=== PATIENT | female | born 1940 | race Caucasian/White ===

== ENCOUNTER 2019-11-19 14:20 | Outpatient (REF) | payer MEDICARE, SELFPAY | END 2019-11-19 14:21 | disposition home or self-care (01) | LOC: HO.HMGCLDS 14:20 | PROVIDERS: PCP Internal Medicine; Visit Provider Internal Medicine | DX: Z13.89 Encounter for screening for other disorder (principal) ==

== ENCOUNTER 2020-09-26 13:07 | Outpatient (REF) | payer MEDICARE, SELFPAY ==
--- NOTE | ~2020-09-26 | XR_ITS ---
EXAMINATION: XR CHEST CLINICAL INFORMATION: Cough COMPARISON: None TECHNIQUE: 2 views of the chest were obtained. FINDINGS: There is some atelectasis or scarring seen within the lingula. No definite confluent airspace disease is appreciated. Apical pleural thickening seen bilaterally. 8mm left apical density present which may represent calcified granuloma. Heart normal size. No evidence of pulmonary edema. No pneumothorax or significant pleural effusion. XR/XR chest 2V IMPRESSION: No significant acute parenchymal disease.
== END 2020-09-26 13:08 | disposition home or self-care (01) ==
LOC: HO.HMGCX 13:07
PROVIDERS: PCP Internal Medicine; Visit Provider Internal Medicine
DX: R05 Cough (principal)
CPT/HCPCS: 71046

== ENCOUNTER 2021-01-02 14:51 | Outpatient (REF) | payer MEDICARE, SELFPAY ==
[2021-01-02 16:45] LABS: Estimated Average Glucose 237 mg/dL; Hemoglobin A1c % 9.9 %
[2021-01-02 16:49] LABS: Alanine Aminotransferase 45 U/L (0-31); Albumin Level 4.2 g/dL (3.5-5.0); Alkaline Phosphatase 74 U/L (39-117); Anion Gap 12 (12-20); Aspartate Amino Transferase 22 U/L (5-31); Bilirubin Total 0.4 mg/dL (0.0-1.0); Blood Urea Nitrogen 24 mg/dL (9-16); Calcium 9.2 mg/dL (8.4-10.2); Carbon Dioxide 30 mmol/L (22-29); Chloride 102 mmol/L (96-108); Estimated Glomerular Filt Rate 34; Glucose Fasting 211 mg/dL (60-99); Potassium 4.4 mmol/L (3.3-5.1); Sodium 140 mmol/L (135-145); Total Protein 6.8 g/dL (6.5-8.0)
[2021-01-02 17:09] LABS: Vitamin D 25-OH Total 25.5 ng/mL (>30)
[2021-01-02 17:20] LABS: Folate > 20.0 ng/mL (> or = 4.0); Vitamin B12 1137 pg/mL (200-900)
== END 2021-01-02 14:52 | disposition home or self-care (01) ==
LOC: HO.HMGCLDS 14:51
PROVIDERS: PCP Internal Medicine; Visit Provider Internal Medicine
DX: E78.5 Hyperlipidemia, unspecified (principal); N18.9 Chronic kidney disease, unspecified; D75.89 Other specified diseases of blood and blood-forming organs; E55.9 Vitamin D deficiency, unspecified; E11.9 Type 2 diabetes mellitus without complications
CPT/HCPCS: 36415; 80053; 82043; 82306; 82607; 82746; 83036

== ENCOUNTER 2021-02-22 10:42 | Outpatient (REF) | payer MEDICARE, SELFPAY ==
[2021-02-22 14:14] LABS: Alanine Aminotransferase 62 U/L (0-31); Albumin Level 4.1 g/dL (3.5-5.0); Alkaline Phosphatase 115 U/L (39-117); Anion Gap 11 (12-20); Aspartate Amino Transferase 54 U/L (5-31); Bilirubin Total 0.3 mg/dL (0.0-1.0); Blood Urea Nitrogen 22 mg/dL (9-16); Calcium 9.7 mg/dL (8.4-10.2); Carbon Dioxide 30 mmol/L (22-29); Chloride 101 mmol/L (96-108); Estimated Glomerular Filt Rate 37; Glucose Random 207 mg/dL (60-115); Potassium 4.3 mmol/L (3.3-5.1); Sodium 138 mmol/L (135-145)
[2021-02-22 14:36] LABS: TSH reflex Free T4 1.93 uIU/mL (0.32-4.0)
== END 2021-02-22 10:43 | disposition home or self-care (01) ==
LOC: HO.HMGCLDS 10:42
PROVIDERS: PCP Internal Medicine; Visit Provider Internal Medicine
DX: E11.9 Type 2 diabetes mellitus without complications (principal); N18.9 Chronic kidney disease, unspecified
CPT/HCPCS: 36415; 80053; 84443

== ENCOUNTER 2021-10-16 14:04 | Outpatient (REF) | payer MEDICARE, SELFPAY ==
[2021-10-16 16:56] LABS: Estimated Average Glucose 206 mg/dL; Hemoglobin A1c % 8.8 %
[2021-10-16 16:57] LABS: Alanine Aminotransferase 23 U/L (0-31); Albumin Level 4.1 g/dL (3.5-5.0); Alkaline Phosphatase 75 U/L (39-117); Anion Gap 16 (12-20); Aspartate Amino Transferase 21 U/L (5-31); Bilirubin Total 0.4 mg/dL (0.0-1.0); Blood Urea Nitrogen 25 mg/dL (9-16); Calcium 9.1 mg/dL (8.4-10.2); Carbon Dioxide 25 mmol/L (22-29); Chloride 101 mmol/L (96-108); Cholesterol 184 mg/dL; Estimated Glomerular Filt Rate 38; Glucose Fasting 342 mg/dL (60-99); HDL Cholesterol 47 mg/dL; Potassium 4.6 mmol/L (3.3-5.1); Sodium 137 mmol/L (135-145); Total Protein 6.9 g/dL (6.5-8.0); Triglycerides 405 mg/dL
[2021-10-16 17:18] LABS: TSH reflex Free T4 1.51 uIU/mL (0.32-4.0)
== END 2021-10-16 14:05 | disposition home or self-care (01) ==
LOC: HO.HMGCLDS 14:04
PROVIDERS: PCP Internal Medicine; Visit Provider Internal Medicine
DX: I11.9 Hypertensive heart disease without heart failure (principal); E11.22 Type 2 diabetes mellitus with diabetic chronic kidney disease; N18.9 Chronic kidney disease, unspecified; E78.5 Hyperlipidemia, unspecified
CPT/HCPCS: 36415; 80053; 80061; 83036; 84443

== ENCOUNTER 2021-12-18 14:43 | Outpatient (REF) | payer MEDICARE, SELFPAY ==
[2021-12-18 16:27] LABS: MANUAL DIFF FLAG NO
[2021-12-18 16:33] LABS: Basophils Absolute Auto 0.1 X10*3/uL (0.0-0.2); Basophils Percent Auto 0.7 % (0-2); Eosinophils Absolute Auto 0.3 X10*3/uL (0.0-0.4); Eosinophils Percent Auto 3.4 % (0-4); Hematocrit 40.9 % (37.0-47.0); Hemoglobin 13.4 g/dl (12.0-16.0); Imm Gran Abs Auto 0.05 X10*3/uL (0.00-0.03); Imm Gran Pct Auto 0.5 % (0.0-0.4); Lymphocytes Absolute Auto 3.3 X10*3/uL (1.2-4.9); Lymphocytes Percent Auto 32.1 % (20-40); Mean Corpuscular HGB Conc 32.8 g/dl (31.0-35.0); Mean Corpuscular Hemoglobin 32.6 pg (27.0-33.0); Mean Corpuscular Volume 99.5 fL (80.0-98.0); Mean Platelet Volume 10.4 fL (9.4-12.3); Monocytes Absolute Auto 0.9 X10*3/uL (0.1-1.2); Monocytes Percent Auto 9.3 % (2-11); Neutrophils Absolute Auto 5.5 x10*3/uL (2.0-8.3); Platelet Count 347 X10*3/uL (160-400); Red Blood Count 4.11 X10*6/uL (4.20-5.50); Red Cell Distribution Width 13.2 % (11.0-16.0); White Blood Count 10.1 X10*3/uL (4.8-10.8)
[2021-12-18 16:41] LABS: Estimated Average Glucose 206 mg/dL; Hemoglobin A1c % 8.8 %
[2021-12-18 16:42] LABS: Alanine Aminotransferase 72 U/L (0-31); Albumin Level 4.4 g/dL (3.5-5.0); Alkaline Phosphatase 95 U/L (39-117); Anion Gap 12 (12-20); Aspartate Amino Transferase 46 U/L (5-31); Bilirubin Total 0.3 mg/dL (0.0-1.0); Blood Urea Nitrogen 26 mg/dL (9-16); Calcium 9.8 mg/dL (8.4-10.2); Carbon Dioxide 31 mmol/L (22-29); Chloride 101 mmol/L (96-108); Estimated Glomerular Filt Rate 39; Glucose Random 73 mg/dL (60-115); Potassium 4.1 mmol/L (3.3-5.1); Sodium 140 mmol/L (135-145); Total Protein 7.2 g/dL (6.5-8.0)
[2021-12-18 17:14] LABS: B Type Natriuretic Peptide 122 pg/mL (<100)
== END 2021-12-18 14:44 | disposition home or self-care (01) ==
LOC: HO.HMGCLDS 14:43
PROVIDERS: PCP Internal Medicine; Visit Provider Internal Medicine
DX: E11.22 Type 2 diabetes mellitus with diabetic chronic kidney disease (principal); N18.9 Chronic kidney disease, unspecified
CPT/HCPCS: 36415; 80053; 83036; 83880; 85025

== ENCOUNTER 2022-02-14 14:58 | Outpatient (REF) | payer MEDICARE, SELFPAY ==
[2022-02-14 17:17] LABS: Alanine Aminotransferase 49 U/L (0-31); Albumin Level 4.2 g/dL (3.5-5.0); Alkaline Phosphatase 92 U/L (39-117); Anion Gap 12 (12-20); Aspartate Amino Transferase 28 U/L (5-31); Bilirubin Total 0.4 mg/dL (0.0-1.0); Blood Urea Nitrogen 26 mg/dL (9-16); Calcium 10.5 mg/dL (8.4-10.2); Carbon Dioxide 33 mmol/L (22-29); Chloride 99 mmol/L (96-108); Estimated Glomerular Filt Rate 41; Glucose Random 172 mg/dL (60-115); Potassium 3.7 mmol/L (3.3-5.1); Sodium 140 mmol/L (135-145); Total Protein 6.8 g/dL (6.5-8.0)
[2022-02-16 07:42] LABS: HBS Num1 0.47 mIU/mL (0-7.99); HBc Num1 0.17 S/CO (0.00-0.79); HBsAGNum1 0.33 S/CO (0.00-0.99); Hepatitis B Core Antibody Nonreactive (Nonreactive); Hepatitis B Surface Antigen Negative (Negative); ~HepC Num1 0.11 S/CO (0.00-0.79); ~Hepatitis A Antibody IgM Nonreactive (Nonreactive); ~Hepatitis B Surface Antibody NONREACTIVE (Nonreactive); ~Hepatitis C Antibody Nonreactive (Nonreactive)
== END 2022-02-14 14:59 | disposition home or self-care (01) ==
LOC: HO.HMGCLDS 14:58
PROVIDERS: PCP Internal Medicine; Visit Provider Internal Medicine
DX: I12.9 Hypertensive chronic kidney disease with stage 1 through stage 4 chronic kidney disease, or unspecified chronic kidney disease (principal); N18.9 Chronic kidney disease, unspecified
CPT/HCPCS: 36415; 80053; 86704; 86706; 86709; 86803; 87340

== ENCOUNTER 2022-06-12 12:57 | Outpatient (REF) | payer MEDICARE, SELFPAY ==
[2022-06-12 14:28] LABS: Alanine Aminotransferase 94 U/L (0-31); Albumin Level 4.1 g/dL (3.5-5.0); Alkaline Phosphatase 91 U/L (39-117); Anion Gap 13 (12-20); Aspartate Amino Transferase 62 U/L (5-31); Bilirubin Total 0.5 mg/dL (0.0-1.0); Blood Urea Nitrogen 23 mg/dL (9-16); Calcium 9.4 mg/dL (8.4-10.2); Carbon Dioxide 34 mmol/L (22-29); Chloride 100 mmol/L (96-108); Estimated Glomerular Filt Rate 42; Glucose Random 158 mg/dL (60-115); Potassium 3.8 mmol/L (3.3-5.1); Sodium 143 mmol/L (135-145); Total Protein 6.7 g/dL (6.5-8.0)
[2022-06-12 14:57] LABS: Estimated Average Glucose 232 mg/dL; Hemoglobin A1c % 9.7 %; Total Hemoglobin (HGBA1C) 3916.5416 umol/L
== END 2022-06-12 12:58 | disposition home or self-care (01) ==
LOC: HO.HMGCLDS 12:57
PROVIDERS: PCP Internal Medicine; Visit Provider Internal Medicine
DX: E03.9 Hypothyroidism, unspecified (principal); E11.9 Type 2 diabetes mellitus without complications; N18.9 Chronic kidney disease, unspecified
CPT/HCPCS: 36415; 80053; 83036

== ENCOUNTER 2022-11-01 12:31 | Outpatient (AMB) | payer MEDICARE, SELFPAY ==
--- NOTE | 2022-11-01 12:38 | A.OFFPC_ITS ---
Vital Signs 11/01/22 12:40 Height 5 ft 7 in Weight 161 lb BMI 25.2 BP 130/58 L Blood Pressure Location Lt brachial Position Sitting Pulse 63 Pulse Source Pulse Oximeter Pulse Oximetry (%) 96 Oxygen Delivery Method Room Air Intake Visit Reasons: 4 Month follow up DM Intake Note: Patient is here for follow up on her diabetes. Allergies dulaglutide [Trulicity] Allergy (Unknown, Verified 11/01/22 12:41) GERD losartan Allergy (Unknown, Verified 11/01/22 12:41) Hyperkalemia Sulfa (Sulfonamide Antibiotics) Allergy (Unknown, Verified 11/01/22 12:41) Rash Medication List - Last Reconciled 11/01/22 by Orquidea Keller MD allopurinol 100 mg PO DAILY amlodipine 2.5 mg PO DAILY benzonatate 100 mg PO BID PRN blood sugar diagnostic (FreeStyle Lite Strips) Use to test blood sugar three times daily buspirone 40 mg (4 x 10 mg) PO BEDTIME codeine-guaifenesin 10-100 mg/5 mL 5 mL PO Q4-6H PRN cyclobenzaprine 5 mg PO TID PRN furosemide 20 mg PO BID insulin aspart U-100 (Novolog FlexPen U-100 Insulin aspart) 14 units (0.14 mL) subcut TID insulin degludec 50 units (0.25 mL) subcut DAILY lactic acid-urea 1 appl topical DAILY PRN lancets (FreeStyle Lancets) use to test blood sugars three times per day latanoprost 0.005% 1 drp ophthalmic (eye) DAILY levothyroxine 75 mcg PO DAILY metoprolol succinate ER 25 mg PO BID miscellaneous medical supply 1 ea miscellaneous .QD omeprazole 20 mg PO DAILY pen needle, diabetic QID scopolamine base 1 patch transdermal Q3D PRN simvastatin 40 mg (2 x 20 mg) PO DAILY tramadol 50 mg PO TID PRN valacyclovir (Valtrex) 1,000 mg PO TID Tobacco use date assessed: 11/01/22 Fall risk assessment: No Falls in past year Last assessed Fall Risk: 11/01/22 Dental Screening Dental Screen Date: 11/01/22 Did you have a dental visit in the last 12 months?: Yes Did you have a dental problem in the last 6 months where you did not have access to dental care?: No Was dental information given to patient?: Patient has dentist HPI 4 Month follow up DM HPI Details Pt presents for DM 2, HTN, hypothyroid, hyperlipid, stable on meds. Patient has been on cruise to [place] in September. She has been working out with personal care worker twice a week and her balance improved significantly. PENDING SALE TO [facility] Medical History Vitamin D deficiency Macrocytosis Cough Sciatica Hypothyroidism HTN (hypertension) DM type 2 (diabetes mellitus, type 2) Lower extremity edema Irritable bowel syndrome (IBS) Chronic GERD Anxiety Chronic kidney disease (CKD) Hyperlipidemia Hypertension associated with diabetes Surgical History No pertinent past surgical history Family History Mother Ovarian cancer Father Pancreatic cancer Thyroid disease Social History Household Members Other:: Housing: House Alcohol intake: never Patient Tobacco Use Status: Never used Tobacco e-Cigarette/Vaping Use: Never Used Second Hand Smoke Exposure: No Current occupational status: retired Cognitive needs: No Hearing needs: No Vision needs: Yes Questionnaire Thrive Questionnaire Date Thrive assessed: 08/29/20 JAMES-7 AMB Questionnaire JAMES-7 Date JAMES - 7 assessed: 02/22/21 Source: Developed by Drs. Bryce Garcia, Sophie Baldwin, Rock Coyle and colleagues, with an educational pranay from [employer]. Review of Systems Const All systems reviewed & are unremarkable except as noted in HPI and below Reports no additional complaints Eyes Reports no additional complaints ENT Reports no additional complaints Card Reports no additional complaints Resp Reports no additional complaints GI Reports no additional complaints Reports no additional complaints Physical exam (Primary Care) Vital Signs: Last Vital Signs Pulse 63 11/01/22 12:40 BP 130/58 L 11/01/22 12:40 Pulse Ox 96 11/01/22 12:40 Oxygen Delivery Method Room Air 11/01/22 12:40 BMI result Body Mass Index 25.2 Tobacco/Smoking Status: Tobacco use Status Tobacco use date assessed 11/01/22 11/01/22 12:48 Patient Tobacco Use Status Never used Tobacco 11/01/22 12:48 e-Cigarette/Vaping Use Never Used 11/01/22 12:48 Thrive Assessment: Date of Thrive Assessment Date Thrive assessed 08/29/20 11/01/22 12:48 Const General: no acute distress HENMT Head: Yes normal to inspection Ears: hearing grossly normal bilaterally Neck Neck: Yes supple Resp Effort & Inspection: normal respiratory effort Auscultation: clear to auscultation bilaterally Cardio Rhythm: regular rhythm Heart sounds: S1 normal heart sound present and S2 normal heart sound present GI Inspection: Yes normal to inspection Palpation (GI): Soft to palpation Percussion: Yes normal to percussion Auscultation: normal bowel sounds Results AMB Hemoglobin A1c AMB Hemoglobin A1c 9.1 % Last Edit by Aline Stewart CMA on 11/01/22 13:08 Results Reviewed Results Reviewed: Laboratory Last Values Hgb A1c (Clinic) 9.1 % (4.0-6.0) H 11/01/22 13:07 Assessment and Plan Assessment & Plan (1) Elevated LFTs: Code(s): R79.89 - Other specified abnormal findings of blood chemistry Plan: Check comprehensive panel today (2) HTN (hypertension): Code(s): I10 - Essential (primary) hypertension Plan: Continue current medications (3) Hypothyroidism: Code(s): E03.9 - Hypothyroidism, unspecified Plan: Continue levothyroxine (4) DM type 2 (diabetes mellitus, type 2): Code(s): E11.9 - Type 2 diabetes mellitus without complications Plan: A1c is down to 9.1, ADA diet increase physical activity discussed with the patient. Follow-up in 4 months with a fasting labs before (5) Chronic kidney disease (CKD): Comment: avoid NSAIDs Code(s): N18.9 - Chronic kidney disease, unspecified Plan: Monitor renal function and avoid NSAID Orders: Orders Comprehensive Met. Panel Today E03.9 - Hypothyroidism, unspecified, I10 - Essential (primary) hypertension, R79.89 - Other specified abnormal findings of blood chemistry AMB Hemoglobin A1c Today Z13.9 - Encounter for screening, unspecified TSH reflex Free T4 Today E03.9 - Hypothyroidism, unspecified Medications: Refilled omeprazole 20 mg PO DAILY 90 caps 3RF Coding Level of Care Code Est Pt Level 4 (33501) Diagnoses Elevated LFTs R79.89 HTN (hypertension) I10 Hypothyroidism E03.9 DM type 2 (diabetes mellitus, type 2) E11.9 Chronic kidney disease (CKD) N18.9
[2022-11-01 12:40] VITALS: BP 130/58; PULSE 63; O2SAT 96; BMI 25.2
== END 2022-11-01 15:51 | disposition home or self-care (01) ==
PROVIDERS: PCP Internal Medicine; Visit Provider Internal Medicine
DX: E03.9 Hypothyroidism, unspecified (principal); I12.9 Hypertensive chronic kidney disease with stage 1 through stage 4 chronic kidney disease, or unspecified chronic kidney disease; E11.22 Type 2 diabetes mellitus with diabetic chronic kidney disease; N18.9 Chronic kidney disease, unspecified; R79.89 Other specified abnormal findings of blood chemistry
CPT/HCPCS: 83036; 99214

== ENCOUNTER 2022-11-01 13:33 | Outpatient (REF) | payer MEDICARE, SELFPAY ==
[2022-11-01 16:39] LABS: Alanine Aminotransferase 31 U/L (0-31); Alkaline Phosphatase 80 U/L (39-117); Anion Gap 12 (12-20); Aspartate Amino Transferase 30 U/L (5-31); Bilirubin Total 0.5 mg/dL (0.0-1.0); Blood Urea Nitrogen 20 mg/dL (9-16); Calcium 9.4 mg/dL (8.4-10.2); Carbon Dioxide 28 mmol/L (22-29); Chloride 102 mmol/L (96-108); Estimated Glomerular Filt Rate 39; Glucose Random 323 mg/dL (60-115); Potassium 3.9 mmol/L (3.3-5.1); Sodium 138 mmol/L (135-145); Total Protein 6.8 g/dL (6.5-8.0)
[2022-11-01 16:48] LABS: TSH reflex Free T4 1.56 uIU/mL (0.32-4.0)
== END 2022-11-01 13:34 | disposition home or self-care (01) ==
LOC: HO.HMGCLDS 13:33
PROVIDERS: PCP Internal Medicine; Visit Provider Internal Medicine
DX: R79.89 Other specified abnormal findings of blood chemistry (principal); I10 Essential (primary) hypertension; E03.9 Hypothyroidism, unspecified
CPT/HCPCS: 36415; 80053; 84443

== ENCOUNTER 2023-03-04 13:13 | Outpatient (AMB) | payer MEDICARE, SELFPAY ==
--- NOTE | 2023-03-04 14:04 | A.OFFPC_ITS ---
Vital Signs 03/04/23 14:05 Height 5 ft 7 in Weight 153 lb BMI 24.0 BP 118/64 Blood Pressure Location Rt brachial Position Sitting Pulse 71 Pulse Source Pulse Oximeter Pulse Oximetry (%) 99 Oxygen Delivery Method Room Air Intake Visit Reasons: TREVON [id number] Allergies dulaglutide [Trulicity] Allergy (Unknown, Verified 03/04/23 14:09) GERD losartan Allergy (Unknown, Verified 03/04/23 14:09) Hyperkalemia Sulfa (Sulfonamide Antibiotics) Allergy (Unknown, Verified 03/04/23 14:09) Rash Tobacco use date assessed: 03/04/23 Fall risk assessment: No Falls in past year Last assessed Fall Risk: 03/04/23 Dental Screening Dental Screen Date: 03/04/23 Did you have a dental visit in the last 12 months?: Yes Did you have a dental problem in the last 6 months where you did not have access to dental care?: No Was dental information given to patient?: Patient has dentist [facility] Medical History Vitamin D deficiency Macrocytosis Cough Sciatica Hypothyroidism HTN (hypertension) DM type 2 (diabetes mellitus, type 2) Lower extremity edema Irritable bowel syndrome (IBS) Chronic GERD Anxiety Chronic kidney disease (CKD) Hyperlipidemia Hypertension associated with diabetes Surgical History No pertinent past surgical history Family History Mother Ovarian cancer Father Pancreatic cancer Thyroid disease Social History Household Members Other:: Housing: House Alcohol intake: never Patient Tobacco Use Status: Never used Tobacco e-Cigarette/Vaping Use: Never Used Second Hand Smoke Exposure: No Current occupational status: retired Cognitive needs: No Hearing needs: No Vision needs: Yes Questionnaire Thrive Questionnaire Date Thrive assessed: 08/29/20 AUDIT C Alcohol Use Questionnaire (AUDIT-C) 1. How often do you have a drink containing alcohol?: Never 3. How often do you have six or more drinks on one occasion?: Never Total Score: 0 JAMES-7 AMB Questionnaire JAMES-7 Date JAMES - 7 assessed: 02/22/21 Source: Developed by Drs. Bryce Garcia, Sophie Baldwin, Rock Coyle and colleagues, with an educational pranay from [employer]. Physical exam (Primary Care) Tobacco/Smoking Status: Tobacco use Status Tobacco use date assessed 11/01/22 11/01/22 12:48 Patient Tobacco Use Status Never used Tobacco 11/01/22 12:48 e-Cigarette/Vaping Use Never Used 11/01/22 12:48 Thrive Assessment: Date of Thrive Assessment Date Thrive assessed 08/29/20 11/01/22 12:48 Coding
[2023-03-04 14:05] VITALS: BP 140/85; PULSE 71; O2SAT 99; BMI 24.0
--- NOTE | 2023-03-04 14:21 | AM.OFFVISMDC ---
Intake Vital Signs 03/04/23 14:05 Height 5 ft 7 in Weight 153 lb BMI 24.0 BP 140/85 H Blood Pressure Location Rt brachial Position Sitting Pulse 71 Pulse Source Pulse Oximeter Pulse Oximetry (%) 99 Oxygen Delivery Method Room Air Intake Visit Reasons: [facility] G0439 Allergies dulaglutide [Trulicity] Allergy (Unknown, Verified 03/04/23 14:09) GERD losartan Allergy (Unknown, Verified 03/04/23 14:09) Hyperkalemia Sulfa (Sulfonamide Antibiotics) Allergy (Unknown, Verified 03/04/23 14:09) Rash Medication List - Last Reconciled 03/04/23 by Orquidea Keller MD acetaminophen (Tylenol Extra Strength) 500 mg PO Q6H PRN allopurinol 100 mg PO DAILY amiodarone 100 mg PO DAILY amlodipine 2.5 mg PO DAILY apixaban (Eliquis) 2.5 mg PO BID atorvastatin 80 mg PO BEDTIME blood sugar diagnostic (FreeStyle Lite Strips) Use to test blood sugar three times daily buspirone 40 mg (4 x 10 mg) PO BEDTIME codeine-guaifenesin 10-100 mg/5 mL 5 mL PO Q4-6H PRN furosemide 40 mg PO BID insulin aspart (niacinamide) 100 unit/mL (3 mL) (Fiasp FlexTouch U-100 Insulin) 10 units subcut TID insulin degludec 26 units subcut DAILY lactic acid-urea 1 appl topical DAILY PRN lancets (FreeStyle Lancets) use to test blood sugars three times per day latanoprost 0.005% 1 drp ophthalmic (eye) DAILY levothyroxine 75 mcg PO DAILY metoprolol succinate ER 25 mg PO DAILY miscellaneous medical supply 1 ea miscellaneous .QD omeprazole 20 mg PO DAILY pen needle, diabetic QID sacubitril-valsartan 24-26 mg (Entresto) 1 tab PO BID scopolamine base 1 patch transdermal Q3D PRN tramadol 50 mg PO TID PRN valacyclovir (Valtrex) 1,000 mg PO TID HPI [facility] G0439 HPI Details Patient presents for annual visit. She was admitted to [facility] in January and underwent AMOR placement to LAD for 92% stenosis. Patient was started on Entresto last month because decreased ejection fraction to 45 % on echocardiogram during the admission. Patient also developed episode of AFib while in the hospital and was started on Eliquis and amiodarone. Initiated the conversation about Advanced Directives. Advanced Directives help? patients prepare for current and future decisions about their medical treatment? and place of care. Discussed with patient that it is a process where a patients? current condition and prognosis are reviewed, their wishes for information? regarding their illness are elicited, and likely medical dilemmas are presented? and options discussed. The form can be amended as needed, reviewed yearly and? make changes as needed IPPE/AWV ? year old presents? for her ? Annual? Wellness Visit, initial visit.? Medical / Social History Reviewed? Past Medical History ?Yes? . ? [place]? of Care / Care Team list updated ?Yes . ? Surgical/Hospitalization? History ?Yes . ? Current Medications? (including OTC and supplements) ?Yes . ? Family History ?Yes? . ? Tobacco? Control form ?Yes . ? AUDIT-C (Alcohol use) form? ?Yes . ? Illicit drug use in Social? History ?Yes . ? Current diagnosis of? depression? ?No ? Appropriate PHQ2/PHQ9? completed ?Yes . ? Data entered by ?Medical? [employer] and reviewed by provider ? Fall Risk ? Fall? History? Have you had any falls with? injury in the past year? ?No . ? Have you had two or more? falls in the past year? ?No . ? Fall Risk Assessment: ?No? falls in the past year . ? HRA filled out by? the patient, reviewed by Provider and scanned. ? IPPE/AWV ? Balance? [place]? ?Yes . ? Tandem? walk ?Yes . ? Walk and? Turn ?Yes . ? Rise from? sit to stand ?Yes . ?Vision? Corrective? lens ?Yes ? Vision? screen ? Up-to-date, has an appointment [] for vision? screening and glaucoma screening ?Hearing? Whisper? test ?pass .? Initiated the conversation about Advanced Directives. Advanced Directives help? patients prepare for current and future decisions about their medical treatment? and place of care. Discussed with patient that it is a process where a patients? current condition and prognosis are reviewed, their wishes for information? regarding their illness are elicited, and likely medical dilemmas are presented? and options discussed. The form can be amended as needed, reviewed yearly and? make changes as needed Written? Plan?Completed. See Patient? Documents. [facility] Medical History (Updated 03/04/23 @ 16:44 by Orquidea Keller MD) Vitamin D deficiency Macrocytosis Cough Sciatica Hypothyroidism HTN (hypertension) DM type 2 (diabetes mellitus, type 2) Lower extremity edema Irritable bowel syndrome (IBS) Chronic GERD Anxiety Chronic kidney disease (CKD) Hyperlipidemia Hypertension associated with diabetes Surgical History No pertinent past surgical history Family History Mother Ovarian cancer Father Pancreatic cancer Thyroid disease Social History Household Members Other:: Housing: House Alcohol intake: never Patient Tobacco Use Status: Never used Tobacco e-Cigarette/Vaping Use: Never Used Second Hand Smoke Exposure: No Current occupational status: retired Cognitive needs: No Hearing needs: No Vision needs: Yes Questionnaire Medicare Wellness Checkup What is your age?: 78 or older What gender do you identify with?: female During the past 4 weeks, how much have you been bothered by emotional problems such as feeling anxious, depressed, irritable, sad or downhearted, and blue?: not at all During the past 4 weeks, has your physical & emotional health limited your social activities with family, friends, neighbors, or groups?: not at all During the past 4 weeks, how much bodily pain have you generally had?: very mild pain During the past 4 weeks, was someone available to help you if you needed & wanted help?: no, not at all During the past 4 weeks, what was the hardest physical activity you could do for at least 2 minutes?: moderate Can you go shopping for groceries or clothes without someone's help?: Yes Can you prepare your own meals?: Yes Can you do your housework without help?: Yes Because of any health problems, do you need the help of another person with your personal care needs such as eating, bathing, dressing or getting around the house?: No Can you handle your own money without help?: Yes During the past 4 weeks, how would you rate your health in general?: good During the past 4 weeks how have things been going for you?: very well; could hardly better Are you having difficulties driving your car?: no Do you always fasten your seat belt when you are in a car?: yes, usually During past 4 weeks, have you been bothered by the following: never: Falling or dizzy when standing up, Sexual problems?, Trouble eating well?, Teeth or denture problems? and Problems using the telephone? and sometimes: Tiredness or fatigue? Have you fallen 2 or more times in the past year?: No Are you afraid of falling?: No Are you a smoker?: no During the past 4 weeks, how many drinks of wine, beer, or other alcoholic beverages did you have?: no alcohol at all Do you exercise for about 20 minutes 3 or more times a week?: yes, most of the time Have you been given information to help with the following?: yes: Hazards in your house that might hurt you? and yes: Keeping track of your medications? How often do you have trouble taking medicines the way you have been told to take them?: I always take medicine as prescribed How confident are you that you can control & manage most of your health problems?: very confident What is your race?: White Mini Mental State Exam (MMSE) Orientation What is the (year) (season) (date) (day) (month)?: year, season, date, day and month Where are we (state) (county) (town or city) (hospital) (floor)?: state, county, town or city, hospital/clinic and floor Registration Name of 3 unrelated objects clearly and slowly, then ask patient to repeat all 3 of them. (1st repeat determines score. Make sure they can repeat all three): object 1, object 2 and object 3 Attention & Calculation (CHOOSE ONE) Spell WORLD backwards (DLROW): 5 letters Recall Ask patient to repeat the 3 items from question #3.: object 1, object 2 and object 3 Language Show patient a wristwatch & ask what it is. Repeat for pencil.: watch and pencil Ask the patient to repeat the phrase 'No ifs, ands, or buts' after you.: correct Ask the patient to 'take a piece of paper with their right hand' 'fold paper in half' 'place paper on floor': take paper in right hand and fold paper in half Print the sentence 'CLOSE YOUR EYES' on a piece. If patient actually closes eyes then score.: followed written direction Give patient a blank piece of paper & ask to write a sentence. Score if it contains a noun & verb.: sentence contains subject and verb Score Score: 28 Activity of Daily Living Bathing - sponge bath, tub bath or shower: receives no assistance (gets in/out by self, if usual bathing means Dressing - getting clothes from closets & drawers, including inner/outer garments & fasteners.: gets clothes & gets completely dressed without help Toileting - going to the 'toilet room' for urine/bowel elimination & cleaning self/arranging clothes: goes to toilet room, cleans self, arranges clothes without help Transfer: moves in & out of bed and chair without help (may use support object) Continence: controls urination/bowel movements completely by self Feeding: feeds self without help Total Score: 0 Information obtained from: patient Using telephone: independent Traveling: independent Shopping: independent Preparing meals: independent Housework: independent Taking medicine: independent Managing money: independent PHQ-9 Over the last 2 weeks, how often have you been bothered by any of the following problems? 1. Little interest or pleasure in doing things: not at all 2. Feeling down, depressed, or hopeless: not at all 3. Trouble falling or staying asleep, or sleeping too much: not at all 4. Feeling tired or having little energy: not at all 5. Poor appetite or overeating: not at all 6. Feeling bad about yourself - or that you are a failure or have let yourself or your family down: not at all 7. Trouble concentrating on things, such as reading the newspaper or watching television: not at all 8. Moving or speaking so slowly that other people could have noticed. Or the opposite - being so fidgety or restless that you have been moving around a lot more than usual: not at all 9. Thoughts that you would be better off or of hurting yourself in some way: not at all Total score: 0 Depression Screening Interpretation: Negative Depression Screening Done: Yes Source: Developed by Drs. Bryce Garcia, Sophie Baldwin, Rock Coyle and colleagues, with an educational praany from [employer]. Review of Systems Const All systems reviewed & are unremarkable except as noted in HPI and below Reports no additional complaints Eyes Reports no additional complaints ENT Reports no additional complaints Card Reports no additional complaints Resp Reports no additional complaints GI Reports no additional complaints Reports no additional complaints Physical Exam Vital Signs: Last Vital Signs Pulse 71 03/04/23 14:05 BP 118/64 03/04/23 14:05 Pulse Ox 99 03/04/23 14:05 Oxygen Delivery Method Room Air 03/04/23 14:05 BMI result Body Mass Index 24.0 Const General: no acute distress HEENT Head: Yes normal to inspection Eyes General: appearance normal, both eyes and all related structures Neck Neck: Yes supple Resp Effort & Inspection: normal respiratory effort Auscultation: clear to auscultation bilaterally Cardio Rhythm: regular rhythm Heart sounds: S1 normal heart sound present and S2 normal heart sound present GI Inspection: Yes normal to inspection Palpation (GI): Soft to palpation Percussion: Yes normal to percussion Auscultation: normal bowel sounds Extrem Other: 1 +pitting edema Assessment & Plan Assessment & Plan (1) CHF (congestive heart failure): Comment: Echo LVEF 40-45%, mid to distal anterior, apical, mid-distal septal/anteroseptal and apical inf wall akinesis 01/10 [facility] Code(s): I50.9 - Heart failure, unspecified Plan: Blood pressure is elevated today patient will increase Entresto to 49/51 mg twice a day and check basic metabolic panel in 1 week at [facility]. She will follow-up with Cardiology in 3-4 weeks. (2) Hypothyroidism: Code(s): E03.9 - Hypothyroidism, unspecified Plan: Continue levothyroxine check TSH level while on amiodarone (3) HTN (hypertension): Code(s): I10 - Essential (primary) hypertension Plan: See above (4) DM type 2 (diabetes mellitus, type 2): Code(s): E11.9 - Type 2 diabetes mellitus without complications Plan: Check A1c today, patient was advised to start monitoring her blood glucose with continuous monitor Marsha or DEXcom (5) Cough: Code(s): R05 - Cough Plan: For persistent cough obtain chest XR, (6) CAD (coronary artery disease): Comment: NSTEMI, S/P AMOR to mid LAD (90% stenosis) 01/10 Code(s): I25.10 - Atherosclerotic heart disease of [place] coronary artery without angina pectoris Plan: CONTINUE CURRENT TREATMENT (7) Paroxysmal A-fib: Comment: 01/10 during hospitalization for NSTEMI 01/10, on Amiodarone and Eliquis Code(s): I48.0 - Paroxysmal atrial fibrillation Plan: Continue Elliquis and beta-darrion, (8) Hyperlipidemia: Comment: cont statin Code(s): E78.5 - Hyperlipidemia, unspecified Plan: Continue statin (9) Chronic kidney disease (CKD): Comment: avoid NSAIDs Code(s): N18.9 - Chronic kidney disease, unspecified Plan: Monitor renal function, she may be a candidate for SGLT 2 inhibitor, follow-up in 6 weeks Orders: Orders TSH reflex Free T4 Today E03.9 - Hypothyroidism, unspecified, E11.9 - Type 2 diabetes mellitus without complications, I10 - Essential (primary) hypertension, I50.9 - Heart failure, unspecified B Type Natriuretic Peptide Today E03.9 - Hypothyroidism, unspecified, E11.9 - Type 2 diabetes mellitus without complications, I10 - Essential (primary) hypertension, I50.9 - Heart failure, unspecified Basic Metabolic Panel 1 Week I50.9 - Heart failure, unspecified Comprehensive Met. Panel Today E03.9 - Hypothyroidism, unspecified, E11.9 - Type 2 diabetes mellitus without complications, I10 - Essential (primary) hypertension, I50.9 - Heart failure, unspecified Complete Blood Count Auto Diff Today E03.9 - Hypothyroidism, unspecified, E11.9 - Type 2 diabetes mellitus without complications, I10 - Essential (primary) hypertension, I50.9 - Heart failure, unspecified Hemoglobin A1c Today E11.9 - Type 2 diabetes mellitus without complications Medications: Changed From furosemide 20 mg PO BID 90 tabs 3RF To furosemide 40 mg PO BID From insulin degludec 60 units (0.3 mL) subcut DAILY 30 days 9 mL 5RF E11.9 - Type 2 diabetes mellitus without complications To insulin degludec 26 units subcut DAILY E11.9 - Type 2 diabetes mellitus without complications From metoprolol succinate ER 25 mg PO BID 180 tabs 3RF To metoprolol succinate ER 25 mg PO DAILY Refilled codeine-guaifenesin 10-100 mg/5 mL 5 mL PO Q4-6H PRN 118 mL 0RF cough Quality Reporting (2019) Depression/Bipolar (159/160/161/177) PHQ-9: Total score: 0 Coding Level of Care Code Medicare Subsequent (G0439) Diagnoses CHF (congestive heart failure) I50.9 Hypothyroidism E03.9 HTN (hypertension) I10 DM type 2 (diabetes mellitus, type 2) E11.9 Cough R05 CAD (coronary artery disease) I25.10 Paroxysmal A-fib I48.0 Hyperlipidemia E78.5 Chronic kidney disease (CKD) N18.9 CPT Codes Advance Care Planning - Time spent: 1-15 minutes, not on file ([id number]) Advance Care Planning Advance Care Planning discussion: Exists, not on file Forms completed: Health Care Proxy Time spent: 1-15 minutes, not on file
== END 2023-03-04 15:07 | disposition home or self-care (01) ==
PROVIDERS: PCP Internal Medicine; Visit Provider Internal Medicine
DX: Z00.00 Encounter for general adult medical examination without abnormal findings (principal); I13.0 Hypertensive heart and chronic kidney disease with heart failure and stage 1 through stage 4 chronic kidney disease, or unspecified chronic kidney disease; I50.9 Heart failure, unspecified; N18.9 Chronic kidney disease, unspecified; E11.22 Type 2 diabetes mellitus with diabetic chronic kidney disease; I48.0 Paroxysmal atrial fibrillation; E03.9 Hypothyroidism, unspecified; R05.9 Cough, unspecified; I25.10 Atherosclerotic heart disease of native coronary artery without angina pectoris; E78.5 Hyperlipidemia, unspecified
CPT/HCPCS: 1124F; G0439

== ENCOUNTER 2023-03-04 15:13 | Outpatient (REF) | payer MEDICARE, SELFPAY ==
--- NOTE | ~2023-03-04 | XR_ITS ---
EXAMINATION: XR CHEST CLINICAL INFORMATION: Heart failure. COMPARISON: Chest 09/26/2020. TECHNIQUE: 2 views of the chest were obtained. FINDINGS: The lungs are well-expanded and clear of acute pneumonic process. There is ill-defined opacity right upper lobe suspicious for a nodule measuring 1.1 cm borderline. Question overlapping ribs with soft tissue artifact. Mild atelectatic changes right middle lobe. There is bilateral apical pleural thickening. Heart size and pulmonary vascularity is normal. No gross bony abnormality seen. XR/XR chest 2V IMPRESSION: 1. No acute pneumonic process. 2. Question right upper lobe nodule. Recommend outpatient CT chest. 3. Mild atelectatic changes right middle lobe. 4. No gross bony abnormality seen.
[2023-03-04 15:46] LABS: MANUAL DIFF FLAG NO
[2023-03-04 15:48] LABS: Basophils Absolute Auto 0.1 X10*3/uL (0.0-0.2); Basophils Percent Auto 0.8 % (0-2); Eosinophils Absolute Auto 0.4 X10*3/uL (0.0-0.4); Eosinophils Percent Auto 4.4 % (0-4); Hematocrit 39.1 % (37.0-47.0); Hemoglobin 12.9 g/dl (12.0-16.0); Imm Gran Abs Auto 0.04 X10*3/uL (0.00-0.03); Imm Gran Pct Auto 0.5 % (0.0-0.4); Lymphocytes Absolute Auto 2.6 X10*3/uL (1.2-4.9); Lymphocytes Percent Auto 29.8 % (20-40); Mean Corpuscular Hemoglobin 32.6 pg (27.0-33.0); Mean Corpuscular Volume 98.7 fL (80.0-98.0); Mean Platelet Volume 10.6 fL (9.4-12.3); Monocytes Absolute Auto 0.8 X10*3/uL (0.1-1.2); Monocytes Percent Auto 8.5 % (2-11); Platelet Count 269 X10*3/uL (160-400); Red Blood Count 3.96 X10*6/uL (4.20-5.50); Red Cell Distribution Width 14.1 % (11.0-16.0); White Blood Count 8.9 X10*3/uL (4.8-10.8)
[2023-03-04 16:10] LABS: B Type Natriuretic Peptide 82 pg/mL (<100)
[2023-03-04 16:50] LABS: Alanine Aminotransferase 27 U/L (0-31); Alkaline Phosphatase 105 U/L (39-117); Anion Gap 15 (12-20); Aspartate Amino Transferase 26 U/L (5-31); Bilirubin Total 0.5 mg/dL (0.0-1.0); Blood Urea Nitrogen 22 mg/dL (9-16); Calcium 9.7 mg/dL (8.4-10.2); Carbon Dioxide 28 mmol/L (22-29); Chloride 99 mmol/L (96-108); Estimated Glomerular Filt Rate 32; Glucose Random 312 mg/dL (60-115); Potassium 3.7 mmol/L (3.3-5.1); Sodium 138 mmol/L (135-145); Total Protein 7.1 g/dL (6.5-8.0)
[2023-03-04 17:04] LABS: TSH reflex Free T4 1.37 uIU/mL (0.32-4.0)
== END 2023-03-04 15:14 | disposition home or self-care (01) ==
LOC: HO.HMGCX 15:13
PROVIDERS: PCP Internal Medicine; Visit Provider Internal Medicine
DX: I11.0 Hypertensive heart disease with heart failure (principal); I50.9 Heart failure, unspecified; E03.9 Hypothyroidism, unspecified; E11.9 Type 2 diabetes mellitus without complications; R05.9 Cough, unspecified
CPT/HCPCS: 36415; 71046; 80053; 83880; 84443; 85025

== ENCOUNTER 2023-04-18 12:22 | Outpatient (AMB) | payer MEDICARE, SELFPAY ==
[2023-04-18 12:40] VITALS: BP 126/62; PULSE 57; O2SAT 100; BMI 23.8
--- NOTE | 2023-04-18 12:40 | A.OFFPC_ITS ---
Vital Signs 04/18/23 12:40 Height 5 ft 7 in Weight 152 lb BMI 23.8 BP 126/62 Blood Pressure Location Lt brachial Position Sitting Pulse 57 Pulse Source Pulse Oximeter Pulse Oximetry (%) 100 Oxygen Delivery Method Room Air Intake Visit Reasons: 6 week Follow up Intake Note: Pt is here today for 6 weeks follow up visit. Allergies dulaglutide [Trulicity] Allergy (Unknown, Verified 04/18/23 12:49) GERD losartan Allergy (Unknown, Verified 04/18/23 12:49) Hyperkalemia Sulfa (Sulfonamide Antibiotics) Allergy (Unknown, Verified 04/18/23 12:49) Rash Medication List - Last Reconciled 04/18/23 by Orquidea Keller MD acetaminophen (Tylenol Extra Strength) 500 mg PO Q6H PRN allopurinol 100 mg PO DAILY amiodarone 100 mg PO DAILY amlodipine 2.5 mg PO DAILY apixaban (Eliquis) 2.5 mg PO BID atorvastatin 80 mg PO BEDTIME blood sugar diagnostic (FreeStyle Lite Strips) Use to test blood sugar three times daily buspirone 40 mg (4 x 10 mg) PO BEDTIME codeine-guaifenesin 10-100 mg/5 mL 5 mL PO Q4-6H PRN furosemide 40 mg PO BID insulin aspart (niacinamide) 100 unit/mL (3 mL) (Fiasp FlexTouch U-100 Insulin) 10 units subcut TID insulin degludec 36 units (0.18 mL) subcut DAILY lactic acid-urea 1 appl topical DAILY PRN lancets (FreeStyle Lancets) use to test blood sugars three times per day latanoprost 0.005% 1 drp ophthalmic (eye) DAILY levothyroxine 75 mcg PO DAILY metoprolol succinate ER 25 mg PO DAILY miscellaneous medical supply 1 ea miscellaneous .QD omeprazole 20 mg PO DAILY pen needle, diabetic QID sacubitril-valsartan 24-26 mg (Entresto) 1 tab PO BID scopolamine base 1 patch transdermal Q3D PRN tramadol 50 mg PO TID PRN valacyclovir (Valtrex) 1,000 mg PO TID Tobacco use date assessed: 04/18/23 Fall risk assessment: No Falls in past year Last assessed Fall Risk: 04/18/23 Dental Screening Dental Screen Date: 04/18/23 Did you have a dental visit in the last 12 months?: Yes Did you have a dental problem in the last 6 months where you did not have access to dental care?: No Was dental information given to patient?: Patient has dentist HPI 6 week Follow up HPI Details Pt presents for f/u IDDM, ischemic cardiomyopathy, hypertension, history of AFib after [place], CHRONIC KIDNEY DISEASE STAGE 3. Patient has been more physically active had an episode of left anterior upper chest discomfort this morning which resolved after Tylenol ,she denies exercise induced chest pain, palpitations shortness for breath PND orthopnea. [facility] Medical History Vitamin D deficiency Macrocytosis Cough Sciatica Hypothyroidism HTN (hypertension) DM type 2 (diabetes mellitus, type 2) Lower extremity edema Irritable bowel syndrome (IBS) Chronic GERD Anxiety Chronic kidney disease (CKD) Hyperlipidemia Hypertension associated with diabetes Surgical History No pertinent past surgical history Family History Mother Ovarian cancer Father Pancreatic cancer Thyroid disease Social History Household Members Other:: Housing: House Alcohol intake: never Patient Tobacco Use Status: Never used Tobacco e-Cigarette/Vaping Use: Never Used Second Hand Smoke Exposure: No Current occupational status: retired Cognitive needs: No Hearing needs: No Vision needs: Yes Questionnaire Thrive Questionnaire Date Thrive assessed: 08/29/20 AUDIT C Alcohol Use Questionnaire (AUDIT-C) 1. How often do you have a drink containing alcohol?: Never 3. How often do you have six or more drinks on one occasion?: Never Total Score: 0 JAMES-7 AMB Questionnaire JAMES-7 Date JAMES - 7 assessed: 02/22/21 Source: Developed by Drs. Bryce Garcia, Sophie Baldwin, Rock Coyle and colleagues, with an educational pranay from [employer]. Review of Systems Const All systems reviewed & are unremarkable except as noted in HPI and below Reports no additional complaints Eyes Reports no additional complaints ENT Reports no additional complaints Card Reports no additional complaints Resp Reports no additional complaints GI Reports no additional complaints Reports no additional complaints Physical exam (Primary Care) Vital Signs: Last Vital Signs Pulse 57 04/18/23 12:40 BP 126/62 04/18/23 12:40 Pulse Ox 100 04/18/23 12:40 Oxygen Delivery Method Room Air 04/18/23 12:40 BMI result Body Mass Index 23.8 Tobacco/Smoking Status: Tobacco use Status Tobacco use date assessed 04/18/23 04/18/23 12:52 Patient Tobacco Use Status Never used Tobacco 04/18/23 12:52 e-Cigarette/Vaping Use Never Used 04/18/23 12:40 Thrive Assessment: Date of Thrive Assessment Date Thrive assessed 08/29/20 04/18/23 12:40 Const General: no acute distress HENMT Head: Yes normal to inspection Ears: hearing grossly normal bilaterally Face and sinus: Yes normal facial exam Eyes General: appearance normal, both eyes and all related structures Neck Neck: Yes no lymphadenopathy and Yes supple Resp Effort & Inspection: normal respiratory effort Auscultation: clear to auscultation bilaterally Cardio Rhythm: regular rhythm Heart sounds: S1 normal heart sound present and S2 normal heart sound present GI Inspection: Yes normal to inspection Palpation (GI): Soft to palpation Percussion: Yes normal to percussion Auscultation: normal bowel sounds Assessment and Plan Assessment & Plan (1) CHF (congestive heart failure): Comment: Echo LVEF 40-45%, mid to distal anterior, apical, mid-distal septal/anteroseptal and apical inf wall akinesis 01/10 [facility] Code(s): I50.9 - Heart failure, unspecified Plan: Blood pressure is elevated and Entresto will be increased to 1 and half tablet twice a day. Basic metabolic panel will be checked in 2 weeks (2) Paroxysmal A-fib: Comment: 01/10 during hospitalization for NSTEMI 01/10, on Amiodarone and Eliquis Code(s): I48.0 - Paroxysmal atrial fibrillation Plan: Continue amiodarone and Eliquis (3) DM type 2 (diabetes mellitus, type 2): Code(s): E11.9 - Type 2 diabetes mellitus without complications Plan: A1c was 9.1, ADA diet increase physical activity discussed with the patient she will continue insulin Orders: Orders Comprehensive Met. Panel 2 Weeks E11.9 - Type 2 diabetes mellitus without complications, I48.0 - Paroxysmal atrial fibrillation, I50.9 - Heart failure, unspecified Complete Blood Count Auto Diff 2 Weeks E11.9 - Type 2 diabetes mellitus without complications, I48.0 - Paroxysmal atrial fibrillation, I50.9 - Heart failure, unspecified Medications: Changed From sacubitril-valsartan 24-26 mg (Entresto) 1 tab PO BID To sacubitril-valsartan 24-26 mg (Entresto) 1 1/2 orally 2 times a day; Coding Level of Care Code Est Pt Level 4 (71188) Diagnoses CHF (congestive heart failure) I50.9 Paroxysmal A-fib I48.0 DM type 2 (diabetes mellitus, type 2) E11.9
== END 2023-04-18 15:03 | disposition home or self-care (01) ==
PROVIDERS: PCP Internal Medicine; Visit Provider Internal Medicine
DX: I50.9 Heart failure, unspecified (principal); I48.0 Paroxysmal atrial fibrillation; E11.9 Type 2 diabetes mellitus without complications
CPT/HCPCS: 99214

== ENCOUNTER 2023-05-15 14:10 | Outpatient (AMB) | payer MEDICARE, SELFPAY ==
[2023-05-15 14:12] VITALS: BP 126/80; PULSE 61; O2SAT 98; BMI 24.3
--- NOTE | 2023-05-15 14:12 | MHC.PC.OV ---
Vital Signs 05/15/23 14:12 Height 5 ft 7 in Weight 155 lb BMI 24.3 BP 126/80 Blood Pressure Location Rt brachial Position Sitting Pulse 61 Pulse Source Pulse Oximeter Pulse Oximetry (%) 98 Oxygen Delivery Method Room Air Intake Visit Reasons: 1 month follow up Intake Note: Pt is here today for 1 month follow up visit. Pt states that since last she has not been feeling food her BP has been running high. Allergies dulaglutide [Trulicity] Allergy (Unknown, Verified 05/15/23 14:26) GERD losartan Allergy (Unknown, Verified 05/15/23 14:26) Hyperkalemia Sulfa (Sulfonamide Antibiotics) Allergy (Unknown, Verified 05/15/23 14:26) Rash dapagliflozin [From [facility]] Adverse Reaction (Intermediate, Verified 05/15/23 15:32) candidasis Medication List - Last Reconciled 05/15/23 by Orquidea Keller MD acetaminophen (Tylenol Extra Strength) 500 mg PO Q6H PRN allopurinol 100 mg PO DAILY amiodarone 100 mg PO DAILY amlodipine 2.5 mg PO DAILY apixaban (Eliquis) 2.5 mg PO BID atorvastatin 80 mg PO BEDTIME blood sugar diagnostic (FreeStyle Lite Strips) Use to test blood sugar three times daily blood-glucose meter,continuous (Dexcom G7 Business Analyst) As directed blood-glucose sensor (Dex[employer] G7 Sensor device) As directed buspirone 40 mg (4 x 10 mg) PO BEDTIME codeine-guaifenesin 10-100 mg/5 mL 5 mL PO Q4-6H PRN furosemide 40 mg PO BID insulin aspart (niacinamide) 100 unit/mL (3 mL) (Fiasp FlexTouch U-100 Insulin) 10 units subcut TID lactic acid-urea 1 appl topical DAILY PRN lancets (FreeStyle Lancets) use to test blood sugars three times per day latanoprost 0.005% 1 drp ophthalmic (eye) DAILY levothyroxine 75 mcg PO DAILY metoprolol succinate ER 25 mg PO DAILY miscellaneous medical supply 1 ea miscellaneous .QD omeprazole 20 mg PO DAILY pen needle, diabetic QID sacubitril-valsartan 24-26 mg (Entresto) 1 1/2 tabs orally 2 times a day; scopolamine base 1 patch transdermal Q3D PRN tramadol 50 mg PO TID PRN Tresiba FlexTouch U-200 (insulin degludec) 36 units (0.18 mL) subcut DAILY NS valacyclovir (Valtrex) 1,000 mg PO TID Tobacco use date assessed: 05/15/23 HPI 1 month follow up HPI Details Patient presents for the follow-up of insulin-dependent diabetes chronic kidney disease stage 3 congestive heart failure with reduced ejection fraction hypertension. Patient reports more frequent hypoglycemic episodes in the middle of the night for the last few weeks. She has been drinking orange juice or eating fruit. Patient denies PND orthopnea chest pain or palpitations. [facility] Medical History (Updated 05/15/23 @ 15:39 by Orquidea Keller MD) Vitamin D deficiency Macrocytosis Cough Sciatica Hypothyroidism HTN (hypertension) DM type 2 (diabetes mellitus, type 2) Lower extremity edema Irritable bowel syndrome (IBS) Chronic GERD Anxiety Chronic kidney disease (CKD) Hyperlipidemia Hypertension associated with diabetes Surgical History No pertinent past surgical history Family History Mother Ovarian cancer Father Pancreatic cancer Thyroid disease Social History Household Members Other:: Housing: House Alcohol intake: never Patient Tobacco Use Status: Never used Tobacco e-Cigarette/Vaping Use: Never Used Second Hand Smoke Exposure: No Current occupational status: retired Cognitive needs: No Hearing needs: No Vision needs: Yes Questionnaire Thrive Questionnaire Date Thrive assessed: 08/29/20 JAMES-7 AMB Questionnaire JAMES-7 Date JAMES - 7 assessed: 02/22/21 Source: Developed by Drs. Bryce aGrcia, Sophie Baldwin, Rock Coyle and colleagues, with an educational pranay from [employer]. Review of Systems Const All systems reviewed & are unremarkable except as noted in HPI and below Reports no additional complaints Eyes Reports no additional complaints ENT Reports no additional complaints Card Reports no additional complaints Resp Reports no additional complaints GI Reports no additional complaints Reports no additional complaints Physical exam (Primary Care) Vital Signs: Last Vital Signs Pulse 61 05/15/23 14:12 BP 126/80 05/15/23 14:12 Pulse Ox 98 05/15/23 14:12 Oxygen Delivery Method Room Air 05/15/23 14:12 BMI result Body Mass Index 24.3 Tobacco/Smoking Status: Tobacco use Status Tobacco use date assessed 05/15/23 05/15/23 14:30 Patient Tobacco Use Status Never used Tobacco 05/15/23 14:13 e-Cigarette/Vaping Use Never Used 05/15/23 14:13 Thrive Assessment: Date of Thrive Assessment Date Thrive assessed 08/29/20 05/15/23 14:13 Const General: no acute distress HENMT Head: Yes normal to inspection Neck Neck: Yes no lymphadenopathy and Yes supple Resp Effort & Inspection: normal respiratory effort Auscultation: clear to auscultation bilaterally Cardio Rhythm: regular rhythm Heart sounds: S1 normal heart sound present and S2 normal heart sound present Extrem Other: 1+ pitting edema bilaterally Assessment and Plan Assessment & Plan (1) Insulin dependent type 2 diabetes mellitus: Code(s): E11.9 - Type 2 diabetes mellitus without complications; Z79.4 - residential (current) use of insulin Plan: ADA diet discussed with the patient. Decrease Tresiba to 30 units and continue short-acting insulin before large meal only. Patient will be monitoring her blood glucose before each meal and 2 hours after also bedtime using Dexcom. She will follow-up in 1 (2) Paroxysmal A-fib: Comment: 01/10 during hospitalization for NSTEMI 01/10, on Amiodarone and Eliquis Code(s): I48.0 - Paroxysmal atrial fibrillation Plan: Continue amiodarone Eliquis (3) CHF (congestive heart failure): Comment: Echo LVEF 40-45%, mid to distal anterior, apical, mid-distal septal/anteroseptal and apical inf wall akinesis 01/10 [facility] Code(s): I50.9 - Heart failure, unspecified Plan: Blood pressure is elevated Entresto will be increased to 49/51 twice a day and amlodipine will be discontinued because of lower extremity swelling. She will continue furosemide and metoprolol. Patient follows up with the Cardiology (4) HTN (hypertension): Code(s): I10 - Essential (primary) hypertension Plan: INCREASE ENTRESTO AND DISCONTINUE AMLODIPINE (5) Hyperlipidemia: Comment: cont statin Code(s): E78.5 - Hyperlipidemia, unspecified (6) Chronic kidney disease (CKD): Comment: avoid NSAIDs Code(s): N18.9 - Chronic kidney disease, unspecified Plan: Monitor renal function and avoid nephrotoxins check comprehensive panel in 1 month (7) Diabetic retinopathy: Comment: LEGALLY BLIND Code(s): E11.319 - Type 2 diabetes mellitus with unspecified diabetic retinopathy without macular edema Plan: Follow-up with ophthalmology Orders: Orders Complete Blood Count Auto Diff 1 Month E11.9 - Type 2 diabetes mellitus without complications, E78.5 - Hyperlipidemia, unspecified, I10 - Essential (primary) hypertension, I48.0 - Paroxysmal atrial fibrillation, I50.9 - Heart failure, unspecified, M54.30 - Sciatica, unspecified side, N18.9 - Chronic kidney disease, unspecified, Z79.4 - 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 control service 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 (current) use of insulin B Type Natriuretic Peptide 1 Month E11.9 - Type 2 diabetes mellitus without complications, E78.5 - Hyperlipidemia, unspecified, I10 - Essential (primary) hypertension, I48.0 - Paroxysmal atrial fibrillation, I50.9 - Heart failure, unspecified, M54.30 - Sciatica, unspecified side, N18.9 - Chronic kidney disease, unspecified, Z79.4 - residential (current) use of insulin Hemoglobin A1c 1 Month E11.9 - Type 2 diabetes mellitus without complications, E78.5 - Hyperlipidemia, unspecified, I10 - Essential (primary) hypertension, I48.0 - Paroxysmal atrial fibrillation, I50.9 - Heart failure, unspecified, M54.30 - Sciatica, unspecified side, N18.9 - Chronic kidney disease, unspecified, Z79.4 - residential (current) use of insulin TSH reflex Free T4 1 Month E11.9 - Type 2 diabetes mellitus without complications, E78.5 - Hyperlipidemia, unspecified, I10 - Essential (primary) hypertension, I48.0 - Paroxysmal atrial fibrillation, I50.9 - Heart failure, unspecified, M54.30 - Sciatica, unspecified side, N18.9 - Chronic kidney disease, unspecified, Z79.4 - termite control service 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 (current) use of insulin Comprehensive Met. Panel 1 Month E11.9 - Type 2 diabetes mellitus without complications, I48.0 - Paroxysmal atrial fibrillation, I50.9 - Heart failure, unspecified, Z79.4 - termite control service 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 (current) use of insulin Medications: New sacubitril-valsartan 49-51 mg (Entresto) 1 tab PO BID 180 tabs 1RF clopidogrel 75 mg PO DAILY 90 tabs 0RF Changed From Tresiba FlexTouch U-200 (insulin degludec) 36 units (0.18 mL) subcut DAILY 27 mL 1RF NS E11.9 - Type 2 diabetes mellitus without complications To Tresiba FlexTouch U-200 (insulin degludec) 30 units (0.15 mL) subcut DAILY 27 mL 1RF NS E11.9 - Type 2 diabetes mellitus without complications From furosemide 40 mg PO BID To furosemide 40 mg PO DAILY From insulin degludec 36 units (0.18 mL) subcut DAILY 27 mL 1RF E11.9 - Type 2 diabetes mellitus without complications To Tresiba FlexTouch U-200 (insulin degludec) 36 units (0.18 mL) subcut DAILY 27 mL 1RF NS E11.9 - Type 2 diabetes mellitus without complications Refilled Tresiba FlexTouch U-200 (insulin degludec) 36 units (0.18 mL) subcut DAILY 27 mL 1RF NS E11.9 - Type 2 diabetes mellitus without complications Discontinued valacyclovir (Valtrex) Discontinued Reason: Doctor's Order 1,000 mg PO TID 21 tabs 0RF amlodipine Discontinued Reason: Doctor's Order 2.5 mg PO DAILY 90 tabs 3RF sacubitril-valsartan 24-26 mg (Entresto) Discontinued Reason: Doctor's Order 1 1/2 tabs orally 2 times a day; 270 tabs 0RF scopolamine base Discontinued Reason: Doctor's Order 1 patch transdermal Q3D PRN 4 ea 0RF nausea and vomiting Coding Level of Care Code Est Pt Level 4 (05806) Diagnoses Insulin dependent type 2 diabetes mellitus E11.9; Z79.4 Paroxysmal A-fib I48.0 CHF (congestive heart failure) I50.9 HTN (hypertension) I10 Hyperlipidemia E78.5 Chronic kidney disease (CKD) N18.9 Diabetic retinopathy E11.319
== END 2023-05-15 15:38 | disposition home or self-care (01) ==
PROVIDERS: PCP Internal Medicine; Visit Provider Internal Medicine
DX: E11.69 Type 2 diabetes mellitus with other specified complication (principal); Z79.4 Long term (current) use of insulin; I48.0 Paroxysmal atrial fibrillation; I50.9 Heart failure, unspecified; E11.319 Type 2 diabetes mellitus with unspecified diabetic retinopathy without macular edema; I12.9 Hypertensive chronic kidney disease with stage 1 through stage 4 chronic kidney disease, or unspecified chronic kidney disease; E78.5 Hyperlipidemia, unspecified; N18.9 Chronic kidney disease, unspecified
CPT/HCPCS: 99214

== ENCOUNTER 2023-06-03 14:36 | Outpatient (AMB) | payer MEDICARE, SELFPAY ==
[2023-06-03 14:37] VITALS: BP 130/74; PULSE 77; O2SAT 96; BMI 23.3
--- NOTE | 2023-06-03 14:37 | MHC.PC.OV ---
Vital Signs 06/03/23 14:37 Height 5 ft 7 in Weight 149 lb BMI 23.3 BP 130/74 Blood Pressure Location Lt brachial Position Sitting Pulse 77 Pulse Source Pulse Oximeter Pulse Oximetry (%) 96 Oxygen Delivery Method Room Air Intake Visit Reasons: Still sick Intake Note: Pt is here today for a sick visit. Pt c/o cough congestion for almost 2 weeks now. Allergies dulaglutide [Trulicity] Allergy (Unknown, Verified 06/03/23 14:40) GERD losartan Allergy (Unknown, Verified 06/03/23 14:40) Hyperkalemia Sulfa (Sulfonamide Antibiotics) Allergy (Unknown, Verified 06/03/23 14:40) Rash dapagliflozin [From [facility]] Adverse Reaction (Intermediate, Verified 06/03/23 14:40) candidasis Medication List - Last Reconciled 06/03/23 by Orquidea Keller MD acetaminophen (Tylenol Extra Strength) 500 mg PO Q6H PRN allopurinol 100 mg PO DAILY amiodarone 100 mg PO DAILY apixaban (Eliquis) 2.5 mg PO BID atorvastatin 80 mg PO BEDTIME benzonatate 100 mg PO TID blood sugar diagnostic (FreeStyle Lite Strips) Use to test blood sugar three times daily blood-glucose meter,continuous (Dexcom G7 Reconciliation Manager) As directed blood-glucose sensor (Dexcom G7 Sensor device) As directed buspirone 40 mg (4 x 10 mg) PO BEDTIME clopidogrel 75 mg PO DAILY codeine-guaifenesin 10-100 mg/5 mL 5 mL PO Q4-6H PRN doxycycline hyclate 100 mg PO BID furosemide 40 mg PO DAILY insulin aspart (niacinamide) 100 unit/mL (3 mL) (Fiasp FlexTouch U-100 Insulin) 10 units subcut TID lactic acid-urea 1 appl topical DAILY PRN lancets (FreeStyle Lancets) use to test blood sugars three times per day latanoprost 0.005% 1 drp ophthalmic (eye) DAILY levothyroxine 75 mcg PO DAILY metoprolol succinate ER 25 mg PO DAILY omeprazole 20 mg PO DAILY pen needle, diabetic QID prednisone 20 mg PO DAILY sacubitril-valsartan 49-51 mg (Entresto) 1 tab PO BID Tresiba FlexTouch U-200 (insulin degludec) 30 units (0.15 mL) subcut DAILY NS Tobacco use date assessed: 05/15/23 Dental Screening Dental Screen Date: 04/18/23 HPI Still sick HPI Details Pt c/o 2 weeks of productive cough, nasal congestion, poor appetite, wheezing on and off. Patient was prescribed albuterol inhaler last week but complains of increased heart rate. Patient reports blood glucose fluctuating between 50 to over 200. PFSH Medical History Vitamin D deficiency Macrocytosis Cough Sciatica Hypothyroidism HTN (hypertension) DM type 2 (diabetes mellitus, type 2) Lower extremity edema Irritable bowel syndrome (IBS) Chronic GERD Anxiety Chronic kidney disease (CKD) Hyperlipidemia Hypertension associated with diabetes Surgical History No pertinent past surgical history Family History Mother Ovarian cancer Father Pancreatic cancer Thyroid disease Social History Household Members Other:: Housing: House Alcohol intake: never Patient Tobacco Use Status: Never used Tobacco e-Cigarette/Vaping Use: Never Used Second Hand Smoke Exposure: No Current occupational status: retired Cognitive needs: No Hearing needs: No Vision needs: Yes Questionnaire Thrive Questionnaire Date Thrive assessed: 08/29/20 JAMES-7 AMB Questionnaire JAMES-7 Date JAMES - 7 assessed: 02/22/21 Source: Developed by Drs. Bryce Garcia, Sophie Baldwin, Rock Coyle and colleagues, with an educational pranay from [employer]. Review of Systems Const All systems reviewed & are unremarkable except as noted in HPI and below Reports no additional complaints Eyes Reports no additional complaints ENT Reports no additional complaints Card Reports no additional complaints Resp Reports no additional complaints GI Reports no additional complaints Reports no additional complaints Physical exam (Primary Care) Vital Signs: Last Vital Signs Pulse 77 06/03/23 14:37 BP 130/74 06/03/23 14:37 Pulse Ox 96 06/03/23 14:37 Oxygen Delivery Method Room Air 06/03/23 14:37 BMI result Body Mass Index 23.3 Tobacco/Smoking Status: Tobacco use Status Tobacco use date assessed 05/15/23 06/03/23 14:42 Patient Tobacco Use Status Never used Tobacco 06/03/23 14:42 e-Cigarette/Vaping Use Never Used 06/03/23 14:42 Thrive Assessment: Date of Thrive Assessment Date Thrive assessed 08/29/20 06/03/23 14:42 Const General: no acute distress HENMT Head: Yes normal to inspection Throat: Yes posterior oropharynx normal Neck Neck: Yes supple Resp Effort & Inspection: normal respiratory effort Auscultation: rhonchi, wheezes and diminished lung sounds Cardio Rhythm: regular rhythm Heart sounds: S1 normal heart sound present and S2 normal heart sound present GI Inspection: Yes normal to inspection Palpation (GI): Soft to palpation Assessment and Plan Assessment & Plan (1) URI (upper respiratory infection): Code(s): J06.9 - Acute upper respiratory infection, unspecified Plan: DOXYCYCLINE 100 MG TWICE A DAY FOR 7 DAYS AND PREDNISONE 20 MG DAILY FOR 5 DAYS PRESCRIBED. PATIENT WILL CONTINUE TESSALON PERLES AND SUPPORTIVE CARE DISCUSSED WITH THE PATIENT (2) CHF (congestive heart failure): Comment: Echo LVEF 40-45%, mid to distal anterior, apical, mid-distal septal/anteroseptal and apical inf wall akinesis 01/10 [facility] Code(s): I50.9 - Heart failure, unspecified Plan: Continue current medications (3) Paroxysmal A-fib: Comment: 01/10 during hospitalization for NSTEMI 01/10, on Amiodarone and Eliquis Code(s): I48.0 - Paroxysmal atrial fibrillation Plan: Continue amiodarone and Eliquis (4) DM type 2 (diabetes mellitus, type 2): Code(s): E11.9 - Type 2 diabetes mellitus without complications Plan: Patient will be starting monitoring her blood glucose with Dexcom G7 and was advised to monitor glucose level before and 2 hours after meal before breakfast and bedtime. She will continue 20 units of Tresiba and 10 units before each meal Orders: Orders CT chest wo IV con 2 Months R91.8 - Other nonspecific abnormal finding of lung field Medications: New doxycycline hyclate 100 mg PO BID 14 tabs 0RF prednisone 20 mg PO DAILY 5 tabs 0RF Refilled codeine-guaifenesin 10-100 mg/5 mL 5 mL PO Q4-6H PRN 118 mL 0RF cough benzonatate 100 mg PO TID 30 caps 0RF Coding Level of Care Code Est Pt Level 4 (84760) Diagnoses URI (upper respiratory infection) J06.9 CHF (congestive heart failure) I50.9 Paroxysmal A-fib I48.0 DM type 2 (diabetes mellitus, type 2) E11.9
== END 2023-06-03 15:41 | disposition home or self-care (01) ==
PROVIDERS: PCP Internal Medicine; Visit Provider Internal Medicine
DX: J06.9 Acute upper respiratory infection, unspecified (principal); I50.9 Heart failure, unspecified; I48.0 Paroxysmal atrial fibrillation; E11.9 Type 2 diabetes mellitus without complications
CPT/HCPCS: 99214

== ENCOUNTER 2023-06-19 14:14 | Outpatient (AMB) | payer MEDICARE, SELFPAY ==
[2023-06-19 14:24] VITALS: BP 118/62; PULSE 74; O2SAT 96; BMI 22.7
--- NOTE | 2023-06-19 14:24 | MHC.PC.OV ---
Vital Signs 06/19/23 14:24 Height 5 ft 7 in Weight 145 lb BMI 22.7 BP 118/62 Blood Pressure Location Rt brachial Position Sitting Pulse 74 Pulse Source Pulse Oximeter Pulse Oximetry (%) 96 Oxygen Delivery Method Room Air Intake Visit Reasons: 1 month follow Allergies dulaglutide [Trulicity] Allergy (Unknown, Verified 06/19/23 14:27) GERD losartan Allergy (Unknown, Verified 06/19/23 14:27) Hyperkalemia Sulfa (Sulfonamide Antibiotics) Allergy (Unknown, Verified 06/19/23 14:27) Rash dapagliflozin [From [facility]] Adverse Reaction (Intermediate, Verified 06/19/23 14:27) candidasis Medication List - Last Reconciled 06/19/23 by Orquidea Keller MD acetaminophen (Tylenol Extra Strength) 500 mg PO Q6H PRN allopurinol 100 mg PO DAILY amiodarone 100 mg PO DAILY apixaban (Eliquis) 2.5 mg PO BID atorvastatin 80 mg PO BEDTIME benzonatate 100 mg PO TID blood sugar diagnostic (FreeStyle Lite Strips) Use to test blood sugar three times daily blood-glucose meter,continuous ([employer] G7 Certified Cytotechnologist) As directed blood-glucose sensor (Dexcom G7 Sensor device) As directed buspirone 40 mg (4 x 10 mg) PO BEDTIME clopidogrel 75 mg PO DAILY codeine-guaifenesin 10-100 mg/5 mL 5 mL PO Q4-6H PRN furosemide 20 mg PO Q OTHER DAY insulin aspart (niacinamide) 100 unit/mL (3 mL) (Fiasp FlexTouch U-100 Insulin) 10 units subcut TID lactic acid-urea 1 appl topical DAILY PRN lancets (FreeStyle Lancets) use to test blood sugars three times per day latanoprost 0.005% 1 drp ophthalmic (eye) DAILY levothyroxine 75 mcg PO DAILY metoprolol succinate ER 25 mg PO DAILY omeprazole 20 mg PO DAILY pen needle, diabetic QID sacubitril-valsartan 49-51 mg (Entresto) 1 tab PO BID Tresiba FlexTouch U-200 (insulin degludec) 30 units (0.15 mL) subcut DAILY NS Tobacco use date assessed: 05/15/23 Dental Screening Dental Screen Date: 04/18/23 HPI 1 month follow HPI Details Patient presents for the follow-up of hypertension type 2 diabetes chronic kidney disease stage 3 heart failure with preserved ejection fraction. Patient reports improved blood glucose readings around 100s in the morning occasionally over 200 after dinner. She reports feeling tired. upper respiratory infection resolved. Patient has been trying to adjust to being legally blind and not being able to drive. She denies depression and anxiety has been controlled on buspirone. [facility] Medical History (Updated 06/19/23 @ 15:24 by Orquidea Keller MD) Vitamin D deficiency Macrocytosis Cough Sciatica Hypothyroidism HTN (hypertension) DM type 2 (diabetes mellitus, type 2) Lower extremity edema Irritable bowel syndrome (IBS) Chronic GERD Anxiety Chronic kidney disease (CKD) Hyperlipidemia Hypertension associated with diabetes Surgical History No pertinent past surgical history Family History Mother Ovarian cancer Father Pancreatic cancer Thyroid disease Social History Household Members Other:: Housing: House Alcohol intake: never Patient Tobacco Use Status: Never used Tobacco e-Cigarette/Vaping Use: Never Used Second Hand Smoke Exposure: No Current occupational status: retired Cognitive needs: No Hearing needs: No Vision needs: Yes Questionnaire Thrive Questionnaire Date Thrive assessed: 08/29/20 JAMES-7 AMB Questionnaire JAMES-7 Date JAMES - 7 assessed: 02/22/21 Source: Developed by Drs. Bryce Garcia, Sophie Baldwin, Rock Coyle and colleagues, with an educational pranay from [employer] Review of Systems Const All systems reviewed & are unremarkable except as noted in HPI and below Eyes Reports no additional complaints ENT Reports no additional complaints Card Reports no additional complaints Resp Reports no additional complaints GI Reports no additional complaints Reports no additional complaints Physical exam (Primary Care) Vital Signs: Last Vital Signs Pulse 74 06/19/23 14:24 BP 118/62 06/19/23 14:24 Pulse Ox 96 06/19/23 14:24 Oxygen Delivery Method Room Air 06/19/23 14:24 BMI result Body Mass Index 22.7 Tobacco/Smoking Status: Tobacco use Status Tobacco use date assessed 05/15/23 06/19/23 14:26 Patient Tobacco Use Status Never used Tobacco 06/19/23 14:26 e-Cigarette/Vaping Use Never Used 06/19/23 14:26 Thrive Assessment: Date of Thrive Assessment Date Thrive assessed 08/29/20 06/19/23 14:26 Const General: no acute distress HENMT Face and sinus: Yes normal facial exam Resp Effort & Inspection: normal respiratory effort Auscultation: clear to auscultation bilaterally Cardio Rhythm: regular rhythm Heart sounds: S1 normal heart sound present and S2 normal heart sound present GI Inspection: Yes normal to inspection Palpation (GI): Soft to palpation Extrem Other: 1+ pitting edema bilaterally Assessment and Plan Assessment & Plan (1) CHF (congestive heart failure): Comment: Echo LVEF 40-45%, mid to distal anterior, apical, mid-distal septal/anteroseptal and apical inf wall akinesis 01/10 [facility] Code(s): I50.9 - Heart failure, unspecified Plan: Continue Entresto and metoprolol decrease furosemide to 20 mg every other day and patient was advised to monitor her weight daily. If the weight increases by 2 lb patient was advised to take furosemide daily, follow-up with cardiology (2) Insulin dependent type 2 diabetes mellitus: Code(s): E11.9 - Type 2 diabetes mellitus without complications; Z79.4 - terminal gauger (current) use of insulin Plan: A1c is down to 8.6. Continue insulin Tresiba and short acting before meals and monitoring the blood glucose before after meals (3) Paroxysmal A-fib: Comment: 01/10 during hospitalization for NSTEMI 01/10, on Amiodarone and Eliquis Code(s): I48.0 - Paroxysmal atrial fibrillation Plan: Patient is maintaining normal sinus rhythm on amiodarone beta-darrion and is anticoagulated with Eliquis (4) CAD (coronary artery disease): Comment: NSTEMI, S/P AMOR to mid LAD (90% stenosis) 01/10 Code(s): I25.10 - Atherosclerotic heart disease of [place] coronary artery without angina pectoris Plan: For up with the Cardiology continue Brilinta and aspirin (5) Chronic kidney disease (CKD): Code(s): E11.9 - Type 2 diabetes mellitus without complications Plan: Avoid nephrotoxin decrease furosemide to 20 mg every other day due to prerenal. Recheck BMP in 1 week (6) Anxiety: Code(s): F41.9 - Anxiety disorder, unspecified Orders: Orders Basic Metabolic Panel 1 Week I50.9 - Heart failure, unspecified Medications: New furosemide 20 mg PO Q OTHER DAY 60 tabs 2RF Patient Instructions: Continue buspirone and refer for counseling follow-up in 1 month Coding Level of Care Code Est Pt Level 4 (65693) Diagnoses CHF (congestive heart failure) I50.9 Insulin dependent type 2 diabetes mellitus E11.9; Z79.4 Paroxysmal A-fib I48.0 CAD (coronary artery disease) I25.10 DM type 2 (diabetes mellitus, type 2) E11.9 Anxiety F41.9
== END 2023-06-19 15:26 | disposition home or self-care (01) ==
PROVIDERS: PCP Internal Medicine; Visit Provider Internal Medicine
DX: I50.9 Heart failure, unspecified (principal); E11.9 Type 2 diabetes mellitus without complications; Z79.4 Long term (current) use of insulin; I48.0 Paroxysmal atrial fibrillation; I25.10 Atherosclerotic heart disease of native coronary artery without angina pectoris; F41.9 Anxiety disorder, unspecified
CPT/HCPCS: 99214

== ENCOUNTER 2023-08-14 11:45 | Outpatient (AMB) | payer MEDICARE, SELFPAY ==
[2023-08-14 11:47] VITALS: BP 132/62; PULSE 67; O2SAT 96; BMI 24.3
--- NOTE | 2023-08-14 11:47 | A.OFFPC_ITS ---
Vital Signs 08/14/23 11:47 Height 5 ft 7 in Weight 155 lb BMI 24.3 BP 132/62 Blood Pressure Location Rt brachial Position Sitting Pulse 67 Pulse Source Pulse Oximeter Pulse Oximetry (%) 96 Oxygen Delivery Method Room Air Intake Visit Reasons: Follow up Intake Note: Pt is here today for a follow up visit on DM. Allergies dulaglutide [Trulicity] Allergy (Unknown, Verified 08/14/23 11:52) GERD losartan Allergy (Unknown, Verified 08/14/23 11:52) Hyperkalemia Sulfa (Sulfonamide Antibiotics) Allergy (Unknown, Verified 08/14/23 11:52) Rash dapagliflozin [From [facility]] Adverse Reaction (Intermediate, Verified 08/14/23 11:52) candidasis Medication List - Last Reconciled 08/14/23 by Orquidea Keller MD acetaminophen (Tylenol Extra Strength) 500 mg PO Q6H PRN allopurinol 100 mg PO DAILY amiodarone 100 mg PO DAILY amlodipine 2.5 mg PO DAILY apixaban (Eliquis) 2.5 mg PO BID atorvastatin 80 mg PO BEDTIME benzonatate 100 mg PO TID blood sugar diagnostic (FreeStyle Lite Strips) Use to test blood sugar three times daily blood-glucose meter,continuous (Dexcom G7 Finger Lift Operator) As directed blood-glucose sensor (Dexcom G7 Sensor device) As directed buspirone 40 mg (4 x 10 mg) PO BEDTIME clopidogrel 75 mg PO DAILY codeine-guaifenesin 10-100 mg/5 mL 5 mL PO Q4-6H PRN doxycycline hyclate 100 mg PO BID furosemide 20 mg PO Q OTHER DAY Humalog KwikPen Insulin (insulin lispro) 10 units (0.1 mL) subcut TID NS insulin aspart (niacinamide) 100 unit/mL (3 mL) (Fiasp FlexTouch U-100 Insulin) 10 units subcut TID lactic acid-urea 1 appl topical DAILY PRN lancets (FreeStyle Lancets) use to test blood sugars three times per day latanoprost 0.005% 1 drp ophthalmic (eye) DAILY levothyroxine 75 mcg PO DAILY metoprolol succinate ER 25 mg PO DAILY omeprazole 20 mg PO DAILY pen needle, diabetic QID sacubitril-valsartan 49-51 mg (Entresto) 1 tab PO BID Tresiba FlexTouch U-200 (insulin degludec) 30 units (0.15 mL) subcut DAILY NS Tobacco use date assessed: 05/15/23 Dental Screening Dental Screen Date: 04/18/23 HPI Follow up HPI Details Patient presents for the follow-up of type 2 diabetes hypertension paroxysmal AFib chronic kidney disease stage 3. She reports fluctuating blood glucose occasionally low in the middle overnight and mornings down to 80s. Patient reports fluctuating blood pressure readings and noticed increased swelling of the lower extremities since starting amlodipine. She has been checking blood pressure at home with the readings between 140-180 but denies chest pain shortness of breath palpitations PND or orthopnea. For chronic cough patient took doxycycline with some relief. She reports chronic postnasal drip and GERD symptoms worse at night. [facility] Medical History Vitamin D deficiency Macrocytosis Cough Sciatica Hypothyroidism HTN (hypertension) DM type 2 (diabetes mellitus, type 2) Lower extremity edema Irritable bowel syndrome (IBS) Chronic GERD Anxiety Chronic kidney disease (CKD) Hyperlipidemia Hypertension associated with diabetes Surgical History No pertinent past surgical history Family History Mother Ovarian cancer Father Pancreatic cancer Thyroid disease Social History Household Members Other:: Housing: House Alcohol intake: never Patient Tobacco Use Status: Never used Tobacco e-Cigarette/Vaping Use: Never Used Second Hand Smoke Exposure: No service: No Current occupational status: retired Cognitive needs: No Hearing needs: No Vision needs: Yes Questionnaire Thrive Questionnaire Date Thrive assessed: 08/29/20 JAMES-7 AMB Questionnaire JAMES-7 Date JAMES - 7 assessed: 02/22/21 Source: Developed by Drs. Bryce Garcia, Sophie Baldwin, Rock Coyle and colleagues, with an educational pranay from [employer]. Review of Systems Const All systems reviewed & are unremarkable except as noted in HPI and below Eyes Reports no additional complaints ENT Reports no additional complaints Card Reports no additional complaints Resp Reports no additional complaints GI Reports no additional complaints Reports no additional complaints Physical exam (Primary Care) Vital Signs: Last Vital Signs Pulse 67 08/14/23 11:47 BP 132/62 08/14/23 11:47 Pulse Ox 96 08/14/23 11:47 Oxygen Delivery Method Room Air 08/14/23 11:47 BMI result Body Mass Index 24.3 Tobacco/Smoking Status: Tobacco use Status Tobacco use date assessed 05/15/23 08/14/23 11:47 Patient Tobacco Use Status Never used Tobacco 08/14/23 11:47 e-Cigarette/Vaping Use Never Used 08/14/23 11:47 Thrive Assessment: Date of Thrive Assessment Date Thrive assessed 08/29/20 08/14/23 11:47 Const General: no acute distress HENMT Head: Yes normal to inspection General nose exam: Normal external nose present Mouth: Normal oral and palatal mucosa present Eyes General: appearance normal, both eyes and all related structures Neck Neck: Yes supple Resp Effort & Inspection: normal respiratory effort Auscultation: clear to auscultation bilaterally Cardio Rhythm: regular rhythm Heart sounds: S1 normal heart sound present and S2 normal heart sound present GI Inspection: Yes normal to inspection Palpation (GI): Soft to palpation Percussion: Yes normal to percussion Auscultation: normal bowel sounds Extrem Other: 2+ pitting edema bilaterally Assessment and Plan Assessment & Plan (1) DM type 2 (diabetes mellitus, type 2): Code(s): E11.9 - Type 2 diabetes mellitus without complications Plan: Patient will decrease Trelegy to 15 units and Humalog to 6 units before dinner only to avoid hypoglycemia and will continue to monitor her blood glucose with Dexcom 7. ADA diet regular physical activity discussed with the patient. (2) HTN (hypertension): Code(s): I10 - Essential (primary) hypertension Plan: Blood pressure is low in the office today. She has been getting high readings at home possibly due to inaccurate blood pressure monitor. Patient will stop amlodipine and her blood pressure check a nurse visit in 1 week. She was advised to bring her blood pressure cuff to the appointment to compared to readings (3) Hypothyroidism: Code(s): E03.9 - Hypothyroidism, unspecified Plan: Continue levothyroxine (4) Paroxysmal A-fib: Comment: 01/10 during hospitalization for NSTEMI 01/10, on Amiodarone and Eliquis Code(s): I48.0 - Paroxysmal atrial fibrillation Plan: Continue Eliquis amiodarone and metoprolol (5) CHF (congestive heart failure): Comment: Echo LVEF 40-45%, mid to distal anterior, apical, mid-distal septal/anteroseptal and apical inf wall akinesis 01/10 [facility] Code(s): I50.9 - Heart failure, unspecified Plan: Continue Entresto and 20 mg of furosemide, patient will have a repeat echocardiogram at [facility]. Patient has been on the waiting list for the follow-up appointment with a system support technician in September Orders: Orders Complete Blood Count Auto Diff 1 Month E03.9 - Hypothyroidism, unspecified, E11.9 - Type 2 diabetes mellitus without complications, I10 - Essential (primary) hypertension, I48.0 - Paroxysmal atrial fibrillation, Z79.4 - terminal system operator (current) use of insulin Lipid Panel 1 Month E03.9 - Hypothyroidism, unspecified, E11.9 - Type 2 diabetes mellitus without complications, I10 - Essential (primary) hypertension, I48.0 - Paroxysmal atrial fibrillation, Z79.4 - custodial (current) use of insulin CA echo transthorac w con Today I25.10 - Atherosclerotic heart disease of [place] coronary artery without angina pectoris, I50.9 - Heart failure, unspecified Comprehensive [place]. Panel Fast 1 Month E03.9 - Hypothyroidism, unspecified, E11.9 - Type 2 diabetes mellitus without complications, I10 - Essential (primary) hypertension, I48.0 - Paroxysmal atrial fibrillation, Z79.4 - custodial (current) use of insulin Hemoglobin A1c 1 Month E03.9 - Hypothyroidism, unspecified, E11.9 - Type 2 diabetes mellitus without complications, I10 - Essential (primary) hypertension, I48.0 - Paroxysmal atrial fibrillation, Z79.4 - custodial (current) use of insulin B Type Natriuretic Peptide 1 Month E03.9 - Hypothyroidism, unspecified, E11.9 - Type 2 diabetes mellitus without complications, I10 - Essential (primary) hypertension, I48.0 - Paroxysmal atrial fibrillation, Z79.4 - terminal system operator (current) use of insulin Microalbumin, Random (w Creat) 1 Month E03.9 - Hypothyroidism, unspecified, E11.9 - Type 2 diabetes mellitus without complications, I10 - Essential (primary) hypertension, I48.0 - Paroxysmal atrial fibrillation, Z79.4 - terminal system operator (current) use of insulin Medications: New Breo Ellipta 100-25 mcg/dose (fluticasone furoate-vilanterol) 1 inh inhalation DAILY 60 ea 1RF NS Changed From Tresiba FlexTouch U-200 (insulin degludec) 30 units (0.15 mL) subcut DAILY 27 mL 1RF NS E11.9 - Type 2 diabetes mellitus without complications To Tresiba FlexTouch U-200 (insulin degludec) 15 units (0.075 mL) subcut DAILY 27 mL 1RF NS E11.9 - Type 2 diabetes mellitus without complications Discontinued amlodipine Discontinued Reason: Doctor's Order 2.5 mg PO DAILY 30 tabs 1RF Coding Level of Care Code Est Pt Level 4 (90660) Diagnoses DM type 2 (diabetes mellitus, type 2) E11.9 HTN (hypertension) I10 Hypothyroidism E03.9 Paroxysmal A-fib I48.0 CHF (congestive heart failure) I50.9
== END 2023-08-14 12:44 | disposition home or self-care (01) ==
PROVIDERS: PCP Internal Medicine; Visit Provider Internal Medicine
DX: I11.0 Hypertensive heart disease with heart failure (principal); E11.9 Type 2 diabetes mellitus without complications; I48.0 Paroxysmal atrial fibrillation; I50.9 Heart failure, unspecified; E03.9 Hypothyroidism, unspecified
CPT/HCPCS: 99214

== ENCOUNTER 2023-09-23 10:48 | Outpatient (AMB) | payer MEDICARE, SELFPAY ==
[2023-09-23 10:49] VITALS: BP 139/82; PULSE 67; O2SAT 96; BMI 23.7
--- NOTE | 2023-09-23 10:49 | MHC.PC.OV ---
Vital Signs 09/23/23 10:49 Height 5 ft 7 in Weight 151 lb 2 oz BMI 23.7 BP 139/82 Blood Pressure Location Rt brachial Position Sitting Pulse 67 Pulse Source Pulse Oximeter Pulse Oximetry (%) 96 Oxygen Delivery Method Room Air Comment Provoider will enter bp Intake Visit Reasons: Cough-ongoing Intake Note: Patient is here today for ongoing cough for a week now. Allergies dulaglutide [Trulicity] Allergy (Unknown, Verified 09/23/23 10:49) GERD losartan Allergy (Unknown, Verified 09/23/23 10:49) Hyperkalemia Sulfa (Sulfonamide Antibiotics) Allergy (Unknown, Verified 09/23/23 10:49) Rash dapagliflozin [From [facility]] Adverse Reaction (Intermediate, Verified 09/23/23 10:49) candidasis Medication List - Last Reconciled 09/23/23 by Orquidea Keller MD acetaminophen (Tylenol Extra Strength) 500 mg PO Q6H PRN allopurinol 100 mg PO DAILY amiodarone 100 mg PO DAILY apixaban (Eliquis) 2.5 mg PO BID atorvastatin 80 mg PO BEDTIME benzonatate 100 mg PO TID blood sugar diagnostic (FreeStyle Lite Strips) Use to test blood sugar three times daily blood-glucose meter,continuous (Dexcom G7 Streetcar Conductor) As directed blood-glucose sensor (Dexcom G7 Sensor device) As directed Breo Ellipta 100-25 mcg/dose (fluticasone furoate-vilanterol) 1 inh inhalation DAILY NS buspirone 40 mg (4 x 10 mg) PO BEDTIME clopidogrel 75 mg PO DAILY codeine-guaifenesin 10-100 mg/5 mL 5 mL PO Q4-6H PRN doxycycline hyclate 100 mg PO BID furosemide 20 mg PO Q OTHER DAY Humalog KwikPen Insulin (insulin lispro) 10 units (0.1 mL) subcut TID NS insulin aspart (niacinamide) 100 unit/mL (3 mL) (Fiasp FlexTouch U-100 Insulin) 10 units subcut TID lactic acid-urea 1 appl topical DAILY PRN lancets (FreeStyle Lancets) use to test blood sugars three times per day latanoprost 0.005% 1 drp ophthalmic (eye) DAILY levothyroxine 75 mcg PO DAILY metoprolol succinate ER 25 mg PO DAILY omeprazole 20 mg PO DAILY pen needle, diabetic QID sacubitril-valsartan 49-51 mg (Entresto) 1 tab PO BID Tresiba FlexTouch U-200 (insulin degludec) 15 units (0.075 mL) subcut DAILY NS Tobacco use date assessed: 09/23/23 Fall risk assessment: No Falls in past year Last assessed Fall Risk: 09/23/23 Dental Screening Dental Screen Date: 09/23/23 Did you have a dental visit in the last 12 months?: Yes Did you have a dental problem in the last 6 months where you did not have access to dental care?: No Was dental information given to patient?: Patient has dentist HPI Cough-ongoing HPI Details Pt c/o chronic persistent dry cough, wheezing, worse after laying down, with intermittent PND for at least 3 months. Patient was treated with multiple antibiotics in urgent care with only temporary relief. She denies no fever no chills, pleurisy chest pain palpitations nausea vomiting GI complaints. Patient reports diabetes better controlled with readings between 150-200 before meals and using Humalog before meals according to sliding scale and taking Tresiba 15 units regularly. [facility] Medical History (Updated 09/23/23 @ 15:36 by Orquidea Keller MD) Vitamin D deficiency Macrocytosis Cough Sciatica Hypothyroidism HTN (hypertension) DM type 2 (diabetes mellitus, type 2) Lower extremity edema Irritable bowel syndrome (IBS) Chronic GERD Anxiety Chronic kidney disease (CKD) Hyperlipidemia Hypertension associated with diabetes Surgical History No pertinent past surgical history Family History Mother Ovarian cancer Father Pancreatic cancer Thyroid disease Social History Household Members Other:: Housing: House Alcohol intake: never Patient Tobacco Use Status: Never used Tobacco e-Cigarette/Vaping Use: Never Used Second Hand Smoke Exposure: No service: No Current occupational status: retired Cognitive needs: No Hearing needs: No Vision needs: Yes Questionnaire PHQ-9 Over the last 2 weeks, how often have you been bothered by any of the following problems? 1. Little interest or pleasure in doing things: not at all 2. Feeling down, depressed, or hopeless: not at all 3. Trouble falling or staying asleep, or sleeping too much: not at all 4. Feeling tired or having little energy: not at all 5. Poor appetite or overeating: not at all 6. Feeling bad about yourself - or that you are a failure or have let yourself or your family down: not at all 7. Trouble concentrating on things, such as reading the newspaper or watching television: not at all 8. Moving or speaking so slowly that other people could have noticed. Or the opposite - being so fidgety or restless that you have been moving around a lot more than usual: not at all 9. Thoughts that you would be better off or of hurting yourself in some way: not at all Total score: 0 Depression Screening Interpretation: Negative Depression Screening Done: Yes 97673 - PHQ-9 Billing: Yes Source: Developed by Drs. Bryce Garcia, Sophie Baldwin, Rock Coyle and colleagues, with an educational pranay from [employer]. Thrive Questionnaire Date Thrive assessed: 09/23/23 I am a: Patient What is your living situation today?: I have a steady place to live Within the past 12 months, did the food you bought not last and you didn't have the money to get more?: I choose not to answer this question Within the past 12 months, did you worry whether your food would run out before you got money to buy more?: I choose not to answer this question Do you have trouble paying for medicines?: I choose not to answer this question Do you have trouble getting transportation to medical appointments?: I choose not to answer this question Do you have trouble paying your heating and electricity bill?: I choose not to answer this question Do you have trouble taking care of your child, family member or friend?: I choose not to answer this question Do you have trouble with day-to-day activities such as bathing, preparing meals, shopping, managing finances, etc.?: I choose not to answer this question Are you currently unemployed and looking for a job?: I choose not to answer this question Are you interested in more education?: I choose not to answer this question Please select the resources that you would like help with: Housing/[facility] Currently or been in a relationship where the following occur: I choose not to answer THRIVE Score: 0 AUDIT C Alcohol Use Questionnaire (AUDIT-C) 1. How often do you have a drink containing alcohol?: Never 3. How often do you have six or more drinks on one occasion?: Never Total Score: 0 Score Reviewed/Action Taken: Yes JAMES-7 AMB Questionnaire JAMES-7 Date JAMES - 7 assessed: 09/23/23 Feeling nervous, anxious, or on edge: 0 = Not at all Not being able to stop or control worryin = Not at all Worrying too much about different things: 0 = Not at all Trouble relaxin = Not at all Being so restless that it is hard to sit still: 0 = Not at all Becoming easily annoyed or irritable: 0 = Not at all Feeling afraid as if something awful might happen: 0 = Not at all Total JAMES-7 score (0-4 normal; 5-9 mild; 10-14 moderate; 15-21 severe): 0 Source: Developed by Drs. Bryce Garcia, Sophie Baldwin, Rock Coyle and colleagues, with an educational pranay from [employer]. JAMES-7 Assessment Billing JAMES-7 Assessment Tool: JAMES-7 Assessment 53097 Review of Systems Const All systems reviewed & are unremarkable except as noted in HPI and below Eyes Reports no additional complaints ENT Reports no additional complaints Card Reports no additional complaints Resp Reports no additional complaints GI Reports no additional complaints Reports no additional complaints Physical exam (Primary Care) Vital Signs: Last Vital Signs Pulse 67 09/23/23 10:49 Pulse Ox 96 09/23/23 10:49 Oxygen Delivery Method Room Air 09/23/23 10:49 BMI result Body Mass Index 23.7 Tobacco/Smoking Status: Tobacco use Status Tobacco use date assessed 09/23/23 09/23/23 10:51 Patient Tobacco Use Status Never used Tobacco 09/23/23 10:51 e-Cigarette/Vaping Use Never Used 09/23/23 10:51 PHQ-9: PHQ-9 Score PHQ-9: Total score 0 09/23/23 12:42 Depression Screening Interpretation: Negative Thrive Assessment: Date of Thrive Assessment Date Thrive assessed 09/23/23 09/23/23 11:11 Currently or been in a relationship where the following occur: I choose not to answer Const General: no acute distress HENMT Head: Yes normal to inspection Mouth: Normal oral and palatal mucosa present Throat: Yes posterior oropharynx normal Neck Neck: Yes no lymphadenopathy and Yes supple Resp Effort & Inspection: able to speak in complete sentences Auscultation: crackles and wheezes Cardio Rhythm: regular rhythm Heart sounds: S1 normal heart sound present and S2 normal heart sound present GI Inspection: Yes normal to inspection Palpation (GI): Soft to palpation Percussion: Yes normal to percussion Auscultation: normal bowel sounds Extrem Other: 1+ pitting edema bilaterally Office Procedures Nebulizer Treatment Nebulizer Treatment [id number] RX initial, or Nebulizer Subsequent Treatment Office Meds albuterol sulfate 2.5 mg/3 mL (0.083 %) solution for nebulization Performing Provider: Orquidea Keller MD Performing Location: [facility] Administered by: Preeti Roca RN on 09/23/23 11:46 Dose Route Admin Location Dispensed Lot Number Expiration Date NDC Plant And Maintenance Technician 2.5 mg inhalation 3 mL [id number] 03/21/24 89827-820-98 [employer] Assessment and Plan Assessment & Plan (1) CHF (congestive heart failure): Comment: Echo LVEF 40-45%, mid to distal anterior, apical, mid-distal septal/anteroseptal and apical inf wall akinesis 01/10 [facility] Code(s): I50.9 - Heart failure, unspecified Plan: Obtain a repeat echocardiogram continue Entresto (2) Paroxysmal A-fib: Comment: 01/10 during hospitalization for NSTEMI 01/10, on Amiodarone and Eliquis Code(s): I48.0 - Paroxysmal atrial fibrillation Plan: Continue Eliquis and metoprolol. Discontinue amiodarone because of persistent cough since patient started taking it (3) Cough: Comment: CT chest 07/2023 stable scattered bilateral parenchymal and subpleural lung nodules unchanged from 03/09/2023 Code(s): R05 - Cough Plan: Albuterol nebulized treatments significantly improved wheezing. Amiodarone will be discontinued prednisone 40 mg for 10 days is prescribed. patient was advised to use albuterol but she declined. Follow-up in 1 week (4) Chronic kidney disease (CKD): Comment: stage 3/4 Code(s): N18.9 - Chronic kidney disease, unspecified Plan: Monitor renal function avoid nephrotoxins (5) DM type 2 (diabetes mellitus, type 2): Code(s): E11.9 - Type 2 diabetes mellitus without complications Plan: Continue ADA diet and current insulin regimen (6) HTN (hypertension): Code(s): I10 - Essential (primary) hypertension Plan: Add 25 mg twice a day of hydralazine, follow-up in 1 week Orders: Orders CA echo transthoracic complete Today I50.9 - Heart failure, unspecified AMB Nebulizer Treatment Today R05 - Cough Medications: New prednisone 20 mg PO BID 20 tabs 0RF hydralazine 25 mg PO BID 60 tabs 0RF prednisone 20 mg PO BID 20 tabs 0RF Changed From furosemide 20 mg PO Q OTHER DAY 60 tabs 2RF To furosemide 20 mg PO QAM 30 tabs 2RF Coding Level of Care Code Est Pt Level 4 (67268) Complex EM visit Add On G2211 Diagnoses CHF (congestive heart failure) I50.9 Paroxysmal A-fib I48.0 Cough R05 Chronic kidney disease (CKD) N18.9 DM type 2 (diabetes mellitus, type 2) E11.9 HTN (hypertension) I10 CPT Codes Nebulizer Treatment - Nebulizer Treatment, initial or subsequent: [id number]/[id number] RX initial, or Nebulizer Subsequent Treatment ([id number]) Additional Codes JAMES-7 Assessment Billing - JAMES-7 Assessment Tool: JAMES-7 Assessment 02358 ([id number])
== END 2023-09-23 12:32 | disposition home or self-care (01) ==
PROVIDERS: PCP Internal Medicine; Visit Provider Internal Medicine
DX: I50.9 Heart failure, unspecified (principal); I48.0 Paroxysmal atrial fibrillation; E11.22 Type 2 diabetes mellitus with diabetic chronic kidney disease; R05.9 Cough, unspecified; N18.9 Chronic kidney disease, unspecified; I12.9 Hypertensive chronic kidney disease with stage 1 through stage 4 chronic kidney disease, or unspecified chronic kidney disease
CPT/HCPCS: 94640; 99214; G2211; J7613

== ENCOUNTER 2023-10-09 12:36 | Outpatient (AMB) | payer MEDICARE, SELFPAY ==
[2023-10-09 12:44] VITALS: BP 138/65; PULSE 79; O2SAT 97; BMI 23.3
--- NOTE | 2023-10-09 12:44 | A.OFFPC_ITS ---
Vital Signs 10/09/23 12:44 Height 5 ft 7 in Weight 149 lb BMI 23.3 BP 138/65 Blood Pressure Location Rt brachial Position Sitting Pulse 79 Pulse Source Pulse Oximeter Pulse Oximetry (%) 97 Oxygen Delivery Method Room Air Intake Visit Reasons: Rescheduled from 09/15 Intake Note: Pt is here today for a follow up visit on DM. Allergies dulaglutide [Trulicity] Allergy (Unknown, Verified 09/23/23 10:49) GERD losartan Allergy (Unknown, Verified 09/23/23 10:49) Hyperkalemia Sulfa (Sulfonamide Antibiotics) Allergy (Unknown, Verified 09/23/23 10:49) Rash dapagliflozin [From [facility]] Adverse Reaction (Intermediate, Verified 09/23/23 10:49) candidasis Tobacco use date assessed: 09/23/23 Dental Screening Dental Screen Date: 09/23/23 HPI Rescheduled from 09/15 HPI Details Patient presents for the follow-up. She reports cough and wheezing improved while on prednisone. The dry cough slightly worsened after finishing prednisone. She reports fluctuating blood pressure and increased hydralazine to 50 mg 3 times a day 3 days ago with slowly improving blood pressure readings. Patient reports high glucose readings up to 300 while on prednisone improving since patient discontinued prednisone. Patient reports cough worse at night and needs to use 2 pillows for sleep. She also noticed increasing lower extremity swelli ng for the last 2 days. Patient denies chest pains or palpitations. [facility] Medical History Vitamin D deficiency Macrocytosis Cough Sciatica Hypothyroidism HTN (hypertension) DM type 2 (diabetes mellitus, type 2) Lower extremity edema Irritable bowel syndrome (IBS) Chronic GERD Anxiety Chronic kidney disease (CKD) Hyperlipidemia Hypertension associated with diabetes Surgical History No pertinent past surgical history Family History Mother Ovarian cancer Father Pancreatic cancer Thyroid disease Social History Household Members Other:: Housing: House Alcohol intake: never Patient Tobacco Use Status: Never used Tobacco e-Cigarette/Vaping Use: Never Used Second Hand Smoke Exposure: No service: No Current occupational status: retired Cognitive needs: No Hearing needs: No Vision needs: Yes Questionnaire PHQ-9 Over the last 2 weeks, how often have you been bothered by any of the following problems? 1. Little interest or pleasure in doing things: not at all 2. Feeling down, depressed, or hopeless: not at all Source: Developed by Drs. Bryce Garcia, Sophie Baldwin, Rock Coyle and colleagues, with an educational pranay from [employer]. Thrive Questionnaire Date Thrive assessed: 09/23/23 I am a: Patient What is your living situation today?: I have a steady place to live Within the past 12 months, did the food you bought not last and you didn't have the money to get more?: I choose not to answer this question Within the past 12 months, did you worry whether your food would run out before you got money to buy more?: I choose not to answer this question Do you have trouble paying for medicines?: I choose not to answer this question Do you have trouble getting transportation to medical appointments?: I choose not to answer this question Do you have trouble paying your heating and electricity bill?: I choose not to answer this question Do you have trouble taking care of your child, family member or friend?: I choose not to answer this question Do you have trouble with day-to-day activities such as bathing, preparing meals, shopping, managing finances, etc.?: I choose not to answer this question Are you currently unemployed and looking for a job?: I choose not to answer this question Are you interested in more education?: I choose not to answer this question Please select the resources that you would like help with: None Currently or been in a relationship where the following occur: I choose not to answer THRIVE Score: 0 AUDIT C Alcohol Use Questionnaire (AUDIT-C) 1. How often do you have a drink containing alcohol?: Never Total Score: 0 JAMES-7 AMB Questionnaire JAMES-7 Date JAMES - 7 assessed: 09/23/23 Feeling nervous, anxious, or on edge: 0 = Not at all Not being able to stop or control worryin = Not at all Worrying too much about different things: 0 = Not at all Trouble relaxin = Not at all Being so restless that it is hard to sit still: 0 = Not at all Becoming easily annoyed or irritable: 0 = Not at all Feeling afraid as if something awful might happen: 0 = Not at all Total JAMES-7 score (0-4 normal; 5-9 mild; 10-14 moderate; 15-21 severe): 0 Source: Developed by Drs. Bryce Garcia, Sophie Baldwin, Rock Coyle and colleagues, with an educational pranay from [employer]. Review of Systems Const All systems reviewed & are unremarkable except as noted in HPI and below Eyes Reports no additional complaints ENT Reports no additional complaints Card Reports no additional complaints Resp Reports no additional complaints Physical exam (Primary Care) Vital Signs: Last Vital Signs Pulse 79 10/09/23 12:44 Pulse Ox 97 10/09/23 12:44 Oxygen Delivery Method Room Air 10/09/23 12:44 BMI result Body Mass Index 23.3 Tobacco/Smoking Status: Tobacco use Status Tobacco use date assessed 09/23/23 10/09/23 12:44 Patient Tobacco Use Status Never used Tobacco 10/09/23 12:44 e-Cigarette/Vaping Use Never Used 10/09/23 12:44 Thrive Assessment: Date of Thrive Assessment Date Thrive assessed 09/23/23 10/09/23 12:44 Currently or been in a relationship where the following occur: I choose not to answer Const General: no acute distress HENMT Head: Yes normal to inspection Resp Effort & Inspection: normal respiratory effort Auscultation: rales (1/3 up) bilateral and wheezes Cardio Rhythm: regular rhythm Heart sounds: S1 normal heart sound present and S2 normal heart sound present GI Inspection: Yes normal to inspection Palpation (GI): Soft to palpation Extrem Other: 2+ pitting edema bilaterally Assessment and Plan Assessment & Plan (1) CHF (congestive heart failure): Comment: Echo LVEF 40-45%, mid to distal anterior, apical, mid-distal septal/anteroseptal and apical inf wall akinesis 01/10 [facility] Code(s): I50.9 - Heart failure, unspecified Plan: Increase Entresto to 97/103 twice a day increase furosemide to 40 mg a day, check BNP in 1 week, patient has echocardiogram scheduled in 2 weeks (2) CAD (coronary artery disease): Comment: NSTEMI, S/P AMOR to mid LAD (90% stenosis) 01/10 Code(s): I25.10 - Atherosclerotic heart disease of [place] coronary artery without angina pectoris Plan: Continue clopidogrel and Eliquis (3) Insulin dependent type 2 diabetes mellitus: Code(s): E11.9 - Type 2 diabetes mellitus without complications; Z79.4 - terminal computer operator (current) use of insulin Plan: Continue current treatment with Tresiba and Humalog according to sliding scale (4) HTN (hypertension): Code(s): I10 - Essential (primary) hypertension Plan: Increase Entresto and decrease hydralazine to 50 mg twice a day patient will monitor blood pressure at home (5) 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 If patient can not tolerate Breo she will take budesonide via nebulizer twice a day. Follow-up in 1 month Orders: Orders Basic Metabolic Panel 1 Week I50.9 - Heart failure, unspecified Medications: New sacubitril-valsartan 97-103 mg (Entresto) 1 tab PO BID 180 tabs 0RF Changed From furosemide 20 mg PO QAM 30 tabs 2RF To furosemide 40 mg (2 x 20 mg) PO QAM 180 tabs 2RF Refilled codeine-guaifenesin 10-100 mg/5 mL 5 mL PO Q4-6H PRN 118 mL 0RF cough Discontinued sacubitril-valsartan 49-51 mg (Entresto) Discontinued Reason: Doctor's Order 1 tab PO BID 180 tabs 1RF Coding Level of Care Code Est Pt Level 4 (50119) Complex EM visit Add On G2211 Diagnoses CHF (congestive heart failure) I50.9 CAD (coronary artery disease) I25.10 Insulin dependent type 2 diabetes mellitus E11.9; Z79.4 HTN (hypertension) I10 Chronic kidney disease (CKD) N18.9 Cough R05
== END 2023-10-09 13:55 | disposition home or self-care (01) ==
PROVIDERS: PCP Internal Medicine; Visit Provider Internal Medicine
DX: I13.0 Hypertensive heart and chronic kidney disease with heart failure and stage 1 through stage 4 chronic kidney disease, or unspecified chronic kidney disease (principal); E11.22 Type 2 diabetes mellitus with diabetic chronic kidney disease; N18.9 Chronic kidney disease, unspecified; I50.9 Heart failure, unspecified; Z79.4 Long term (current) use of insulin; I25.10 Atherosclerotic heart disease of native coronary artery without angina pectoris; R05.9 Cough, unspecified
CPT/HCPCS: 99214; G2211

== ENCOUNTER → 2023-10-30 12:54 | Outpatient (REF) | payer MEDICARE, SELFPAY ==
--- NOTE | 2023-10-30 12:59 | CA_ITS ---
Transthoracic Echocardiogram Patient (Last, First, Middle): Beverly Marie, Gender: Female Date of : 1940 Age: 83 Procedure Date: 10/30/2023 Procedure Type: Transthoracic Echocardiogram Location: OP Height: 160.02 cm Weight: 66.68 kg BSA: 1.70 m2 Heart Rate: bpm BP: 122 / 60 mmHg Spar Machine Operator: Referring MD: Orquidea Keller MD Automotive Power Electronics Engineer: Spenser Horne MD Symptoms: I50.9 - Heart failure, unspecified Study Quality: Adequate ECG Rhythm: Sinus Conclusions: - 1. Normal LV ejection fraction of 55-60% with grade 2 diastolic dysfunction 2. Mildly dilated left atrium 3. Normal cardiac valvular Doppler 4. Normal RV systolic pressure 5. No gross pericardial effusion Findings Left Ventricle Normal left ventricular size, thickness, and systolic function. The visually estimated ejection fraction is between 55-60%. Spectral Doppler is indicative of a pseudonormal filling pattern. Elevated left atrial and left ventricular end-diastolic pressures. E/E prime ratio is >15, consistent with elevated filling pressures. Evidence suggests grade II (moderate) diastolic dysfunction. Right Ventricle Normal right ventricular cavity size and systolic function. Atria The left atrium is mildly dilated. There is no evidence of interatrial shunt. The right atrium is normal in size. Aortic Valve There is mild calcification of the aortic valve. There is no aortic valve stenosis. There is no aortic valve regurgitation. Mitral Valve There is mild anterior and moderate posterior mitral leaflet thickening. There is mild mitral annular calcification. There is trace mitral valve regurgitation. There is no mitral valve stenosis. Tricuspid Valve Likely normal tricuspid valve structure and function. There is trace tricuspid valve regurgitation. The right ventricular systolic pressure is normal. The right ventricular systolic pressure is 25 mmHg. Normal right atrial pressure. There is no evidence of pulmonary hypertension. Great Vessels All visible segments of the aorta are normal in size. The pulmonary artery was not well visualized. Venous The inferior vena cava is normal in size and collapses greater than 50% with inspiration. Pericardium/Pleural There is no evidence of pericardial effusion. Prior Study Comparison No prior study available for comparison. Measurements 2D Linear Measurements IVSd: 1.10 0.6-0.9/0.6-1.0 cm LVIDd: 3.68 3.9-5.3/4.2-5.9 cm LVIDd Index: 2.16 2.4-3.2/2.2-3.1 cm/m2 LVIDs: 2.39 2.0-3.6 cm LVPWd: 1.11 0.7-1.1 cm Ao Root: 2.60 2.1-3.5 cm LA Diam: 3.30 2.7-3.8/3.0-4.0 cm LAIDs Index: 1.94 1.5-2.3 cm/m2 LV Mass: 160.68 67-162/88-224 g LV Mass Index: 94.52 43-95/49-115 g/m2 LVOT Diam: 2.00 3.0+(-)1.3 cm Mitral Valve MV VTI: 0.44 MV Pk Aaron: 1.25 MV Mn Aaron: 0.76 MV Pk Grad: 6.00 MV Mn Grad: 3.00 MV Pk E: 1.22 MV PK A: 1.09 MV Decel Time: 223.00 E/A: 1.10 E'Lateral: 6.85 E'Medial: 5.00 E/E' Med: 24.40 E/E' Lat: 17.80 PHT: 65.00 MVA PHT: 3.38 MVA Continuity: 1.77 Decel [place]: 5.47 Aortic Valve AoV Pk Aaron: 1.47 AoV Mn Aaron: 0.89 AoV VTI: 0.36 AoV Pk Grad: 9.00 Aov Mn Grad: 4.00 RICHARD Cont.VTI: 2.16 LVOT LVOT Pk Aaron: 0.94 LVOT Mn Aaron: 0.62 LVOT VTI: 0.25 LVOT Pk Grad: 4.00 LVOT Mn Grad: 2.00 LVOT Diam: 2.00 LVOT Area: 3.14 Diastolic Function MV Pk E: 1.22 MV Pk A: 1.09 E/A: 1.10 E'Medial: 5.00 E/E' Med: 24.40 E' Laterial: 6.85 E/E' Lat: 17.80 Right Ventricle TAPSE (mm): 26.00 TVS' Aaron: 12.00 Tricuspid Valve TR Pk Aaron: 2.34 TR Pk Grad: 22.00 RA Press: 3.00 RVSP: 25.00 Great Vessels Aorta Ao Root-2D: 2.60 2.0-3.7 cm Ao Asc: 3.30 2.1-3.4 cm Pulmonary Valve PV Pk Aaron: 1.07 Peak PV Grad: 5.00 Updated in Other Vendor System with Status of Final Spenser Horne MD electronically signed on 10/30/2023 1:59:12 PM with status of Final
== END ==
LOC: HO.CARD 12:54
PROVIDERS: PCP Internal Medicine; Visit Provider Internal Medicine
DX: I50.9 Heart failure, unspecified (principal)
CPT/HCPCS: 93306

== ENCOUNTER → 2023-10-30 12:59 | Outpatient (BNV) | payer MEDICARE, SELFPAY | PROVIDERS: PCP Internal Medicine; Visit Provider Internal Medicine Cardiovascular Disease | DX: I35.8 Other nonrheumatic aortic valve disorders (principal); I34.81 Nonrheumatic mitral (valve) annulus calcification | CPT/HCPCS: 93306 ==

== ENCOUNTER 2023-11-06 14:19 | Outpatient (AMB) | payer MEDICARE, SELFPAY ==
--- NOTE | 2023-11-06 14:21 | A.OFFPC_ITS ---
Vital Signs 11/06/23 14:22 Height 5 ft 7 in Weight 148 lb BMI 23.2 BP 126/60 Blood Pressure Location Rt brachial Position Sitting Pulse 79 Pulse Source Pulse Oximeter Pulse Oximetry (%) 99 Oxygen Delivery Method Room Air Intake Visit Reasons: 1 month f/u - see comments Allergies dulaglutide [Trulicity] Allergy (Unknown, Verified 11/06/23 14:43) GERD losartan Allergy (Unknown, Verified 11/06/23 14:43) Hyperkalemia Sulfa (Sulfonamide Antibiotics) Allergy (Unknown, Verified 11/06/23 14:43) Rash dapagliflozin [From [facility]] Adverse Reaction (Intermediate, Verified 11/06/23 14:43) candidasis Medication List - Last Reconciled 11/06/23 by Orquidea Keller MD acetaminophen (Tylenol Extra Strength) 500 mg PO Q6H PRN albuterol sulfate 0.63 mg (3 mL) inhalation QID PRN allopurinol 100 mg PO DAILY apixaban (Eliquis) 2.5 mg PO BID atorvastatin 80 mg PO BEDTIME benzonatate 100 mg PO TID blood sugar diagnostic (FreeStyle Lite Strips) Use to test blood sugar three times daily blood-glucose meter,continuous (Dexcom G7 Blood Bank Laboratory Technologist) As directed blood-glucose sensor (Dexcom G7 Sensor device) As directed Breo Ellipta 100-25 mcg/dose (fluticasone furoate-vilanterol) 1 inh inhalation DAILY NS budesonide 0.5 mg (2 mL) inhalation BID buspirone 40 mg (4 x 10 mg) PO BEDTIME clopidogrel 75 mg PO DAILY codeine-guaifenesin 10-100 mg/5 mL 5 mL PO Q4-6H PRN furosemide 40 mg (2 x 20 mg) PO QAM Humalog KwikPen Insulin (insulin lispro) 10 units (0.1 mL) subcut TID NS hydralazine 50 mg PO BID insulin aspart (niacinamide) 100 unit/mL (3 mL) (Fiasp FlexTouch U-100 Insulin) 10 units subcut TID lactic acid-urea 1 appl topical DAILY PRN lancets (FreeStyle Lancets) use to test blood sugars three times per day latanoprost 0.005% 1 drp ophthalmic (eye) DAILY levothyroxine 75 mcg PO DAILY metoprolol succinate ER 25 mg PO DAILY nebulizers As directed for updraft treatments-with all needed supplies omeprazole 20 mg PO DAILY pen needle, diabetic QID sacubitril-valsartan 97-103 mg (Entresto) 1 tab PO BID Tresiba FlexTouch U-200 (insulin degludec) 15 units (0.075 mL) subcut DAILY NS Tobacco use date assessed: 09/23/23 Dental Screening Dental Screen Date: 09/23/23 HPI 1 month f/u - see comments HPI Details Patient presents for the follow-up of heart failure with reduced ejection fraction, hypertension, chronic kidney disease stage 3/4, an episode of AFib after NSTEMI, insulin-dependent diabetes. Patient reports chronic cough significantly improved she has been using Breo up to twice a week and denies wheezing, PND on orthopnea. She has been taking furosemide 20 mg most of the days occasionally increasing to 40 mg follow extremity swelling.. She reports fluctuating blood glucose between 80 and over 200s but has not been compliant with ADA diet. [facility] Medical History (Updated 11/06/23 @ 15:39 by Orquidea Keller MD) Vitamin D deficiency Macrocytosis Cough Sciatica Hypothyroidism HTN (hypertension) DM type 2 (diabetes mellitus, type 2) Lower extremity edema Irritable bowel syndrome (IBS) Chronic GERD Anxiety Chronic kidney disease (CKD) Hyperlipidemia Hypertension associated with diabetes Surgical History No pertinent past surgical history Family History Mother Ovarian cancer Father Pancreatic cancer Thyroid disease Social History Household Members Other:: Housing: House Alcohol intake: never Patient Tobacco Use Status: Never used Tobacco e-Cigarette/Vaping Use: Never Used Second Hand Smoke Exposure: No service: No Current occupational status: retired Cognitive needs: No Hearing needs: No Vision needs: Yes Questionnaire Thrive Questionnaire Date Thrive assessed: 09/23/23 I am a: Patient What is your living situation today?: I have a steady place to live Within the past 12 months, did the food you bought not last and you didn't have the money to get more?: I choose not to answer this question Within the past 12 months, did you worry whether your food would run out before you got money to buy more?: I choose not to answer this question Do you have trouble paying for medicines?: I choose not to answer this question Do you have trouble getting transportation to medical appointments?: I choose not to answer this question Do you have trouble paying your heating and electricity bill?: I choose not to answer this question Do you have trouble taking care of your child, family member or friend?: I choose not to answer this question Do you have trouble with day-to-day activities such as bathing, preparing meals, shopping, managing finances, etc.?: I choose not to answer this question Are you currently unemployed and looking for a job?: I choose not to answer this question Are you interested in more education?: I choose not to answer this question Please select the resources that you would like help with: None Currently or been in a relationship where the following occur: I choose not to answer THRIVE Score: 0 AUDIT C Alcohol Use Questionnaire (AUDIT-C) 1. How often do you have a drink containing alcohol?: Never Total Score: 0 JAMES-7 AMB Questionnaire JAMES-7 Date JAMES - 7 assessed: 09/23/23 Feeling nervous, anxious, or on edge: 0 = Not at all Not being able to stop or control worryin = Not at all Worrying too much about different things: 0 = Not at all Trouble relaxin = Not at all Being so restless that it is hard to sit still: 0 = Not at all Becoming easily annoyed or irritable: 0 = Not at all Feeling afraid as if something awful might happen: 0 = Not at all Total JAMES-7 score (0-4 normal; 5-9 mild; 10-14 moderate; 15-21 severe): 0 Source: Developed by Drs. Bryce Garcia, Sophie Baldwin, Rock Coyle and colleagues, with an educational pranay from [employer]. Review of Systems Const All systems reviewed & are unremarkable except as noted in HPI and below Eyes Reports no additional complaints ENT Reports no additional complaints Card Reports no additional complaints Resp Reports no additional complaints GI Reports no additional complaints Reports no additional complaints Physical exam (Primary Care) Vital Signs: Last Vital Signs Pulse 79 11/06/23 14:22 BP 126/60 11/06/23 14:22 Pulse Ox 99 11/06/23 14:22 Oxygen Delivery Method Room Air 11/06/23 14:22 BMI result Body Mass Index 23.2 Tobacco/Smoking Status: Tobacco use Status Tobacco use date assessed 09/23/23 11/06/23 14:22 Patient Tobacco Use Status Never used Tobacco 11/06/23 14:22 e-Cigarette/Vaping Use Never Used 11/06/23 14:22 Thrive Assessment: Date of Thrive Assessment Date Thrive assessed 09/23/23 11/06/23 14:22 Currently or been in a relationship where the following occur: I choose not to answer Const General: no acute distress HENMT Head: Yes normal to inspection Face and sinus: Yes normal facial exam Neck Neck: Yes supple Resp Effort & Inspection: normal respiratory effort Auscultation: diminished lung sounds Cardio Rhythm: regular rhythm Heart sounds: S1 normal heart sound present and S2 normal heart sound present GI Inspection: Yes normal to inspection Palpation (GI): Soft to palpation Extrem Other: 1TO 2+ PITTING EDEMA BILATERALLY Assessment and Plan Assessment & Plan (1) CHF (congestive heart failure): Comment: Echo LVEF 40-45%, mid to distal anterior, apical, mid-distal septal/anteroseptal and apical inf wall akinesis 01/10 [facility], Echo 10/2023 [facility], EF 55- 60 %, calcification of aortic and mitral valve, no pulmonary hypertension Code(s): I50.9 - Heart failure, unspecified Plan: ECHOCARDIOGRAM SHOWED IMPROVED EJECTION FRACTION 55-60%, no regional wall motion abnormalities. Patient will continue Entresto and hydralazine. She has difficulty get an appointment with [facility] for follow-up and will be referred to [facility] (2) Insulin dependent type 2 diabetes mellitus: Code(s): E11.9 - Type 2 diabetes mellitus without complications; Z79.4 - correction (current) use of insulin Plan: Poorly controlled due to dietary noncompliance, increase Tresiba to 15 units and continue Humalog 10 units before breakfast and and lunch and increase to 15 units before dinner.. 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 Orders: Orders ECG 3 day holter monitor Today E11.9 - Type 2 diabetes mellitus without complications, I50.9 - Heart failure, unspecified, Z79.4 - ocean transportation intermediary (current) use of insulin Complete Blood Count Auto Diff 6 Weeks E11.9 - Type 2 diabetes mellitus without complications, I25.10 - Atherosclerotic heart disease of [place] coronary artery without angina pectoris, I50.9 - Heart failure, unspecified, N18.9 - Chronic kidney disease, unspecified, Z79.4 - ocean transportation intermediary (current) use of insulin TSH reflex Free T4 6 Weeks E11.9 - Type 2 diabetes mellitus without complications, I25.10 - Atherosclerotic heart disease of [place] coronary artery without angina pectoris, I50.9 - Heart failure, unspecified, N18.9 - Chronic kidney disease, unspecified, Z79.4 - correction (current) use of insulin Hemoglobin A1c 6 Weeks E11.9 - Type 2 diabetes mellitus without complications, I25.10 - Atherosclerotic heart disease of [place] coronary artery without angina pectoris, I50.9 - Heart failure, unspecified, N18.9 - Chronic kidney disease, unspecified, Z79.4 - correction (current) use of insulin B Type Natriuretic Peptide 6 Weeks E11.9 - Type 2 diabetes mellitus without complications, I25.10 - Atherosclerotic heart disease of [place] coronary artery without angina pectoris, I50.9 - Heart failure, unspecified, N18.9 - Chronic kidney disease, unspecified, Z79.4 - correction (current) use of insulin Comprehensive [place]. Panel Fast 6 Weeks E11.9 - Type 2 diabetes mellitus without complications, I25.10 - Atherosclerotic heart disease of [place] coronary artery without angina pectoris, I50.9 - Heart failure, unspecified, N18.9 - Chronic kidney disease, unspecified, Z79.4 - ocean transportation intermediary (current) use of insulin Referrals Cardiology Referral I25.10 - Atherosclerotic heart disease of [place] coronary artery without angina pectoris, I48.0 - Paroxysmal atrial fibrillation Medications: New apixaban (Eliquis) 2.5 mg PO BID 180 tabs 3RF Coding Level of Care Code Est Pt Level 4 (31276) Diagnoses CHF (congestive heart failure) I50.9 Insulin dependent type 2 diabetes mellitus E11.9; Z79.4 Chronic kidney disease (CKD) N18.9 CAD (coronary artery disease) I25.10 Paroxysmal A-fib I48.0
[2023-11-06 14:22] VITALS: BP 126/60; PULSE 79; O2SAT 99; BMI 23.2
== END 2023-11-06 15:36 | disposition home or self-care (01) ==
PROVIDERS: PCP Internal Medicine; Visit Provider Internal Medicine
DX: I50.9 Heart failure, unspecified (principal); E11.9 Type 2 diabetes mellitus without complications; Z79.4 Long term (current) use of insulin; I48.0 Paroxysmal atrial fibrillation; N18.9 Chronic kidney disease, unspecified; I25.10 Atherosclerotic heart disease of native coronary artery without angina pectoris

== ENCOUNTER → 2023-11-06 14:19 | Outpatient (BNVA) | payer MEDICARE, SELFPAY | PROVIDERS: PCP Internal Medicine; Visit Provider Internal Medicine | DX: I48.0 Paroxysmal atrial fibrillation (principal); I25.10 Atherosclerotic heart disease of native coronary artery without angina pectoris; I50.9 Heart failure, unspecified; N18.9 Chronic kidney disease, unspecified; E11.9 Type 2 diabetes mellitus without complications; Z79.4 Long term (current) use of insulin | CPT/HCPCS: 99212 ==

== ENCOUNTER → 2023-11-13 13:06 | Outpatient (REF) | payer MEDICARE, SELFPAY ==
--- NOTE | 2023-11-13 13:09 | HM_ITS ---
Conclusion: 1. Patient was monitored for total period of 3 days 2. Baseline was normal sinus rhythm with average heart of 68 beats per minute 3. No significant pauses noted 4. Occasional PACs noted 5. Patient marked the counter 3 times with symptoms of dizziness correlating with sinus rhythm MTDD
== END ==
LOC: HO.CARD 13:06
PROVIDERS: PCP Internal Medicine; Visit Provider Internal Medicine
DX: I50.9 Heart failure, unspecified (principal); I49.1 Atrial premature depolarization; E11.9 Type 2 diabetes mellitus without complications; Z79.4 Long term (current) use of insulin
CPT/HCPCS: 93242

== ENCOUNTER → 2023-11-13 13:09 | Outpatient (BNV) | payer MEDICARE, SELFPAY | PROVIDERS: PCP Internal Medicine; Visit Provider Internal Medicine Cardiovascular Disease | DX: I49.1 Atrial premature depolarization (principal) | CPT/HCPCS: 93244 ==

== ENCOUNTER 2023-12-18 13:38 | Outpatient (REF) | payer MEDICARE, SELFPAY ==
[2023-12-18 16:33] LABS: B Type Natriuretic Peptide 253 pg/mL (<100)
[2023-12-18 16:49] LABS: Anion Gap 14 (12-20); Blood Urea Nitrogen 48 mg/dL (9-16); Carbon Dioxide 25 mmol/L (22-29); Chloride 105 mmol/L (96-108); Estimated Glomerular Filt Rate 25; Glucose Random 137 mg/dL (60-115); Potassium 4.1 mmol/L (3.3-5.1); Sodium 140 mmol/L (135-145)
[2023-12-18 17:48] LABS: Estimated Average Glucose 154 mg/dL; Hemoglobin A1C 142.6547 umol/L; Total Hemoglobin (HGBA1C) 2698.7154 umol/L
== END 2023-12-18 13:39 | disposition home or self-care (01) ==
LOC: HO.HMGCLDS 13:38
PROVIDERS: PCP Internal Medicine; Visit Provider Internal Medicine
DX: E11.22 Type 2 diabetes mellitus with diabetic chronic kidney disease (principal); I13.0 Hypertensive heart and chronic kidney disease with heart failure and stage 1 through stage 4 chronic kidney disease, or unspecified chronic kidney disease; I50.9 Heart failure, unspecified; N18.9 Chronic kidney disease, unspecified; I25.10 Atherosclerotic heart disease of native coronary artery without angina pectoris; Z79.4 Long term (current) use of insulin
CPT/HCPCS: 36415; 80048; 83036; 83880; 99212

== ENCOUNTER 2023-12-18 13:38 | Outpatient (AMB) | payer MEDICARE, SELFPAY ==
[2023-12-18 13:40] VITALS: BP 118/60; PULSE 65; O2SAT 98; BMI 24.0
--- NOTE | 2023-12-18 13:40 | MHC.PC.OV ---
Vital Signs 12/18/23 13:40 Height 5 ft 7 in Weight 153 lb BMI 24.0 BP 118/60 Blood Pressure Location Rt brachial Position Sitting Pulse 65 Pulse Source Pulse Oximeter Pulse Oximetry (%) 98 Oxygen Delivery Method Room Air Intake Visit Reasons: 6 week follow up Intake Note: Pt is here today for 6 weeks follow up visit. Allergies dulaglutide [Trulicity] Allergy (Unknown, Verified 12/18/23 13:43) GERD losartan Allergy (Unknown, Verified 12/18/23 13:43) Hyperkalemia Sulfa (Sulfonamide Antibiotics) Allergy (Unknown, Verified 12/18/23 13:43) Rash dapagliflozin [From [facility]] Adverse Reaction (Intermediate, Verified 12/18/23 13:43) candidasis amiodarone Adverse Reaction (Verified 12/18/23 15:14) Cough spironolactone Adverse Reaction (Verified 12/18/23 15:13) Hyperkalemia Medication List - Last Reconciled 12/18/23 by Orquidea Keller MD acetaminophen (Tylenol Extra Strength) 500 mg PO Q6H PRN albuterol sulfate 0.63 mg (3 mL) inhalation QID PRN allopurinol 100 mg PO DAILY apixaban (Eliquis) 2.5 mg PO BID atorvastatin 80 mg PO BEDTIME benzonatate 100 mg PO TID blood sugar diagnostic (FreeStyle Lite Strips) Use to test blood sugar three times daily blood-glucose meter,continuous (Dexcom G7 Tie Loader) As directed blood-glucose sensor (Dexcom G7 Sensor device) As directed Breo Ellipta 100-25 mcg/dose (fluticasone furoate-vilanterol) 1 inh inhalation DAILY NS budesonide 0.5 mg (2 mL) inhalation BID buspirone 40 mg (4 x 10 mg) PO BEDTIME clopidogrel 75 mg PO DAILY codeine-guaifenesin 10-100 mg/5 mL 5 mL PO Q4-6H PRN furosemide 40 mg (2 x 20 mg) PO QAM Humalog KwikPen Insulin (insulin lispro) 10 units (0.1 mL) subcut TID NS hydralazine 50 mg PO BID insulin aspart U-100 (Novolog FlexPen U-100 Insulin aspart) 20 units (0.2 mL) subcut BID lactic acid-urea 1 appl topical DAILY PRN lancets (FreeStyle Lancets) use to test blood sugars three times per day latanoprost 0.005% 1 drp ophthalmic (eye) DAILY levothyroxine 75 mcg PO DAILY metoprolol succinate ER 25 mg PO DAILY nebulizers As directed for updraft treatments-with all needed supplies omeprazole 20 mg PO DAILY pen needle, diabetic QID sacubitril-valsartan 97-103 mg (Entresto) 1 tab PO BID Tresiba FlexTouch U-200 (insulin degludec) 15 units (0.075 mL) subcut DAILY NS Tobacco use date assessed: 12/18/23 Dental Screening Dental Screen Date: 09/23/23 HPI 6 week follow up HPI Details Pt presents for IDDM, HFrEF, HTN. Patient complains of increased lower extremity swelling since increasing dose of hydralazine. Dyspnea on exertion and PND improved patient denies palpitations or chest pain. She reports fluctuating blood glucose with the lower readings in the mornings between 100-130 and higher after dinner up to over 200s. She has been 50% in range by Dexcom7 but 25% high. FOR[facility]LY [facility], [facility] Medical History Vitamin D deficiency Macrocytosis Cough Sciatica Hypothyroidism HTN (hypertension) DM type 2 (diabetes mellitus, type 2) Lower extremity edema Irritable bowel syndrome (IBS) Chronic GERD Anxiety Chronic kidney disease (CKD) Hyperlipidemia Hypertension associated with diabetes Surgical History No pertinent past surgical history Family History Mother Ovarian cancer Father Pancreatic cancer Thyroid disease Social History Household Members Other:: Housing: House Alcohol intake: never Patient Tobacco Use Status: Never used Tobacco e-Cigarette/Vaping Use: Never Used Second Hand Smoke Exposure: No service: No Current occupational status: retired Cognitive needs: No Hearing needs: No Vision needs: Yes Questionnaire Thrive Questionnaire Date Thrive assessed: 09/23/23 I am a: Patient What is your living situation today?: I have a steady place to live Within the past 12 months, did the food you bought not last and you didn't have the money to get more?: I choose not to answer this question Within the past 12 months, did you worry whether your food would run out before you got money to buy more?: I choose not to answer this question Do you have trouble paying for medicines?: I choose not to answer this question Do you have trouble getting transportation to medical appointments?: I choose not to answer this question Do you have trouble paying your heating and electricity bill?: I choose not to answer this question Do you have trouble taking care of your child, family member or friend?: I choose not to answer this question Do you have trouble with day-to-day activities such as bathing, preparing meals, shopping, managing finances, etc.?: I choose not to answer this question Are you currently unemployed and looking for a job?: I choose not to answer this question Are you interested in more education?: I choose not to answer this question Please select the resources that you would like help with: None Currently or been in a relationship where the following occur: I choose not to answer THRIVE Score: 0 JAMES-7 AMB Questionnaire JAMES-7 Date JAMES - 7 assessed: 09/23/23 Source: Developed by Drs. Bryce Garcia, Sophie Baldwin, Rock Coyle and colleagues, with an educational pranay from [employer]. Review of Systems Const All systems reviewed & are unremarkable except as noted in HPI and below ENT Reports no additional complaints GI Reports no additional complaints Reports no additional complaints Musc Reports no additional complaints Neuro Reports no additional complaints Physical exam (Primary Care) Vital Signs: Last Vital Signs Pulse 65 12/18/23 13:40 BP 118/60 12/18/23 13:40 Pulse Ox 98 12/18/23 13:40 Oxygen Delivery Method Room Air 12/18/23 13:40 BMI result Body Mass Index 24.0 Tobacco/Smoking Status: Tobacco use Status Tobacco use date assessed 12/18/23 12/18/23 13:46 Patient Tobacco Use Status Never used Tobacco 12/18/23 13:46 e-Cigarette/Vaping Use Never Used 12/18/23 13:46 Thrive Assessment: Date of Thrive Assessment Date Thrive assessed 09/23/23 12/18/23 13:46 Currently or been in a relationship where the following occur: I choose not to answer Const General: no acute distress HENMT Head: Yes normal to inspection Eyes General: appearance normal, both eyes and all related structures Resp Effort & Inspection: normal respiratory effort Auscultation: clear to auscultation bilaterally Cardio Rhythm: regular rhythm Heart sounds: S1 normal heart sound present and S2 normal heart sound present GI Inspection: Yes normal to inspection Extrem Other: 2+ pitting edema bilaterally Coding Level of Care Code Est Pt Level 4 (44174) Diagnoses CHF (congestive heart failure) I50.9 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, Echo 10/2023 [facility], EF 55- 60 %, calcification of aortic and mitral valve, no pulmonary hypertension Code(s): I50.9 - Heart failure, unspecified Category: Medical Plan: Continue current medications patient was advised to increase furosemide to 40 mg a day (2) Insulin dependent type 2 diabetes mellitus: Code(s): E11.9 - Type 2 diabetes mellitus without complications; Z79.4 - batch freezer (current) use of insulin Category: Medical Plan: ADA diet increase physical activity discussed with the patient. She was advised to increase Humalog coverage before dinner from 16 units to 20 and continue monitor glucose regularly. Patient will continue the same dose of Tresiba (3) Paroxysmal A-fib: Comment: 01/10 during hospitalization for NSTEMI 01/10, on metoprolol and Eliquis Code(s): I48.0 - Paroxysmal atrial fibrillation Category: Medical Plan: Continue Eliquis and low-dose of metoprolol (4) HTN (hypertension): Code(s): I10 - Essential (primary) hypertension Category: Medical Plan: Blood pressure is low and hydralazine will be decreased to 25 mg twice a day. (5) Chronic kidney disease (CKD): Comment: stage 3/4 Code(s): N18.9 - Chronic kidney disease, unspecified Category: Medical Plan: Avoid nephrotoxins monitor renal function Orders: Orders Basic Metabolic Panel Today I50.9 - Heart failure, unspecified B Type Natriuretic Peptide Today I50.9 - Heart failure, unspecified Hemoglobin A1c Today I50.9 - Heart failure, unspecified Medications: New insulin aspart U-100 (Novolog FlexPen U-100 Insulin aspart) 20 units (0.2 mL) subcut BID 30 mL 3RF Changed From hydralazine 50 mg PO BID 180 tabs 0RF To hydralazine 25 mg (1/2 x 50 mg) PO BID 180 tabs 0RF Discontinued insulin aspart (niacinamide) 100 unit/mL (3 mL) (Fiasp FlexTouch U-100 Insulin) Discontinued Reason: Doctor's Order 10 units subcut TID 15 mL 4RF
== END 2023-12-18 15:24 | disposition home or self-care (01) ==
LOC: HO.HMCC 13:39
PROVIDERS: PCP Internal Medicine; Visit Provider Internal Medicine
DX: I50.9 Heart failure, unspecified (principal); E11.9 Type 2 diabetes mellitus without complications; Z79.4 Long term (current) use of insulin; I48.0 Paroxysmal atrial fibrillation; I12.9 Hypertensive chronic kidney disease with stage 1 through stage 4 chronic kidney disease, or unspecified chronic kidney disease; N18.9 Chronic kidney disease, unspecified

== ENCOUNTER 2024-02-17 14:10 | Outpatient (AMB) | payer MEDICARE, SELFPAY ==
--- OUTSIDE RECORDS SUMMARY | 2024-02-17 14:13 | XMS_ITS | Data Portability ---
Author Organization [place] - [facility], Allergy Address [address] [place] [address] Care Team Providers Care Department Chairperson Name Role Phone BE SAHNI Primary Care Provider [phone] Assessment Encounter Date Assessment Date Assessment LastModified by Organization Details LastModified Time 12/16/2023 12/16/2023 Reviewed pathophysiology of Eustachian tube dysfunction and patient understands. Reviewed rationale for use of intranasal steroid spray; however, this does cause dizziness and I agree with her decision to discontinue as we do not want to increase her risk for falls or injury. Patient may continue to utilize auto insufflation as needed. Recommend she return for next available visit with a physician for consideration of placing a ventilation tube in the right tympanic membrane. She would like this to be performed by Dr. Jordan, and it has been arranged. She may consider use of an antihistamine in the meantime. I discussed the risks, benefits and alternatives to tympanostomy and tubes, as well as the procedure itself, in detail. The patient was informed that: 1. Ear tubes are an effective surgical method to drain fluid from the middle ear, restore hearing loss caused by fluid in the middle ear and may prevent progressive ear drum damage caused by decreased air pressure in the middle ear. Some patients require more than one tube. 2. Post- op pain is minimal and usually easily controlled with acetaminophen or ibuprofen. 3. Hearing loss will usually improve within a day, often immediately. Failure to improve may indicate a second problem in the ear. 4. Rarely the opening in the ear drum may not close after the tube extrudes and surgical repair is necessary. Surgery is not always successful and sometimes there is a persistent or permanent perforation. 5. Problems with the anesthetic are possible but extremely uncommon with this surgery. 6. There are other unexpected events that can occur with the surgery, but all are very rare. 7. Will need to maintain water precautions following this procedure for 2 weeks, then water precautions typically lifted. 8. Tube usually stays in position 6 - 18 months, depending on several factors including the type of tube and condition of the patient's ear drum. They may need to be removed surgically if they do not spontaneously extrude in 3 years. Early extrusion is possible and may or may not result in need to replace the extruded tube. Patient consented to surgery and myringotomy and placement of ventilation tube will be scheduled at a mutually convenient time in the near future. [email or web address] Not available 12/16/2023 13:59:06 Plan of Treatment Reminders Order Date Submit Date Provider Last Modified By Organization Details Last Modified Time Details Appointments None record ed. Lab None record ed. Referral None record ed. Procedures None record ed. Surgeries None record ed. Imaging None record ed. Medication Orders None record ed. Patient TargetsNo targets recorded. Patient InstructionsNo instructions recorded. Reason for Referral None Reported. Results Created Date Observation Date Name Description Value Unit Range Abnormal Flag Note LastModifiedBy Organization Detail LastModifiedTime 10/09/19 24 07/04/2022 imagi ng/di agnos tic resul t No observ ation record ed. [email or web address] Not Available 01:22:51 10/09/19 24 08/10/2020 imagi ng/di agnos tic resul t No observ ation record ed. [email or web address] Not Available 01:22:58 10/09/19 24 08/12/2018 audio gram No observ ation record ed. [email or web address] Not Available 01:23:04 10/09/19 24 07/04/2022 audio gram No observ ation record ed. [email or web address] Not Available 01:23:21 10/09/19 24 08/10/2020 audio gram No observ ation record ed. [email or web address] Not Available 01:23:32 10/09/19 24 08/12/2018 audio gram No observ ation record ed. [email or web address] Not Available 01:23:51 10/16/19 audio gram No observ ation record ed. [email or web address] Not Available 09/19 15:12:40 12/16/19 audio gram No observ ation record ed. Not Available 11/19 15:12:52 Result Notes None recorded. Problems Name Problem SNOMED Code Status Onset Date Resolution Date Notes Provider Name and Address Organization Details Recorded Time Sensorine ural hearing loss of bilateral ears 565757062 Active 2018 Sensorine ural hearing loss, bilateral ; Note: Date Diagnosed : 08/12/2018 1:56 PM (H90.3) Not Available [facility] 4 03:11:58 Bilateral tinnitus 85952586054 02 Active 2018 Tinnitus, bilateral ; Note: Date Diagnosed : 08/12/2018 1:56 PM (H93.13) Not Available [facility] 4 03:11:57 Otalgia of right ear 2788372252 Active 2018 Otalgia, right ear; Note: Date Diagnosed : 03/12/2018 2:36 PM (H92.01) Not Available [facility] 4 03:11:57 Impacted cerumen in right ear 20033172557 77977 Active 2022 Impacted cerumen, right ear; Note: Date Diagnosed : 07/04/2022 1:17 PM (H61.21) Not Available [facility] 4 03:11:57 Bilateral disorder of Eustachia n tubes 61687291699 68131 Active 2023 DUKE NAVARRETE [address] [place] [address], [place], [phone] , [facility] - [facility] [place] 4 13:39:50 Acute serous otitis media of right ear 83568900495 72337 Active 2023 YADIRA JORDAN MD [address] [place] [address], [place], [address] , [facility] - [facility] 4 13:59:45 Problem Notes None recorded. Procedures Surgical History Date Name Laterality Status Provider Name and Address Organization Details Recorded Time 10/28/20 24 Tympanometry (20223) completed MARTIN ARNETT, AUD [address] [facility], [place], [address], [facility] 12/16/2023 13:08:04 10/16/19 24 Air & Speech Audio with Tymps (37824, 02273 & 48712) completed ROBIN RODRIGUEZ, AUD [address] [facility], [place], [address], [facility] 10/16/2023 13:43:04 Imaging Results Imaging Date Name Status LastModified by [employer] [facility] Details LastModified Time 07/04/2022 imaging/diagno stic result completed Information not available 10/09/2023 01:22:51 08/10/2020 imaging/diagno stic result completed Information not available 10/09/2023 01:22:58 08/12/2018 audiogram completed Information not available 10/09/2023 01:23:04 07/04/2022 audiogram completed Information not available 10/09/2023 01:23:21 08/10/2020 audiogram completed Information not available 10/09/2023 01:23:32 08/12/2018 audiogram completed Information not available 10/09/2023 01:23:51 10/16/2023 audiogram completed Information n ot available 10/16/2023 15:12:40 12/16/2023 audiogram completed [email or web address] Information n ot available 12/16/2023 15:12:52 Procedure Notes None recorded. Medical Equipment None Reported. Allergies Allergen ID Allergen Name Allergen Category Reaction Reaction Severity Criticality Documentation Date Start Date Code Code System Note Provider Name and Address Organization Details Recorded Time 28717 Substance with sulfonami de structure and antibacte rial mechanism of action (substanc e) medicatio n other Not available Not available 07/02/2023 [id number] 1742 SNOMED React ion: unkno wn, unspe cifie d;; Not Available [facility] 00:49:45 Medications Name Sig Start Date Stop Date Status Note LastModified by Organization Details LastModified Time amoxicillin 500 mg capsule TAKE 1 CAPSULE BY MOUTH 3 TIMES A DAY UNTIL FINISHED active Not Available Not Available No t Available furosemide 40 mg tablet TAKE 1 TABLET BY MOUTH EVERY DAY active Not Available Not Available No t Available latanoprost 0.005 % eye drops LOCATION: BOTH EYES. PLACE ONE DROP INTO EACH EYE AT BEDTIME, 90 DAY SUPPLY active Not Available Not Available N ot Available albuterol sulfate 0.63 mg/3 mL solution for nebulization USE 0.63 MG (3 ML) INHALED 4 TIMES A DAY NEEDED FOR SHORTNESS OF BREATH OR WHEEZING active Not Available Not Available Not Available atorvastatin 80 mg tablet TAKE 1 TABLET BY MOUTH EVERY DAY active Not Available Not Available No t Available amiodarone 200 mg tablet PLEASE SEE ATTACHED FOR DETAILED DIRECTIONS active Not Available Not Available N ot Available FreeStyle Lancets 28 gauge USE TO TEST BLOOD SUGARS THREE TIMES PER DAY active Not Available Not Available No t Available prednisone 20 mg tablet TAKE 1 TABLET BY MOUTH TWICE A DAY active Not Available Not Available No t Available hydralazine 25 mg tablet TAKE 1 TABLET BY MOUTH TWICE A DAY active Not Available Not Available No t Available amlodipine 2.5 mg tablet TAKE 1 TABLET BY MOUTH EVERY DAY active Not Available Not Available No t Available clopidogrel 75 mg tablet TAKE 1 TABLET BY MOUTH EVERY DAY active Not Available Not Available No t Available allopurinol 100 mg tablet TAKE 1 TABLET BY MOUTH DAILY. active Not Available Not Available No t Available acetaminophe n 500 mg tablet TAKE 1 TABLET EVERY 6 HOURS NEEDED FOR PAIN active Not Available Not Available No t Available simvastatin 40 mg tablet TAKE 1 TABLET BY MOUTH AT BEDTIME active Not Available Not Available No t Available levothyroxin e 75 mcg tablet TAKE 1 TABLET BY MOUTH EVERY DAY active Not Available Not Available No t Available benzonatate 100 mg capsule TAKE 1 CAPSULE BY MOUTH 3 TIMES A DAY active Not Available Not Available Not Available buspirone 10 mg tablet TAKE 4 TABLETS BY MOUTH EVERY DAY AT BEDTIME active Not Available Not Available No t Available clotrimazole -betamethaso ne 1 %-0.05 % topical cream APPLY TO AFFECTED AREA TWICE A DAY active Not Available Not Available No t Available halobetasol propionate 0.05 % topical ointment APPLY IN A PEA SIZED AMOUNT TO AFFECTED AREA 3 NIGHTS WEEKLY. active Not Available Not Available No t Available oxycodone 5 mg capsule TAKE ONE TAB EVERY 8 HOURS NEEDED FOR SEVERE PAIN. active Not Available Not Available No t Available omeprazole 20 mg capsule,av yed release TAKE 1 CAPSULE BY MOUTH EVERY DAY active Not Available Not Available No t Available codeine 10 mg-guaifenes in 100 mg/5 mL oral liquid TAKE 5 ML ORALLY EVERY 4 TO 6 HOURS NEEDED FOR COUGH *NOT COVERED* active Not Available Not Available No t Available hydralazine 50 mg tablet TAKE 1 TABLET BY MOUTH TWICE A DAY active Not Available Not Available No t Available mupirocin 2 % topical ointment APPLY TOPICALLY DAILY MINOR SKIN INFECTION DUE TO BACTERIA active Not Available Not Available No t Available furosemide 20 mg tablet TAKE 2 TABLETS BY MOUTH EVERY MORNING active Not Available Not Available No t Available metoprolol succinate ER 25 mg tablet,exten ded release 24 hr TAKE 1 TABLET BY MOUTH EVERY DAY active Not Available Not Available No t Available albuterol sulfate HFA 90 mcg/actuatio n aerosol inhaler INHALE 2 PUFFS BY MOUTH EVERY 4 HOURS NEEDED FOR WHEEZING/SH ORTNESS OF BREATH. USE WITH SPACER active Not Available Not Available Not Available doxycycline hyclate 100 mg tablet TAKE 1 TABLET BY MOUTH TWICE A DAY FOR 10 DAYS active Not Available Not Available No t Available valsartan 40 mg tablet TAKE 1 TABLET BY MOUTH EVERY DAY [id number] active Not Available Not Available Not Available Novolog FlexPen U-100 Insulin aspart 100 unit/mL (3 mL) subcutaneous INJECT 14 UNITS INTO THE SKIN 3 TIMES A DAY active Not Available Not Available Not Available amiodarone 100 mg tablet TAKE 1 TABLET BY MOUTH EVERY DAY active Not Available Not Available No t Available BD Ultra-Fine Mini Pen Needle 31 gauge x 3/16 USE 4 TIMES A DAY active Not Available Not Available No t Available chlorhexidin e gluconate 0.12 % mouthwash SWISH AND SPIT 15 CC TWICE DAILY FOR 14 DAYS STARTING THE DAY AFTER PROCEDURE. active Not Available Not Available N ot Available BD Ultra-Fine Short Pen Needle 31 gauge x 5/16 USE 4 TIMES A DAY active Not Available Not Available No t Available FreeStyle Lite Strips USE TO TEST BLOOD SUGAR THREE TIMES DAILY active Not Available Not Available No t Available Humalog KwikPen (U-100) Insulin 100 unit/mL subcutaneous TAKE 10 UNITS (0.1 ML) SUBCUTANEOU SLY 3 TIMES A DAY active Not Available Not Available No t Available [facility] spacer USE WITH INHALER active Not Available Not Available No t Available lidocaine 5 % topical ointment APPLY PEA SIZED AMOUNT TO AFFECTED AREA UP TO 5 TIMES DAILY NEEDED-PEPP ERMINT OIL FREE active Not Available Not Available No t Available Eliquis 2.5 mg tablet TAKE 1 TABLET BY MOUTH TWICE A DAY active Not Available Not Available No t Available Breo Ellipta 100 mcg-25 mcg/dose powder for inhalation INHALE 1 PUFF DAILY active Not Available Not Available N ot Available Entresto 97 mg-103 mg tablet TAKE 1 TABLET BY MOUTH TWICE A DAY active Not Available Not Available No t Available Entresto 49 mg-51 mg tablet TAKE 1 TABLET BY MOUTH TWICE A DAY active Not Available Not Available No t Available Entresto 24 mg-26 mg tablet TAKE 1&1/2 TABLETS BY MOUTH 2 TIMES A DAY active Not Available Not Available Not Available Tresiba FlexTouch U-200 insulin 200 unit/mL (3 mL) subcutaneous pen 60 UNIT (0.3 ML) SUBCUTANEOU SLY DAILY FOR 30 DAYS active Not Available Not Available Not Available Fiasp FlexTouch U-100 Insulin 100 unit/mL (3 mL) subcutaneous pen 10 UNIT SUBCUTANEOU SLY 3 TIMES A DAY active Not Available Not Available No t Available Vitals Date Recorded Body height Body mass index (BMI) Body weight Provider Name and Address Organization Details Last Updated DateTime 10/16/2023 160.02 cm 26 kg/m2 88919.08 g Ghada Peters [facility] 10/16/2023 13:54:00 Date Recorded Body height Body mass index (BMI) Body weight Provider Name and Address Organization Details Last Updated DateTime 12/16/2023 160.02 cm 26 kg/m2 25715.08 g Raina Gallego [facility] 12/16/2023 12:58:48 Social History None recorded. Functional Status None recorded. Mental Status None recorded. Family History Nothing Reported. Medical History No medical history recorded. Gynecological HistoryNo gynecological history recorded. Obstetrics History GPAL:G 0 P 0 0 0 0 Past Encounters Encounter ID Performer Location Encounter Start Date Encounter Closed Date Diagnosis/Indication Diagnosis SNOMED-CT Code Diagnosis ICD10 Code [id number] YADIRA JORDAN MD [facility] [address] [address] 10/16/2023 13:00:57 10/16/2023 14:01:35 Acute serous otitis media of right ear 0598117790 003829 H65.01 [id number] DUKE NAVARRETE [facility] [address] [place] [address] 10/16/2023 13:39:08 10/16/2023 16:44:20 Sensorineural hearing loss of bilateral ears 103430330 H90.3 Bilateral disorder of Eustachian tubes 4182053272 052278 H69.93 [id number] SILVIO SILVERIO MD [facility] [address] [address] 12/16/2023 12:50:25 12/16/2023 13:30:32 Bilateral disorder of Eustachian tubes 7514461609 563391 H69.93 Acute sero us otitis media of right ear 1424098561 671992 H65.01 [id number] DUKE LOVE [facility] of [address] [address] 12/16/2023 13:07:22 12/16/2023 14:57:24 Sensorineural hearing loss of bilateral ears 751398404 H90.3 Health Concerns Section Related Observation LastModified by Organization Detai ls LastModified Time None Recorded Concern Status LastModified by Organization Details LastModified Time None Recorded Advance Directives Directive None Recorded Payers Encounter Date Sequence Insurance Name Policy Number Policy Vilchis Covered Member ID Vilchis Member ID Guarantor Name 10/16/2023 1 MEDICARE [place]: [employer] Beverly Marie [id number] 2 Beverly Marie 10/16/2023 2 [place] [id number] Beverly Marie [id number] 21 Beverly Marie 10/16/2023 1 MEDICARE [place]: [employer] Beverly Marie [id number] Beverly Marie 10/16/2023 2 [place] [id number] Beverly Marie [id number] 21 Beverly Marie 12/16/2023 1 MEDICARE B-[place]: [employer] Beverly Marie [id number] Beverly Marie 12/16/2023 2 [place] [id number] Beverly Marie [id number] 21 Beverly Marie 12/16/2023 1 MEDICARE [place]: [employer] Beverly Marie [id number] 2 Beverly Marie 12/16/2023 2 [place] [id number] Beverly Marie [id number] 21 Beverly Marie Notes Date Note Type Note Provider Name and Address Organization Details Recorded Time 10/16/2023 text/html He of slightly asymmetric HL. Right ear has felt blocked for two days. She also has a cough. Hx of [place] and afib since last visit. YADIRA JORDAN MD [address] [place] [address], [phone], [facility] - [facility] 10/16/2023 14:00:41 12/16/2023 text/html 83-year-old femdebra haile presents for re-evaluation. Previously examined by Dr. Jordan 2 months ago and found to have serous effusion. Patient reports the ear still feels blocked. Sometimes briefly improves with Valsalva but then goes back to blockage. Affecting her ability to talk on the phone. She denies otorrhea but reports intermittent mild otalgia. There is no vertigo. She was using flonase sometimes but it causes some dizziness so she discontinued. No dizziness since then. She has some seasonal allergies. SILVIO RODRIGUEZ MD [address] [place] [address], [phone], [facility] - [facility] 12/16/2023 16:30:44 12/16/2023 text/html ELEAZAR Bishop, requested tympanometry. DUKE LOVE [address] [place] [address],[address], [address], [facility] 12/16/2023 13:09:48 OBGyn Episode No OBEpisode recorded.
--- OUTSIDE RECORDS SUMMARY | 2024-02-17 14:14 | XMS_ITS | Continuity of Care Document ---
Author Organization [place] - [facility], [facility] Address [address] [place] [address] Care Team Providers Care Forester [employer] Name Role Phone BE SAHNI Primary Care Provider Assessment Encounter Date Assessment Date Assessment LastModified [...] Abnormal Flag Note LastModifiedBy Organization Detail LastModifiedTime 12/16/19 24 audio gram No observ ation record ed. [email or web address] Not Available 11/19 15:12:52 Result Notes None recorded. Problems Name Problem SNOMED Code Status Onset Date Resolution Date Notes Provider Name and Address Organization Details Recorded Time Sensorine ural hearing loss of bilateral ears 746394157 Active 2018 Sensorine ural hearing loss, bilateral ; Note: Date Diagnosed : 08/12/2018 1:56 PM (H90.3) Not Available [facility] 4 03:11:58 Bilateral tinnitus 92587898057 02 Active 2018 Tinnitus, bilateral ; Note: Date Diagnosed : 08/12/2018 1:56 PM (H93.13) Not Available [facility] 4 03:11:57 Otalgia of right ear 2514961460 Active 2018 Otalgia, right ear; Note: Date Diagnosed : 03/12/2018 2:36 PM (H92.01) Not Available [facility] 4 03:11:57 Impacted cerumen in right ear 77091437608 64788 Active 2022 Impacted cerumen, right ear; Note: Date Diagnosed : 07/04/2022 1:17 PM (H61.21) Not Available [facility] 03:11:57 Bilateral disorder of Eustachia n tubes 61086167761 50616 Active 2023 ROBIN RODRIGUEZ, [facility] [address] [facility],[place] [address], [place], [address] , [facility] 13:39:50 Acute serous otitis media of right ear 49737721088 Active 2023 YADIRA JORDAN MD [address] [facility],[place] [address], [facility] [place], [address] , [facility] 13:59:45 Problem Notes None recorded. Procedures Surgical History Date Name Laterality Status Provider Name and Address Organization Details Recorded Time 12/16/19 24 Tympanometry (73319) completed MARTIN ARNETT, [address],[place] [address], [place], [address], [facility] 12/16/2023 13:08:04 10/16/19 24 Air & Speech Audio with Tymps (20456, 93609 & 36274) completed ROBIN RODRIGUEZ, [address],[place] [address], [place], [address], [facility] 10/16/2023 13:43:04 Imaging Results None recorded. Procedure Notes None recorded. Medical Equipment None Reported. Allergies Allergen ID Allergen Name Allergen Category Reaction Reaction Severity Criticality Documentation Date Start Date Code Code System Note Provider Name and Address Organization Details Recorded Time 57238 Substance with sulfonami de structure and antibacte rial mechanism of action (substanc e) medicatio n other Not available Not available 07/02/2023 42748 8003 SNOMED React ion: unkno wn, unspe cifie d;; Not Available [facility] 4 00:49:45 Medications Name Sig Start Date Stop [...] TAKE 1 TABLET BY MOUTH EVERY DAY [id number] active Not Available Not Available Not Available [...] Not Available Not Available No t Available Leanne Hutchinson [facility] spacer USE WITH INHALER active Not Available [...] Updated DateTime 12/16/2023 160.02 cm 26 kg/m2 21529.08 g Raina Gallego [place] - [facility] 12/16/2023 12:58:48 Social History None recorded. Functional Status None recorded. Mental Status None recorded. Family History Nothing Reported. Medical History No medical history recorded. Gynecological HistoryNo gynecological history recorded. Obstetrics History GPAL:G 0 P 0 0 0 0 Past Encounters Encounter ID Performer Location Encounter Start Date Encounter Closed Date Diagnosis/Indication Diagnosis SNOMED-CT Code Diagnosis ICD10 Code [id number] SILVIO SILVERIO MD [facility] of [address] [address] 12/16/2023 12:50:25 12/16/2023 13:30:32 Bilateral disorder of Eustachian tubes 6292161129 366799 H69.93 Acute sero us otitis media of right ear 5208334953 281989 H65.01 [id number] DUKE LOVE [facility] of [address] [address] 12/16/2023 13:07:22 12/16/2023 14:57:24 Sensorineural hearing loss of bilateral ears 098740811 H90.3 Health Concerns Section Related Observation LastModified by Organization Detai ls LastModified Time None Recorded Concern Status LastModified by Organization Details LastModified Time None Recorded Payers Encounter Date Sequence Insurance Name Policy Number Policy Vilchis Covered Member ID Vilchis Member ID Guarantor Name 12/16/2023 1 MEDICARE B-[place]: [employer] Beverly Marie [id number] 2 Beverly Marie 12/16/2023 2 [place] [id number] Beverly Marie [id number] Beverly Frank Notes Date Note Type Note Provider Name and Address Organization Details Recorded Time 12/16/2023 text/html 83-year-old fidencio haile presents for re-evaluation. Previously examined by [...] has some seasonal allergies. SILVIO RODRIGUEZ MD [address] [place] [address], [phone], [facility] 12/16/2023 16:30:44 12/16/2023 text/html ELEAZAR Bishop, requested tympanometry. DUKE LOVE [address] [place] [address], [phone], [facility] 12/16/2023 13:09:48 OBGyn Episode No OBEpisode recorded.
--- OUTSIDE RECORDS SUMMARY | 2024-02-17 14:14 | XMS_ITS | Continuity of Care Document ---
Author Organization [place] - [facility], [facility] Address [address] [place] [address] Care Team Providers Care Hospitality Coordinator Name Role Phone JUSTA SAHNIANNA Primary Care Provider Assessment No assessment recorded. Plan of Treatment Reminders Order Date Submit [...] Sensorine ural hearing loss of bilateral ears 070989167 Active 2018 Sensorine ural hearing loss, bilateral ; Note: Date Diagnosed : 08/12/2018 1:56 PM (H90.3) Not Available [facility] 4 03:11:58 Bilateral tinnitus 69566948609 02 Active 2018 Tinnitus, bilateral ; Note: Date Diagnosed : 08/12/2018 1:56 PM (H93.13) Not Available [facility] 4 03:11:57 Otalgia of right ear 6539588929 Active 2018 Otalgia, right ear; Note: Date Diagnosed : 03/12/2018 2:36 PM (H92.01) Not Available [facility] 4 03:11:57 Impacted cerumen in right ear 54452131812 58630 Active 2022 Impacted cerumen, right ear; Note: Date Diagnosed : 07/04/2022 1:17 PM (H61.21) Not Available [facility] 4 03:11:57 Bilateral disorder of Eustachia n tubes 51497852093 Active 2023 ROBIN RODRIGUEZ, [address],[place] [address], [place], [address] , [facility] 4 13:39:50 Acute serous otitis media of right ear 09658529867 Active 2023 YADIRA JORDAN MD [address] [place] [address],[place] [address], [place], [address] , [facility] 4 13:59:45 Problem Notes None recorded. Procedures Surgical History Date Name Laterality Status Provider Name and Address Organization Details Recorded Time 12/16/19 24 Tympanometry (50536) completed MARTIN ARNETT, [address],[place] [address], [place], [address], [facility] 12/16/2023 13:08:04 10/16/19 24 Air & Speech Audio with Tymps (37409, 74989 & 64470) completed ROBIN RODRIGUEZ, [address], [address], [facility] 10/16/2023 13:43:04 Imaging Results None recorded. Procedure Notes None recorded. Medical Equipment None Reported. Allergies Allergen ID Allergen Name Allergen Category Reaction Reaction Severity Criticality Documentation Date Start Date Code Code System Note Provider Name and Address Organization Details Recorded Time 83975 Substance with sulfonami de structure and antibacte rial mechanism of action (substanc e) medicatio n other Not available Not available 07/02/2023 18432 6999 SNOMED React ion: unkno wn, unspe cifie d;; Not Available [facility] 4 00:49:45 Medications Name Sig Start Date [...] TAKE 1 TABLET BY MOUTH EVERY DAY [id number] active Not Available Not Available Not Available [...] Not Available Not Available No t Available [facility] spacer USE WITH INHALER active Not Available [...] Updated DateTime 12/16/2023 160.02 cm 26 kg/m2 28668.08 g Raina Gallego [place] - [facility] 12/16/2023 12:58:48 Social History None recorded. Functional Status None recorded. Mental Status None recorded. Family History Nothing Reported. Medical History No medical history recorded. Gynecological HistoryNo gynecological history recorded. Obstetrics History GPAL:G 0 P 0 0 0 0 Past Encounters Encounter ID Performer Location Encounter Start Date Encounter Closed Date Diagnosis/Indication Diagnosis SNOMED-CT Code Diagnosis ICD10 Code [id number] SILVIO SILVERIO MD [facility] [address] [facility] JOSIAH ARANDA [address] 12/16/2023 12:50:25 12/16/2023 13:30:32 Bilateral disorder of Eustachian tubes 1478605125 297218 H69.93 Acute sero us otitis media of right ear 8668715232 721289 H65.01 [id number] DUKE LOVE [facility] [address] [place] [address] 12/16/2023 13:07:22 12/16/2023 14:57:24 Sensorineural hearing loss of bilateral ears 593479098 H90.3 Health Concerns Section Related Observation LastModified by Organization Detai ls LastModified Time None Recorded Concern Status LastModified by Organization Details LastModified Time None Recorded Payers Encounter Date Sequence Insurance Name Policy Number Policy Vilchis Covered Member ID Vilchis Member ID Guarantor Name 12/16/2023 1 MEDICARE B-[place]: [employer] Beverly Frank [id number] Beverly Frank 12/16/2023 2 [place] [id number] Beverly Marie [id number] Beverly Marie Notes Date Note Type Note Provider Name and Address Organization Details Recorded Time 12/16/2023 text/html 83-year-old femdebra haile presents for [...] has some seasonal allergies. SILVIO RODRIGUEZ MD [address], [address], [facility] - [facility] 12/16/2023 16:30:44 12/16/2023 text/html ELEAZAR Bishop, requested tympanometry. DUKE LOVE [address] [facility],[address], [address], [facility] - [facility] 12/16/2023 13:09:48 OBGyn Episode No OBEpisode recorded.
--- OUTSIDE RECORDS SUMMARY | 2024-02-17 14:14 | XMS_ITS | Clinical Summary ---
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 Name Role Phone KAITLYN RAJAN, BE Unavailable Unavailable ADALGISA RN, DANIEL Unavailable Unavailable SUSY PT, LEV Unavailable Unavailable Payers Payer Name Policy Type Policy Number Effective Date Expira tion Date MEDICARE - [place] - PDGM [id number] Problems Condition Name Condition Details Condition Category Status Onset Date Resolution Date Last Treatment Date Treating Clinician Comments AGE-REL OSTEOPOR W CRNT PATH FX, L FEMR, 7THD Active 02-18 00:00: 00 TYPE 2 DIABETES MELLITUS WITH DIABETIC NEUROPATHY, UNSP Active 02-18 00:00: 00 HYP HRT AND CHR KDNY DIS W HRT FAIL AND STG 1-4/UNSP CHR KDNY Active 02-18 00:00: 00 TYPE 2 DIABETES MELLITUS W DIABETIC CHRONIC KIDNEY DISEASE Active 02-18 00:00: 00 UNSPECIFIED SYSTOLIC (CONGESTIVE) HEART FAILURE Active 02-18 00:00: 00 CHRONIC KIDNEY DISEASE, STAGE 3B Active 02-18 00:00: 00 ANEMIA IN CHRONIC KIDNEY DISEASE Active 02-18 00:00: 00 FCI (CURRENT) USE OF INSULIN Active 02-18 00:00: 00 PAROXYSMAL ATRIAL FIBRILLATION Active 02-18 00:00: 00 HYPOTHYROIDI SM, UNSPECIFIED Active 02-18 00:00: 00 ISCHEMIC CARDIOMYOPAT HY Active 02-18 00:00: 00 ATHSCL HEART DISEASE OF [place] CORONARY ARTERY W/O ANG PCTRS Active 02-18 00:00: 00 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 02-18 00:00: 00 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 Ordering Clinician Indication Dosage Frequency Signature (SIG) Comments Components allopurinol 100 mg tablet 09-06 00:00: 00 03-13 23:59 :00 No [id number] 1 tablet BEDTIME 1 tablet BEDTIME (route: oral) Med Classific ation: Gout and Hyperuric emia Therapy Aspirin Low Dose 81 mg tablet,av yed release 09-06 00:00: 00 03-13 23:59 :00 No [id number] 1 tablet DAILY 1 tablet DAILY (route: oral) Med Classific ation: Hematolog ical Agents benzonatate 100 mg capsule 09-06 00:00: 00 03-13 23:59 :00 No [id number] 100 mg NEEDED 100 mg NEEDED (route: oral) Med Classific ation: Respirato ry Therapy Agents buspirone 10 mg tablet 09-06 00:00: 00 03-13 23:59 :00 No [id number] 1 tablet BEDTIME 1 tablet BEDTIME (route: oral) Med Classific ation: Central Nervous System Agents furosemide 20 mg tablet 09-06 00:00: 00 03-13 23:59 :00 No [id number] 1 tablet DIRECTED 1 tablet DIRECTED (route: oral) Med Classific ation: Cardiovas cular Therapy Agents levothyroxi ne 50 mcg capsule 09-06 00:00: 00 03-13 23:59 :00 No [id number] 1 capsule DAILY 1 capsule DAILY (route: oral) Med Classific ation: Endocrine metoprolol tartrate 25 mg tablet 09-06 00:00: 00 03-13 23:59 :00 No [id number] 1 tablet DAILY 1 tablet DAILY (route: oral) Med Classific ation: Cardiovas cular Therapy Agents omeprazole 20 mg tablet,av yed release 09-06 00:00: 00 03-13 23:59 :00 No [id number] 1 tablet DAILY 1 tablet DAILY (route: oral) Med Classific ation: Gastroint estinal Therapy Agents One-A-Day Essential tablet 09-06 00:00: 00 03-13 23:59 :00 No [id number] 1 tablet DAILY 1 tablet DAILY (route: oral) Med Classific ation: Electroly te Balance-N utritiona l Products oxycodone 5 mg tablet 09-06 00:00: 00 03-13 23:59 :00 No [id number] 1 tablet NEEDED 1 tablet NEEDED (route: oral) Med Classific ation: Analgesic , Anti-infl ammatory or Antipyret ic prednisone 10 mg tablet 08-29 00:00: 00 03-13 23:59 :00 No [id number] 10 mg DIRECTED 10 mg DIRECTED (route: oral) Med Classific ation: Endocrine simvastatin 20 mg tablet 09-06 00:00: 00 03-13 23:59 :00 No [id number] 1 tablet DAILY 1 tablet DAILY (route: oral) Med Classific ation: Cardiovas cular Therapy Agents tramadol 50 mg tablet 09-06 00:00: 00 03-13 23:59 :00 No [id number] 1 tablet NEEDED 1 tablet NEEDED (route: oral) Med Classific ation: Analgesic , Anti-infl ammatory or Antipyret ic triamterene 37.5 mg-hydrochl orothiazide 25 mg tablet 09-06 00:00: 00 03-13 23:59 :00 No [id number] .5 tablet DAILY .5 tablet DAILY (route: oral) Med Classific ation: Cardiovas cular Therapy Agents Tylenol PM Extra Strength 25 mg-500 mg tablet 09-06 00:00: 00 03-13 23:59 :00 No [id number] 1 tablet BEDTIME 1 tablet BEDTIME (route: oral) Med Classific ation: Analgesic , Anti-infl ammatory or Antipyret ic Novolin R Flexpen 100 unit/mL (3 mL) subcutaneou s insulin pen 09-06 00:00: 00 03-13 23:59 :00 No [id number] 1 In unit DIRECTED 1 In unit DIRECTED (route: subcutaneo us) Med Classific ation: Endocrine Tresiba FlexTouch U-200 insulin 200 unit/mL (3 mL) subcutaneou s pen 09-06 00:00: 00 03-13 23:59 :00 No [id number] 50 unit DAILY 50 unit DAILY (route: subcutaneo us) Med Classific ation: Endocrine lidocaine 5 % topical ointment 2020-02 00:00: 00 01-22 23:59 :00 No [id number] Per instruc tions NEEDED Per instructio ns NEEDED (route: topical) Med Classific ation: Dermatolo gical latanoprost 0.005 % eye drops 2020-02 00:00: 00 01-22 23:59 :00 No [id number] 1 drops BEDTIME 1 drops BEDTIME (route: ophthalmic (eye)) Med Classific ation: Ophthalmi c Agents furosemide 20 mg tablet 03-13 00:00: 00 01-22 23:59 :00 No [id number] 1 tablet 3 TIMES A WEEK 1 tablet 3 TIMES A WEEK (route: oral) Med Classific ation: Cardiovas cular Therapy Agents tramadol 50 mg tablet 2020-02 00:00: 00 01-22 23:59 :00 No [id number] 1 tablet NEEDED 1 tablet NEEDED (route: oral) Med Classific ation: Analgesic , Anti-infl ammatory or Antipyret ic simvastatin 40 mg tablet 2020-02 00:00: 00 01-22 23:59 :00 No [id number] 1 tablet DAILY 1 tablet DAILY (route: oral) Med Classific ation: Cardiovas cular Therapy Agents allopurinol 100 mg tablet 03-13 00:00: 00 01-22 23:59 :00 No [id number] 1 tablet DAILY 1 tablet DAILY (route: oral) Med Classific ation: Gout and Hyperuric emia Therapy triamterene 37.5 mg-hydrochl orothiazide 25 mg tablet 2020-02 2-14 00:00: 00 01-22 23:59 :00 No [id number] .5 tablet DAILY .5 tablet DAILY (route: oral) Med Classific ation: Cardiovas cular Therapy Agents metoprolol succinate ER 25 mg tablet,exte nded release 24 hr 2020-02-15 00:00: 00 01-22 23:59 :00 No [id number] 2 tablet DAILY 2 tablet DAILY (route: oral) Med Classific ation: Cardiovas cular Therapy Agents buspirone 10 mg tablet 2020-02 00:00: 00 01-22 23:59 :00 No [id number] 1 tablet BEDTIME 1 tablet BEDTIME (route: oral) Med Classific ation: Central Nervous System Agents levothyroxi ne 75 mcg tablet 2020-02 00:00: 00 01-22 23:59 :00 No [id number] 1 tablet DAILY 1 tablet DAILY (route: oral) Med Classific ation: Endocrine Tresiba FlexTouch U-200 insulin 200 unit/mL (3 mL) [facility] 2020-02 00:00: 00 01-22 23:59 :00 No [id number] 50 unit DAILY 50 [facility]ILY [facility] Med Classific ation: Endocrine Aspirin Low Dose 81 mg tablet,av yed release 02-18 00:00: 00 01-22 23:59 :00 No [id number] 1 tablet 3 TIMES A WEEK 1 tablet 3 TIMES A WEEK (route: oral) Med Classific ation: Hematolog ical Agents Novolog Flexpen U-100 Insulin aspart 100 unit/mL (3 mL) subcutane s 02-18 00:00: 00 01-22 23:59 :00 No [id number] Per instruc tions DIRECTED Per instructio ns DIRECTED ([facility] Med Classific ation: Endocrine omeprazole 20 mg tablet,av yed release 02-18 00:00: 00 01-22 23:59 :00 No [id number] 1 tablet DAILY 1 tablet DAILY (route: oral) Med Classific ation: Gastroint estinal Therapy Agents One-A-Day Essential tablet 02-18 00:00: 00 01-22 23:59 :00 No [id number] 1 tablet 3 TIMES A WEEK 1 tablet 3 TIMES A WEEK (route: oral) Med Classific ation: Electroly te Balance-N utritiona l Products Tylenol PM Extra Strength 25 mg-500 mg tablet 02-18 00:00: 00 01-22 23:59 :00 No [id number] 1 tablet BEDTIME 1 tablet BEDTIME (route: oral) Med Classific ation: Analgesic , Anti-infl ammatory or Antipyret ic allopurinol 100 mg tablet 2023-02 00:00: 00 Yes [id number] 1 tablet DAILY 1 tablet DAILY (route: oral) Med Classific ation: Gout and Hyperuric emia Therapy amiodarone 100 mg tablet 2023-02 00:00: 00 Yes [id number] 1 tablet DAILY 1 tablet DAILY (route: oral) Med Classific ation: Cardiovas cular Therapy Agents amlodipine 2.5 mg tablet 2023-02 00:00: 00 Yes [id number] 1 tablet DAILY 1 tablet DAILY (route: oral) Med Classific ation: Cardiovas cular Therapy Agents atorvastati n 80 mg tablet 2023-02 00:00: 00 Yes [id number] 1 tablet BEDTIME 1 tablet BEDTIME (route: oral) Med Classific ation: Cardiovas cular Therapy Agents buspirone 10 mg tablet 2023-02 00:00: 00 Yes [id number] 4 tablet DAILY 4 tablet DAILY (route: oral) Med Classific ation: Central Nervous System Agents Eliquis 2.5 mg tablet 2023-02 00:00: 00 Yes [id number] 1 tablet 2 TIMES DAILY 1 tablet 2 TIMES DAILY (route: oral) Med Classific ation: Hematolog ical Agents Entresto 24 mg-26 mg tablet 2023-02 00:00: 00 Yes [id number] 1 tablet DAILY 1 tablet DAILY (route: oral) Med Classific ation: Cardiovas cular Therapy Agents famotidine 20 mg tablet 2023-02 00:00: 00 Yes [id number] 1 tablet DAILY 1 tablet DAILY (route: oral) Med Classific ation: Gastroint estinal Therapy Agents insulin lispro (U-100) 100 unit/mL subcutaneou s half-unit pen 2023-02 00:00: 00 Yes [id number] Per instruc tions 3 TIMES DAILY Per instructio ns 3 TIMES DAILY (route: subcutaneo us) Med Classific ation: Endocrine Iron (ferrous sulfate) 325 mg (65 mg iron) tablet 2023-02 00:00: 00 Yes [id number] 1 tablet DAILY 1 tablet DAILY (route: oral) Med Classific ation: Electroly te Balance-N utritiona l Products Lasix 40 mg tablet 2023-02 00:00: 00 Yes [id number] 1 tablet DAILY 1 tablet DAILY (route: oral) Med Classific ation: Cardiovas cular Therapy Agents latanoprost 0.005 % eye drops 2023-02 00:00: 00 Yes [id number] 1 drops DAILY 1 drops DAILY (route: ophthalmic (eye)) Med Classific ation: Ophthalmi c Agents levothyroxi ne 75 mcg capsule 2023-02 00:00: 00 Yes [id number] 1 capsule DAILY 1 capsule DAILY (route: oral) Med Classific ation: Endocrine metoprolol succinate ER 25 mg tablet,exte nded release 24 hr 2023-02 00:00: 00 Yes [id number] 1 tablet DAILY 1 tablet DAILY (route: oral) Med Classific ation: Cardiovas cular Therapy Agents Plavix 75 mg tablet 2023-02 00:00: 00 Yes [id number] 1 tablet DAILY 1 tablet DAILY (route: oral) Med Classific ation: Hematolog ical Agents Tresiba FlexTouch U-100 insulin 100 unit/mL (3 mL) subcutaneou s pen 2023-02 00:00: 00 Yes [id number] 20 unit DAILY 20 unit DAILY (route: subcutaneo us) Med Classific ation: Endocrine Vitamin C 500 mg chewable tablet 2023-02 00:00: 00 Yes [id number] 1 tablet DAILY 1 tablet DAILY (route: oral) Med Classific ation: Electroly te Balance-N utritiona l Products Vitamin D3 50 mcg (2,000 unit) capsule 2023-02 00:00: 00 Yes [id number] 1 capsule DAILY 1 capsule DAILY (route: oral) Med Classific ation: Electroly te Balance-N utritiona l Products Immunizations Ordered Immunization Name Filled Immunization Name Date Status Comments Refusal Reason COVID-19, COVID-19 2024-02-06 00:00:00 Vital Signs Vital Name Observation Time Observation Value Commen ts Temperature 2024-02-14 10:16:00.000 97.4 [degF] Temperature 2024-02-11 10:19:00.000 97.6 [degF] Temperature 2024-02-06 12:59:00.000 97.9 [degF] Temperature 2024-02-06 11:20:00.000 97.8 [degF] BMI (%) 2024-02-06 11:20:00.000 25 kg/m2 Height 2024-02-06 11:20:00.000 63 [in_us] Pulse 2024-02-14 10:16:00.000 68 /min Pulse 2024-02-11 10:19:00.000 64 /min Pulse 2024-02-06 12:59:00.000 68 /min Pulse 2024-02-06 11:20:00.000 66 /min O2 Saturation (%) 2024-02-14 10:17:00.000 96 % O2 Saturation (%) 2024-02-11 10:19:00.000 98 % O2 Saturation (%) 2024-02-06 12:59:00.000 98 % Respirations 2024-02-14 10:16:00.000 18 /min Respirations 2024-02-11 10:19:00.000 17 /min Respirations 2024-02-06 12:59:00.000 17 /min Respirations 2024-02-06 11:20:00.000 18 /min Weight (lbs) 2024-02-14 10:17:00.000 143 [lb_av] Weight (lbs) 2024-02-11 10:40:00.000 146.2 [lb_av] Weight (lbs) 2024-02-06 11:20:00.000 144 [lb_av] Systolic Blood Pressure 2024-02-14 10:16:00.000 134 mm [Hg] Systolic Blood Pressure 2024-02-11 10:19:00.000 136 mm [Hg] Systolic Blood Pressure 2024-02-06 12:59:00.000 126 mm [Hg] Systolic Blood Pressure 2024-02-06 11:20:00.000 138 mm [Hg] Diastolic Blood Pressure 2024-02-14 10:16:00.000 72 mm [Hg] Diastolic Blood Pressure 2024-02-11 10:19:00.000 58 mm [Hg] Diastolic Blood Pressure 2024-02-06 12:59:00.000 62 mm [Hg] Diastolic Blood Pressure 2024-02-06 11:20:00.000 60 mm [Hg] Plan of Treatment Planned Activity Planned Date Details Comments Future Scheduled Test SKILLED NU RSE TO EVALUATE PATIENT, IDENTIFY PRIMARY AND CO-MORBID CONDITIONS CODED PER CODING GUIDELINES, AND DEVELOP PATIENT SPECIFIC PLAN OF CARE THAT INCLUDES PATIENT GOAL FOR HOME HEALTH. [code = SKILLED NURSE TO EVALUATE PATIENT, IDENTIFY PRIMARY AND CO-MORBID CONDITIONS CODED PER CODING GUIDELINES, AND DEVELOP PATIENT SPECIFIC PLAN OF CARE THAT INCLUDES PATIENT GOAL FOR HOME HEALTH.] Future Scheduled Test SKILLED NU RSE TO REVIEW PATIENT MEDICATIONS. INSTRUCT PATIENT/CAREGIVER ON MONITORING OF EFFECTIVENESS, ADVERSE DRUG REACTIONS, SIDE EFFECTS OF ALL MEDICATIONS (PRESCRIPTION/-OTC), AND HOW AND WHEN TO REPORT PROBLEMS. [code = SKILLED NURSE TO REVIEW PATIENT MEDICATIONS. INSTRUCT PATIENT/CAREGIVER ON MONITORING OF EFFECTIVENESS, ADVERSE DRUG REACTIONS, SIDE EFFECTS OF ALL MEDICATIONS (PRESCRIPTION/-OTC), AND HOW AND WHEN TO REPORT PROBLEMS.] Future Scheduled Test SKILLED NU RSE TO ASSESS ANXIETY AND PROVIDE ASSISTANCE TO PATIENT FOR UNDERSTANDING AND MANAGEMENT OF FEELINGS. [code = SKILLED NURSE TO ASSESS ANXIETY AND PROVIDE ASSISTANCE TO PATIENT FOR UNDERSTANDING AND MANAGEMENT OF FEELINGS.] Future Scheduled Test SKILLED NU RSE FOR O/A, TEACHING, AND MANAGEMENT OF HLD, CAD, CARDIOMYOPATHY. [code = SKILLED NURSE FOR O/A, TEACHING, AND MANAGEMENT OF HLD, CAD, CARDIOMYOPATHY.] Future Scheduled Test SKILLED NU RSE FOR O/A, TEACHING RELATED TO GERD FOR EARLY IDENTIFICATION OF EXACERBATION OF DISEASE PROCESS. [code = SKILLED NURSE FOR O/A, TEACHING RELATED TO GERD FOR EARLY IDENTIFICATION OF EXACERBATION OF DISEASE PROCESS.] Future Scheduled Test SKILLED NU RSE FOR O/A, TEACHING AND MANAGEMENT OF CKD, URINE RETENTION FOR EARLY IDENTIFICATION OF EXACERBATION OF DISEASE PROCESS [code = SKILLED NURSE FOR O/A, TEACHING AND MANAGEMENT OF CKD, URINE RETENTION FOR EARLY IDENTIFICATION OF EXACERBATION OF DISEASE PROCESS] Future Scheduled Test NEED FOR S KILLED TEACHING AND INTERVENTION RELATED TO MONITOR LEFT HIP CLOSED SURGICAL INCISION WOUND CARE WILL BE PERFORMED BY TRAINED CAREGIVER ON DAYS WHEN SKILLED NURSE IS NOT SCHEDULED FOR A VISIT. DISCONTINUE WOUND CARE/SUPPLIES ONCE WOUND IS HEALED. [code = NEED FOR SKILLED TEACHING AND INTERVENTION RELATED TO MONITOR LEFT HIP CLOSED SURGICAL INCISION WOUND CARE WILL BE PERFORMED BY TRAINED CAREGIVER ON DAYS WHEN SKILLED NURSE IS NOT SCHEDULED FOR A VISIT. DISCONTINUE WOUND CARE/SUPPLIES ONCE WOUND IS HEALED.] Future Scheduled Test SKILLED NU RSE TO PERFORM AND RECORD BLOOD SUGAR READING Q VISIT, AND PRN FOR SIGNS AND SYMPTOMS OF HYPO/HYPERGLYCEMIA. [code = SKILLED NURSE TO PERFORM AND RECORD BLOOD SUGAR READING Q VISIT, AND PRN FOR SIGNS AND SYMPTOMS OF HYPO/HYPERGLYCEMIA.] Future Scheduled Test SKILLED NU RSE FOR O/A AND TEACHING OF ENDOCRINE SYSTEM TO IDENTIFY CHANGES ASSOCIATED WITH EXACERBATION OF HYPOTHYROIDISM FOR EARLY INTERVENTION OF COMPLICATIONS. [code = SKILLED NURSE FOR O/A AND TEACHING OF ENDOCRINE SYSTEM TO IDENTIFY CHANGES ASSOCIATED WITH EXACERBATION OF HYPOTHYROIDISM FOR EARLY INTERVENTION OF COMPLICATIONS.] Future Scheduled Test PHYSICAL T HERAPIST TO EVALUATE PATIENT FOR EXERCISE [code = PHYSICAL THERAPIST TO EVALUATE PATIENT FOR EXERCISE] Future Scheduled Test SKILLED NU RSE TO INSTRUCT PATIENT/CAREGIVER ON SIGNS AND SYMPTOMS, RISK FACTORS, COMPLICATIONS, AND MANAGEMENT OF ATRIAL FIBRILLATION. [code = SKILLED NURSE TO INSTRUCT PATIENT/CAREGIVER ON SIGNS AND SYMPTOMS, RISK FACTORS, COMPLICATIONS, AND MANAGEMENT OF ATRIAL FIBRILLATION.] Future Scheduled Test SKILLED NU RSE TO PROVIDE TEACHING ON SIGNS AND SYMPTOMS AND MANAGEMENT OF HYPERTENSION. [code = SKILLED NURSE TO PROVIDE TEACHING ON SIGNS AND SYMPTOMS AND MANAGEMENT OF HYPERTENSION.] Future Scheduled Test SKILLED NU RSE FOR O/A AND SKILLED TEACHING RELATED TO ALTERED SKIN INTEGRITY [code = SKILLED NURSE FOR O/A AND SKILLED TEACHING RELATED TO ALTERED SKIN INTEGRITY ] Future Scheduled Test SKILLED NU RSE FOR O/A, TEACHING AND SELF-MANAGEMENT RELATED TO HEART FAILURE. INSTRUCT PATIENT/CAREGIVER ON SIGNS AND SYMPTOMS OF EXACERBATION TO REPORT AND IMPORTANCE OF OBTAINING AND RECORDING DAILY WEIGHT AND/OR MEASUREMENTS. SN OR TRAINED PATIENT/CAREGIVER TO OBTAIN WEIGHT DAILY AND WEIGHT GAIN OF 2 LBS OVERNIGHT OR 5 LBS IN 1 WEEK TO BE REPORTED TO PHYSICIAN/PROVIDER. IF UNABLE TO WEIGH PATIENT, SN OR TRAINED PATIENT/CAREGIVER TO OBTAIN MEASUREMENT OF LE IN CM DAILY AND REPORT AN INCREASE OF 1 CM TO PHYSICIAN/PROVIDER. [code = SKILLED NURSE FOR O/A, TEACHING AND SELF-MANAGEMENT RELATED TO HEART FAILURE. INSTRUCT PATIENT/CAREGIVER ON SIGNS AND SYMPTOMS OF EXACERBATION TO REPORT AND IMPORTANCE OF OBTAINING AND RECORDING DAILY WEIGHT AND/OR MEASUREMENTS. SN OR TRAINED PATIENT/CAREGIVER TO OBTAIN WEIGHT DAILY AND WEIGHT GAIN OF 2 LBS OVERNIGHT OR 5 LBS IN 1 WEEK TO BE REPORTED TO PHYSICIAN/PROVIDER. IF UNABLE TO WEIGH PATIENT, SN OR TRAINED PATIENT/CAREGIVER TO OBTAIN MEASUREMENT OF LE IN CM DAILY AND REPORT AN INCREASE OF 1 CM TO PHYSICIAN/PROVIDER.] Future Scheduled Test SKILLED NU RSE FOR O/A AND SKILLED TEACHING RELATED TO SIGNS AND SYMPTOMS AND MANAGEMENT OF ANEMIA. [code = SKILLED NURSE FOR O/A AND SKILLED TEACHING RELATED TO SIGNS AND SYMPTOMS AND MANAGEMENT OF ANEMIA.] Future Scheduled Test SKILLED NU RSE FOR O/A AND TEACHING OF DIABETIC MANAGEMENT INCLUDING BLOOD SUGAR MONITORING/USE OF GLUCOMETER, DIABETIC DIET, LOWER EXTREMITY SKIN INSPECTION, PROPER SKIN/FOOT CARE, AND SIGNS AND SYMPTOMS HYPO/HYPERGLYCEMIA TO REPORT. [code = SKILLED NURSE FOR O/A AND TEACHING OF DIABETIC MANAGEMENT INCLUDING BLOOD SUGAR MONITORING/USE OF GLUCOMETER, DIABETIC DIET, LOWER EXTREMITY SKIN INSPECTION, PROPER SKIN/FOOT CARE, AND SIGNS AND SYMPTOMS HYPO/HYPERGLYCEMIA TO REPORT.] Future Scheduled Test SKILLED NU RSE FOR O/A AND SKILLED TEACHING RELATED TO SIGNS AND SYMPTOMS AND MANAGEMENT OF A/R OSTEOPOROSIS, GOUT. [code = SKILLED NURSE FOR O/A AND SKILLED TEACHING RELATED TO SIGNS AND SYMPTOMS AND MANAGEMENT OF A/R OSTEOPOROSIS, GOUT.] Future Scheduled Test PATIENT MÉNDEZ S A RISK OF HOSPITALIZATION AND ED USE. SKILLED NURSE TO ESTABLISH SUPPORT MEASURES TO MINIMIZE RISK OF HOSPITALIZATION AND ED USE, AND INSTRUCT PATIENT/CAREGIVER ON METHODS TO REDUCE AVOIDABLE HOSPITALIZATION AND ED USE. [code = PATIENT HAS A RISK OF HOSPITALIZATION AND ED USE. SKILLED NURSE TO ESTABLISH SUPPORT MEASURES TO MINIMIZE RISK OF HOSPITALIZATION AND ED USE, AND INSTRUCT PATIENT/CAREGIVER ON METHODS TO REDUCE AVOIDABLE HOSPITALIZATION AND ED USE.] Future Scheduled Test SKILLED NU RSE TO PROVIDE INSTRUCTION TO PATIENT/CAREGIVER RELATED TO DISCHARGE PLANNING. [code = SKILLED NURSE TO PROVIDE INSTRUCTION TO PATIENT/CAREGIVER RELATED TO DISCHARGE PLANNING.] Future Scheduled Test SKILLED NU RSE TO PERFORM ENVIRONMENTAL SAFETY RISK ASSESSMENT AND FALL RISK ASSESSMENT AND PROVIDE INSTRUCTION TO IMPLEMENT ENVIRONMENTAL SAFETY AND FALL PREVENTION STRATEGIES THROUGHOUT THE CERTIFICATION PERIOD. SKILLED NURSE WILL MAINTAIN SITUATIONAL AWARENESS AND WILL NOTIFY CLINICAL ENERGY SCHEDULER AND PHYSICIAN/PROVIDER WITH ANY CHANGE IN CONDITION. [code = SKILLED NURSE TO PERFORM ENVIRONMENTAL SAFETY RISK ASSESSMENT AND FALL RISK ASSESSMENT AND PROVIDE INSTRUCTION TO IMPLEMENT ENVIRONMENTAL SAFETY AND FALL PREVENTION STRATEGIES THROUGHOUT THE CERTIFICATION PERIOD. SKILLED NURSE WILL MAINTAIN SITUATIONAL AWARENESS AND WILL NOTIFY CLINICAL ENERGY SCHEDULER AND PHYSICIAN/PROVIDER WITH ANY CHANGE IN CONDITION.] Future Scheduled Test SKILLED NU RSE FOR OBSERVATION AND ASSESSMENT OF PATIENTS PAIN LEVEL AND EFFECTIVENESS OF PAIN MANAGEMENT REGIMEN. SKILLED NURSE TO INSTRUCT PATIENT/CAREGIVER REGARDING PHARMACOLOGIC AND NON-PHARMACOLOGIC PAIN CONTROL MEASURES. SKILLED NURSE TO REPORT TO PHYSICIAN IF PAIN IS UNCONTROLLED WITH CURRENT PAIN MANAGEMENT REGIMEN. [code = SKILLED NURSE FOR OBSERVATION AND ASSESSMENT OF PATIENTS PAIN LEVEL AND EFFECTIVENESS OF PAIN MANAGEMENT REGIMEN. SKILLED NURSE TO INSTRUCT PATIENT/CAREGIVER REGARDING PHARMACOLOGIC AND NON-PHARMACOLOGIC PAIN CONTROL MEASURES. SKILLED NURSE TO REPORT TO PHYSICIAN IF PAIN IS UNCONTROLLED WITH CURRENT PAIN MANAGEMENT REGIMEN.] Future Scheduled Test SKILLED NU RSE TO ASSESS PATIENT'S SKIN INTEGRITY AND INSTRUCT PATIENT/CAREGIVER ON MEASURES TO PREVENT PRESSURE ULCERS. [code = SKILLED NURSE TO ASSESS PATIENT'S SKIN INTEGRITY AND INSTRUCT PATIENT/CAREGIVER ON MEASURES TO PREVENT PRESSURE ULCERS.] Future Scheduled Test SKILLED NU RSE TO INSTRUCT PATIENT/CAREGIVER ON S/S OF NEUROPATHY AND METHODS TO MANAGE. [code = SKILLED NURSE TO INSTRUCT PATIENT/CAREGIVER ON S/S OF NEUROPATHY AND METHODS TO MANAGE.] Future Scheduled Test SKILLED NU RSE TO ASSESS HIGH RISK PATIENT FOR CHANGE IN CONDITION: MOOD/BEHAVIOR, MISSED MEDICATIONS, CHANGE IN LIVING SITUATION, HOMICIDAL IDEATION, ACTIVE SUBSTANCE USE WITH MOOD ALTERING SUBSTANCES INCLUDING BUT NOT LIMITED TO COCAINE, CRACK, HEROIN, FENTANYL AND ENSURE EARLY IDENTIFICATION TO MAINTAIN SAFETY. SKILLED NURSE WILL MAINTAIN SITUATIONAL AWARENESS FOR SAFETY AND WILL NOTIFY CLINICAL ENERGY SCHEDULER AND PHYSICIAN/PROVIDER WITH ANY CHANGE IN CONDITION. [code = SKILLED NURSE TO ASSESS HIGH RISK PATIENT FOR CHANGE IN CONDITION: MOOD/BEHAVIOR, MISSED MEDICATIONS, CHANGE IN LIVING SITUATION, HOMICIDAL IDEATION, ACTIVE SUBSTANCE USE WITH MOOD ALTERING SUBSTANCES INCLUDING BUT NOT LIMITED TO COCAINE, CRACK, HEROIN, FENTANYL AND ENSURE EARLY IDENTIFICATION TO MAINTAIN SAFETY. SKILLED NURSE WILL MAINTAIN SITUATIONAL AWARENESS FOR SAFETY AND WILL NOTIFY CLINICAL ENERGY SCHEDULER AND PHYSICIAN/PROVIDER WITH ANY CHANGE IN CONDITION.] Future Scheduled Test PHYSICAL T HERAPIST TO EVALUATE PATIENT SECONDARY TO FUNCTIONAL DEFICITS/SAFETY CONCERNS. PHYSICAL THERAPY TO ESTABLISH /UPGRADE/DOWNGRADE THERAPEUTIC EXERCISE PROGRAM AND INSTRUCT PATIENT/CAREGIVER ON EXERCISE PRECAUTIONS WITH WRITTEN HOME PROGRAM. MAY INCLUDE PROM, AAROM, AROM, RROM APPROPRIATE TO IMPROVE FUNCTIONAL STRENGTH AND RANGE OF MOTION. PHYSICAL THERAPY TO INSTRUCT PATIENT/CAREGIVER ON BED MOBILITY TECHNIQUES TO IMPROVE PATIENT MOBILITY AND POSITIONING TECHNIQUES IN ORDER TO INCREASE PATIENTS COMFORT AND DECREASE RISK OF SKIN BREAKDOWN. PHYSICAL THERAPY TO INSTRUCT PATIENT/CAREGIVER ON SAFE TRANSFER TECHNIQUES USING PROPER BODY MECHANICS AND EQUIPMENT. PHYSICAL THERAPY TO INSTRUCT PATIENT/CAREGIVER ON GAIT TRAINING TECHNIQUES USING APPROPRIATE ASSISTIVE DEVICE, PROPER BODY MECHANICS TO IMPROVE MOBILITY, AND PREVENT INJURY OF PATIENT AND/OR CAREGIVER. PHYSICAL THERAPY TO ASSESS AND RECOMMEND HOME SAFETY ADAPTATIONS AND EDUCATE PATIENT /CAREGIVER ON FALL PREVENTION STRATEGIES. PHYSICAL THERAPY FOR OBSERVATION AND ASSESSMENT OF PAIN, EFFECTIVENESS OF PAIN MANAGEMENT REGIMEN AND SKILLED TEACHING RELATED TO PAIN MANAGEMENT. THERAPIST TO REPORT INCREASED PAIN LEVEL TO PHYSICIAN FOR PROMPT INTERVENTION. PHYSICAL THERAPY TO INSTRUCT PATIENT/CAREGIVER ON BALANCE AND BALANCE STRATEGIES TO IMPROVE SAFE MOBILITY AND REDUCE RISK FOR FALL AND INJURY INCLUDING PARTICIPATION IN [facility] SPECIALTY PROGRAM SUMMARY OF THERAPY EVAL/ASSESSMENT FINDINGS AND REASON(S) SKILLS OF A THERAPIST ARE INDICATED: PATIENT WAS SEEN FOR INITIAL PHYSICAL THERAPY VISIT AND HOME SAFETY ASSESSMENT. PATIENT REPORTS THAT SHE FELL 5 WEEKS AGO IN EVENING, TURNED AND FELL FRACTURING L HIP. PATIENT WENT TO REHAB AND IS NOW HOME WHERE SHE LIVES ALONE WITH SUPPORTIVE CARE FROM HER DAUGHTER AND COMMUNITY. PRESENTLY DAUGHTER IS STAYING WITH HER IN THE EVENING AND THROUGHOUT THE WEEKEND. PATIENT IS KNOWN TO THIS CLINICIAN FROM BEING ON SERVICES 3 YEARS AGO. PLOF LIVES ALONE IN A [place] WITH ALL ON SAME FLOOR WITH A LOWER LEVEL FOR [employer]. 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 PRESENTLY AMB WITH RW IN HOME IN HOME SLOWLY. WALKER ADJUSTED APPROPRIATELY IN HEIGHT. PATIENT REPORTS THAT HER DAUGHTER IS GETTING HER A WALKER TRAY SO SHE CAN CARRY ITEMS. TRANSFERS REQUIRING CONTACT GUARD AND REMINDERS FOR HIP PRECAUTIONS. PATIENT STATES THAT SHE HAS NOT YET SHOWERED BUT IS PLANNING TO DO SO OVER THE WEEKEND WITH HER DAUGHTER. REVIEWED SAFETY STRATEGIES AND GETTING IN AND OUT SHOWER WITH BENCH IN PLACE. PATIENT REQUIRES ASSISTANCE FOR GETTING HER L LEG ONTO THE BED AND REPOSITIONING. TUG SCORE AND 30 SECOND [id number] INDICATE THAT PATIENT IS A FALL RISK. INITIATED EXERCISES IN SUPINE. WRITTEN PROGRAM PROVIDED. PATIENT APPROPRIATE CANDIDATE FOR SKILLED PHYSICAL THERAPY TO ADDRESS PHYSICAL IMPAIRMENTS AND FUNCTIONAL LIMITATIONS. PATIENT VERBALIZED AGREEMENT WITH PLAN OF CARE. MD NOTIFIED. PATIENT WILL BE BUSY OVER THE HOLIDAYS AND VERBALIZES AGREEMENT WITH 1 TIME PER WEEK FOR THE NEXT 2 WEEKS UNTIL AFTER THE NEW YEAR PHYSICAL THERAPIST TO ASSESS BEST PRACTICE INTERVENTIONS TO ASSIST PATIENTS TO IMPROVE OR STABILIZE MEDICAL STATUS AND PREVENT RE-HOSPITALIZATION. MEASURES INCLUDING REVIEW AND IDENTIFICATION OF CONCERNS FOR THE FOLLOWING AREAS: DRUG REGIMEN, DIABETIC FOOT CARE, ENVIRONMENTAL SAFETY ISSUES AND FALLS, PRESSURE ULCERS, PAIN, AND DISEASE MANAGEMENT. [code = PHYSICAL THERAPIST TO EVALUATE PATIENT SECONDARY TO FUNCTIONAL DEFICITS/SAFETY CONCERNS. PHYSICAL THERAPY TO ESTABLISH /UPGRADE/DOWNGRADE THERAPEUTIC EXERCISE PROGRAM AND INSTRUCT PATIENT/CAREGIVER ON EXERCISE PRECAUTIONS WITH WRITTEN HOME PROGRAM. MAY INCLUDE PROM, AAROM, AROM, RROM APPROPRIATE TO IMPROVE FUNCTIONAL STRENGTH AND RANGE OF MOTION. PHYSICAL THERAPY TO INSTRUCT PATIENT/CAREGIVER ON BED MOBILITY TECHNIQUES TO IMPROVE PATIENT MOBILITY AND POSITIONING TECHNIQUES IN ORDER TO INCREASE PATIENTS COMFORT AND DECREASE RISK OF SKIN BREAKDOWN. PHYSICAL THERAPY TO INSTRUCT PATIENT/CAREGIVER ON SAFE TRANSFER TECHNIQUES USING PROPER BODY MECHANICS AND EQUIPMENT. PHYSICAL THERAPY TO INSTRUCT PATIENT/CAREGIVER ON GAIT TRAINING TECHNIQUES USING APPROPRIATE ASSISTIVE DEVICE, PROPER BODY MECHANICS TO IMPROVE MOBILITY, AND PREVENT INJURY OF PATIENT AND/OR CAREGIVER. PHYSICAL THERAPY TO ASSESS AND RECOMMEND HOME SAFETY ADAPTATIONS AND EDUCATE PATIENT /CAREGIVER ON FALL PREVENTION STRATEGIES. PHYSICAL THERAPY FOR OBSERVATION AND ASSESSMENT OF PAIN, EFFECTIVENESS OF PAIN MANAGEMENT REGIMEN AND SKILLED TEACHING RELATED TO PAIN MANAGEMENT. THERAPIST TO REPORT INCREASED PAIN LEVEL TO PHYSICIAN FOR PROMPT INTERVENTION. PHYSICAL THERAPY TO INSTRUCT PATIENT/CAREGIVER ON BALANCE AND BALANCE STRATEGIES TO IMPROVE SAFE MOBILITY AND REDUCE RISK FOR FALL AND INJURY INCLUDING PARTICIPATION IN [facility] BALANCE SPECIALTY PROGRAM SUMMARY OF THERAPY EVAL/ASSESSMENT FINDINGS AND REASON(S) SKILLS OF A THERAPIST ARE INDICATED: PATIENT WAS SEEN FOR INITIAL PHYSICAL THERAPY VISIT AND HOME SAFETY ASSESSMENT. PATIENT REPORTS THAT SHE FELL 5 WEEKS AGO IN EVENING, TURNED AND FELL FRACTURING L HIP. PATIENT WENT TO REHAB AND IS NOW HOME WHERE SHE LIVES ALONE WITH SUPPORTIVE CARE FROM HER DAUGHTER AND COMMUNITY. PRESENTLY DAUGHTER IS STAYING WITH HER IN THE EVENING AND THROUGHOUT THE WEEKEND. PATIENT IS KNOWN TO THIS CLINICIAN FROM BEING ON SERVICES 3 YEARS AGO. PLOF LIVES ALONE IN A [place] WITH ALL ON SAME FLOOR WITH A LOWER LEVEL FOR [employer]. 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 PRESENTLY AMB WITH RW IN HOME IN HOME SLOWLY. WALKER ADJUSTED APPROPRIATELY IN HEIGHT. PATIENT REPORTS THAT HER DAUGHTER IS GETTING HER A WALKER TRAY SO SHE CAN CARRY ITEMS. TRANSFERS REQUIRING CONTACT GUARD AND REMINDERS FOR HIP PRECAUTIONS. PATIENT STATES THAT SHE HAS NOT YET SHOWERED BUT IS PLANNING TO DO SO OVER THE WEEKEND WITH HER DAUGHTER. REVIEWED SAFETY STRATEGIES AND GETTING IN AND OUT SHOWER WITH BENCH IN PLACE. PATIENT REQUIRES ASSISTANCE FOR GETTING HER L LEG ONTO THE BED AND REPOSITIONING. TUG SCORE AND 30 SECOND [id number] INDICATE THAT PATIENT IS A FALL RISK. INITIATED EXERCISES IN [place]PINE. WRITTEN PROGRAM PROVIDED. PATIENT APPROPRIATE CANDIDATE FOR SKILLED PHYSICAL THERAPY TO ADDRESS PHYSICAL IMPAIRMENTS AND FUNCTIONAL LIMITATIONS. PATIENT VERBALIZED AGREEMENT WITH PLAN OF CARE. MD NOTIFIED. PATIENT WILL BE BUSY OVER THE HOLIDAYS AND VERBALIZES AGREEMENT WITH 1 TIME PER WEEK FOR THE NEXT 2 WEEKS UNTIL AFTER THE NEW YEAR PHYSICAL THERAPIST TO ASSESS BEST PRACTICE INTERVENTIONS TO ASSIST PATIENTS TO IMPROVE OR STABILIZE MEDICAL STATUS AND PREVENT RE-HOSPITALIZATION. MEASURES INCLUDING REVIEW AND IDENTIFICATION OF CONCERNS FOR THE FOLLOWING AREAS: DRUG REGIMEN, DIABETIC FOOT CARE, ENVIRONMENTAL SAFETY ISSUES AND FALLS, PRESSURE ULCERS, PAIN, AND DISEASE MANAGEMENT. ] Goal Patient Goal - TO NOT FALL Goal Provider Goal - A PLAN OF CARE WILL BE ESTABLISHED THAT MEETS PATIENT'S [facility] NEEDS AND INCLUDES PATIENT GOAL FOR HOME HEALTH. Goal Provider Goal - PATIENT/CAREGIVER WILL VERBALIZE UNDERSTANDING OF EDUCATION PROVIDED ON MEDICATIONS BY THE END OF THE CERTIFICATION PERIOD. Goal Provider Goal - SYMPTOMS OF ANXIETY ARE IDENTIFIED AND INTERVENTIONS INITIATED TO ENABLE PATIENT TO UNDERSTAND AND MANAGE FEELINGS THROUGHOUT EPISODE. Goal Provider Goal - PATIENT/CAREGIVER WILL VERBALIZE/DEMONSTRATE MANAGEMENT OF CARDIAC DISEASE PROCESS AND EXACERBATIONS WILL BE IDENTIFIED AND PROMPTLY REPORTED THROUGHOUT THE CERTIFICATION PERIOD. Goal Provider Goal - EXACERBATIONS OF GASTROINTESTINAL DISEASE WILL BE PROMPTLY IDENTIFIED AND INTERVENTIONS IMPLEMENTED TO MINIMIZE RISKS TO PATIENT BY END OF EPISODE. Goal Provider Goal - PATIENT/CAREGIVER WILL VERBALIZE UNDERSTANDING OF GENITOURINARY DISEASE PROCESS, AND EXACERBATIONS OF GENITOURINARY DISEASE WILL BE PROMPTLY IDENTIFIED FOR EARLY INTERVENTION THROUGHOUT THE CERTIFICATION PERIOD. Goal Provider Goal - WOUND CARE WILL BE COMPLETED AND PATIENT WILL HAVE IMPROVED WOUND STATUS EVIDENCED BY NO SIGNS AND SYMPTOMS OF INFECTION, DECREASED WOUND SIZE, AND/OR NO COMPLICATIONS BY THE END OF THE CERTIFICATION PERIOD. Goal Provider Goal - BLOOD SUGAR READING WILL BE OBTAINED ORDERED THROUGHOUT CERTIFICATION PERIOD. Goal Provider Goal - PATIENT/CAREGIVER WILL VERBALIZE SIGNS AND SYMPTOMS OF EXACERBATION OF HYPOTHYROIDISM TO REPORT TO NURSE/PHYSICIAN THROUGHOUT THE CERTIFICATION PERIOD. Goal Provider Goal - A PHYSICAL THERAPY EVALUATION TO BE COMPLETED WITH RECOMMENDATIONS AND/OR WRITTEN PLAN OF TREATMENT ESTABLISHED FOR PHYSICIANS SIGNATURE. Goal Provider Goal - PATIENT/CAREGIVER WILL VERBALIZE UNDERSTANDING OF SIGNS AND SYMPTOMS, COMPLICATIONS, AND MANAGEMENT OF ATRIAL FIBRILLATION THROUGHOUT THE CERTIFICATION PERIOD. Goal Provider Goal - PATIENT/CAREGIVER WILL VERBALIZE SIGNS AND SYMPTOMS OF HYPERTENSION AND WILL BE ABLE TO DEMONSTRATE ABILITY TO MANAGE EXACERBATION BY END OF THE EPISODE. Goal Provider Goal - PATIENT/CAREGIVER WILL VERBALIZE/DEMONSTRATE UNDERSTANDING OF TEACHING RELATED TO ALTERED SKIN INTEGRITY BY END OF CERTIFICATION PERIOD. Goal Provider Goal - PATIENT/CAREGIVER WILL VERBALIZE/DEMONSTRATE KNOWLEDGE AND MANAGEMENT OF HEART FAILURE DISEASE PROCESS BY END OF EPISODE. Goal Provider Goal - PATIENT/CARGIVER WILL VERBALIZE UNDERSTANDING OF ANEMIA INCLUDING SIGNS AND SYMPTOMS, MANAGEMENT OF COMPLICATIONS, AND PRESCRIBED TREATMENT REGIMEN BY END OF EPISODE. Goal Provider Goal - PATIENT/CAREGIVER WILL VERBALIZE/DEMONSTRATE KNOWLEDGE OF DIABETIC MANAGEMENT. CHANGES IN DIABETIC STATUS WILL BE IDENTIFIED AND REPORTED TO PHYSICIAN FOR PROMPT INTERVENTION THROUGHOUT THE CERTIFICATION PERIOD. Goal Provider Goal - PATIENT/CAREGIVER WILL VERBALIZE UNDERSTANDING OF MUSCULOSKELETAL DISEASE INCLUDING SIGNS AND SYMPTOMS, MANAGEMENT, AND PRESCRIBED TREATMENT REGIMEN BY END OF EPISODE. Goal Provider Goal - PATIENT WILL HAVE SUPPORT MEASURES ESTABLISHED TO PREVENT HOSPITALIZATION AND ED USE AND PATIENT/CAREGIVER WILL VERBALIZE/DEMONSTRATE METHODS TO REDUCE AVOIDABLE HOSPITALIZATION AND ED USE BY END OF EPISODE. Goal Provider Goal - PATIENT/CAREGIVER WILL VERBALIZE UNDERSTANDING OF DISCHARGE PLANNING INSTRUCTIONS BY DATE OF DISCHARGE. Goal Provider Goal - PATIENT/CAREGIVER WILL VERBALIZE/DEMONSTRATE EFFECTIVE ENVIRONMENTAL SAFETY AND FALL PREVENTION STRATEGIES, WILL REMAIN SAFE IN THE COMMUNITY, AND WILL BE FREE OF DANGER TO SELF AND OTHERS THROUGHOUT THE CERTIFICATION PERIOD. Goal Provider Goal - PATIENT/CAREGIVER WILL DEMONSTRATE UNDERSTANDING OF PHARMACOLOGIC AND NONPHARMACOLOGIC PAIN CONTROL MEASURES AND PATIENT WILL HAVE IMPROVEMENT IN PAIN INTERFERING WITH ACTIVITY EVIDENCED BY PAIN CONTROLLED AT LEVEL OF 4 PATIENT GOAL ON 0-10 PAIN SCALE) OR LESS BY END OF CERTIFICATION PERIOD. Goal Provider Goal - PATIENT/CAREGIVER WILL VERBALIZE UNDERSTANDING OF PRESSURE ULCER PREVENTION BY END OF THE EPISODE. Goal Provider Goal - PATIENT/CAREGIVER WILL VERBALIZE S/S OF NEUROPATHY AND METHODS TO MANAGE BY END OF CERTIFICATION PERIOD. Goal Provider Goal - HIGH RISK PATIENT WILL REMAIN SAFE IN THE COMMUNITY AND WILL BE FREE FROM DANGER TO SELF AND OTHERS THROUGHOUT CERTIFICATION PERIOD. Goal Provider Goal - PHYSICAL THERAPY EVALUATION TO BE COMPLETED WITH RECOMMENDATIONS AND/OR WRITTEN TREATMENT PLAN OF CARE ESTABLISHED FOR THE PHYSICIANS SIGNATURE PATIENT/CAREGIVER WILL PERFORM THERAPEUTIC EXERCISE/S AND DEMONSTRATE PARTICIPATION IN A HOME PROGRAM. PATIENT/CAREGIVER WILL DEMONSTRATE IMPROVED BED MOBILITY TECHNIQUES. PATIENT/CAREGIVER WILL DEMONSTRATE SAFE TRANSFERS USING APPROPRIATE ASSISTIVE DEVICE, BODY MECHANICS AND EQUIPMENT. PATIENT/CAREGIVER WILL DEMONSTRATE IMPROVED GAIT TECHNIQUES TO MINIMIZE RISK OF INJURY. PATIENT/CAREGIVER WILL DEMONSTRATE/VERBALIZE UNDERSTANDING OF RECOMMENDATIONS TO INCREASE SAFETY IN THE HOME AND FALL PREVENTION. INCREASED PAIN OR INEFFECTIVE PAIN CONTROL MEASURES WILL BE IDENTIFIED AND PROMPTLY REPORTED TO THE PHYSICIAN. PATIENT/CAREGIVER WILL DEMONSTRATE EFFECTIVE PAIN MANAGEMENT. PATIENT/CAREGIVER WILL DEMONSTRATE IMPROVED BALANCE AND REDUCE THE RISK OF FALLS AND INJURY. PATIENT/CAREGIVER VERBALIZES UNDERSTANDING OF THE INITIAL BEST PRACTICE RECOMMENDATIONS. PHYSICIAN TO BE NOTIFIED APPROPRIATE FOR ANY CHANGES OR COMPLICATIONS THROUGHOUT THE CERTIFICATION PERIOD. Progress Notes Progress Notes <paragraph>[Visit Date: 2023 by DANIEL DIANA RN]:</paragraph><paragraph>[facility] VISIT Jan ABNORMAL VITALS: VITAL SIGNS STABLE, NO FEVER FALLS: NO RECENT FALLS ABNORMAL PHYSICAL ASSESSMENT FINDINGS: NONE MEDICATION CHANGES: ALL MEDICATIONS RECONCILED WITHOUT ISSUE. NO MED CHGES. OBSERVATION AND ASSESSMENT PROVIDED: PATIENT OX4. POSITIVE BOWEL SOUNDS. LUNG SOUNDS CLEAR. HIP SURGICAL INCISION HEALED LEFT OPEN TO AIR. NO CHEST PAIN OR DIZZINESS. JAY LOW LEG 2+PITTING EDEMA. IMPORTANCE OF LEG ELEVATION TAUGHT. HIP PAIN DECREASED. TEACHING: VN TAUGHT IMPORTANCE OF LOW SALT DIET COMPLIANCE . FALL PREVENTION TAUGHT. PATIENT REPORTS UNDERSTANDING. COMMUNICATION WITH MD: SIENNA NEXT MD APPOINTMENT: PCP Jan PATIENT AND CAREGIVER INSTRUCTED TO CALL RADHA KATZ WITH ANY QUESTIONS OR CONCERNS AND/OR CHANGES IN CONDITION. PATIENT REPORTS UNDERSTANDING NEXT SNV PLANNED FOR LATE NEXT WEEK</paragraph> Encounters Start Date/Time End Date/Time Encounter Type Admission Type Attending [facility] Care Facility Care Department Encounter ID Discharge Date Discharge Status Discharge Condition Discharge Reason Percent Goals Met 2024-02-06 00:00:00 2024-04-05 00:00:00 Outpatient DANIEL LOREDO [facility] [id number] 28.8 5
[2024-02-17 14:19] VITALS: BP 124/58; PULSE 73; O2SAT 96; BMI 23.0
--- NOTE | 2024-02-17 14:19 | MHC.PC.OV ---
Vital Signs 02/17/24 14:19 Height 5 ft 7 in Weight 147 lb BMI 23.0 BP 124/58 L Blood Pressure Location Rt brachial Position Sitting Pulse 73 Pulse Source Pulse Oximeter Pulse Oximetry (%) 96 Oxygen Delivery Method Room Air Intake Visit Reasons: Hospital follow up Intake Note: Pt is here today for Hospital follow up visit. Pt states that she is having swelling in her feet. Allergies dulaglutide [Trulicity] Allergy (Unknown, Verified 02/17/24 14:27) GERD losartan Allergy (Unknown, Verified 02/17/24 14:27) Hyperkalemia Sulfa (Sulfonamide Antibiotics) Allergy (Unknown, Verified 02/17/24 14:27) Rash dapagliflozin [From Farxiga] Adverse Reaction (Intermediate, Verified 02/17/24 14:27) candidasis empagliflozin [From Jardiance] Adverse Reaction (Intermediate, Verified 02/17/24 14:27) candidiasis amiodarone Adverse Reaction (Verified 02/17/24 14:27) Cough spironolactone Adverse Reaction (Verified 02/17/24 14:27) Hyperkalemia Medication List - Last Reconciled 02/17/24 by Orquidea Keller MD acetaminophen (Tylenol Extra Strength) 500 mg PO Q6H PRN albuterol sulfate 0.63 mg (3 mL) inhalation QID PRN allopurinol 100 mg PO DAILY apixaban (Eliquis) 2.5 mg PO BID ascorbate calcium (vitamin C) 500 mg PO DAILY atorvastatin 80 mg PO BEDTIME benzonatate 100 mg PO TID PRN blood sugar diagnostic (FreeStyle Lite Strips) Use to test blood sugar three times daily blood-glucose meter,continuous (Dexcom G7 Assistant Professor Of Archaeology) As directed blood-glucose sensor (Dexcom G7 Sensor device) As directed Breo Ellipta 100-25 mcg/dose (fluticasone furoate-vilanterol) 1 inh inhalation DAILY NS budesonide 0.5 mg (2 mL) inhalation BID buspirone 40 mg (4 x 10 mg) PO BEDTIME cholecalciferol (vitamin D3) 50 mcg PO DAILY clopidogrel 75 mg PO DAILY codeine-guaifenesin 10-100 mg/5 mL 5 mL PO Q4-6H PRN ferrous fumarate 325 mg PO DAILY furosemide 40 mg (2 x 20 mg) PO QAM Humalog KwikPen Insulin (insulin lispro) 10 units (0.1 mL) subcut TID NS insulin degludec (Tresiba FlexTouch U-200 insulin) 20 units subcut DAILY lactic acid-urea 1 appl topical DAILY PRN lancets (FreeStyle Lancets) use to test blood sugars three times per day latanoprost 0.005% 1 drp ophthalmic (eye) DAILY levothyroxine 75 mcg PO DAILY metoprolol succinate ER 25 mg PO DAILY nebulizers As directed for updraft treatments-with all needed supplies Novolog FlexPen U-100 Insulin (insulin aspart U-100) 20 units (0.2 mL) subcut BID NS omeprazole 20 mg PO DAILY oxycodone 5 mg PO BID PRN pen needle, diabetic QID sacubitril-valsartan 97-103 mg (Entresto) 1 tab PO BID Tobacco use date assessed: 12/18/23 Dental Screening Dental Screen Date: 09/23/23 HPI Hospital follow up HPI Details Pt presents for follow-up of hospitalization and inpatient rehab stay after right hip fracture status post partial replacement January 06 Patient has been getting home physical therapy and is ambulating with a walker. Insulin-dependent diabetes, heart failure with reduced ejection fraction, hypertension,,chronic kidney disease stage III are stable on current medications. Patient reports worsening of lower extremities swelling since she started taking amlodipine in a fdc. She denies PND orthopnea but reports general fatigue and feeling cold and tired. Patient reports blood glucose readings 70% within a range occasionally higher after dinner. [facility] Medical History (Updated 02/17/24 @ 15:24 by Orquidea Keller MD) Vitamin D deficiency Macrocytosis Cough Sciatica Hypothyroidism HTN (hypertension) Lower extremity edema Irritable bowel syndrome (IBS) Chronic GERD Anxiety Chronic kidney disease (CKD) Hyperlipidemia Hypertension associated with diabetes Surgical History No pertinent past surgical history Family History Mother Ovarian cancer Father Pancreatic cancer Thyroid disease Social History Household Members Other:: Housing: House Alcohol intake: never Patient Tobacco Use Status: Never used Tobacco e-Cigarette/Vaping Use: Never Used Second Hand Smoke Exposure: No service: No Current occupational status: retired Cognitive needs: No Hearing needs: No Vision needs: Yes Questionnaire Thrive Questionnaire Date Thrive assessed: 09/23/23 I am a: Patient What is your living situation today?: I have a steady place to live Within the past 12 months, did the food you bought not last and you didn't have the money to get more?: I choose not to answer this question Within the past 12 months, did you worry whether your food would run out before you got money to buy more?: I choose not to answer this question Do you have trouble paying for medicines?: I choose not to answer this question Do you have trouble getting transportation to medical appointments?: I choose not to answer this question Do you have trouble paying your heating and electricity bill?: I choose not to answer this question Do you have trouble taking care of your child, family member or friend?: I choose not to answer this question Do you have trouble with day-to-day activities such as bathing, preparing meals, shopping, managing finances, etc.?: I choose not to answer this question Are you currently unemployed and looking for a job?: I choose not to answer this question Are you interested in more education?: I choose not to answer this question Please select the resources that you would like help with: None Currently or been in a relationship where the following occur: I choose not to answer THRIVE Score: 0 JAMES-7 AMB Questionnaire JAMES-7 Date JAMES - 7 assessed: 09/23/23 Source: Developed by Drs. Bryce Garcia, Sophie Baldwin, Rock Coyle and colleagues, with an educational pranay from [employer]. Review of Systems Const All systems reviewed & are unremarkable except as noted in HPI and below ENT Reports no additional complaints Card Reports no additional complaints Resp Reports no additional complaints GI Reports no additional complaints Reports no additional complaints Physical exam (Primary Care) Vital Signs: Last Vital Signs Pulse 73 02/17/24 14:19 BP 124/58 L 02/17/24 14:19 Pulse Ox 96 02/17/24 14:19 Oxygen Delivery Method Room Air 02/17/24 14:19 BMI result Body Mass Index 23.0 Tobacco/Smoking Status: Tobacco use Status Tobacco use date assessed 12/18/23 02/17/24 14:19 Patient Tobacco Use Status Never used Tobacco 02/17/24 14:19 e-Cigarette/Vaping Use Never Used 02/17/24 14:19 Thrive Assessment: Date of Thrive Assessment Date Thrive assessed 09/23/23 02/17/24 14:19 Currently or been in a relationship where the following occur: I choose not to answer Const General: no acute distress HENMT Mouth: Normal oral and palatal mucosa present Eyes General: appearance normal, both eyes and all related structures Resp Effort & Inspection: normal respiratory effort Auscultation: clear to auscultation bilaterally Cardio Rhythm: regular rhythm Heart sounds: S1 normal heart sound present and S2 normal heart sound present GI Inspection: Yes normal to inspection Palpation (GI): Soft to palpation Percussion: Yes normal to percussion Auscultation: normal bowel sounds Extrem Other: 3+ pitting edema lower extremities bilaterally Coding Level of Care Code Est Pt Level 5 (17580) Complex EM visit Add On G2211 Diagnoses HTN (hypertension) I10 Hypothyroidism E03.9 CHF (congestive heart failure) I50.9 Paroxysmal A-fib I48.0 Insulin dependent type 2 diabetes mellitus E11.9; Z79.4 Vitamin D deficiency E55.9 Assessment & Plan Assessment & Plan (1) HTN (hypertension): Code(s): I10 - Essential (primary) hypertension Category: Medical Plan: Blood pressure is low and amlodipine is causing lower extremity swelling. Patient will discontinue amlodipine will continue metoprolol Entresto furosemide and will continue to monitor blood pressure. (2) Hypothyroidism: Code(s): E03.9 - Hypothyroidism, unspecified Category: Medical Plan: Continue levothyroxine check TSH (3) CHF (congestive heart failure): Comment: Echo LVEF 40-45%, mid to distal anterior, apical, mid-distal septal/anteroseptal and apical inf wall akinesis 01/10 [facility], Echo 10/2023 [facility], EF 55- 60 %, calcification of aortic and mitral valve, no pulmonary hypertension Code(s): I50.9 - Heart failure, unspecified Category: Medical Plan: Continue Entresto furosemide and spironolactone could be added if lower extremity swelling persists. Check comprehensive panel and BNP today (4) Paroxysmal A-fib: Comment: 01/10 during hospitalization for NSTEMI 01/10, on metoprolol and Eliquis Code(s): I48.0 - Paroxysmal atrial fibrillation Category: Medical Plan: Continue metoprolol and Eliquis (5) Insulin dependent type 2 diabetes mellitus: Code(s): E11.9 - Type 2 diabetes mellitus without complications; Z79.4 - rodent exterminator (current) use of insulin Category: Medical Plan: ADA diet increase physical activity continue Tresiba and short-acting insulin according to sliding scale (6) Vitamin D deficiency: Code(s): E55.9 - Vitamin D deficiency, unspecified Category: Medical Plan: Continue vitamin-D supplement Orders: Orders TSH reflex Free T4 Today E03.9 - Hypothyroidism, unspecified, E11.9 - Type 2 diabetes mellitus without complications, I10 - Essential (primary) hypertension, I48.0 - Paroxysmal atrial fibrillation, I50.9 - Heart failure, unspecified, Z79.4 - snf (current) use of insulin Complete Blood Count Auto Diff Today E03.9 - Hypothyroidism, unspecified, E11.9 - Type 2 diabetes mellitus without complications, I10 - Essential (primary) hypertension, I48.0 - Paroxysmal atrial fibrillation, I50.9 - Heart failure, unspecified, Z79.4 - snf (current) use of insulin IRON PROFILE Today E03.9 - Hypothyroidism, unspecified, E11.9 - Type 2 diabetes mellitus without complications, I10 - Essential (primary) hypertension, I48.0 - Paroxysmal atrial fibrillation, I50.9 - Heart failure, unspecified, Z79.4 - rodent exterminator (current) use of insulin Vitamin B12 and Folate Today E03.9 - Hypothyroidism, unspecified, E11.9 - Type 2 diabetes mellitus without complications, I10 - Essential (primary) hypertension, I48.0 - Paroxysmal atrial fibrillation, I50.9 - Heart failure, unspecified, Z79.4 - rodent exterminator (current) use of insulin B Type Natriuretic Peptide Today I50.9 - Heart failure, unspecified Comprehensive Met. Panel Today E03.9 - Hypothyroidism, unspecified, E11.9 - Type 2 diabetes mellitus without complications, I10 - Essential (primary) hypertension, I48.0 - Paroxysmal atrial fibrillation, I50.9 - Heart failure, unspecified, Z79.4 - snf (current) use of insulin Hemoglobin A1c Today E03.9 - Hypothyroidism, unspecified, E11.9 - Type 2 diabetes mellitus without complications, I10 - Essential (primary) hypertension, I48.0 - Paroxysmal atrial fibrillation, I50.9 - Heart failure, unspecified, Z79.4 - rodent exterminator (current) use of insulin Vitamin D 25-OH Total Today E55.9 - Vitamin D deficiency, unspecified Medications: Changed From benzonatate 100 mg PO TID 30 caps 0RF To benzonatate 100 mg PO TID PRN From Tresiba FlexTouch U-200 (insulin degludec) 15 units (0.075 mL) subcut DAILY 27 mL 1RF NS E11.9 - Type 2 diabetes mellitus without complications To insulin degludec (Tresiba FlexTouch U-200 insulin) 20 units subcut DAILY E11.9 - Type 2 diabetes mellitus without complications Discontinued budesonide Discontinued Reason: Doctor's Order 0.5 mg (2 mL) inhalation BID 120 mL 0RF J06.9 - Acute upper respiratory infection, unspecified, R05 - Cough
== END 2024-02-17 15:24 | disposition home or self-care (01) ==
PROVIDERS: PCP Internal Medicine; Visit Provider Internal Medicine
DX: I11.0 Hypertensive heart disease with heart failure (principal); I50.9 Heart failure, unspecified; I48.0 Paroxysmal atrial fibrillation; Z79.4 Long term (current) use of insulin; E11.9 Type 2 diabetes mellitus without complications; E03.9 Hypothyroidism, unspecified; E55.9 Vitamin D deficiency, unspecified

== ENCOUNTER → 2024-02-17 14:10 | Outpatient (BNVA) | payer MEDICARE, SELFPAY | PROVIDERS: PCP Internal Medicine; Visit Provider Internal Medicine | DX: E03.9 Hypothyroidism, unspecified (principal); I11.0 Hypertensive heart disease with heart failure; I50.9 Heart failure, unspecified; I48.0 Paroxysmal atrial fibrillation; E11.9 Type 2 diabetes mellitus without complications; E55.9 Vitamin D deficiency, unspecified; Z79.4 Long term (current) use of insulin | CPT/HCPCS: 99212 ==

== ENCOUNTER 2024-03-02 13:50 | Outpatient (AMB) | payer MEDICARE, SELFPAY ==
--- NOTE | 2024-03-02 14:12 | A.OFFVIS_ITS ---
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/?Paroxysmal atrial fibrillation Intake Note: New dx afib feels good Progress Man Required: No Senior Lead Java Developer: Senior Lead Java Developer Present Accompanied by: Daughter Allergies dulaglutide [Trulicity] Allergy (Unknown, Verified 02/17/24 14:27) GERD losartan Allergy (Unknown, Verified 02/17/24 14:27) Hyperkalemia Sulfa (Sulfonamide Antibiotics) Allergy (Unknown, Verified 02/17/24 14:27) Rash dapagliflozin [From Farxiga] Adverse Reaction (Intermediate, Verified 02/17/24 14:27) candidasis empagliflozin [From Jardiance] Adverse Reaction (Intermediate, Verified 02/17/24 14:27) candidiasis amiodarone Adverse Reaction (Verified 02/17/24 14:27) Cough spironolactone Adverse Reaction (Verified 02/17/24 14:27) Hyperkalemia Medication List - Last Reconciled 03/02/24 by Spenser Horne MD acetaminophen (Tylenol Extra Strength) 500 mg PO Q6H PRN albuterol sulfate 0.63 mg (3 mL) inhalation QID PRN allopurinol 100 mg PO DAILY apixaban (Eliquis) 2.5 mg PO BID ascorbate calcium (vitamin C) 500 mg PO DAILY atorvastatin 80 mg PO BEDTIME benzonatate 100 mg PO TID PRN blood sugar diagnostic (FreeStyle Lite Strips) Use to test blood sugar three times daily blood-glucose meter,continuous (Dexcom G7 Business Affairs Manager) As directed blood-glucose sensor (Dexcom G7 Sensor device) As directed buspirone 40 mg (4 x 10 mg) PO BEDTIME cholecalciferol (vitamin D3) 50 mcg PO DAILY clopidogrel 75 mg PO DAILY codeine-guaifenesin 10-100 mg/5 mL 5 mL PO Q4-6H PRN ferrous fumarate 325 mg PO DAILY fluticasone furoate-vilanterol 100-25 mcg/dose (Breo Ellipta) 1 inh inhalation DAILY PRN furosemide 40 mg (2 x 20 mg) PO QAM Humalog KwikPen Insulin (insulin lispro) 10 units (0.1 mL) subcut TID NS insulin degludec (Tresiba FlexTouch U-200 insulin) 20 units subcut DAILY lactic acid-urea 1 appl topical DAILY PRN lancets (FreeStyle Lancets) use to test blood sugars three times per day latanoprost 0.005% 1 drp ophthalmic (eye) DAILY levothyroxine 75 mcg PO DAILY metoprolol succinate ER 25 mg PO DAILY nebulizers As directed for updraft treatments-with all needed supplies omeprazole 20 mg PO DAILY oxycodone 5 mg PO BID PRN pen needle, diabetic QID sacubitril-valsartan 97-103 mg (Entresto) 1 tab PO BID HPI Comments Details: Thank you for referring Jefe in cardiology consultation today she is hoping to establish with a new 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 Patient is 84-year-old female with prior history of CAD for anterior STEMI in December of 2022 with symptoms of chest pain and left arm pain. She subsequently underwent LAD stenting. Echocardiogram at that time had shown depressed LV ejection fraction 40-45% she has been treated with medical therapy for heart failure with reduced ejection fraction. She is currently on metoprolol as well as Entresto therapy. She is also on clopidogrel and apixaban for atrial fibrillation. Subsequently at that time she was diagnose with atrial fibrillation and converted and been treated on oral anticoagulation ever since. She is currently on dual therapy with Eliquis and clopidogrel. She has no bleeding issues. She has no overt signs of heart failure or symptoms of heart failure. She does have bilateral leg swelling and since hip fracture of the left leg swelling has gone worse. She is using compression stocking although has dependent leg position for long period time. She denies any exertional chest pain or shortness of breath. Walks with the help of a walker. Denies any clear orthopnea, PND, abdominal distension. No lightheadedness, syncope. Takes all medications. Blood pressure at home have been generally elevated with most of the blood pressure in the range of 150-160. She was occasional blood pressure in the 140 systolic range. She also has symptoms of orthostatic lightheadedness. She tries to manage that with changing position slowly. She has not had any recent syncopal episodes. She is concerned about significant variation in his blood pressure. Recent echocardiogram shows normalized LV ejection fraction with grade 2 diastolic dysfunction. Holter monitor shows no evidence of atrial fibrillation with occasional PACs. [facility] Medical History Vitamin D deficiency Macrocytosis Cough Sciatica Hypothyroidism HTN (hypertension) Lower extremity edema Irritable bowel syndrome (IBS) Chronic GERD Anxiety Chronic kidney disease (CKD) Hyperlipidemia Hypertension associated with diabetes Surgical History No pertinent past surgical history Family History Mother Ovarian cancer Father Pancreatic cancer Thyroid disease Social History Household Members Other:: Housing: House Alcohol intake: never Patient Tobacco Use Status: Never used Tobacco e-Cigarette/Vaping Use: Never Used Second Hand Smoke Exposure: No service: No Current occupational status: retired Cognitive needs: No Hearing needs: No Vision needs: Yes Review of Systems Const Denies chills, Denies daytime sleepiness, Denies fatigue, Denies fever(s), Denies frequent falls, Denies poor appetite, Denies snoring, Denies stops breathing during sleep, Denies weakness, Denies weight gain and Denies weight loss Eyes Denies loss of vision ENT Denies dizziness and Denies hearing loss Card Denies chest pain, Denies claudication, Denies leg edema, Denies li ghtheadedness, Denies palpitations, Denies dyspnea, Denies dyspnea on exertion and Denies orthopnea Resp Denies cough, Denies excessive phlegm production, Denies dyspnea, Denies dyspnea on exertion, Denies snoring and Denies wheezing GI Denies abdominal pain, Denies hematochezia, Denies change in bowel habits, Denies nausea and Denies vomiting Denies urinary frequency and Denies dysuria Musc Denies arthralgias, Denies muscle weakness, Denies numbness and Denies other (frequent falls) Skin/Breast Denies nail changes and Denies rash Neuro Denies Abnormal speech present, Denies dizziness, Denies frequent falls, Denies loss of vision, Denies memory loss, Denies numbness and Denies weakness Psych Denies depression and Denies memory loss Endo Denies fatigue and Denies palpitations Curtis/Lymph Reports easy bruising and Reports other (anemia) Aller/Immun Denies wheezing Physical Exam Vital Signs: Last Vital Signs Pulse 64 03/02/24 14:13 BP 174/80 H 03/02/24 14:13 BMI result Body Mass Index 22.8 Const General: cooperative, comfortable, no acute distress, alert and awake Nutritional Appearance: average body habitus Orientation/consciousness: patient oriented x3 Limitations: ambulation with walker HEENT Head: Yes normocephalic and Yes atraumatic Neck Neck: Yes trachea midline, Yes supple and Yes no JVD Resp Effort & Inspection: normal respiratory effort Auscultation: clear to auscultation bilaterally Cardio Jugular venous distension: no JVD Palpation: normal PMI Rate: regular rate Rhythm: regular rhythm Heart sounds: S1 normal heart sound present, S2 normal heart sound present, no click, no gallops, no murmurs and no rubs GI Auscultation: normal bowel sounds Skin General skin exam: no rashes or lesions noted Neuro General: patient oriented x3 and no focal motor deficits Speech: No Abnormal speech present Extrem General: No clubbing, No cyanosis and Yes edema (Left greater than right below knee) Psych Appearance: grossly normal Assessment & Plan Assessment & Plan (1) CAD (coronary artery disease): Comment: NSTEMI, S/P AMOR to mid LAD (90% stenosis) 01/10 Code(s): I25.10 - Atherosclerotic heart disease of red devil coronary artery without angina pectoris Category: Medical Plan: CAD status post stenting of LAD for anterior STEMI. Since then she has been doing well. She has had no recurrent chest pain syndrome. More than a year since his stenting and at this time clopidogrel can be discontinued. She is already on full oral anticoagulation will continue the same. Continue high- intensity statin therapy. Target goal LDL closer to 55 mg/dL. Continue aggressive diabetes management goal hemoglobin A1c less than 7%. Needs better blood pressure control although she was labile blood pressure which can be an issue. I would say target blood pressure would be systolic 140. Will switch her metoprolol to carvedilol therapy for better blood pressure control. Advised to monitor blood pressure at home maintain a log. Low-salt diet was discussed. Stress mitigation strategies were discussed. No further workup is indicated at this point time. (2) CHF (congestive heart failure): Comment: Echo LVEF 40-45%, mid to distal anterior, apical, mid-distal septal/anteroseptal and apical inf wall akinesis 01/10 [facility], Echo 10/2023 [facility], EF 55- 60 %, calcification of aortic and mitral valve, no pulmonary hypertension Code(s): I50.9 - Heart failure, unspecified Category: Medical Plan: Prior history of congestive heart failure in the setting of anterior NSTEMI with anterior wall motion abnormality. Repeat echo recently shows normalized LV ejection fraction most likely suggestive of improved wall motion abnormalities since stenting suggestive of stunned myocardium. Good prognosis with this was discussed. She is also currently on good neurohormonal modulation with Entresto as well as metoprolol. Clinically his bilateral lower extremity edema which appears to me related to dependent edema rather than congestive heart failure as I do not see any signs of central venous congestion. Continue current diuretic dose. Daily weight monitoring avoidance salt loading was discussed. Recommend renal consultation to evaluate for reason for progressive creatinine rise as this may affect overall prognosis and medication guidance. (3) Paroxysmal A-fib: Comment: 01/10 during hospitalization for NSTEMI 01/10, on metoprolol and Eliquis Code(s): I48.0 - Paroxysmal atrial fibrillation Category: Medical Plan: Paroxysmal atrial fibrillation which has remained controlled post hospitalization. No recurrence. No symptoms related to it. Continue metoprolol therapy. No indication for antiarrhythmic drug therapy. Currently on renally adjusted dose of Eliquis. Quarterly renal function test should be pursued. Avoidance of stimulants was discussed. Will follow up in the clinic in 6 months time, sooner p.r.n.. Thank you for allowing me to partake in his care Orders: Referrals Nephrology Referral Spenser Horne MD N18.9 - Chronic kidney disease, unspecified Medications: New carvedilol (Coreg) must administer with a meal/food 3.125 mg PO BID 60 tabs 5RF Spenser Horne MD N18.9 - Chronic kidney disease, unspecified Changed From Breo Ellipta 100-25 mcg/dose (fluticasone furoate-vilanterol) 1 inh inhalation DAILY 60 ea 1RF NS To fluticasone furoate-vilanterol 100-25 mcg/dose (Breo Ellipta) 1 inh inhalation DAILY PRN Orquidea Keller MD Discontinued metoprolol succinate ER Discontinued Reason: Doctor's Order 25 mg PO DAILY 90 tabs 1RF Coding Level of Care Code New Pt Level 4 (18019) Complex EM visit Add On G2211 Diagnoses CAD (coronary artery disease) I25.10 CHF (congestive heart failure) I50.9 Paroxysmal A-fib I48.0
[2024-03-02 14:13] VITALS: BP 174/80; PULSE 64; BMI 22.8
--- OUTSIDE RECORDS SUMMARY | 2024-03-02 17:03 | XMS_ITS | Continuity of Care Document ---
Author Organization [place] - [facility], [facility] Address [address] [place] [address] Care Team Providers Care Gate Technician Name Role Phone JUSTA SAHNIANNA Primary Care [...] audio gram No observ ation record ed. [email or web address] Not Available 11/19 15:12:52 Result Notes None recorded. Problems Name Problem SNOMED Code Status Onset Date Resolution Date Notes Provider Name and Address Organization Details Recorded Time Sensorine ural hearing loss of bilateral ears 217523466 Active 2018 Sensorine ural hearing loss, bilateral ; Note: Date Diagnosed : 08/12/2018 1:56 PM (H90.3) Not Available [facility] 4 03:11:58 Bilateral tinnitus 87197005002 02 Active 2018 Tinnitus, bilateral ; Note: Date Diagnosed : 08/12/2018 1:56 PM (H93.13) Not Available [facility] 4 03:11:57 Otalgia of right ear 3904414007 Active 2018 Otalgia, right ear; Note: Date Diagnosed : 03/12/2018 2:36 PM (H92.01) Not Available [facility] 4 03:11:57 Impacted cerumen in right ear 52773725994 22874 Active 2022 Impacted cerumen, right ear; Note: Date Diagnosed : 07/04/2022 1:17 PM (H61.21) Not Available [facility] 4 03:11:57 Bilateral disorder of Eustachia n tubes 48453856524 Active 2023 ROBIN RODRIGUEZ, [address],[place] [address], [place], [address] , [facility] 4 13:39:50 Acute serous otitis media of right ear 24110252105 Active 2023 YADIRA JORDAN MD [address] [place] [address],[place] [address], [place], [address] , [facility] 4 13:59:45 Problem Notes None recorded. Procedures Surgical History Date Name Laterality Status Provider Name and Address Organization Details Recorded Time 12/16/19 24 Tympanometry (45949) completed MARTIN ARNETT, [address],[place] [address], [place], [address], [facility] 12/16/2023 13:08:04 10/16/19 24 Air & Speech Audio with Tymps (49024, 82883 & 64628) completed ROBIN RODRIGUEZ, [address], [address], [facility] 10/16/2023 13:43:04 Imaging Results None recorded. Procedure Notes None recorded. Medical Equipment None Reported. Allergies Allergen ID Allergen Name Allergen Category Reaction Reaction Severity Criticality Documentation Date Start Date Code Code System Note Provider Name and Address Organization Details Recorded Time 48936 Substance with sulfonami de structure and antibacte rial mechanism of action (substanc e) medicatio n other Not available Not available 07/02/2023 80219 3802 SNOMED React ion: unkno wn, unspe cifie d;; Not Available [facility] 4 00:49:45 Medications Name Sig Start [...] TAKE 1 TABLET BY MOUTH EVERY DAY [id number] active Not Available Not Available Not Available [...] Not Available Not Available No t Available [facility] spacer USE WITH INHALER active Not Available [...] Updated DateTime 12/16/2023 160.02 cm 26 kg/m2 69501.08 g Raina Gallego [place] - [facility] 12/16/2023 12:58:48 Social History None recorded. Functional Status None recorded. Mental Status None recorded. Family History Nothing Reported. Medical History No medical history recorded. Gynecological HistoryNo gynecological history recorded. Obstetrics History GPAL:G 0 P 0 0 0 0 Past Encounters Encounter ID Performer Location Encounter Start Date Encounter Closed Date Diagnosis/Indication Diagnosis SNOMED-CT Code Diagnosis ICD10 Code Diagnosis Note [id number] SILVIO SILVERIO MD [facility] [address] [facility] JOSIAH ARANDA [address] 12/16/2023 12:50:25 12/16/2023 13:30:32 Bilateral disorder of Eustachian tubes 2183714975 848454 H69.93 Acute sero us otitis media of right ear 1528010066 583131 H65.01 [id number] DUKE LOVE [facility] [address] [place] [address] 12/16/2023 13:07:22 12/16/2023 14:57:24 Sensorineural hearing loss of bilateral ears 045677924 H90.3 Tympanomet ry:Right: Type {{A B* B with large ECV C}}Lef t: {{A B B with large ECV C*}} Health Concerns Section Related Observation LastModified by Organization Detai ls LastModified Time None Recorded Concern Status LastModified by Organization Details LastModified Time None Recorded Payers Encounter Date Sequence Insurance Name Policy Number Policy Vilchis Covered Member ID Vilchis Member ID Guarantor Name 12/16/2023 1 MEDICARE B-ME: [employer] Beverly Marie [id number] Beverly Marie 12/16/2023 2 [place]) [id number] Beverly Marie [id number] Beverly Marie Notes Date Note Type [...] some seasonal allergies. SILVIO RODRIGUEZ MD [address], [address], [facility] - [facility] 12/16/2023 16:30:44 12/16/2023 text/html ELEAZAR Bishop, requested tympanometry. DUKE LOVE [address], [address], [facility] - [facility] 12/16/2023 13:09:48 OBGyn Episode No OBEpisode recorded.
--- OUTSIDE RECORDS SUMMARY | 2024-03-02 17:03 | XMS_ITS | Continuity of Care Document ---
Author Organization [place] - [facility], [facility] Address [address] [place] [address] Care Team Providers Care Head Of Science Name Role Phone BE SAHNI Primary Care Provider [phone] Assessment Encounter Date Assessment Date Assessment LastModified [...] audio gram No observ ation record ed. [email or web address] Not Available 11/19 15:12:52 Result Notes None recorded. Problems Name Problem SNOMED Code Status Onset Date Resolution Date Notes Provider Name and Address Organization Details Recorded Time Sensorine ural hearing loss of bilateral ears 449198030 Active 2018 Sensorine ural hearing loss, bilateral ; Note: Date Diagnosed : 08/12/2018 1:56 PM (H90.3) Not Available [facility] 4 03:11:58 Bilateral tinnitus 89622642315 02 Active 2018 Tinnitus, bilateral ; Note: Date Diagnosed : 08/12/2018 1:56 PM (H93.13) Not Available [facility] 4 03:11:57 Otalgia of right ear 0789702319 Active 2018 Otalgia, right ear; Note: Date Diagnosed : 03/12/2018 2:36 PM (H92.01) Not Available [facility] 4 03:11:57 Impacted cerumen in right ear 51852103859 33693 Active 2022 Impacted cerumen, right ear; Note: Date Diagnosed : 07/04/2022 1:17 PM (H61.21) Not Available [facility] 03:11:57 Bilateral disorder of Eustachia n tubes 40057482231 76756 Active 2023 ROBIN RODRIGUEZ, [facility] [address] [facility],[place] [address], [place], [address] , [facility] 13:39:50 Acute serous otitis media of right ear 06767944723 Active 2023 YADIRA JORDAN MD [address] [facility],[place] [address], [facility] [place], [address] , [facility] 13:59:45 Problem Notes None recorded. Procedures Surgical History Date Name Laterality Status Provider Name and Address Organization Details Recorded Time 12/16/19 24 Tympanometry (10158) completed MARTIN ARNETT, [address],[place] [address], [place], [address], [facility] 12/16/2023 13:08:04 10/16/19 24 Air & Speech Audio with Tymps (55921, 54306 & 47101) completed ROBIN RODRIGUEZ, [address],[place] [address], [place], [address], [facility] 10/16/2023 13:43:04 Imaging Results None recorded. Procedure Notes None recorded. Medical Equipment None Reported. Allergies Allergen ID Allergen Name Allergen Category Reaction Reaction Severity Criticality Documentation Date Start Date Code Code System Note Provider Name and Address Organization Details Recorded Time 63666 Substance with sulfonami de structure and antibacte rial mechanism of action (substanc e) medicatio n other Not available Not available 07/02/2023 52324 8003 SNOMED React ion: unkno wn, unspe cifie d;; Not Available [facility] 4 00:49:45 Medications Name Sig Start Date [...] TAKE 1 TABLET BY MOUTH EVERY DAY [id number] active Not Available Not Available Not Available [...] Not Available No t Available Leanne Hutchinson [facility] spacer USE WITH INHALER active Not [...] Updated DateTime 12/16/2023 160.02 cm 26 kg/m2 55476.08 g Raina Gallego [place] - [facility] 12/16/2023 12:58:48 Social History None recorded. Functional Status None recorded. Mental Status None recorded. Family History Nothing Reported. Medical History No medical history recorded. Gynecological HistoryNo gynecological history recorded. Obstetrics History GPAL:G 0 P 0 0 0 0 Past Encounters Encounter ID Performer Location Encounter Start Date Encounter Closed Date Diagnosis/Indication Diagnosis SNOMED-CT Code Diagnosis ICD10 Code Diagnosis Note [id number] SILVIO SILVERIO MD [facility] [address] [place] [address] 12/16/2023 12:50:25 12/16/2023 13:30:32 Bilateral disorder of Eustachian tubes 4876987003 574659 H69.93 Acute sero us otitis media of right ear 8432251187 995340 H65.01 [id number] DUKE LOVE [facility] [address] [place] [address] 12/16/2023 13:07:22 12/16/2023 14:57:24 Sensorineural hearing loss of bilateral ears 387174448 H90.3 Tympanomet ry:Right: Type {{A B* B [...] Guarantor Name 12/16/2023 1 MEDICARE B-ME: [employer] Beverly Marie [id number] 2 Beverly Marie 12/16/2023 2 [place]) [id number] Beverly Marie [id number] Beverly Marie Notes Date Note Type Note Provider Name and Address Organization Details Recorded Time 12/16/2023 text/html 83-year-old fema lazara presents for re-evaluation. Previously examined by Dr. [...] some seasonal allergies. SILVIO RODRIGUEZ MD [address], [address], [facility] - [facility] 12/16/2023 16:30:44 12/16/2023 text/html ELEAZAR Bishop, requested tympanometry. DUKE LOVE [address], [address], [facility] 12/16/2023 13:09:48 OBGyn Episode No OBEpisode recorded.
--- OUTSIDE RECORDS SUMMARY | 2024-03-02 17:03 | XMS_ITS | Clinical Summary ---
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 [employer] [place] Name Role Phone KAITLYN RAJAN, BE Unavailable Unavailable ADALIGSA RN, DANIEL Unavailable Unavailable SUSY PT, LEV Unavailable Unavailable Payers Payer Name Policy Type Policy Number Effective Date Expira tion Date MEDICARE - NGS [place] - PDGM [id number] Problems Condition Name Condition Details Condition Category [...] CHRONIC KIDNEY DISEASE Active 02-18 00:00: 00 SENIOR CARE (CURRENT) USE OF INSULIN Active 02-18 00:00: 00 PAROXYSMAL ATRIAL FIBRILLATION Active 02-18 00:00: 00 HYPOTHYROIDI SM, UNSPECIFIED Active 02-18 00:00: 00 ISCHEMIC CARDIOMYOPAT HY Active 02-18 00:00: 00 ATHSCL HEART DISEASE OF [place] CORONARY ARTERY W/O ANG PCTRS Active 02-18 00:00: 00 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 02-18 00:00: 00 SENIOR CARE (CURRENT) USE OF ANTICOAGULAN TS Active 02-18 00:00: 00 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 ICS/ANTIPLAT ELETS Active [...] 09-06 00:00: 00 03-13 23:59 :00 No [id number] 1 tablet BEDTIME 1 tablet BEDTIME (route: oral) Med Classific ation: Gout and Hyperuric emia Therapy Aspirin Low Dose 81 mg tablet,av yed release 09-06 00:00: 00 03-13 23:59 :00 No [id number] 1 tablet DAILY 1 tablet DAILY (route: oral) Med Classific ation: Hematolog ical Agents benzonatate 100 mg capsule 09-06 00:00: 00 03-13 23:59 :00 No [id number] 100 mg NEEDED 100 mg NEEDED (route: oral) Med Classific ation: Respirato ry Therapy Agents buspirone 10 mg tablet 09-06 00:00: 00 03-13 23:59 :00 No [id number] 1 tablet BEDTIME 1 tablet BEDTIME (route: oral) Med Classific ation: Central Nervous System Agents furosemide 20 mg tablet 09-06 00:00: 00 03-13 23:59 :00 No [id number] 1 tablet DIRECTED 1 tablet DIRECTED (route: oral) Med Classific ation: Cardiovas cular Therapy Agents levothyroxi ne 50 mcg capsule 09-06 00:00: 00 03-13 23:59 :00 No [id number] 1 capsule DAILY 1 capsule DAILY (route: oral) Med Classific ation: Endocrine metoprolol tartrate 25 mg tablet 09-06 00:00: 00 03-13 23:59 :00 No [id number] 1 tablet DAILY 1 tablet DAILY (route: oral) Med Classific ation: Cardiovas cular Therapy Agents omeprazole 20 mg tablet,av yed release 09-06 00:00: 00 03-13 23:59 :00 No [id number] 1 tablet DAILY 1 tablet DAILY (route: oral) Med Classific ation: Gastroint estinal Therapy Agents One-A-Day Essential tablet 09-06 00:00: 00 03-13 23:59 :00 No [id number] 1 tablet DAILY 1 tablet DAILY (route: oral) Med Classific ation: Electroly te Balance-N utritiona l Products oxycodone 5 mg tablet 09-06 00:00: 00 03-13 23:59 :00 No [id number] 1 tablet NEEDED 1 tablet NEEDED (route: oral) Med Classific ation: Analgesic , Anti-infl ammatory or Antipyret ic prednisone 10 mg tablet 08-29 00:00: 00 03-13 23:59 :00 No [id number] 10 mg DIRECTED 10 mg DIRECTED (route: oral) Med Classific ation: Endocrine simvastatin 20 mg tablet 09-06 00:00: 00 03-13 23:59 :00 No [id number] 1 tablet DAILY 1 tablet DAILY (route: oral) Med Classific ation: Cardiovas cular Therapy Agents tramadol 50 mg tablet 09-06 00:00: 00 03-13 23:59 :00 No [id number] 1 tablet NEEDED 1 tablet NEEDED (route: oral) Med Classific ation: Analgesic , Anti-infl ammatory or Antipyret ic triamterene 37.5 mg-hydrochl orothiazide 25 mg tablet 09-06 00:00: 00 03-13 23:59 :00 No [id number] .5 tablet DAILY .5 tablet DAILY (route: oral) Med Classific ation: Cardiovas cular Therapy Agents Tylenol PM Extra Strength 25 mg-500 mg tablet 09-06 00:00: 00 03-13 23:59 :00 No [id number] 1 tablet BEDTIME 1 tablet BEDTIME (route: oral) Med Classific ation: Analgesic , Anti-infl ammatory or Antipyret ic Novolin R Flexpen 100 unit/mL (3 mL) subcutaneou s insulin pen 09-06 00:00: 00 03-13 23:59 :00 No [id number] 1 In unit DIRECTED 1 In unit DIRECTED (route: subcutaneo us) Med Classific ation: Endocrine Tresiba FlexTouch U-200 insulin 200 unit/mL (3 mL) subcutaneou s pen 09-06 00:00: 00 03-13 23:59 :00 No [id number] 50 unit DAILY 50 unit DAILY (route: subcutaneo us) Med Classific ation: Endocrine lidocaine 5 % topical ointment 2020-02 00:00: 00 01-22 23:59 :00 No [id number] Per instruc tions NEEDED Per instructio ns NEEDED (route: topical) Med Classific ation: Dermatolo gical latanoprost 0.005 % eye drops 2020-02 00:00: 00 01-22 23:59 :00 No [id number] 1 drops BEDTIME 1 drops BEDTIME (route: ophthalmic (eye)) Med Classific ation: Ophthalmi c Agents furosemide 20 mg tablet 03-13 00:00: 00 01-22 23:59 :00 No [id number] 1 tablet 3 TIMES A WEEK 1 tablet 3 TIMES A WEEK (route: oral) Med Classific ation: Cardiovas cular Therapy Agents tramadol 50 mg tablet 2020-02 00:00: 00 01-22 23:59 :00 No [id number] 1 tablet NEEDED 1 tablet NEEDED (route: oral) Med Classific ation: Analgesic , Anti-infl ammatory or Antipyret ic simvastatin 40 mg tablet 2020-02 00:00: 00 01-22 23:59 :00 No [id number] 1 tablet DAILY 1 tablet DAILY (route: oral) Med Classific ation: Cardiovas cular Therapy Agents allopurinol 100 mg tablet 03-13 00:00: 00 01-22 23:59 :00 No [id number] 1 tablet DAILY 1 tablet DAILY (route: oral) Med Classific ation: Gout and Hyperuric emia Therapy triamterene 37.5 mg-hydrochl orothiazide 25 mg tablet 2020-02 2-14 00:00: 00 01-22 23:59 :00 No [id number] .5 tablet DAILY .5 tablet DAILY (route: oral) Med Classific ation: Cardiovas cular Therapy Agents metoprolol succinate ER 25 mg tablet,exte nded release 24 hr 2020-02-15 00:00: 00 01-22 23:59 :00 No [id number] 2 tablet DAILY 2 tablet DAILY (route: oral) Med Classific ation: Cardiovas cular Therapy Agents buspirone 10 mg tablet 2020-02 00:00: 00 01-22 23:59 :00 No [id number] 1 tablet BEDTIME 1 tablet BEDTIME (route: oral) Med Classific ation: Central Nervous System Agents levothyroxi ne 75 mcg tablet 2020-02 00:00: 00 01-22 23:59 :00 No [id number] 1 tablet DAILY 1 tablet DAILY (route: oral) Med Classific ation: Endocrine Tresiba FlexTouch U-200 insulin 200 unit/mL (3 mL) [facility]-02 00:00: 00 01-22 23:59 :00 No [id number] 50 unit DAILY 50 unit DAILY [facility] Med Classific ation: Endocrine Aspirin Low Dose 81 mg tablet,av yed release 02-18 00:00: 00 01-22 23:59 :00 No [id number] 1 tablet 3 TIMES A WEEK 1 tablet 3 TIMES A WEEK (route: oral) Med Classific ation: Hematolog ical Agents Novolog Flexpen U-100 Insulin aspart 100 unit/mL (3 mL) subcutane s 02-18 00:00: 00 01-22 23:59 :00 No [id number] Per instruc tions DIRECTED Per instructio ns DIRECTED ([facility] Med Classific ation: Endocrine omeprazole 20 mg tablet,av yed release 02-18 00:00: 00 01-22 23:59 :00 No [id number] 1 tablet DAILY 1 tablet DAILY (route: oral) Med Classific ation: Gastroint estinal Therapy Agents One-A-Day Essential tablet 02-18 00:00: 00 01-22 23:59 :00 No [id number] 1 tablet 3 TIMES A WEEK 1 tablet 3 TIMES A WEEK (route: oral) Med Classific ation: Electroly te Balance-N utritiona l Products Tylenol PM Extra Strength 25 mg-500 mg tablet 02-18 00:00: 00 01-22 23:59 :00 No [id number] 1 tablet BEDTIME 1 tablet BEDTIME (route: oral) Med Classific ation: Analgesic , Anti-infl ammatory or Antipyret ic allopurinol 100 mg tablet 2023-02 00:00: 00 Yes [id number] 1 tablet DAILY 1 tablet DAILY (route: oral) Med Classific ation: Gout and Hyperuric emia Therapy amiodarone 100 mg tablet 2023-02 00:00: 00 Yes [id number] 1 tablet DAILY 1 tablet DAILY (route: oral) Med Classific ation: Cardiovas cular Therapy Agents amlodipine 2.5 mg tablet 2023-02 00:00: 00 Yes [id number] 1 tablet DAILY 1 tablet DAILY (route: oral) Med Classific ation: Cardiovas cular Therapy Agents atorvastati n 80 mg tablet 2023-02 00:00: 00 Yes [id number] 1 tablet BEDTIME 1 tablet BEDTIME (route: oral) Med Classific ation: Cardiovas cular Therapy Agents buspirone 10 mg tablet 2023-02 00:00: 00 Yes [id number] 4 tablet DAILY 4 tablet DAILY (route: oral) Med Classific ation: Central Nervous System Agents Eliquis 2.5 mg tablet 2023-02 00:00: 00 Yes [id number] 1 tablet 2 TIMES DAILY 1 tablet 2 TIMES DAILY (route: oral) Med Classific ation: Hematolog ical Agents Entresto 24 mg-26 mg tablet 2023-02 00:00: 00 Yes [id number] 1 tablet DAILY 1 tablet DAILY (route: oral) Med Classific ation: Cardiovas cular Therapy Agents famotidine 20 mg tablet 2023-02 00:00: 00 Yes [id number] 1 tablet DAILY 1 tablet DAILY (route: oral) Med Classific ation: Gastroint estinal Therapy Agents insulin lispro (U-100) 100 unit/mL subcutaneou s half-unit pen 2023-02 00:00: 00 Yes [id number] Per instruc tions 3 TIMES DAILY Per instructio ns 3 TIMES DAILY (route: subcutaneo us) Med Classific ation: Endocrine Iron (ferrous sulfate) 325 mg (65 mg iron) tablet 2023-02 00:00: 00 Yes [id number] 1 tablet DAILY 1 tablet DAILY (route: oral) Med Classific ation: Electroly te Balance-N utritiona l Products Lasix 40 mg tablet 2023-02 00:00: 00 Yes [id number] 1 tablet DAILY 1 tablet DAILY (route: oral) Med Classific ation: Cardiovas cular Therapy Agents latanoprost 0.005 % eye drops 2023-02 00:00: 00 Yes [id number] 1 drops DAILY 1 drops DAILY (route: ophthalmic (eye)) Med Classific ation: Ophthalmi c Agents levothyroxi ne 75 mcg capsule 2023-02 00:00: 00 Yes [id number] 1 capsule DAILY 1 capsule DAILY (route: oral) Med Classific ation: Endocrine metoprolol succinate ER 25 mg tablet,exte nded release 24 hr 2023-02 00:00: 00 Yes [id number] 1 tablet DAILY 1 tablet DAILY (route: oral) Med Classific ation: Cardiovas cular Therapy Agents Plavix 75 mg tablet 2023-02 00:00: 00 Yes [id number] 1 tablet DAILY 1 tablet DAILY (route: oral) Med Classific ation: Hematolog ical Agents Tresiba FlexTouch U-100 insulin 100 unit/mL (3 mL) subcutaneou s pen 2023-02 00:00: 00 Yes [id number] 20 unit DAILY 20 unit DAILY (route: subcutaneo us) Med Classific ation: Endocrine Vitamin C 500 mg chewable tablet 2023-02 00:00: 00 Yes [id number] 1 tablet DAILY 1 tablet DAILY (route: oral) Med Classific ation: Electroly te Balance-N utritiona l Products Vitamin D3 50 mcg (2,000 unit) capsule 2023-02 00:00: 00 Yes [id number] 1 capsule DAILY 1 capsule DAILY (route: oral) Med Classific ation: Electroly te Balance-N utritiona l Products Immunizations Ordered Immunization Name Filled Immunization Name Date Status Comments Refusal Reason COVID-19, COVID-19 2024-02-06 00:00:00 Vital Signs Vital Name Observation Time Observation Value Commen ts Temperature 2024-02-27 12:43:00.000 97.6 [degF] Temperature 2024-02-26 14:55:00.000 98.1 [degF] Temperature 2024-02-25 12:33:00.000 97.6 [degF] Temperature 2024-02-21 10:47:00.000 97.9 [degF] Temperature 2024-02-20 11:43:00.000 97.6 [degF] Temperature 2024-02-14 10:16:00.000 97.4 [degF] Temperature 2024-02-11 10:19:00.000 97.6 [degF] Temperature 2024-02-06 12:59:00.000 97.9 [degF] Temperature 2024-02-06 11:20:00.000 97.8 [degF] BMI (%) 2024-02-06 11:20:00.000 25 kg/m2 Height 2024-02-06 11:20:00.000 63 [in_us] Pulse 2024-02-27 12:43:00.000 71 /min Pulse 2024-02-26 14:55:00.000 72 /min Pulse 2024-02-25 12:33:00.000 74 /min Pulse 2024-02-21 10:47:00.000 70 /min Pulse 2024-02-20 11:43:00.000 68 /min Pulse 2024-02-14 10:16:00.000 68 /min Pulse 2024-02-11 10:19:00.000 64 /min Pulse 2024-02-06 12:59:00.000 68 /min Pulse 2024-02-06 11:20:00.000 66 /min O2 Saturation (%) 2024-02-27 12:43:00.000 98 % O2 Saturation (%) 2024-02-26 14:55:00.000 99 % O2 Saturation (%) 2024-02-25 12:33:00.000 98 % O2 Saturation (%) 2024-02-21 10:48:00.000 97 % O2 Saturation (%) 2024-02-20 11:43:00.000 98 % O2 Saturation (%) 2024-02-14 10:17:00.000 96 % O2 Saturation (%) 2024-02-11 10:19:00.000 98 % O2 Saturation (%) 2024-02-06 12:59:00.000 98 % Respirations 2024-02-27 12:43:00.000 16 /min Respirations 2024-02-26 14:55:00.000 18 /min Respirations 2024-02-25 12:33:00.000 16 /min Respirations 2024-02-21 10:47:00.000 18 /min Respirations 2024-02-20 11:43:00.000 16 /min Respirations 2024-02-14 10:16:00.000 18 /min Respirations 2024-02-11 10:19:00.000 17 /min Respirations 2024-02-06 12:59:00.000 17 /min Respirations 2024-02-06 11:20:00.000 18 /min Weight (lbs) 2024-02-27 12:44:00.000 144 [lb_av] Weight (lbs) 2024-02-26 14:55:00.000 144 [lb_av] Weight (lbs) 2024-02-25 12:33:00.000 147 [lb_av] Weight (lbs) 2024-02-21 10:48:00.000 143 [lb_av] Weight (lbs) 2024-02-14 10:17:00.000 143 [lb_av] Weight (lbs) 2024-02-11 10:40:00.000 146.2 [lb_av] Weight (lbs) 2024-02-06 11:20:00.000 144 [lb_av] Systolic Blood Pressure 2024-02-27 12:43:00.000 148 mm [Hg] Systolic Blood Pressure 2024-02-26 14:55:00.000 140 mm [Hg] Systolic Blood Pressure 2024-02-25 12:33:00.000 150 mm [Hg] Systolic Blood Pressure 2024-02-21 10:47:00.000 130 mm [Hg] Systolic Blood Pressure 2024-02-20 11:43:00.000 132 mm [Hg] Systolic Blood Pressure 2024-02-14 10:16:00.000 134 mm [Hg] Systolic Blood Pressure 2024-02-11 10:19:00.000 136 mm [Hg] Systolic Blood Pressure 2024-02-06 12:59:00.000 126 mm [Hg] Systolic Blood Pressure 2024-02-06 11:20:00.000 138 mm [Hg] Diastolic Blood Pressure 2024-02-27 12:43:00.000 62 mm [Hg] Diastolic Blood Pressure 2024-02-26 14:55:00.000 62 mm [Hg] Diastolic Blood Pressure 2024-02-25 12:33:00.000 60 mm [Hg] Diastolic Blood Pressure 2024-02-21 10:47:00.000 70 mm [Hg] Diastolic Blood Pressure 2024-02-20 11:43:00.000 68 mm [Hg] Diastolic Blood Pressure 2024-02-14 10:16:00.000 [...] MAINTAIN SITUATIONAL AWARENESS AND WILL NOTIFY CLINICAL [employer] SALVAGE AND PHYSICIAN/PROVIDER WITH ANY CHANGE IN CONDITION. [code = SKILLED NURSE TO PERFORM ENVIRONMENTAL SAFETY RISK ASSESSMENT AND FALL RISK ASSESSMENT AND PROVIDE INSTRUCTION TO IMPLEMENT ENVIRONMENTAL SAFETY AND FALL PREVENTION STRATEGIES THROUGHOUT THE CERTIFICATION PERIOD. SKILLED NURSE WILL MAINTAIN SITUATIONAL AWARENESS AND WILL NOTIFY CLINICAL [employer] SALVAGE AND PHYSICIAN/PROVIDER WITH ANY CHANGE IN CONDITION.] [...] AWARENESS FOR SAFETY AND WILL NOTIFY CLINICAL [employer] SALVAGE AND PHYSICIAN/PROVIDER WITH ANY CHANGE IN CONDITION. [...] AWARENESS FOR SAFETY AND WILL NOTIFY CLINICAL [employer] SAL[employer]AGE AND PHYSICIAN/PROVIDER WITH ANY CHANGE IN CONDITION.] [...] FOR FALL AND INJURY INCLUDING PARTICIPATION IN [facility] BALANCE SPECIALTY PROGRAM SUMMARY OF THERAPY EVAL/ASSESSMENT [...] SAME FLOOR WITH A LOWER LEVEL FOR COMPANY. PT WAS AMB WITH NO DEVICE IN [...] AND REPOSITIONING. TUG SCORE AND 30 SECOND [id number] INDICATE THAT PATIENT IS A FALL RISK. [...] FOR FALL AND INJURY INCLUDING PARTICIPATION IN [facility] BALANCE SPECIALTY PROGRAM SUMMARY OF THERAPY EVAL/ASSESSMENT [...] SAME FLOOR WITH A LOWER LEVEL FOR [employer]. PT WAS AMB WITH NO DEVICE IN [...] AND REPOSITIONING. TUG SCORE AND 30 SECOND [id number] INDICATE THAT PATIENT IS A FALL RISK. [...] CARE WILL BE ESTABLISHED THAT MEETS PATIENT'S [facility] NEEDS AND INCLUDES PATIENT GOAL FOR HOME [...] PERIOD. Progress Notes Progress Notes <paragraph>[Visit Date: 2024 by TAMIKO LINDQUIST LPN]:</paragraph><paragraph>SNV 02/25 ABNORMAL VITALS: WITHIN PARAMETERS FALLS: NONE, USES WALKER MEDICATION CHANGES: NONE OBSERVATION AND ASSESSMENT PROVIDED: PT ALERT ORIENTEDX4, PLEASANT COOPERATIVE DURING VISIT. PT REPORTS DIFFICULT PUTTING ON COMPRESSION SOCKS, SN ASSISTED. REPORT DISCOMFORT LT HIP, TAKES TYLENOL PRN WITH GOOD RELIEF, HAS OXYCODONE FOR BREATHTHROUGH PAIN. INCISION HEALED W/O EVIDENCE OF DEHISENCE, . VSS, LS CLEAR, +2 EDEMA BLE WITH PITTING, DENIES CP, DENIES WORSENING SOB. DTR PREPS PTS MED, COMPLIANCE NOTED. NO ISSUES WITH BOWELS OR BLADDER. APPETITE ADEQUATE. EDUCATION: S/S OF CHF EXACERBATION TO REPORT, REINFORCED LOW SODIUM/ READING LABELS INTERVENTIONS NEEDED AT NEXT VISIT: ASSESSMENT, TEACHING COMMUNICATION WITH MD: NOT NEEDED NEXT MD APPOINTMENT: CARDIO 03/02, SURGEON 03/03 PT AND CAREGIVER INSTRUCTED TO CALL [facility] WITH ANY QUESTIONS OR CONCERNS AND/OR CHANGES IN CONDITION, STATE UNDERSTANDING</paragraph> Encounters Start Date/Time End Date/Time Encounter Type Admission Type Attending [facility] Care Facility Care Department Encounter ID Discharge Date Discharge Status Discharge Condition Discharge Reason Percent Goals Met 2024-02-06 00:00:00 2024-04-05 00:00:00 Outpatient DANIEL LOREDO [facility] [id number]
--- OUTSIDE RECORDS SUMMARY | 2024-03-02 17:03 | XMS_ITS | Clinical Summary ---
Author Organization Unknown Care Team Providers Care Transportation Supervisor Name Role Phone KAITLYN RAJAN, BE Unavailable Unavailable ADALGISA RN, DANIEL Unavailable Unavailable SUSY PT, LEV Unavailable Unavailable Payers Payer Name Policy Type Policy Number Effective Date Expira tion Date MEDICARE - NGS [place] - PDGM [id number] Problems Condition Name Condition Details Condition Category [...] CHRONIC KIDNEY DISEASE Active 02-18 00:00: 00 HALFWAY (CURRENT) USE OF INSULIN Active 02-18 00:00: 00 PAROXYSMAL ATRIAL FIBRILLATION Active 02-18 00:00: 00 HYPOTHYROIDI SM, UNSPECIFIED Active 02-18 00:00: 00 ISCHEMIC CARDIOMYOPAT HY Active 02-18 00:00: 00 ATHSCL HEART DISEASE OF [place] CORONARY ARTERY W/O ANG PCTRS Active 02-18 00:00: 00 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 02-18 00:00: 00 HALFWAY (CURRENT) USE OF ANTICOAGULAN TS Active 02-18 00:00: 00 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 ICS/ANTIPLAT ELETS Active [...] 09-06 00:00: 00 03-13 23:59 :00 No [id number] 1 tablet BEDTIME 1 tablet BEDTIME (route: oral) Med Classific ation: Gout and Hyperuric emia Therapy Aspirin Low Dose 81 mg tablet,av yed release 09-06 00:00: 00 03-13 23:59 :00 No [id number] 1 tablet DAILY 1 tablet DAILY (route: oral) Med Classific ation: Hematolog ical Agents benzonatate 100 mg capsule 09-06 00:00: 00 03-13 23:59 :00 No [id number] 100 mg NEEDED 100 mg NEEDED (route: oral) Med Classific ation: Respirato ry Therapy Agents buspirone 10 mg tablet 09-06 00:00: 00 03-13 23:59 :00 No [id number] 1 tablet BEDTIME 1 tablet BEDTIME (route: oral) Med Classific ation: Central Nervous System Agents furosemide 20 mg tablet 09-06 00:00: 00 03-13 23:59 :00 No [id number] 1 tablet DIRECTED 1 tablet DIRECTED (route: oral) Med Classific ation: Cardiovas cular Therapy Agents levothyroxi ne 50 mcg capsule 09-06 00:00: 00 03-13 23:59 :00 No [id number] 1 capsule DAILY 1 capsule DAILY (route: oral) Med Classific ation: Endocrine metoprolol tartrate 25 mg tablet 09-06 00:00: 00 03-13 23:59 :00 No [id number] 1 tablet DAILY 1 tablet DAILY (route: oral) Med Classific ation: Cardiovas cular Therapy Agents omeprazole 20 mg tablet,av yed release 09-06 00:00: 00 03-13 23:59 :00 No [id number] 1 tablet DAILY 1 tablet DAILY (route: oral) Med Classific ation: Gastroint estinal Therapy Agents One-A-Day Essential tablet 09-06 00:00: 00 03-13 23:59 :00 No [id number] 1 tablet DAILY 1 tablet DAILY (route: oral) Med Classific ation: Electroly te Balance-N utritiona l Products oxycodone 5 mg tablet 09-06 00:00: 00 03-13 23:59 :00 No [id number] 1 tablet NEEDED 1 tablet NEEDED (route: oral) Med Classific ation: Analgesic , Anti-infl ammatory or Antipyret ic prednisone 10 mg tablet 08-29 00:00: 00 03-13 23:59 :00 No [id number] 10 mg DIRECTED 10 mg DIRECTED (route: oral) Med Classific ation: Endocrine simvastatin 20 mg tablet 09-06 00:00: 00 03-13 23:59 :00 No [id number] 1 tablet DAILY 1 tablet DAILY (route: oral) Med Classific ation: Cardiovas cular Therapy Agents tramadol 50 mg tablet 09-06 00:00: 00 03-13 23:59 :00 No [id number] 1 tablet NEEDED 1 tablet NEEDED (route: oral) Med Classific ation: Analgesic , Anti-infl ammatory or Antipyret ic triamterene 37.5 mg-hydrochl orothiazide 25 mg tablet 09-06 00:00: 00 03-13 23:59 :00 No [id number] .5 tablet DAILY .5 tablet DAILY (route: oral) Med Classific ation: Cardiovas cular Therapy Agents Tylenol PM Extra Strength 25 mg-500 mg tablet 09-06 00:00: 00 03-13 23:59 :00 No [id number] 1 tablet BEDTIME 1 tablet BEDTIME (route: oral) Med Classific ation: Analgesic , Anti-infl ammatory or Antipyret ic Novolin R Flexpen 100 unit/mL (3 mL) subcutaneou s insulin pen 09-06 00:00: 00 03-13 23:59 :00 No [id number] 1 In unit DIRECTED 1 In unit DIRECTED (route: subcutaneo us) Med Classific ation: Endocrine Tresiba FlexTouch U-200 insulin 200 unit/mL (3 mL) subcutaneou s pen 09-06 00:00: 00 03-13 23:59 :00 No [id number] 50 unit DAILY 50 unit DAILY (route: subcutaneo us) Med Classific ation: Endocrine lidocaine 5 % topical ointment 2020-02 00:00: 00 01-22 23:59 :00 No [id number] Per instruc tions NEEDED Per instructio ns NEEDED (route: topical) Med Classific ation: Dermatolo gical latanoprost 0.005 % eye drops 2020-02 00:00: 00 01-22 23:59 :00 No [id number] 1 drops BEDTIME 1 drops BEDTIME (route: ophthalmic (eye)) Med Classific ation: Ophthalmi c Agents furosemide 20 mg tablet 03-13 00:00: 00 01-22 23:59 :00 No [id number] 1 tablet 3 TIMES A WEEK 1 tablet 3 TIMES A WEEK (route: oral) Med Classific ation: Cardiovas cular Therapy Agents tramadol 50 mg tablet 2020-02 00:00: 00 01-22 23:59 :00 No [id number] 1 tablet NEEDED 1 tablet NEEDED (route: oral) Med Classific ation: Analgesic , Anti-infl ammatory or Antipyret ic simvastatin 40 mg tablet 2020-02 00:00: 00 01-22 23:59 :00 No [id number] 1 tablet DAILY 1 tablet DAILY (route: oral) Med Classific ation: Cardiovas cular Therapy Agents allopurinol 100 mg tablet 03-13 00:00: 00 01-22 23:59 :00 No [id number] 1 tablet DAILY 1 tablet DAILY (route: oral) Med Classific ation: Gout and Hyperuric emia Therapy triamterene 37.5 mg-hydrochl orothiazide 25 mg tablet 2020-02 2-14 00:00: 00 01-22 23:59 :00 No [id number] .5 tablet DAILY .5 tablet DAILY (route: oral) Med Classific ation: Cardiovas cular Therapy Agents metoprolol succinate ER 25 mg tablet,exte nded release 24 hr 2020-02-15 00:00: 00 01-22 23:59 :00 No [id number] 2 tablet DAILY 2 tablet DAILY (route: oral) Med Classific ation: Cardiovas cular Therapy Agents buspirone 10 mg tablet 2020-02 00:00: 00 01-22 23:59 :00 No [id number] 1 tablet BEDTIME 1 tablet BEDTIME (route: oral) Med Classific ation: Central Nervous System Agents levothyroxi ne 75 mcg tablet 2020-02 00:00: 00 01-22 23:59 :00 No [id number] 1 tablet DAILY 1 tablet DAILY (route: oral) Med Classific ation: Endocrine Tresiba FlexTouch U-200 insulin 200 unit/mL (3 mL) [facility] 2020-02 00:00: 00 01-22 23:59 :00 No [id number] 50 unit DAILY [facility] unit DAILY [facility] Med Classific ation: Endocrine Aspirin Low Dose 81 mg tablet,av yed release 02-18 00:00: 00 01-22 23:59 :00 No [id number] 1 tablet 3 TIMES A WEEK 1 tablet 3 TIMES A WEEK (route: oral) Med Classific ation: Hematolog ical Agents Novolog Flexpen U-100 Insulin aspart 100 unit/mL (3 mL) subcutane s 02-18 00:00: 00 01-22 23:59 :00 No [id number] Per instruc tions DIRECTED Per instructio ns DIRECTED ([facility] Med Classific ation: Endocrine omeprazole 20 mg tablet,av yed release 02-18 00:00: 00 01-22 23:59 :00 No [id number] 1 tablet DAILY 1 tablet DAILY (route: oral) Med Classific ation: Gastroint estinal Therapy Agents One-A-Day Essential tablet 02-18 00:00: 00 01-22 23:59 :00 No [id number] 1 tablet 3 TIMES A WEEK 1 tablet 3 TIMES A WEEK (route: oral) Med Classific ation: Electroly te Balance-N utritiona l Products Tylenol PM Extra Strength 25 mg-500 mg tablet 02-18 00:00: 00 01-22 23:59 :00 No [id number] 1 tablet BEDTIME 1 tablet BEDTIME (route: oral) Med Classific ation: Analgesic , Anti-infl ammatory or Antipyret ic allopurinol 100 mg tablet 2023-02 00:00: 00 Yes [id number] 1 tablet DAILY 1 tablet DAILY (route: oral) Med Classific ation: Gout and Hyperuric emia Therapy amiodarone 100 mg tablet 2023-02 00:00: 00 Yes [id number] 1 tablet DAILY 1 tablet DAILY (route: oral) Med Classific ation: Cardiovas cular Therapy Agents amlodipine 2.5 mg tablet 2023-02 00:00: 00 Yes [id number] 1 tablet DAILY 1 tablet DAILY (route: oral) Med Classific ation: Cardiovas cular Therapy Agents atorvastati n 80 mg tablet 2023-02 00:00: 00 Yes [id number] 1 tablet BEDTIME 1 tablet BEDTIME (route: oral) Med Classific ation: Cardiovas cular Therapy Agents buspirone 10 mg tablet 2023-02 00:00: 00 Yes [id number] 4 tablet DAILY 4 tablet DAILY (route: oral) Med Classific ation: Central Nervous System Agents Eliquis 2.5 mg tablet 2023-02 00:00: 00 Yes [id number] 1 tablet 2 TIMES DAILY 1 tablet 2 TIMES DAILY (route: oral) Med Classific ation: Hematolog ical Agents Entresto 24 mg-26 mg tablet 2023-02 00:00: 00 Yes [id number] 1 tablet DAILY 1 tablet DAILY (route: oral) Med Classific ation: Cardiovas cular Therapy Agents famotidine 20 mg tablet 2023-02 00:00: 00 Yes [id number] 1 tablet DAILY 1 tablet DAILY (route: oral) Med Classific ation: Gastroint estinal Therapy Agents insulin lispro (U-100) 100 unit/mL subcutaneou s half-unit pen 2023-02 00:00: 00 Yes [id number] Per instruc tions 3 TIMES DAILY Per instructio ns 3 TIMES DAILY (route: subcutaneo us) Med Classific ation: Endocrine Iron (ferrous sulfate) 325 mg (65 mg iron) tablet 2023-02 00:00: 00 Yes [id number] 1 tablet DAILY 1 tablet DAILY (route: oral) Med Classific ation: Electroly te Balance-N utritiona l Products Lasix 40 mg tablet 2023-02 00:00: 00 Yes [id number] 1 tablet DAILY 1 tablet DAILY (route: oral) Med Classific ation: Cardiovas cular Therapy Agents latanoprost 0.005 % eye drops 2023-02 00:00: 00 Yes [id number] 1 drops DAILY 1 drops DAILY (route: ophthalmic (eye)) Med Classific ation: Ophthalmi c Agents levothyroxi ne 75 mcg capsule 2023-02 00:00: 00 Yes [id number] 1 capsule DAILY 1 capsule DAILY (route: oral) Med Classific ation: Endocrine metoprolol succinate ER 25 mg tablet,exte nded release 24 hr 2023-02 00:00: 00 Yes [id number] 1 tablet DAILY 1 tablet DAILY (route: oral) Med Classific ation: Cardiovas cular Therapy Agents Plavix 75 mg tablet 2023-02 00:00: 00 Yes [id number] 1 tablet DAILY 1 tablet DAILY (route: oral) Med Classific ation: Hematolog ical Agents Tresiba FlexTouch U-100 insulin 100 unit/mL (3 mL) subcutaneou s pen 2023-02 00:00: 00 Yes [id number] 20 unit DAILY 20 unit DAILY (route: subcutaneo us) Med Classific ation: Endocrine Vitamin C 500 mg chewable tablet 2023-02 00:00: 00 Yes [id number] 1 tablet DAILY 1 tablet DAILY (route: oral) Med Classific ation: Electroly te Balance-N utritiona l Products Vitamin D3 50 mcg (2,000 unit) capsule 2023-02 00:00: 00 Yes [id number] 1 capsule DAILY 1 capsule DAILY (route: [...] MAINTAIN SITUATIONAL AWARENESS AND WILL NOTIFY CLINICAL HOTEL CLERK AND PHYSICIAN/PROVIDER WITH ANY CHANGE IN CONDITION. [code = SKILLED NURSE TO PERFORM ENVIRONMENTAL SAFETY RISK ASSESSMENT AND FALL RISK ASSESSMENT AND PROVIDE INSTRUCTION TO IMPLEMENT ENVIRONMENTAL SAFETY AND FALL PREVENTION STRATEGIES THROUGHOUT THE CERTIFICATION PERIOD. SKILLED NURSE WILL MAINTAIN SITUATIONAL AWARENESS AND WILL NOTIFY CLINICAL HOTEL CLERK AND PHYSICIAN/PROVIDER WITH ANY CHANGE IN CONDITION.] [...] AWARENESS FOR SAFETY AND WILL NOTIFY CLINICAL HOTEL CLERK AND PHYSICIAN/PROVIDER WITH ANY CHANGE IN CONDITION. [...] AWARENESS FOR SAFETY AND WILL NOTIFY CLINICAL HOTEL CLERK AND PHYSICIAN/PROVIDER WITH ANY CHANGE IN CONDITION.] [...] FOR FALL AND INJURY INCLUDING PARTICIPATION IN [facility] BALANCE SPECIALTY PROGRAM SUMMARY OF THERAPY [...] AND REPOSITIONING. TUG SCORE AND 30 SECOND [id number] INDICATE THAT PATIENT IS A FALL RISK. [...] FOR FALL AND INJURY INCLUDING PARTICIPATION IN [facility] BALANCE SPECIALTY PROGRAM SUMMARY OF THERAPY [...] SAME FLOOR WITH A LOWER LEVEL FOR [employer]. PT WAS AMB WITH NO DEVICE IN [...] AND REPOSITIONING. TUG SCORE AND 30 SECOND [id number] INDICATE THAT PATIENT IS A FALL RISK. [...] CARE WILL BE ESTABLISHED THAT MEETS PATIENT'S LONGTERM NEEDS AND INCLUDES PATIENT GOAL FOR HOME [...] End Date/Time Encounter Type Admission Type Attending [facility] Care Facility Care Department Encounter ID Discharge Date Discharge Status Discharge Condition Discharge Reason Percent Goals Met 2024-02-06 00:00:00 2024-04-05 00:00:00 Outpatient DANIEL LOREDO [facility] [id number] 0
== END 2024-03-02 15:04 | disposition home or self-care (01) ==
PROVIDERS: PCP Internal Medicine; Visit Provider Internal Medicine Cardiovascular Disease
DX: I25.10 Atherosclerotic heart disease of native coronary artery without angina pectoris (principal); I50.9 Heart failure, unspecified; I48.0 Paroxysmal atrial fibrillation
CPT/HCPCS: 99214; G2211

== ENCOUNTER → 2024-03-02 13:50 | Outpatient (BNVA) | payer MEDICARE, SELFPAY | PROVIDERS: PCP Internal Medicine; Visit Provider Internal Medicine Cardiovascular Disease | DX: I25.10 Atherosclerotic heart disease of native coronary artery without angina pectoris (principal); I50.9 Heart failure, unspecified; I48.0 Paroxysmal atrial fibrillation | CPT/HCPCS: 99212 ==

== ENCOUNTER 2024-03-12 15:17 | Outpatient (AMB) | payer MEDICARE, SELFPAY ==
[2024-03-12 15:24] VITALS: BP 154/62; PULSE 76; O2SAT 99; BMI 22.1
--- NOTE | 2024-03-12 15:24 | HO.NEPHOV ---
Vital Signs 03/12/24 15:24 Height 5 ft 7 in Weight 141 lb BMI 22.1 BP 154/62 H Blood Pressure Location Lt brachial Position Sitting Pulse 76 Pulse Source Pulse Oximeter Pulse Oximetry (%) 99 Oxygen Delivery Method Room Air Intake Visit Reasons: INP: CKD-LVM Measuring Clerk Required: No Accompanied by: Daughter Allergies dulaglutide [Trulicity] Allergy (Unknown, Verified 03/12/24 15:27) GERD losartan Allergy (Unknown, Verified 03/12/24 15:27) Hyperkalemia Sulfa (Sulfonamide Antibiotics) Allergy (Unknown, Verified 03/12/24 15:27) Rash dapagliflozin [From Farxiga] Adverse Reaction (Intermediate, Verified 03/12/24 15:27) candidasis empagliflozin [From Jardiance] Adverse Reaction (Intermediate, Verified 03/12/24 15:27) candidiasis amiodarone Adverse Reaction (Verified 03/12/24 15:27) Cough spironolactone Adverse Reaction (Verified 03/12/24 15:27) Hyperkalemia Medication List - Last Reconciled 03/12/24 by Abhishek Carrero MD acetaminophen (Tylenol Extra Strength) 500 mg PO Q6H PRN albuterol sulfate 0.63 mg (3 mL) inhalation QID PRN allopurinol 100 mg PO DAILY apixaban (Eliquis) 2.5 mg PO BID ascorbate calcium (vitamin C) 500 mg PO DAILY atorvastatin 80 mg PO BEDTIME benzonatate 100 mg PO TID PRN blood sugar diagnostic (FreeStyle Lite Strips) Use to test blood sugar three times daily blood-glucose meter,continuous (Dexcom G7 Needle Valve Operator) As directed blood-glucose sensor (Dexcom G7 Sensor device) As directed buspirone 40 mg (4 x 10 mg) PO BEDTIME carvedilol (Coreg) 3.125 mg PO BID cholecalciferol (vitamin D3) 50 mcg PO DAILY codeine-guaifenesin 10-100 mg/5 mL 5 mL PO Q4-6H PRN ferrous fumarate 325 mg PO DAILY fluticasone furoate-vilanterol 100-25 mcg/dose (Breo Ellipta) 1 inh inhalation DAILY PRN furosemide 40 mg (2 x 20 mg) PO QAM Humalog KwikPen Insulin (insulin lispro) 10 units (0.1 mL) subcut TID NS insulin degludec (Tresiba FlexTouch U-200 insulin) 20 units subcut DAILY lactic acid-urea 1 appl topical DAILY PRN lancets (FreeStyle Lancets) use to test blood sugars three times per day latanoprost 0.005% 1 drp ophthalmic (eye) DAILY levothyroxine 75 mcg PO DAILY nebulizers As directed for updraft treatments-with all needed supplies omeprazole 20 mg PO DAILY oxycodone 5 mg PO BID PRN pen needle, diabetic QID sacubitril-valsartan 97-103 mg (Entresto) 1 tab PO BID HPI Comments Details: 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 Her baseline creatinine has been around 1.2-1.3 mg/dL in 2022. In February of 2023 creatinine was 1.54 In November of 2023 creatinine was 1.9 mg/dL. In December she underwent hip surgery. She was in a rehab. She had some difficulty urination which required Mcmahon catheterization. At present she denies any urinary frequency or urgency. Although she has some discomfort while she urinates. No hematuria. Blood sugar has been suboptimal. 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 She does not drink alcohol anymore. She was accompanied by her daughter. Currently she is on Lasix 40 mg a day. She had significant leg edema but this is improved. He has no shortness of breath at rest. No rash no joint pain. She was lost about 20 lb over the last 2 years. [facility] Medical History (Updated 03/12/24 @ 16:02 by Abhishek Carrero MD) History of partial replacement of left hip joint using bipolar prosthesis Vitamin D deficiency Macrocytosis Cough Sciatica Hypothyroidism HTN (hypertension) Lower extremity edema Irritable bowel syndrome (IBS) Chronic GERD Anxiety Chronic kidney disease (CKD) Hyperlipidemia Hypertension associated with diabetes Surgical History No pertinent past surgical history Family History Mother Ovarian cancer Father Pancreatic cancer Thyroid disease Social History Household Members Other:: Housing: House Alcohol intake: never Patient Tobacco Use Status: Never used Tobacco e-Cigarette/Vaping Use: Never Used Second Hand Smoke Exposure: No service: No Current occupational status: retired Cognitive needs: No Hearing needs: No Vision needs: Yes Physical Exam Vital Signs: Last Vital Signs Pulse 76 03/12/24 15:24 BP 154/62 H 03/12/24 15:24 Pulse Ox 99 03/12/24 15:24 Oxygen Delivery Method Room Air 03/12/24 15:24 BMI result Body Mass Index 22.1 Comfortable Neck supple no JVD. Lungs entry equal no rales. Heart S1-S2 heard no gallop or rub. Abdomen soft nontender. Neuro alert awake oriented. No asterixis. Extremities 2+edema. 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 Obstructive uropathy should be ruled out. Glomerular nephritis/interstitial disease seem unlikely Code(s): N18.9 - Chronic kidney disease, unspecified Category: Medical Plan: Workup initiated for CKD. Check renal ultrasonogram to rule out hydronephrosis. Urine studies ordered. Goal is to slow the progression of renal disease. Continue to avoid nephrotoxic agents including NSAIDs. Encouraged her to stand low-sodium diet. Further workup will depend on the outcome of the baseline investigations. (2) CHF (congestive heart failure): Comment: Echo LVEF 40-45%, mid to distal anterior, apical, mid-distal septal/anteroseptal and apical inf wall akinesis 01/10 [facility], Echo 10/2023 [facility], EF 55- 60 %, calcification of aortic and mitral valve, no pulmonary hypertension Code(s): I50.9 - Heart failure, unspecified Category: Medical Plan: Currently appears well compensated She should stay on low-sodium diet Continue with the Entresto and follow up with Cardiology (3) HTN (hypertension): Comment: Essential hypertension Code(s): I10 - Essential (primary) hypertension Category: Medical Plan: Overall blood pressure seems well controlled at this time. No changes were made to antihypertensive medications. (4) Anemia: Comment: Probably has postop anemia Primarily due to iron deficiency. Erythropoietin deficiency due to underlying CKD is a possibility. Code(s): D64.9 - Anemia, unspecified Category: Medical Plan: Continue with iron supplementation. Follow hemoglobin. If hemoglobin does not improve once iron is repleted she may require erythropoietin. Orders: Orders Complete Blood Count Auto Diff Today N18.9 - Chronic kidney disease, unspecified US renal BI Today I10 - Essential (primary) hypertension, N18.9 - Chronic kidney disease, unspecified Complement C3 Today N18.9 - Chronic kidney disease, unspecified Complement C4 Today N18.9 - Chronic kidney disease, unspecified Anti Glomerular Basement Memb Today N18.9 - Chronic kidney disease, unspecified Protein Electrophoresis, Serum Today N18.9 - Chronic kidney disease, unspecified Neutrophil Cytoplasma Ab Today N18.9 - Chronic kidney disease, unspecified Basic Metabolic Panel Today N18.9 - Chronic kidney disease, unspecified Total Protein Urine Random Today N18.9 - Chronic kidney disease, unspecified UA and rflx microscopic Today N18.9 - Chronic kidney disease, unspecified Parathyroid Hormone Intact Today N18.9 - Chronic kidney disease, unspecified Creatinine Urine Today N18.9 - Chronic kidney disease, unspecified Coding Level of Care Code New Pt Level 5 (66207) Diagnoses Chronic kidney disease (CKD) N18.9 CHF (congestive heart failure) I50.9 HTN (hypertension) I10 Anemia D64.9
--- OUTSIDE RECORDS SUMMARY | 2024-03-12 18:10 | XMS_ITS | Data Portability ---
Author Organization [place] - [facility], Allergy Address [address] [place] [phone] Care Team Providers Care Stereo Equipment Repairer Name Role Phone BE SAHNI Primary Care [...] audio gram No observ ation record ed. [email or web address] Not Available 09/19 15:12:40 12/16/19 audio gram No observ ation record ed. [email or web address] Not Available 11/19 15:12:52 Result Notes None recorded. Problems Name Problem SNOMED Code Status Onset Date Resolution Date Notes Provider Name and Address Organization Details Recorded Time Sensorine ural hearing loss of bilateral ears 699991449 Active 2018 Sensorine ural hearing loss, bilateral ; Note: Date Diagnosed : 08/12/2018 1:56 PM (H90.3) Not Available [facility] 4 03:11:58 Bilateral tinnitus 14188747860 02 Active 2018 Tinnitus, bilateral ; Note: Date Diagnosed : 08/12/2018 1:56 PM (H93.13) Not Available [facility] 4 03:11:57 Otalgia of right ear 8410663082 Active 2018 Otalgia, right ear; Note: Date Diagnosed : 03/12/2018 2:36 PM (H92.01) Not Available [facility] 4 03:11:57 Impacted cerumen in right ear 58933605742 89904 Active 2022 Impacted cerumen, right ear; Note: Date Diagnosed : 07/04/2022 1:17 PM (H61.21) Not Available [facility] 4 03:11:57 Bilateral disorder of Eustachia n tubes 69717278236 28199 Active 2023 DUKE NAVARRETE [address] [place] [address], [place], [phone] , [facility] 4 13:39:50 Acute serous otitis media of right ear 76747559084 64645 Active 2023 YADIRA JORDAN MD [address] [place] [address], [place], [address] , [facility] - [facility] 4 13:59:45 Problem Notes None recorded. Procedures Surgical History Date Name Laterality Status Provider Name and Address Organization Details Recorded Time 10/28/20 24 Tympanometry (28514) completed MARTIN ARNETT, AUD [address] [facility], [place], [address], [facility] 12/16/2023 13:08:04 10/16/19 24 Air & Speech Audio with Tymps (58191, 46671 & 30381) completed ROBIN RODRIGUEZ, AUD [address] [facility], [place], [address], [facility] 10/16/2023 13:43:04 Imaging Results Imaging Date Name Status LastModified by [facility] Details LastModified Time 07/04/2022 imaging/diagno stic result completed Information not available 10/09/2023 01:22:51 08/10/2020 imaging/diagno stic result completed Information not available 10/09/2023 01:22:58 08/12/2018 audiogram completed Information not available 10/09/2023 01:23:04 07/04/2022 audiogram completed Information not available 10/09/2023 01:23:21 08/10/2020 audiogram completed Information not available 10/09/2023 01:23:32 08/12/2018 audiogram completed Information not available 10/09/2023 01:23:51 10/16/2023 audiogram completed [email or web address] Information n ot available 10/16/2023 15:12:40 12/16/2023 audiogram completed [email or web address] Information n ot available 12/16/2023 15:12:52 Procedure Notes None recorded. Medical Equipment None Reported. Allergies Allergen ID Allergen Name Allergen Category Reaction Reaction Severity Criticality Documentation Date Start Date Code Code System Note Provider Name and Address Organization Details Recorded Time 12640 Substance with sulfonami de structure and antibacte rial mechanism of action (substanc e) medicatio n other Not available Not available 07/02/2023 [id number] 8655 SNOMED React ion: unkno wn, unspe cifie [...] TAKE 1 TABLET BY MOUTH EVERY DAY [id number] active Not Available Not Available Not Available [...] Not Available Not Available No t Available [facility] spacer USE WITH INHALER active Not [...] Updated DateTime 10/16/2023 160.02 cm 26 kg/m2 71493.08 g Ghada Peters [facility] 10/16/2023 13:54:00 Date Recorded Body height Body mass index (BMI) Body weight Provider Name and Address Organization Details Last Updated DateTime 12/16/2023 160.02 cm 26 kg/m2 26049.08 g Raina Gallego [facility] 12/16/2023 12:58:48 Social History None recorded. Functional Status None recorded. Mental Status None recorded. Family History Nothing Reported. Medical History No medical history recorded. Gynecological HistoryNo gynecological history recorded. Obstetrics History GPAL:G 0 P 0 0 0 0 Past Encounters Encounter ID Performer Location Encounter Start Date Encounter Closed Date Diagnosis/Indication Diagnosis SNOMED-CT Code Diagnosis ICD10 Code Diagnosis Note [id number] YADIRA JORDAN MD [facility] [address] [address] 10/16/2023 13:00:57 10/16/2023 14:01:35 Acute serous otitis media of right ear [id number] 631298 H65.01 Likely due to a URI. Will reevaluate in 6 weeks and I will expect it will resolve. Hearing is stable. [id number] DUKE NAVARRETE [facility] [address] [address] 10/16/2023 13:39:08 10/16/2023 16:44:20 Sensorineural hearing loss of bilateral ears 634107958 H90.3 Right Ear:Mild to severe SNHL with excellent speech discrimina tion.Type B tympanogra m.Left Ear:Normal hearing through 1K Hz sloping to a severe SNHL with excellent speech discrimina tion.Type As tympanogra m. Bilateral disorder of Eustachian tubes [id number] 114741 H69.93 [id number] SILVIO SILVERIO MD [facility] [address] [address] 12/16/2023 12:50:25 12/16/2023 13:30:32 Bilateral disorder of Eustachian tubes 6014673461 184122 H69.93 Acute sero us otitis media of right ear 2472353264 845005 H65.01 [id number] DUKE LOVE [facility] [address] [address] 12/16/2023 13:07:22 12/16/2023 14:57:24 Sensorineural hearing loss of bilateral ears 840849082 H90.3 Tympanomet ry:Right: Type {{A B* B [...] ID Guarantor Name 10/16/2023 1 MEDICARE B-ME: [employer] Beverly Marie [id number] Beverly Marie 10/16/2023 2 [place] [id number] Beverly Marie [id number] 21 Beverly Marie 10/16/2023 1 MEDICARE B-ME: [employer] Beverly Marie [id number] 2 Beverly Marie 10/16/2023 2 [place] [id number] Beverly Marie [id number] 21 Beverly Marie 12/16/2023 1 MEDICARE B-ME: [employer] Beverly Marie [id number] 2 Beverly Marie 12/16/2023 2 [place] [id number] Beverly Marie [id number] 21 Beverly Marie 12/16/2023 1 MEDICARE B-ME: [employer] Beverly Marie [id number] 2 Beverly Marie 12/16/2023 2 [place] [id number] Beverly Marie [id number] Beverly Marie Notes Date Note Type Note Provider Name and Address Organization Details Recorded Time 10/16/2023 text/html He of slightly asymmetric HL. Right ear has felt blocked for two days. She also has a cough. Hx of [place] and afib since last visit. YADIRA JORDAN MD [address] [place] [address], [phone], [facility] - [facility] 10/16/2023 14:00:41 12/16/2023 text/html 83-year-old fema lazara presents for [...] some seasonal allergies. SILVIO RODRIGUEZ MD [address] [facility],[address], [address], [facility] - [facility] 12/16/2023 16:30:44 12/16/2023 text/html ELEAZAR Bishop, requested tympanometry. MARTIN ARNETT, [facility] [address] [facility],[place] [address], [place], [address], [facility] - [facility] 12/16/2023 13:09:48 OBGyn Episode No OBEpisode recorded.
== END 2024-03-12 15:56 | disposition home or self-care (01) ==
PROVIDERS: PCP Internal Medicine; Referring Provider Internal Medicine Cardiovascular Disease; Visit Provider Internal Medicine Hypertension Specialist
DX: I12.9 Hypertensive chronic kidney disease with stage 1 through stage 4 chronic kidney disease, or unspecified chronic kidney disease (principal); N18.9 Chronic kidney disease, unspecified; I50.9 Heart failure, unspecified; D64.9 Anemia, unspecified
CPT/HCPCS: 99205

== ENCOUNTER → 2024-03-12 15:17 | Outpatient (BNVA) | payer MEDICARE, SELFPAY | PROVIDERS: PCP Internal Medicine; Referring Provider Internal Medicine Cardiovascular Disease; Visit Provider Internal Medicine Hypertension Specialist | DX: I12.9 Hypertensive chronic kidney disease with stage 1 through stage 4 chronic kidney disease, or unspecified chronic kidney disease (principal); I50.9 Heart failure, unspecified; D63.1 Anemia in chronic kidney disease; N18.9 Chronic kidney disease, unspecified; I25.10 Atherosclerotic heart disease of native coronary artery without angina pectoris | CPT/HCPCS: 99202 ==

== ENCOUNTER → 2024-03-25 12:58 | Outpatient (REF) | payer MEDICARE, SELFPAY ==
--- NOTE | ~2024-03-25 | US_ITS ---
CLINICAL HISTORY: I10 - Essential (primary) hypertension US Renal Comparison: None Findings: Right kidney normal size and echotexture, 10.2 x 4.6 x 4.6 cm. Left kidney normal size and echotexture, 9.9 x 4.9 x 4.1 cm. No hydronephrosis of either kidney. Normal color Doppler. IMPRESSION: 1. Normal kidneys. This document has been electronically signed by: Garry Dial MD on 03/25/2024 23:00:40
--- OUTSIDE RECORDS SUMMARY | 2024-03-25 14:18 | XMS_ITS | Clinical Summary ---
Author Organization [address] [facility] Address [address] [place] [address] Phone Care Team Providers Care Signal Wirer Name Role Phone Orquidea Keller MD Primary Care Provider [phone] Medications Medication Sig Dispensed Refills Start Date End Date Status atorvastatin (LIPITOR) 80 mg tablet TAKE 1 TABLET BY MOUTH EVERY DAY 90 tablet 2 03/25/2024 Active clopidogreL (PLAVIX) 75 mg tablet TAKE 1 TABLET BY MOUTH EVERY DAY 90 tablet 2 03/25/2024 Active Encounters Date Type Department Care Team Description 02/09/2024 Lab Requisition [facility] Lab [address] [place] [phone] Salvatore Jenkins MD Paroxysmal atrial fibrillation (CMS/HCC); Chronic systolic (congestive) heart failure (CMS/HCC) 01/31/2024 Lab Requisition [facility] Lab [address] [place] [phone] Salvatore Jenkins MD Paroxysmal atrial fibrillation (CMS/HCC); Chronic systolic (congestive) heart failure (CMS/HCC) 01/31/2024 Telephone [facility] [address] [place] [address] Jerson Campos MD 01/25/2024 Lab Requisition [facility] Lab [address] [place] [phone] Salvatore Jenkins MD Paroxysmal atrial fibrillation (CMS/HCC); Chronic systolic (congestive) heart failure (CMS/HCC) 01/18/2024 Lab Requisition [facility] Lab [address] [place] [address] Salvatore Jenkins MD Paroxysmal atrial fibrillation (CMS/HCC); Chronic systolic (congestive) heart failure (CMS/HCC) 01/10/2024 Lab Requisition [facility] Lab [address] [place] [address] Salvatore Jenkins MD Paroxysmal atrial fibrillation ([facility]/HCC); Chronic systolic (congestive) heart failure (CMS/HCC) 01/08/2024 Lab Requisition [facility] Lab [address] [place] [address] Salvatore Jenkins MD Type 2 diabetes mellitus without complications (CMS/HCC); Iron deficiency anemia, unspecified; Paroxysmal atrial fibrillation (CMS/HCC); Chronic systolic (congestive) heart failure ([facility]/HCC) from Last 3 Months Social History Tobacco Use Types Packs/Day Years Used Date Smoking Tobacco: Former Smokeless Tobacco: Never Alcohol Use Standard Drinks/Week Comments Not Currently 0 (1 standard drink = 0.6 oz pur e alcohol) Sex and Gender Information Value Date Recorded Sex Assigned at Not on file Gender Identity Not on file Sexual Orientation Not on file Obstetrics History Last Filed Vital Signs Vital Sign Reading Time Taken Comments Blood Pressure 142/62 04/01/2023 2:23 PM EST Sit ting L Arm Pulse 67 04/01/2023 2:23 PM EST Temperature - - Respiratory Rate - - Oxygen Saturation - - Inhaled Oxygen Concentration - - Weight 68.9 kg (152 lb) 04/01/2023 2:23 PM EST Height 160 cm (5' 3 ) 04/01/2023 2:23 PM EST Body Mass Index 26.93 04/01/2023 2:23 PM EST Plan of Treatment Health Maintenance Due Date Last Done Comments Pneumococcal Vaccine: 65+ Years (1 of 2 - PCV) 01/07/1946 Diabetes: Annual Foot Exam 01/07/1948 Diabetes: Annual Retina Eye Exam 01/07/1948 DTaP,Tdap,and Td Vaccines (1 - Tdap) 1957 Zoster Vaccines (1 of 2) 01/07/1988 RSV Immunization Patients 60+ Years Old (1 - 1-dose 75+ series) 2013 COVID-19 Vaccine (1 - 2024-25 season) 2023 Influenza Vaccine (#1) 2023 9, 12/13/2008, 12/31/2007, Additional history exists Cholesterol Screening (Lipid Panel) 01/08/2024 Depression Screening 01/08/2024 Falls Risk Assessment 01/08/2024 Medicare Annual Wellness Visit 01/08/2024 Osteoporosis Screening (Bone Density Screening) 01/08/2024 Social Influencers of Health Screening 01/08/2024 Diabetes: Blood Sugar Control Test (HGBA1C) 07/07/2024 01/08/2024 Hypertension/CHF/CAD Annual BMP Blood Test 02/02/2025 02/03/2024, 01/27/2024, 01/20/2024, Additional history exists HIB Vaccines Aged Out No longer eligi ble based on patient's age to complete this topic HPV Vaccines Aged Out No longer eligi ble based on patient's age to complete this topic Hepatitis A Vaccines Aged Out No long er eligible based on patient's age to complete this topic Hepatitis B Vaccines Aged Out No long er eligible based on patient's age to complete this topic IPV Vaccines Aged Out No longer eligi ble based on patient's age to complete this topic MMR Vaccines Aged Out No longer eligi ble based on patient's age to complete this topic Meningococcal ACWY Vaccine Aged Out N o longer eligible based on patient's age to complete this topic RSV Immunization Patients Under 20 months Aged Out No longer eligible based on patient's age to complete this topic Varicella Vaccines Aged Out No longer eligible based on patient's age to complete this topic Procedures Procedure Name Priority Date/Time Associated Diagnosis Comments BASIC METABOLIC PANEL Routine 02/03/2024 8:36 AM EST Paroxysmal atrial fibrillation (CMS/HCC) Chronic systolic (congestive) heart failure (CMS/HCC) COMPLETE BLOOD COUNT Routine 02/03/2024 8:36 AM EST Paroxysmal atrial fibrillation (CMS/HCC) Chronic systolic (congestive) heart failure (CMS/HCC) BASIC METABOLIC PANEL Routine 01/27/2024 7:57 AM EST Paroxysmal atrial fibrillation (CMS/HCC) Chronic systolic (congestive) heart failure (CMS/HCC) COMPLETE BLOOD COUNT Routine 01/27/2024 7:37 AM EST Paroxysmal atrial fibrillation (CMS/HCC) Chronic systolic (congestive) heart failure (CMS/HCC) BASIC METABOLIC PANEL Routine 01/20/2024 8:18 AM EST Paroxysmal atrial fibrillation (CMS/HCC) Chronic systolic (congestive) heart failure (CMS/HCC) COMPLETE BLOOD COUNT Routine 01/20/2024 8:18 AM EST Paroxysmal atrial fibrillation (CMS/HCC) Chronic systolic (congestive) heart failure (CMS/HCC) BASIC METABOLIC PANEL Routine 01/13/2024 8:11 AM EST Paroxysmal atrial fibrillation (CMS/HCC) Chronic systolic (congestive) heart failure (CMS/HCC) COMPLETE BLOOD COUNT Routine 01/13/2024 8:11 AM EST Paroxysmal atrial fibrillation (CMS/HCC) Chronic systolic (congestive) heart failure (CMS/HCC) HEMOGLOBIN A1C Routine 01/08/2024 6:24 AM EST Type 2 diabetes mellitus without complications (CMS/HCC) Iron deficiency anemia, unspecified Paroxysmal atrial fibrillation (CMS/HCC) Chronic systolic (congestive) heart failure (CMS/HCC) COMPREHENSIVE METABOLIC PANEL Routine 01/08/2024 6:24 AM EST Type 2 diabetes mellitus without complications (CMS/HCC) Iron deficiency anemia, unspecified Paroxysmal atrial fibrillation (CMS/HCC) Chronic systolic (congestive) heart failure (CMS/HCC) COMPLETE BLOOD COUNT Routine 01/08/2024 6:24 AM EST Type 2 diabetes mellitus without complications (CMS/HCC) Iron deficiency anemia, unspecified Paroxysmal atrial fibrillation (CMS/HCC) Chronic systolic (congestive) heart failure (CMS/HCC) from Last 3 Months Results * (ABNORMAL) Complete blood count (02/03/2024 8:36 AM EST) Only the most recent of5 resultswithin the time period is included. WBC 7.1 4.8 - 10.8 K/[facility] LAB HEMETOLOGY METHOD 02/03/2024 12:30 PM [facility] LAB RBC 2.80(L) 3.80 - 4.80 M/mcL LAB HEMETOLOGY METHOD 02/03/2024 12:30 PM [facility] LAB Hemoglobin 8.8(L) 11.5 - 16.0 g/dL LAB HEMETOLOGY METHOD 02/03/2024 12:30 PM [facility] LAB Hematocrit 28.1(L) 35.0 - 47.0 % LAB HEMETOLOGY METHOD 02/03/2024 12:30 PM [facility] LAB MCV 101.4(H) 79.0 - 98.0 FL LAB HEMETOLOGY METHOD 02/03/2024 12:30 PM [facility] LAB MCH 31.8 27.0 - 32.0 pcg LAB HEMETOLOGY METHOD 02/03/2024 12:30 PM [facility] LAB MCHC 31.3(L) 32.0 - 37.0 g/dL LAB HEMETOLOGY METHOD 02/03/2024 12:30 PM [facility] LAB RDW 14.3 11.0 - 15.0 % LAB HEMETOLOGY METHOD 02/03/2024 12:30 PM [facility] LAB Platelets 368 130 - 400 K/mcL LAB HEMETOLOGY METHOD 02/03/2024 12:30 PM [facility] LAB MPV 10.2 7.0 - 11.0 FL LAB HEMETOLOGY METHOD 02/03/2024 12:30 PM [facility] LAB NRBC 0.0 <1.0 % LAB HEMETOLOGY METHOD 02/03/2024 12:30 PM [facility] LAB NRBC Absolute 0.00 <0.10 K/mcL LAB HEMETOLOGY METHOD 02/03/2024 12:30 PM [facility] LAB Blood Venous blood specimen / Unknown Venipuncture / Unknown 02/03/2024 8:36 AM EST 02/03/2024 11:48 AM EST Salvatore Jenkins MD LAB BLOOD ORDERABL ES [facility] LAB [address] [place] [address], * (ABNORMAL) Basic metabolic panel (02/03/2024 8:36 AM EST) Only the most recent of4 resultswithin the time period is included. Sodium 137 133 - 145 mmol/L LAB CHEMISTRY METHOD 02/03/2024 4:56 PM [facility] LAB Potassium 5.0 3.5 - 5.5 mmol/L LAB CHEMISTRY METHOD 02/03/2024 4:56 PM [facility] LAB Chloride 104 96 - 110 mmol/L LAB CHEMISTRY METHOD 02/03/2024 4:56 PM [facility] LAB CO2 27 21 - 32 mmol/L LAB CHEMISTRY METHOD 02/03/2024 4:56 PM [facility] LAB Anion Gap 6 3 - 11 LAB CHEMISTRY METHOD 02/03/2024 4:56 PM [facility] LAB Glucose 114(H) 70 - 100 mg/dL LAB CHEMISTRY METHOD 02/03/2024 4:56 PM [facility] LAB BUN 38(H) 5 - 25 mg/dL LAB CHEMISTRY METHOD 02/03/2024 4:56 PM [facility] LAB Creatinine 1.53(H) 0.50 - 1.10 mg/dL LAB CHEMISTRY METHOD 02/03/2024 4:56 PM [facility] LAB eGFR 33(L) >=60 mL/min/1. 73m2 LAB CHEMISTRY METHOD 02/03/2024 4:56 PM [facility] LAB Comment:Calculation based on the??Chronic Kidney Disease Epidemiology Collaboration (CKD-EPI) equation refit??without adjustment for race. BUN/Creatinine Ratio 24.8 LAB CHEMISTRY METHOD 02/03/2024 4:56 PM EST [facility] Calcium 9.1 8.5 - 10.5 mg/dL LAB CHEMISTRY METHOD 02/03/2024 4:56 PM EST [facility] Blood Venous blood specimen / Unknown Venipuncture / Unknown 02/03/2024 8:36 AM EST 02/03/2024 11:48 AM EST Salvatore Jenkins MD LAB BLOOD ORDERABL ES Performing Organization Address City/[facility]/ZIP Co de Phone Number [facility] [address] [place] [address], * Hemoglobin A1c (01/08/2024 6:24 AM EST) Hemoglobin A1C 6.4 <6.5 % LAB CHEMISTRY METHOD 01/08/2024 1:04 PM EST [facility] Mean Bld Glu Estim. 137 mg/dL LAB CHEMISTRY METHOD 01/08/2024 1:04 PM EST [facility] Blood Venous blood specimen / Unknown Venipuncture / Unknown 01/08/2024 6:24 AM EST 01/08/2024 9:05 AM EST Salvatore Jenkins MD LAB BLOOD ORDERABL ES [facility] [address] [place] [address], * (ABNORMAL) Comprehensive metabolic panel (01/08/2024 6:24 AM EST) Sodium 134 133 - 145 mmol/L LAB CHEMISTRY METHOD 01/08/2024 10:52 AM EST [facility] Potassium 4.9 3.5 - 5.5 mmol/L LAB CHEMISTRY METHOD 01/08/2024 10:52 AM EST [facility] Chloride 102 96 - 110 mmol/L LAB CHEMISTRY METHOD 01/08/2024 10:52 AM [facility] CO2 22 21 - 32 mmol/L LAB CHEMISTRY METHOD 01/08/2024 10:52 AM [facility] Anion Gap 10 3 - 11 LAB CHEMISTRY METHOD 01/08/2024 10:52 AM [facility] Glucose 134(H) 70 - 100 mg/dL LAB CHEMISTRY METHOD 01/08/2024 10:52 AM [facility] BUN 39(H) 5 - 25 mg/dL LAB CHEMISTRY METHOD 01/08/2024 10:52 AM [facility] LAB Creatinine 1.52(H) 0.50 - 1.10 mg/dL LAB CHEMISTRY METHOD 01/08/2024 10:52 AM [facility] LAB eGFR 33(L) >=60 mL/min/1. 73m2 LAB CHEMISTRY METHOD 01/08/2024 10:52 AM [facility] LAB Comment:Calculation based on the??Chronic Kidney Disease Epidemiology Collaboration (CKD-EPI) equation refit??without adjustment for race. BUN/Creatinine Ratio 25.7 LAB CHEMISTRY METHOD 01/08/2024 10:52 AM [facility] LAB Calcium 8.6 8.5 - 10.5 mg/dL LAB CHEMISTRY METHOD 01/08/2024 10:52 AM [facility] LAB AST (SGOT) 23 10 - 42 unit/L LAB CHEMISTRY METHOD 01/08/2024 10:52 AM [facility] ALT (SGPT) 17 10 - 60 unit/L LAB CHEMISTRY METHOD 01/08/2024 10:52 AM [facility] LAB Alkaline Phosphatase 99 42 - 121 unit/L LAB CHEMISTRY METHOD 01/08/2024 10:52 AM [facility] LAB Total Protein 5.2(L) 6.0 - 8.0 g/dL LAB CHEMISTRY METHOD 01/08/2024 10:52 AM [facility] LAB Albumin 2.5(L) 3.2 - 5.0 g/dL LAB CHEMISTRY METHOD 01/08/2024 10:52 AM EST [facility] Total Bilirubin 0.6 0.0 - 1.4 mg/dL LAB CHEMISTRY METHOD 01/08/2024 10:52 AM EST [facility] Blood Venous blood specimen / Unknown Venipuncture / Unknown 01/08/2024 6:24 AM EST 01/08/2024 9:05 AM EST Salvatore Jenkins MD LAB BLOOD ORDERABL ES [facility] LAB [address] [place] [address], from Last 3 Months Care Teams Signal Wirer Relationship Specialty Start Date End Date Orquidea Keller MD [address] [place] [address] PCP - General 01/07/23
--- OUTSIDE RECORDS SUMMARY | 2024-03-25 14:18 | XMS_ITS | Encounter Summary ---
Author Organization [facility] Address [address] [place] [address] Care Team Providers Care Projection Camera Operator Name Role Phone Orquidea Keller MD Primary Care Provider [phone] Encounter Details Date Type Department Care Team (Late st Contact Info) Description 01/10/2024 Lab Requisition [facility] Lab [address] [facility] [place] [address] Salvatore Jenkins MD [address] [place], [place] [phone] Paroxysmal atrial fibrillation (CMS/HCC); Chronic systolic (congestive) heart failure (CMS/HCC) Social History Tobacco Use Types Packs/Day Years Used Date Smoking Tobacco: Former Smokeless Tobacco: Never Alcohol Use Standard Drinks/Week Comments Not Currently 0 (1 standard drink = 0.6 oz pur e alcohol) Sex and Gender Information Value Date Recorded Sex Assigned at Not on file Gender Identity Not on file Sexual Orientation Not on file documented as of this encounter Plan of Treatment Not on file documented as of this encounter Procedures Procedure Name Priority Date/Time Associated Diagnosis Comments COMPLETE BLOOD COUNT Routine 01/13/2024 8:11 AM EST Paroxysmal atrial fibrillation (CMS/HCC) Chronic systolic (congestive) heart failure (CMS/HCC) BASIC METABOLIC PANEL Routine 01/13/2024 8:11 AM EST Paroxysmal atrial fibrillation (CMS/HCC) Chronic systolic (congestive) heart failure (CMS/HCC) documented in this encounter Results * (ABNORMAL) Basic metabolic panel (01/13/2024 8:11 AM EST) Sodium 134 133 - 145 mmol/L LAB CHEMISTRY METHOD 01/13/2024 12:38 PM [facility] Potassium 5.1 3.5 - 5.5 mmol/L LAB CHEMISTRY METHOD 01/13/2024 12:38 PM [facility] Chloride 102 96 - 110 mmol/L LAB CHEMISTRY METHOD 01/13/2024 12:38 PM [facility] CO2 26 21 - 32 mmol/L LAB CHEMISTRY METHOD 01/13/2024 12:38 PM [facility] Anion Gap 6 3 - 11 LAB CHEMISTRY METHOD 01/13/2024 12:38 PM [facility] Glucose 107(H) 70 - 100 mg/dL LAB CHEMISTRY METHOD 01/13/2024 12:38 PM [facility] BUN 38(H) 5 - 25 mg/dL LAB CHEMISTRY METHOD 01/13/2024 12:38 PM [facility] Creatinine 1.57(H) 0.50 - 1.10 mg/dL LAB CHEMISTRY METHOD 01/13/2024 12:38 PM [facility] LAB eGFR 32(L) >=60 mL/min/1. 73m2 LAB CHEMISTRY METHOD 01/13/2024 12:38 PM [facility] LAB Comment:Calculation based on the??Chronic Kidney Disease Epidemiology Collaboration (CKD-EPI) equation refit??without adjustment for race. BUN/Creatinine Ratio 24.2 LAB CHEMISTRY METHOD 01/13/2024 12:38 PM [facility] Calcium 8.6 8.5 - 10.5 mg/dL LAB CHEMISTRY METHOD 01/13/2024 12:38 PM [facility] Blood Venous blood specimen / Unknown Venipuncture / Unknown 01/13/2024 8:11 AM EST 01/13/2024 11:29 AM EST Salvatore Jenkins MD LAB BLOOD ORDERABL ES [facility] [address] [place] [address], * (ABNORMAL) Complete blood count (01/13/2024 8:11 AM EST) [facility] WBC 11.4(H) 4.8 - 10.8 K/mcL LAB HEMETOLOGY METHOD 01/13/2024 12:05 PM [facility] RBC 2.40(L) 3.80 - 4.80 M/mcL LAB HEMETOLOGY METHOD 01/13/2024 12:05 PM [facility] Hemoglobin 7.8(L) 11.5 - 16.0 g/dL LAB HEMETOLOGY METHOD 01/13/2024 12:05 PM [facility] LAB Hematocrit 24.6(L) 35.0 - 47.0 % LAB HEMETOLOGY METHOD 01/13/2024 12:05 PM [facility] LAB MCV 101.2(H) 79.0 - 98.0 FL LAB HEMETOLOGY METHOD 01/13/2024 12:05 PM [facility] MCH 32.1(H) 27.0 - 32.0 pcg LAB HEMETOLOGY METHOD 01/13/2024 12:05 PM [facility] MCHC 31.7(L) 32.0 - 37.0 g/dL LAB HEMETOLOGY METHOD 01/13/2024 12:05 PM [facility] RDW 13.4 11.0 - 15.0 % LAB HEMETOLOGY METHOD 01/13/2024 12:05 PM [facility] Platelets 506(H) 130 - 400 K/mcL LAB HEMETOLOGY METHOD 01/13/2024 12:05 PM [facility] MPV 10.0 7.0 - 11.0 FL LAB HEMETOLOGY METHOD 01/13/2024 12:05 PM [facility] NRBC 0.0 <1.0 % LAB HEMETOLOGY METHOD 01/13/2024 12:05 PM EST [facility] LAB NRBC Absolute 0.00 <0.10 K/mcL LAB HEMETOLOGY METHOD 01/13/2024 12:05 PM EST [facility] Blood Venous blood specimen / Unknown Venipuncture / Unknown 01/13/2024 8:11 AM EST 01/13/2024 11:12 AM EST Salvatore Jenkins MD LAB BLOOD ORDERABL ES [facility] [address] [place] [address], documented in this encounter Visit Diagnoses Diagnosis Paroxysmal atrial fibrillation (CMS/HCC) Atrial fibrillation Chronic systolic (congestive) heart failure (CMS/HCC) documented in this encounter Care Teams Projection Camera Operator Relationship Specialty Start Date End Date Orquidea Keller MD [address] [place] [address] PCP - General 01/07/23 documented as of this encounter
--- OUTSIDE RECORDS SUMMARY | 2024-03-25 14:18 | XMS_ITS | Encounter Summary ---
Author Organization [facility] Address [address] [place] [address] Care Team Providers Care [facility] Partner Name Role Phone Orquidea Keller MD Primary Care Provider [phone] Encounter Details Date Type Department Care Team (Late st Contact Info) Description 02/09/2024 Lab Requisition [facility] - Main Lab [address] [facility] [place] [address] Salvatore Jenkins MD [address] [place], [place] [phone] Paroxysmal atrial fibrillation (CMS/HCC); Chronic systolic (congestive) [...] on file documented as of this encounter Visit Diagnoses Diagnosis Paroxysmal atrial fibrillation (CMS/HCC) Atrial fibrillation Chronic systolic (congestive) heart failure (CMS/HCC) documented in this encounter Care Teams Research Center Partner Relationship Specialty Start Date End Date Orquidea Keller MD [address] [facility] [place] [address] PCP - General 01/07/23 documented as of this encounter
--- OUTSIDE RECORDS SUMMARY | 2024-03-25 14:18 | XMS_ITS | Encounter Summary ---
Author Organization [facility] Address [address] [place] [address] Care Team Providers Care Adjustment Supervisor Name Role Phone Orquidea Keller MD Primary Care Provider [phone] Encounter Details Date Type Department Care Team (Late st Contact Info) Description 01/25/2024 Lab Requisition [facility] - Main Lab [address] [facility] [place] [address] Salvatore Jenkins MD [address] [place], [place] [phone] Paroxysmal atrial fibrillation (CMS/HCC); Chronic systolic (congestive) [...] Associated Diagnosis Comments BASIC METABOLIC PANEL Routine 01/27/2024 7:57 AM EST Paroxysmal atrial fibrillation (CMS/HCC) Chronic systolic (congestive) heart failure (CMS/HCC) COMPLETE BLOOD COUNT Routine 01/27/2024 7:37 AM EST Paroxysmal atrial fibrillation (CMS/HCC) Chronic systolic (congestive) heart failure (CMS/HCC) documented in this encounter Results * (ABNORMAL) Basic metabolic panel (01/27/2024 7:57 AM EST) Sodium 136 133 - 145 mmol/L LAB CHEMISTRY METHOD 01/27/2024 11:44 AM [facility] Potassium 5.4 3.5 - 5.5 mmol/L LAB CHEMISTRY METHOD 01/27/2024 11:44 AM [facility] Chloride 102 96 - 110 mmol/L LAB CHEMISTRY METHOD 01/27/2024 11:44 AM [facility] CO2 28 21 - 32 mmol/L LAB CHEMISTRY METHOD 01/27/2024 11:44 AM [facility] Anion Gap 6 3 - 11 LAB CHEMISTRY METHOD 01/27/2024 11:44 AM [facility] Glucose 132(H) 70 - 100 mg/dL LAB CHEMISTRY METHOD 01/27/2024 11:44 AM [facility] BUN 41(H) 5 - 25 mg/dL LAB CHEMISTRY METHOD 01/27/2024 11:44 AM [facility] Creatinine 1.66(H) 0.50 - 1.10 mg/dL LAB CHEMISTRY METHOD 01/27/2024 11:44 AM [facility] eGFR 30(L) >=60 mL/min/1. 73m2 LAB CHEMISTRY METHOD 01/27/2024 11:44 AM [facility] LAB Comment:Calculation based on the??Chronic Kidney Disease Epidemiology Collaboration (CKD-EPI) equation refit??without adjustment for race. BUN/Creatinine Ratio 24.7 LAB CHEMISTRY METHOD 01/27/2024 11:44 AM [facility] Calcium 9.0 8.5 - 10.5 mg/dL LAB CHEMISTRY METHOD 01/27/2024 11:44 AM [facility] Blood Venous blood specimen / Unknown Venipuncture / Unknown 01/27/2024 7:57 AM EST 01/27/2024 10:26 AM EST Salvatore Jenkins MD LAB BLOOD ORDERABL ES [facility] LAB [address] [place] [address], * (ABNORMAL) Complete blood count (01/27/2024 7:37 AM EST) [facility] WBC 8.8 4.8 - 10.8 K/mcL LAB HEMETOLOGY METHOD 01/27/2024 11:22 AM [facility] RBC 2.70(L) 3.80 - 4.80 M/mcL LAB HEMETOLOGY METHOD 01/27/2024 11:22 AM [facility] Hemoglobin 8.4(L) 11.5 - 16.0 g/dL LAB HEMETOLOGY METHOD 01/27/2024 11:22 AM [facility] Hematocrit 27.2(L) 35.0 - 47.0 % LAB HEMETOLOGY METHOD 01/27/2024 11:22 AM [facility] MCV 102.6(H) 79.0 - 98.0 FL LAB HEMETOLOGY METHOD 01/27/2024 11:22 AM [facility] MCH 31.7 27.0 - 32.0 pcg LAB HEMETOLOGY METHOD 01/27/2024 11:22 AM [facility] MCHC 30.9(L) 32.0 - 37.0 g/dL LAB HEMETOLOGY METHOD 01/27/2024 11:22 AM [facility] RDW 14.1 11.0 - 15.0 % LAB HEMETOLOGY METHOD 01/27/2024 11:22 AM [facility] Platelets 512(H) 130 - 400 K/mcL LAB HEMETOLOGY METHOD 01/27/2024 11:22 AM [facility] MPV 9.7 7.0 - 11.0 FL LAB HEMETOLOGY METHOD 01/27/2024 11:22 AM [facility] NRBC 0.0 <1.0 % LAB HEMETOLOGY METHOD 01/27/2024 11:22 AM EST [facility] NRBC Absolute 0.00 <0.10 K/mcL LAB HEMETOLOGY METHOD 01/27/2024 11:22 AM EST [facility] Blood Venous blood specimen / Unknown Venipuncture / Unknown 01/27/2024 7:37 AM EST 01/27/2024 10:28 AM EST Salvatore Jenkins MD LAB BLOOD ORDERABL ES [facility] [address] [place] [address], documented in this encounter Visit Diagnoses Diagnosis Paroxysmal atrial fibrillation (CMS/HCC) Atrial fibrillation Chronic systolic (congestive) heart failure (CMS/HCC) documented in this encounter Care Teams Adjustment Supervisor Relationship Specialty Start Date End Date Orquidea Keller MD [address] [place] [phone] PCP - General 01/07/23 documented as of this encounter
--- OUTSIDE RECORDS SUMMARY | 2024-03-25 14:18 | XMS_ITS | Encounter Summary ---
Author Organization [facility] Address [address] [place] [address] Care Team Providers Care Bologna Lacer Name Role Phone Orquidea Keller MD Primary Care Provider [phone] Encounter Details Date Type Department Care Team (Late st Contact Info) Description 01/08/2024 Lab Requisition [facility] - Main Lab [address] [facility] [place] [address] Salvatore Jenkins MD [address] [place], [place] [phone] Type 2 diabetes mellitus without complications (CMS/HCC); [...] Associated Diagnosis Comments COMPLETE BLOOD COUNT Routine 01/08/2024 6:24 AM [...] (CMS/HCC) documented in this encounter Results * Hemoglobin A1c (01/08/2024 6:24 AM EST) Pathologist [facility] Hemoglobin A1C 6.4 <6.5 % LAB CHEMISTRY METHOD 01/08/2024 1:04 PM EST [facility] Mean Bld Glu Estim. 137 mg/dL LAB CHEMISTRY METHOD 01/08/2024 1:04 PM EST [facility] Blood Venous blood specimen / Unknown Venipuncture / Unknown 01/08/2024 6:24 AM EST 01/08/2024 9:05 AM EST Salvatore Jenkins MD LAB BLOOD ORDERABL ES [facility] [address] [place] [address], * (ABNORMAL) Comprehensive metabolic panel (01/08/2024 6:24 AM EST) [facility] Sodium 134 133 - 145 mmol/L LAB CHEMISTRY METHOD 01/08/2024 10:52 AM EST [facility] Potassium 4.9 3.5 - 5.5 mmol/L LAB CHEMISTRY METHOD 01/08/2024 10:52 AM EST [facility] Chloride 102 96 - 110 mmol/L LAB CHEMISTRY METHOD 01/08/2024 10:52 AM EST [facility] CO2 22 21 - 32 mmol/L LAB CHEMISTRY METHOD 01/08/2024 10:52 AM EST [facility] Anion Gap 10 3 - 11 LAB CHEMISTRY METHOD 01/08/2024 10:52 AM EST [facility] Glucose 134(H) 70 - 100 mg/dL LAB CHEMISTRY METHOD 01/08/2024 10:52 AM [facility] BUN 39(H) 5 - 25 mg/dL LAB CHEMISTRY METHOD 01/08/2024 10:52 AM [facility] Creatinine 1.52(H) 0.50 - 1.10 mg/dL LAB CHEMISTRY METHOD 01/08/2024 10:52 AM [facility] eGFR 33(L) >=60 mL/min/1. 73m2 LAB CHEMISTRY METHOD 01/08/2024 10:52 AM [facility] Comment:Calculation based on the??Chronic Kidney Disease Epidemiology Collaboration (CKD-EPI) equation refit??without adjustment for race. BUN/Creatinine Ratio 25.7 LAB CHEMISTRY METHOD 01/08/2024 10:52 AM [facility] Calcium 8.6 8.5 - 10.5 mg/dL LAB CHEMISTRY METHOD 01/08/2024 10:52 AM [facility] AST (SGOT) 23 10 - 42 unit/L LAB CHEMISTRY METHOD 01/08/2024 10:52 AM [facility] ALT (SGPT) 17 10 - 60 unit/L LAB CHEMISTRY METHOD 01/08/2024 10:52 AM [facility] Alkaline Phosphatase 99 42 - 121 unit/L LAB CHEMISTRY METHOD 01/08/2024 10:52 AM [facility] Total Protein 5.2(L) 6.0 - 8.0 g/dL LAB CHEMISTRY METHOD 01/08/2024 10:52 AM [facility] Albumin 2.5(L) 3.2 - 5.0 g/dL LAB CHEMISTRY METHOD 01/08/2024 10:52 AM [facility] Total Bilirubin 0.6 0.0 - 1.4 mg/dL LAB CHEMISTRY METHOD 01/08/2024 10:52 AM [facility] Blood Venous blood specimen / Unknown Venipuncture / Unknown 01/08/2024 6:24 AM EST 01/08/2024 9:05 AM EST Salvatore Jenkins MD LAB BLOOD ORDERABL ES [facility] [address] [place] [address], * (ABNORMAL) Complete blood count (01/08/2024 6:24 AM EST) WBC 9.4 4.8 - 10.8 K/mcL LAB HEMETOLOGY METHOD 01/08/2024 10:12 AM [facility] RBC 2.50(L) 3.80 - 4.80 M/mcL LAB HEMETOLOGY METHOD 01/08/2024 10:12 AM [facility] Hemoglobin 8.0(L) 11.5 - 16.0 g/dL LAB HEMETOLOGY METHOD 01/08/2024 10:12 AM [facility] Hematocrit 24.8(L) 35.0 - 47.0 % LAB HEMETOLOGY METHOD 01/08/2024 10:12 AM [facility] MCV 101.2(H) 79.0 - 98.0 FL LAB HEMETOLOGY METHOD 01/08/2024 10:12 AM [facility] MCH 32.7(H) 27.0 - 32.0 pcg LAB HEMETOLOGY METHOD 01/08/2024 10:12 AM [facility] MCHC 32.3 32.0 - 37.0 g/dL LAB HEMETOLOGY METHOD 01/08/2024 10:12 AM [facility] RDW 13.8 11.0 - 15.0 % LAB HEMETOLOGY METHOD 01/08/2024 10:12 AM [facility] Platelets 251 130 - 400 K/mcL LAB HEMETOLOGY METHOD 01/08/2024 10:12 AM [facility] MPV 10.9 7.0 - 11.0 FL LAB HEMETOLOGY METHOD 01/08/2024 10:12 AM EST [facility] NRBC 0.0 <1.0 % LAB HEMETOLOGY METHOD 01/08/2024 10:12 AM EST [facility] NRBC Absolute 0.00 <0.10 K/mcL LAB HEMETOLOGY METHOD 01/08/2024 10:12 AM EST [facility] Blood Venous blood specimen / Unknown Venipuncture / Unknown 01/08/2024 6:24 AM EST 01/08/2024 9:05 AM EST Salvatore Jenkins MD LAB BLOOD ORDERABL ES [facility] [address] [place] [address], documented in this encounter Visit Diagnoses Diagnosis Type 2 diabetes mellitus without complications (CMS/HCC) Iron deficiency anemia, unspecified Paroxysmal atrial fibrillation (CMS/HCC) Atrial fibrillation Chronic systolic (congestive) heart failure (CMS/HCC) documented in this encounter Care Teams Bologna Lacer Relationship Specialty Start Date End Date Orquidea Keller MD [address] [place] [address] PCP - General 01/07/23 documented as of this encounter
--- OUTSIDE RECORDS SUMMARY | 2024-03-25 14:18 | XMS_ITS | Encounter Summary ---
Author Organization [facility] Address [address] [place] [address] Care Team Providers Care Pattern Molder Name Role Phone Orquidea Keller MD Primary Care Provider [phone] Encounter Details Date Type Department Care Team (Late st Contact Info) Description 01/31/2024 Lab Requisition [facility] - Main Lab [address] [facility] [place] [address] Salvatore Jenkins MD [address] [place], [place] [phone] Paroxysmal atrial fibrillation (CMS/HCC); Chronic systolic (congestive) [...] Associated Diagnosis Comments COMPLETE BLOOD COUNT Routine 02/03/2024 8:36 AM EST Paroxysmal atrial fibrillation (CMS/HCC) Chronic systolic (congestive) heart failure (CMS/HCC) BASIC METABOLIC PANEL Routine 02/03/2024 8:36 AM EST Paroxysmal atrial fibrillation (CMS/HCC) Chronic systolic (congestive) heart failure (CMS/HCC) documented in this encounter Results * (ABNORMAL) Basic metabolic panel (02/03/2024 8:36 AM EST) Sodium 137 133 - 145 mmol/L LAB CHEMISTRY METHOD 02/03/2024 4:56 PM [facility] Potassium 5.0 3.5 - 5.5 mmol/L LAB CHEMISTRY METHOD 02/03/2024 4:56 PM [facility] Chloride 104 96 - 110 mmol/L LAB CHEMISTRY METHOD 02/03/2024 4:56 PM [facility] CO2 27 21 - 32 mmol/L LAB CHEMISTRY METHOD 02/03/2024 4:56 PM [facility] Anion Gap 6 3 - 11 LAB CHEMISTRY METHOD 02/03/2024 4:56 PM [facility] Glucose 114(H) 70 - 100 mg/dL LAB CHEMISTRY METHOD 02/03/2024 4:56 PM [facility] BUN 38(H) 5 - 25 mg/dL LAB CHEMISTRY METHOD 02/03/2024 4:56 PM [facility] Creatinine 1.53(H) 0.50 - 1.10 mg/dL LAB CHEMISTRY METHOD 02/03/2024 4:56 PM [facility] eGFR 33(L) >=60 mL/min/1. 73m2 LAB CHEMISTRY METHOD 02/03/2024 4:56 PM [facility] Comment:Calculation based on the??Chronic Kidney Disease Epidemiology Collaboration (CKD-EPI) equation refit??without adjustment for race. BUN/Creatinine Ratio 24.8 LAB CHEMISTRY METHOD 02/03/2024 4:56 PM [facility] Calcium 9.1 8.5 - 10.5 mg/dL LAB CHEMISTRY METHOD 02/03/2024 4:56 PM [facility] Blood Venous blood specimen / Unknown Venipuncture / Unknown 02/03/2024 8:36 AM EST 02/03/2024 11:48 AM EST Salvatore Jenkins MD LAB BLOOD ORDERABL ES [facility] [address] [place] [address], * (ABNORMAL) Complete blood count (02/03/2024 8:36 AM EST) [facility] WBC 7.1 4.8 - 10.8 K/mcL LAB HEMETOLOGY METHOD 02/03/2024 12:30 PM [facility] RBC 2.80(L) 3.80 - 4.80 M/mcL LAB HEMETOLOGY METHOD 02/03/2024 12:30 PM [facility] Hemoglobin 8.8(L) 11.5 - 16.0 g/dL LAB HEMETOLOGY METHOD 02/03/2024 12:30 PM [facility] Hematocrit 28.1(L) 35.0 - 47.0 % LAB HEMETOLOGY METHOD 02/03/2024 12:30 PM [facility] MCV 101.4(H) 79.0 - 98.0 FL LAB HEMETOLOGY METHOD 02/03/2024 12:30 PM [facility] MCH 31.8 27.0 - 32.0 pcg LAB HEMETOLOGY METHOD 02/03/2024 12:30 PM [facility] MCHC 31.3(L) 32.0 - 37.0 g/dL LAB HEMETOLOGY METHOD 02/03/2024 12:30 PM [facility] RDW 14.3 11.0 - 15.0 % LAB HEMETOLOGY METHOD 02/03/2024 12:30 PM [facility] Platelets 368 130 - 400 K/mcL LAB HEMETOLOGY METHOD 02/03/2024 12:30 PM [facility] MPV 10.2 7.0 - 11.0 FL LAB HEMETOLOGY METHOD 02/03/2024 12:30 PM [facility] NRBC 0.0 <1.0 % LAB HEMETOLOGY METHOD 02/03/2024 12:30 PM EST [facility] NRBC Absolute 0.00 <0.10 K/mcL LAB HEMETOLOGY METHOD 02/03/2024 12:30 PM EST [facility] Blood Venous blood specimen / Unknown Venipuncture / Unknown 02/03/2024 8:36 AM EST 02/03/2024 11:48 AM EST Salvatore Jenkins MD LAB BLOOD ORDERABL ES [facility] [address] [place] [address], documented in this encounter Visit Diagnoses Diagnosis Paroxysmal atrial fibrillation (CMS/HCC) Atrial fibrillation Chronic systolic (congestive) heart failure (CMS/HCC) documented in this encounter Care Teams Pattern Molder Relationship Specialty Start Date End Date Orquidea Keller MD [address] [place] [address] PCP - General 01/07/23 documented as of this encounter
--- OUTSIDE RECORDS SUMMARY | 2024-03-25 14:18 | XMS_ITS | Encounter Summary ---
Author Organization [facility] Address [address] [place] [address] Care Team Providers Care Contact Lens Assistant Name Role Phone Orquidea Keller MD Primary Care Provider [phone] Encounter Details Date Type Department Care Team (Late st Contact Info) Description 01/18/2024 Lab Requisition [facility] - Main Lab [address] [facility] [place] [address] Salvatore Jenkins MD [address] [place], [place] [phone] Paroxysmal atrial fibrillation (CMS/HCC); Chronic systolic (congestive) [...] Associated Diagnosis Comments COMPLETE BLOOD COUNT Routine 01/20/2024 8:18 AM EST Paroxysmal atrial fibrillation (CMS/HCC) Chronic systolic (congestive) heart failure (CMS/HCC) BASIC METABOLIC PANEL Routine 01/20/2024 8:18 AM EST Paroxysmal atrial fibrillation (CMS/HCC) Chronic systolic (congestive) heart failure (CMS/HCC) documented in this encounter Results * (ABNORMAL) Basic metabolic panel (01/20/2024 8:18 AM EST) Sodium 132(L) 133 - 145 mmol/L LAB CHEMISTRY METHOD 01/20/2024 1:50 PM [facility] Potassium 4.9 3.5 - 5.5 mmol/L LAB CHEMISTRY METHOD 01/20/2024 1:50 PM [facility] Chloride 98 96 - 110 mmol/L LAB CHEMISTRY METHOD 01/20/2024 1:50 PM [facility] CO2 25 21 - 32 mmol/L LAB CHEMISTRY METHOD 01/20/2024 1:50 PM [facility] Anion Gap 9 3 - 11 LAB CHEMISTRY METHOD 01/20/2024 1:50 PM [facility] Glucose 113(H) 70 - 100 mg/dL LAB CHEMISTRY METHOD 01/20/2024 1:50 PM [facility] BUN 37(H) 5 - 25 mg/dL LAB CHEMISTRY METHOD 01/20/2024 1:50 PM [facility] Creatinine 1.64(H) 0.50 - 1.10 mg/dL LAB CHEMISTRY METHOD 01/20/2024 1:50 PM [facility] eGFR 30(L) >=60 mL/min/1. 73m2 LAB CHEMISTRY METHOD 01/20/2024 1:50 PM [facility] Comment:Calculation based on the??Chronic Kidney Disease Epidemiology Collaboration (CKD-EPI) equation refit??without adjustment for race. BUN/Creatinine Ratio 22.6 LAB CHEMISTRY METHOD 01/20/2024 1:50 PM [facility] Calcium 8.8 8.5 - 10.5 mg/dL LAB CHEMISTRY METHOD 01/20/2024 1:50 PM [facility] Blood Venous blood specimen / Unknown Venipuncture / Unknown 01/20/2024 8:18 AM EST 01/20/2024 10:46 AM EST Salvatore Jenkins MD LAB BLOOD ORDERABL ES [facility] [address] [place] [address], [place] [phone] * (ABNORMAL) Complete blood count (01/20/2024 8:18 AM EST) [facility] WBC 10.9(H) 4.8 - 10.8 K/mcL LAB HEMETOLOGY METHOD 01/20/2024 12:21 PM [facility] RBC 2.50(L) 3.80 - 4.80 M/mcL LAB HEMETOLOGY METHOD 01/20/2024 12:21 PM [facility] Hemoglobin 7.9(L) 11.5 - 16.0 g/dL LAB HEMETOLOGY METHOD 01/20/2024 12:21 PM [facility] Hematocrit 25.1(L) 35.0 - 47.0 % LAB HEMETOLOGY METHOD 01/20/2024 12:21 PM [facility] MCV 101.2(H) 79.0 - 98.0 FL LAB HEMETOLOGY METHOD 01/20/2024 12:21 PM [facility] MCH 31.9 27.0 - 32.0 pcg LAB HEMETOLOGY METHOD 01/20/2024 12:21 PM [facility] MCHC 31.5(L) 32.0 - 37.0 g/dL LAB HEMETOLOGY METHOD 01/20/2024 12:21 PM [facility] RDW 13.5 11.0 - 15.0 % LAB HEMETOLOGY METHOD 01/20/2024 12:21 PM [facility] Platelets 833(H) 130 - 400 K/mcL LAB HEMETOLOGY METHOD 01/20/2024 12:21 PM [facility] MPV 9.5 7.0 - 11.0 FL LAB HEMETOLOGY METHOD 01/20/2024 12:21 PM [facility] NRBC 0.0 <1.0 % LAB HEMETOLOGY METHOD 01/20/2024 12:21 PM EST [facility] NRBC Absolute 0.00 <0.10 K/mcL LAB HEMETOLOGY METHOD 01/20/2024 12:21 PM EST [facility] Blood Venous blood specimen / Unknown Venipuncture / Unknown 01/20/2024 8:18 AM EST 01/20/2024 10:46 AM EST Salvatore Jenkins MD LAB BLOOD ORDERABL ES [facility] [address] [place] [address], documented in this encounter Visit Diagnoses Diagnosis Paroxysmal atrial fibrillation (CMS/HCC) Atrial fibrillation Chronic systolic (congestive) heart failure (CMS/HCC) documented in this encounter Care Teams Contact Lens Assistant Relationship Specialty Start Date End Date Orquidea Keller MD [address] [place] [address] PCP - General 01/07/23 documented as of this encounter
== END | disposition home or self-care (01) ==
LOC: HO.HMGCX 12:58
PROVIDERS: PCP Internal Medicine; Visit Provider Internal Medicine Hypertension Specialist
DX: I12.9 Hypertensive chronic kidney disease with stage 1 through stage 4 chronic kidney disease, or unspecified chronic kidney disease (principal); N18.9 Chronic kidney disease, unspecified
CPT/HCPCS: 76775; 99212

== ENCOUNTER → 2024-03-25 13:00 | Outpatient (BNV) | payer MEDICARE, SELFPAY | PROVIDERS: PCP Internal Medicine; Visit Provider Student in an Organized Health Care Education/Training Program | DX: I12.9 Hypertensive chronic kidney disease with stage 1 through stage 4 chronic kidney disease, or unspecified chronic kidney disease (principal); N18.9 Chronic kidney disease, unspecified | CPT/HCPCS: 76775 ==

== ENCOUNTER 2024-03-25 13:18 | Outpatient (AMB) | payer MEDICARE, SELFPAY ==
[2024-03-25 13:54] VITALS: BP 142/78; PULSE 77; RESP 18; TEMP 36.6; O2SAT 98; BMI 22.7
--- NOTE | 2024-03-25 13:54 | A.OFFPC_ITS ---
Vital Signs 03/25/24 13:54 Height 5 ft 7 in Weight 145 lb BMI 22.7 BP 142/78 H Blood Pressure Location Lt brachial Position Sitting Respiration 18 Pulse 77 Pulse Source Pulse Oximeter Temp 97.9 F Temp Source Oral Pulse Oximetry (%) 98 Oxygen Delivery Method Room Air Intake Visit Reasons: 1m follow up Intake Note: Pt is here today for 1 month follow up visit on DM. Allergies dulaglutide [Trulicity] Allergy (Unknown, Verified 03/25/24 14:20) GERD losartan Allergy (Unknown, Verified 03/25/24 14:20) Hyperkalemia Sulfa (Sulfonamide Antibiotics) Allergy (Unknown, Verified 03/25/24 14:20) Rash dapagliflozin [From Farxiga] Adverse Reaction (Intermediate, Verified 03/25/24 14:20) candidasis empagliflozin [From Jardiance] Adverse Reaction (Intermediate, Verified 03/25/24 14:20) candidiasis amiodarone Adverse Reaction (Verified 03/25/24 14:20) Cough spironolactone Adverse Reaction (Verified 03/25/24 14:20) Hyperkalemia Medication List - Last Reconciled 03/25/24 by Orquidea Keller MD acetaminophen (Tylenol Extra Strength) 500 mg PO Q6H PRN albuterol sulfate 0.63 mg (3 mL) inhalation QID PRN allopurinol 100 mg PO DAILY apixaban (Eliquis) 2.5 mg PO BID ascorbate calcium (vitamin C) 500 mg PO DAILY atorvastatin 80 mg PO BEDTIME benzonatate 100 mg PO TID PRN blood sugar diagnostic (FreeStyle Lite Strips) Use to test blood sugar three times daily blood-glucose meter,continuous (Dexcom G7 Oyster Buyer) As directed blood-glucose sensor (Dexcom G7 Sensor device) As directed buspirone 40 mg (4 x 10 mg) PO BEDTIME carvedilol (Coreg) 3.125 mg PO BID cholecalciferol (vitamin D3) 50 mcg PO DAILY codeine-guaifenesin 10-100 mg/5 mL 5 mL PO Q4-6H PRN ferrous fumarate 325 mg PO DAILY fluticasone furoate-vilanterol 100-25 mcg/dose (Breo Ellipta) 1 inh inhalation DAILY PRN furosemide 40 mg (2 x 20 mg) PO QAM Humalog KwikPen Insulin (insulin lispro) 10 units (0.1 mL) subcut TID NS insulin degludec (Tresiba FlexTouch U-200 insulin) 20 units subcut DAILY lactic acid-urea 1 appl topical DAILY PRN lancets (FreeStyle Lancets) use to test blood sugars three times per day latanoprost 0.005% 1 drp ophthalmic (eye) DAILY levothyroxine 75 mcg PO DAILY nebulizers As directed for updraft treatments-with all needed supplies omeprazole 20 mg PO DAILY oxycodone 5 mg PO BID PRN pen needle, diabetic QID sacubitril-valsartan 97-103 mg (Entresto) 1 tab PO BID Tobacco use date assessed: 03/25/24 Dental Screening Dental Screen Date: 09/23/23 HPI 1m follow up HPI Details Pt presents for IDDM, CKD 3, HTN, HFrEF, paroxysmal A fib. Patient recovered well from left hip replacement surgery has been more physically active walking with a walker. Patient has not been complying with diabetic diet for the last 2 weeks baking and cooking a lot at home. [facility] Medical History History of partial replacement of left hip joint using bipolar prosthesis Vitamin D deficiency Macrocytosis Cough Sciatica Hypothyroidism HTN (hypertension) Lower extremity edema Irritable bowel syndrome (IBS) Chronic GERD Anxiety Chronic kidney disease (CKD) Hyperlipidemia Hypertension associated with diabetes Surgical History No pertinent past surgical history Family History Mother Ovarian cancer Father Pancreatic cancer Thyroid disease Social History Household Members Other:: Housing: House Alcohol intake: never Patient Tobacco Use Status: Never used Tobacco e-Cigarette/Vaping Use: Never Used Second Hand Smoke Exposure: No service: No Current occupational status: retired Cognitive needs: No Hearing needs: No Vision needs: Yes Questionnaire Thrive Questionnaire Date Thrive assessed: 03/25/24 I am a: Patient JAMES-7 AMB Questionnaire JAMES-7 Date JAMES - 7 assessed: 09/23/23 Source: Developed by Drs. Bryce L. RadhaSophie braxton, Rock Coyle and colleagues, with an educational pranay from [employer]. Review of Systems Const All systems reviewed & are unremarkable except as noted in HPI and below Eyes Reports no additional complaints ENT Reports no additional complaints Card Reports no additional complaints GI Reports no additional complaints Reports no additional complaints Musc Reports no additional complaints Physical exam (Primary Care) Vital Signs: Last Vital Signs Temp 97.9 F 03/25/24 13:54 Pulse 77 03/25/24 13:54 Resp 18 03/25/24 13:54 BP 142/78 H 03/25/24 13:54 Pulse Ox 98 03/25/24 13:54 Oxygen Delivery Method Room Air 03/25/24 13:54 BMI result Body Mass Index 22.7 Tobacco/Smoking Status: Tobacco use Status Tobacco use date assessed 03/25/24 03/25/24 13:55 Patient Tobacco Use Status Never used Tobacco 03/25/24 13:55 e-Cigarette/Vaping Use Never Used 03/25/24 13:55 Thrive Assessment: Date of Thrive Assessment Date Thrive assessed 03/25/24 03/25/24 13:55 Const General: no acute distress HENMT Throat: Yes posterior oropharynx normal Resp Effort & Inspection: normal respiratory effort Auscultation: clear to auscultation bilaterally Cardio Rhythm: regular rhythm Heart sounds: S1 normal heart sound present and S2 normal heart sound present GI Inspection: Yes normal to inspection Palpation (GI): Soft to palpation Percussion: Yes normal to percussion Auscultation: normal bowel sounds Extrem Other: 1+ pitting edema of lower extremities bilaterally Coding Level of Care Code Est Pt Level 5 (01962) Complex EM visit Add On G2211 Diagnoses Anemia D64.9 Insulin dependent type 2 diabetes mellitus E11.9; Z79.4 Paroxysmal A-fib I48.0 CHF (congestive heart failure) I50.9 Assessment & Plan Assessment & Plan (1) Anemia: Comment: Probably has postop anemia Primarily due to iron deficiency. Erythropoietin deficiency due to underlying CKD is a possibility. Code(s): D64.9 - Anemia, unspecified Category: Medical Plan: Patient has been on iron supplement with improving H&H. Patient was advised to take iron supplement every other day because of side effects. We will recheck CBC in 2 months (2) Insulin dependent type 2 diabetes mellitus: Comment: Poorly controlled due to patient noncompliance with diet Code(s): E11.9 - Type 2 diabetes mellitus without complications; Z79.4 - termite control servicer (current) use of insulin Category: Medical Plan: ADA diet increase physical activity discussed with the patient. Continue current medications and check A1c in 2 months (3) Paroxysmal A-fib: Comment: 01/10 during hospitalization for NSTEMI 01/10, on metoprolol and Eliquis Code(s): I48.0 - Paroxysmal atrial fibrillation Category: Medical Plan: On Eliquis for anticoagulation and beta darrion for rate control (4) CHF (congestive heart failure): Comment: Echo LVEF 40-45%, mid to distal anterior, apical, mid-distal septal/anteroseptal and apical inf wall akinesis 01/10 [facility], Echo 10/2023 [facility], EF 55- 60 %, calcification of aortic and mitral valve, no pulmonary hypertension Code(s): I50.9 - Heart failure, unspecified Category: Medical Plan: Continue current medications. Patient was switched from metoprolol to carvedilol a month ago. Blood pressure is elevated and carvedilol will be increased to 6.25 b.i.d.. Patient has a follow-up appointment with sewing machine operator semiautomatic in 2 weeks and will continue to monitor her blood pressure. Orders: Orders Complete Blood Count Auto Diff 2 Months D64.9 - Anemia, unspecified, E11.9 - Type 2 diabetes mellitus without complications, I48.0 - Paroxysmal atrial fibrillation, I50.9 - Heart failure, unspecified, Z79.4 - termite control servicer (current) use of insulin Comprehensive [place]. Panel Fast 2 Months D64.9 - Anemia, unspecified, E11.9 - Type 2 diabetes mellitus without complications, I48.0 - Paroxysmal atrial fibrillation, I50.9 - Heart failure, unspecified, Z79.4 - termite control servicer (current) use of insulin IRON PROFILE 2 Months D64.9 - Anemia, unspecified, E11.9 - Type 2 diabetes mellitus without complications, I48.0 - Paroxysmal atrial fibrillation, I50.9 - Heart failure, unspecified, Z79.4 - termite control servicer (current) use of insulin Hemoglobin A1c 2 Months D64.9 - Anemia, unspecified, E11.9 - Type 2 diabetes mellitus without complications, I48.0 - Paroxysmal atrial fibrillation, I50.9 - Heart failure, unspecified, Z79.4 - termite control servicer (current) use of insulin Microalbumin, Random (w Creat) 2 Months D64.9 - Anemia, unspecified, E11.9 - Type 2 diabetes mellitus without complications, I48.0 - Paroxysmal atrial fibrillation, I50.9 - Heart failure, unspecified, Z79.4 - FPC (current) use of insulin Lipid Panel 2 Months D64.9 - Anemia, unspecified, E11.9 - Type 2 diabetes mellitus without complications, I48.0 - Paroxysmal atrial fibrillation, I50.9 - Heart failure, unspecified, Z79.4 - FPC (current) use of insulin Medications: New carvedilol must administer with a meal/food 6.25 mg PO BID 180 tabs 0RF Discontinued carvedilol (Coreg) must administer with a meal/food Discontinued Reason: Doctor's Order 3.125 mg PO BID 60 tabs 5RF N18.9 - Chronic kidney disease, unspecified
--- OUTSIDE RECORDS SUMMARY | 2024-03-25 14:41 | XMS_ITS | Data Portability ---
Author Organization [place] [facility], Allergy Address [address] [place] [address] Care Team Providers Care Puppet Maker Name Role Phone BE SAHNI Primary Care [...] audio gram No observ ation record ed. [email or web address] Not Available 09/19 15:12:40 12/16/19 audio gram No observ ation record ed. [email or web address] Not Available 11/19 15:12:52 Result Notes None recorded. Problems Name Problem SNOMED Code Status Onset Date Resolution Date Notes Provider Name and Address Organization Details Recorded Time Sensorine ural hearing loss of bilateral ears 832702710 Active 2018 Sensorine ural hearing loss, bilateral ; Note: Date Diagnosed : 08/12/2018 1:56 PM (H90.3) Not Available [facility] 4 03:11:58 Bilateral tinnitus 16478382253 02 Active 2018 Tinnitus, bilateral ; Note: Date Diagnosed : 08/12/2018 1:56 PM (H93.13) Not Available [facility] 4 03:11:57 Otalgia of right ear 5325870922 Active 2018 Otalgia, right ear; Note: Date Diagnosed : 03/12/2018 2:36 PM (H92.01) Not Available [facility] 4 03:11:57 Impacted cerumen in right ear 95127558786 99491 Active 2022 Impacted cerumen, right ear; Note: Date Diagnosed : 07/04/2022 1:17 PM (H61.21) Not Available [facility] 4 03:11:57 Bilateral disorder of Eustachia n tubes 25872627495 87337 Active 2023 [facility] [address] [place] [address], [place], [address] , [facility] [place] 4 13:39:50 Acute serous otitis media of right ear 34412610680 07127 Active 2023 YADIRA JORDAN MD [address] [place] [address], [place], [address] , [facility] 4 13:59:45 Problem Notes None recorded. Procedures Surgical History Date Name Laterality Status Provider Name and Address Organization Details Recorded Time 10/28/20 24 Tympanometry (23579) completed MARTIN ARNETT, AUD [address] [facility], [place], [address], [facility] 12/16/2023 13:08:04 10/16/19 24 Air & Speech Audio with Tymps (97876, 76677 & 21347) completed ROBIN RODRIGUEZ, AUD [address] [facility], [place], [address], [facility] 10/16/2023 13:43:04 Imaging Results Imaging Date Name Status LastModified by [facility] Details LastModified Time 07/04/2022 imaging/diagno stic result completed Information not available 10/09/2023 01:22:51 08/10/2020 imaging/diagno stic result completed Information not available 10/09/2023 01:22:58 08/12/2018 audiogram completed Information not available 10/09/2023 01:23:04 07/04/2022 audiogram completed Information not available 10/09/2023 01:23:21 08/10/2020 audiogram completed Information not available 10/09/2023 01:23:32 08/12/2018 audiogram completed Information not available 10/09/2023 01:23:51 10/16/2023 audiogram completed [email or web address] Information n ot available 10/16/2023 15:12:40 12/16/2023 audiogram completed [email or web address] Information n ot available 12/16/2023 15:12:52 Procedure Notes None recorded. Medical Equipment None Reported. Allergies Allergen ID Allergen Name Allergen Category Reaction Reaction Severity Criticality Documentation Date Start Date Code Code System Note Provider Name and Address Organization Details Recorded Time 07501 Substance with sulfonami de structure and antibacte rial mechanism of action (substanc e) medicatio n other Not available Not available 07/02/2023 [id number] SNOMED React ion: unkno wn, unspe cifie [...] TAKE 1 TABLET BY MOUTH EVERY DAY [id number] active Not Available Not Available Not Available [...] Not Available Not Available No t Available [facility] spacer USE WITH INHALER active Not Available [...] Updated DateTime 10/16/2023 160.02 cm 26 kg/m2 37530.08 g Ghada Peters [facility] 10/16/2023 13:54:00 Date Recorded Body height Body mass index (BMI) Body weight Provider Name and Address Organization Details Last Updated DateTime 12/16/2023 160.02 cm 26 kg/m2 95314.08 g Raina Gallego [facility] 12/16/2023 12:58:48 Social History None recorded. Functional Status None recorded. Mental Status None recorded. Family History Nothing Reported. Medical History No medical history recorded. Gynecological HistoryNo gynecological history recorded. Obstetrics History GPAL:G 0 P 0 0 0 0 Past Encounters Encounter ID Performer Location Encounter Start Date Encounter Closed Date Diagnosis/Indication Diagnosis SNOMED-CT Code Diagnosis ICD10 Code Diagnosis Note [id number] YADIRA JORDAN MD [facility] [address] [address] 10/16/2023 13:00:57 10/16/2023 14:01:35 Acute serous otitis media of right ear [id number] 272067 H65.01 Likely due to a URI. Will reevaluate in 6 weeks and I will expect it will resolve. Hearing is stable. [id number] [facility] [address] [address] 10/16/2023 13:39:08 10/16/2023 16:44:20 Sensorineural hearing loss of bilateral ears 749817469 H90.3 Right Ear:Mild to severe SNHL with excellent speech discrimina tion.Type B tympanogra m.Left Ear:Normal hearing through 1K Hz sloping to a severe SNHL with excellent speech discrimina tion.Type As tympanogra m. Bilateral disorder of Eustachian tubes 7148894947 825864 H69.93 [id number] SILVIO SILVERIO MD [facility] [address] [address] 12/16/2023 12:50:25 12/16/2023 13:30:32 Bilateral disorder of Eustachian tubes 8893431922 842893 H69.93 Acute sero us otitis media of right ear 5398361442 126564 H65.01 [id number] [address] [facility] [address] [address] 12/16/2023 13:07:22 12/16/2023 14:57:24 Sensorineural hearing loss of bilateral ears 331256942 H90.3 Tympanomet ry:Right: Type {{A B* B [...] ID Guarantor Name 10/16/2023 1 MEDICARE B-ME: [employer] Beverly Marie [id number] 2 Beverly Marie 10/16/2023 2 [place] [id number] Beverly Marie [id number] 21 Beverly Marie 10/16/2023 1 MEDICARE B-ME: [employer] Beverly Marie [id number] 2 Beverly Marie 10/16/2023 2 [place] [id number] Beverly Marie [id number] 21 Beverly Marie 12/16/2023 1 MEDICARE B-ME: [employer] Beverly Marie [id number] 2 Beverly Marie 12/16/2023 2 [place] [id number] Beverly Marie [id number] 21 Beverly Marie 12/16/2023 1 MEDICARE B-[place]: [employer] Beverly Marie [id number] 2 Beverly Marie 12/16/2023 2 [place] [id number] Beverly Marie [id number] Beverly Marie Notes Date Note Type Note Provider Name and Address Organization Details Recorded Time 10/16/2023 text/html He of slightly asymmetric HL. Right ear has felt blocked for two days. She also has a cough. Hx of CT and afib since last visit. YADIRA JORDAN MD [address] [place] [address], [phone], [facility] 10/16/2023 14:00:41 12/16/2023 text/html 83-year-old fema lazara [...] some seasonal allergies. SILVIO RODRIGUEZ MD [address] [facility],[address], [address], [facility] 12/16/2023 16:30:44 12/16/2023 text/html ELEAZAR Bishop, requested tympanometry. MARTIN ARNETT, [facility] [place] [address] [facility],[place] [address], [place], [address], [facility] 12/16/2023 13:09:48 OBGyn Episode No OBEpisode recorded.
--- OUTSIDE RECORDS SUMMARY | 2024-03-25 14:41 | XMS_ITS | Encounter Summary ---
Author Organization [facility] Address [address] [place] [address] Care Team Providers Care Food Safety Specialist Name Role Phone Orquidea Keller MD Primary Care Provider [phone] Encounter Details Date Type Department Care Team (Late st Contact Info) Description 01/08/2024 Lab Requisition [facility] - Main Lab 299 [facility] [place] [address] Salvatore Jenkins MD [address] [place], [place] [phone] Type 2 diabetes mellitus without complications (CMS/HCC); [...] Hemoglobin A1c (01/08/2024 6:24 AM EST) Pathologist [facility] Hemoglobin A1C 6.4 <6.5 % LAB CHEMISTRY METHOD 01/08/2024 1:04 PM EST [facility] Mean Bld Glu Estim. 137 mg/dL LAB CHEMISTRY METHOD 01/08/2024 1:04 PM EST [facility] Blood Venous blood specimen / Unknown Venipuncture / Unknown 01/08/2024 6:24 AM EST 01/08/2024 9:05 AM EST Salvatore Jenkins MD LAB BLOOD ORDERABL ES [facility] [address] [place] [address], * (ABNORMAL) Comprehensive metabolic panel (01/08/2024 6:24 AM EST) [facility] Sodium 134 133 - 145 mmol/L LAB CHEMISTRY METHOD 01/08/2024 10:52 AM EST [facility] Potassium 4.9 3.5 - 5.5 mmol/L LAB CHEMISTRY METHOD 01/08/2024 10:52 AM EST [facility] Chloride 102 96 - 110 mmol/L LAB CHEMISTRY METHOD 01/08/2024 10:52 AM EST [facility] CO2 22 21 - 32 mmol/L LAB CHEMISTRY METHOD 01/08/2024 10:52 AM EST [facility] Anion Gap 10 3 - 11 LAB CHEMISTRY METHOD 01/08/2024 10:52 AM EST [facility] Glucose 134(H) 70 - 100 mg/dL LAB CHEMISTRY METHOD 01/08/2024 10:52 AM [facility] BUN 39(H) 5 - 25 mg/dL LAB CHEMISTRY METHOD 01/08/2024 10:52 AM [facility] Creatinine 1.52(H) 0.50 - 1.10 mg/dL LAB CHEMISTRY METHOD 01/08/2024 10:52 AM [facility] eGFR 33(L) >=60 mL/min/1. 73m2 LAB CHEMISTRY METHOD 01/08/2024 10:52 AM [facility] Comment:Calculation based on the??Chronic Kidney Disease Epidemiology Collaboration (CKD-EPI) equation refit??without adjustment for race. BUN/Creatinine Ratio 25.7 LAB CHEMISTRY METHOD 01/08/2024 10:52 AM [facility] Calcium 8.6 8.5 - 10.5 mg/dL LAB CHEMISTRY METHOD 01/08/2024 10:52 AM [facility] AST (SGOT) 23 10 - 42 unit/L LAB CHEMISTRY METHOD 01/08/2024 10:52 AM [facility] ALT (SGPT) 17 10 - 60 unit/L LAB CHEMISTRY METHOD 01/08/2024 10:52 AM [facility] Alkaline Phosphatase 99 42 - 121 unit/L LAB CHEMISTRY METHOD 01/08/2024 10:52 AM [facility] Total Protein 5.2(L) 6.0 - 8.0 g/dL LAB CHEMISTRY METHOD 01/08/2024 10:52 AM [facility] Albumin 2.5(L) 3.2 - 5.0 g/dL LAB CHEMISTRY METHOD 01/08/2024 10:52 AM [facility] Total Bilirubin 0.6 0.0 - 1.4 mg/dL LAB CHEMISTRY METHOD 01/08/2024 10:52 AM [facility] Blood Venous blood specimen / Unknown Venipuncture / Unknown 01/08/2024 6:24 AM EST 01/08/2024 9:05 AM EST Salvatore Jenkins MD LAB BLOOD ORDERABL ES [facility] [address] [place] [address], * (ABNORMAL) Complete blood count (01/08/2024 6:24 AM EST) WBC 9.4 4.8 - 10.8 K/mcL LAB HEMETOLOGY METHOD 01/08/2024 10:12 AM [facility] RBC 2.50(L) 3.80 - 4.80 M/mcL LAB HEMETOLOGY METHOD 01/08/2024 10:12 AM [facility] Hemoglobin 8.0(L) 11.5 - 16.0 g/dL LAB HEMETOLOGY METHOD 01/08/2024 10:12 AM [facility] Hematocrit 24.8(L) 35.0 - 47.0 % LAB HEMETOLOGY METHOD 01/08/2024 10:12 AM [facility] MCV 101.2(H) 79.0 - 98.0 FL LAB HEMETOLOGY METHOD 01/08/2024 10:12 AM [facility] MCH 32.7(H) 27.0 - 32.0 pcg LAB HEMETOLOGY METHOD 01/08/2024 10:12 AM [facility] MCHC 32.3 32.0 - 37.0 g/dL LAB HEMETOLOGY METHOD 01/08/2024 10:12 AM [facility] RDW 13.8 11.0 - 15.0 % LAB HEMETOLOGY METHOD 01/08/2024 10:12 AM [facility] Platelets 251 130 - 400 K/mcL LAB HEMETOLOGY METHOD 01/08/2024 10:12 AM [facility] MPV 10.9 7.0 - 11.0 FL LAB HEMETOLOGY METHOD 01/08/2024 10:12 AM EST [facility] NRBC 0.0 <1.0 % LAB HEMETOLOGY METHOD 01/08/2024 10:12 AM EST [facility] NRBC Absolute 0.00 <0.10 K/mcL LAB HEMETOLOGY METHOD 01/08/2024 10:12 AM EST [facility] Blood Venous blood specimen / Unknown Venipuncture / Unknown 01/08/2024 6:24 AM EST 01/08/2024 9:05 AM EST Salvatore Jenkins MD LAB BLOOD ORDERABL ES [facility] [address] [place] [address], documented in this encounter Visit Diagnoses Diagnosis Type 2 diabetes mellitus without complications (CMS/HCC) Iron deficiency anemia, unspecified Paroxysmal atrial fibrillation (CMS/HCC) Atrial fibrillation Chronic systolic (congestive) heart failure (CMS/HCC) documented in this encounter Care Teams Food Safety Specialist Relationship Specialty Start Date End Date Orquidea Keller MD [address] [place] [address] PCP - General 01/07/23 documented as of this encounter
--- OUTSIDE RECORDS SUMMARY | 2024-03-25 14:41 | XMS_ITS | Encounter Summary ---
Author Organization [facility] Address [address] [place] [address] Care Team Providers Care Piece Presser Name Role Phone Orquidea Keller MD Primary Care Provider [phone] Encounter Details Date Type Department Care Team (Late st Contact Info) Description 01/25/[address] [facility] - Main Lab 299 [facility] [employer] [address] Salvatore Jenkins MD [address] [place], [place] [phone] Paroxysmal atrial fibrillation (CMS/HCC); Chronic systolic (congestive) [...] mmol/L LAB CHEMISTRY METHOD 01/27/2024 11:44 AM [facility] Potassium 5.4 3.5 - 5.5 mmol/L LAB CHEMISTRY METHOD 01/27/2024 11:44 AM [facility] Chloride 102 96 - 110 mmol/L LAB CHEMISTRY METHOD 01/27/2024 11:44 AM [facility] CO2 28 21 - 32 mmol/L LAB CHEMISTRY METHOD 01/27/2024 11:44 AM [facility] Anion Gap 6 3 - 11 LAB CHEMISTRY METHOD 01/27/2024 11:44 AM [facility] Glucose 132(H) 70 - 100 mg/dL LAB CHEMISTRY METHOD 01/27/2024 11:44 AM [facility] BUN 41(H) 5 - 25 mg/dL LAB CHEMISTRY METHOD 01/27/2024 11:44 AM [facility] Creatinine 1.66(H) 0.50 - 1.10 mg/dL LAB CHEMISTRY METHOD 01/27/2024 11:44 AM [facility] eGFR 30(L) >=60 mL/min/1. 73m2 LAB CHEMISTRY METHOD 01/27/2024 11:44 AM [facility] Comment:Calculation based on the??Chronic Kidney Disease Epidemiology Collaboration (CKD-EPI) equation refit??without adjustment for race. BUN/Creatinine Ratio 24.7 LAB CHEMISTRY METHOD 01/27/2024 11:44 AM [facility] Calcium 9.0 8.5 - 10.5 mg/dL LAB CHEMISTRY METHOD 01/27/2024 11:44 AM [facility] Blood Venous blood specimen / Unknown Venipuncture / Unknown 01/27/2024 7:57 AM EST 01/27/2024 10:26 AM EST Salvatore Jenkins MD LAB BLOOD ORDERABL ES [facility] [address] [place] [address], * (ABNORMAL) Complete blood count (01/27/2024 7:37 AM EST) [facility] WBC 8.8 4.8 - 10.8 K/mcL LAB HEMETOLOGY METHOD 01/27/2024 11:22 AM [facility] RBC 2.70(L) 3.80 - 4.80 M/mcL LAB HEMETOLOGY METHOD 01/27/2024 11:22 AM [facility] Hemoglobin 8.4(L) 11.5 - 16.0 g/dL LAB HEMETOLOGY METHOD 01/27/2024 11:22 AM [facility] Hematocrit 27.2(L) 35.0 - 47.0 % LAB HEMETOLOGY METHOD 01/27/2024 11:22 AM [facility] MCV 102.6(H) 79.0 - 98.0 FL LAB HEMETOLOGY METHOD 01/27/2024 11:22 AM [facility] MCH 31.7 27.0 - 32.0 pcg LAB HEMETOLOGY METHOD 01/27/2024 11:22 AM [facility] MCHC 30.9(L) 32.0 - 37.0 g/dL LAB HEMETOLOGY METHOD 01/27/2024 11:22 AM [facility] RDW 14.1 11.0 - 15.0 % LAB HEMETOLOGY METHOD 01/27/2024 11:22 AM [facility] Platelets 512(H) 130 - 400 K/mcL LAB HEMETOLOGY METHOD 01/27/2024 11:22 AM [facility] MPV 9.7 7.0 - 11.0 FL LAB HEMETOLOGY METHOD 01/27/2024 11:22 AM [facility] NRBC 0.0 <1.0 % LAB HEMETOLOGY METHOD 01/27/2024 11:22 AM EST [facility] NRBC Absolute 0.00 <0.10 K/mcL LAB HEMETOLOGY METHOD 01/27/2024 11:22 AM EST [facility] Blood Venous blood specimen / Unknown Venipuncture / Unknown 01/27/2024 7:37 AM EST 01/27/2024 10:28 AM EST Salvatore Jenkins MD LAB BLOOD ORDERABL ES [facility] [address] [place] [address], documented in this encounter Visit Diagnoses Diagnosis Paroxysmal atrial fibrillation (CMS/HCC) Atrial fibrillation Chronic systolic (congestive) heart failure (CMS/HCC) documented in this encounter Care Teams Piece Presser Relationship Specialty Start Date End Date Orquidea Keller MD [address] [place] [address] PCP - General 01/07/23 documented as of this encounter
--- OUTSIDE RECORDS SUMMARY | 2024-03-25 14:41 | XMS_ITS | Encounter Summary ---
Author Organization [facility] Address [address] [place] [address] Care Team Providers Care Global Marketing Manager Name Role Phone Orquidea Keller MD Primary Care Provider [phone] Encounter Details Date Type Department Care Team (Late st Contact Info) Description 01/10/2024 Lab Requisition [facility] - Main Lab 299 [facility] [place] [facility] [place] [address] Salvatore Jenkins MD [address] [place], [place] [phone] Paroxysmal atrial fibrillation (CMS/HCC); Chronic systolic (congestive) [...] mmol/L LAB CHEMISTRY METHOD 01/13/2024 12:[address] [facility] Potassium 5.1 3.5 - 5.5 mmol/L LAB CHEMISTRY METHOD 01/13/2024 12:[address] [facility] Chloride 102 96 - 110 mmol/L LAB CHEMISTRY METHOD 01/13/2024 12:[address] [facility] CO2 26 21 - 32 mmol/L LAB CHEMISTRY METHOD 01/13/2024 12:[address] [facility] Anion Gap 6 3 - 11 LAB CHEMISTRY METHOD 01/13/2024 12:[address] [facility] Glucose 107(H) 70 - 100 mg/dL LAB CHEMISTRY METHOD 01/13/2024 12:[address] [facility] BUN 38(H) 5 - 25 mg/dL LAB CHEMISTRY METHOD 01/13/2024 12:[address] [facility] Creatinine 1.57(H) 0.50 - 1.10 mg/dL LAB CHEMISTRY METHOD 01/13/2024 12:[address] [facility] eGFR 32(L) >=60 mL/min/1. 73m2 LAB CHEMISTRY METHOD 01/13/2024 12:[address] [facility] Comment:Calculation based on the??Chronic Kidney Disease Epidemiology Collaboration (CKD-EPI) equation refit??without adjustment for race. BUN/Creatinine Ratio 24.2 LAB CHEMISTRY METHOD 01/13/2024 12:[address] [facility] Calcium 8.6 8.5 - 10.5 mg/dL LAB CHEMISTRY METHOD 01/13/2024 12:[address] [facility] Blood Venous blood specimen / Unknown Venipuncture / Unknown 01/13/2024 8:11 AM EST 01/13/2024 11:29 AM EST Salvatore Jenkins MD LAB BLOOD ORDERABL ES [facility] [address] [place] [address], * (ABNORMAL) Complete blood count (01/13/2024 8:11 AM EST) [facility] WBC 11.4(H) 4.8 - 10.8 K/mcL LAB HEMETOLOGY METHOD 01/13/2024 12:[address] [facility] RBC 2.40(L) 3.80 - 4.80 M/mcL LAB HEMETOLOGY METHOD 01/13/2024 12:[address] [facility] Hemoglobin 7.8(L) 11.5 - 16.0 g/dL LAB HEMETOLOGY METHOD 01/13/2024 12:[address] [facility] Hematocrit 24.6(L) 35.0 - 47.0 % LAB HEMETOLOGY METHOD 01/13/2024 12:[address] [facility] MCV 101.2(H) 79.0 - 98.0 FL LAB HEMETOLOGY METHOD 01/13/2024 12:[address] [facility] MCH 32.1(H) 27.0 - 32.0 pcg LAB HEMETOLOGY METHOD 01/13/2024 12:[address] [facility] MCHC 31.7(L) 32.0 - 37.0 g/dL LAB HEMETOLOGY METHOD 01/13/2024 12:[address] [facility] RDW 13.4 11.0 - 15.0 % LAB HEMETOLOGY METHOD 01/13/2024 12:[address] [facility] Platelets 506(H) 130 - 400 K/mcL LAB HEMETOLOGY METHOD 01/13/2024 12:[address] [facility] MPV 10.0 7.0 - 11.0 FL LAB HEMETOLOGY METHOD 01/13/2024 12:[address] [facility] NRBC 0.0 <1.0 % LAB HEMETOLOGY METHOD 01/13/2024 12:05 PM EST [facility] NRBC Absolute 0.00 <0.10 K/mcL LAB HEMETOLOGY METHOD 01/13/2024 12:05 PM EST [facility] Blood Venous blood specimen / Unknown Venipuncture / Unknown 01/13/2024 8:11 AM EST 01/13/2024 11:12 AM EST Salvatore Jenkins MD LAB BLOOD ORDERABL ES [facility] [address] [place] [address], documented in this encounter Visit Diagnoses Diagnosis Paroxysmal atrial fibrillation (CMS/HCC) Atrial fibrillation Chronic systolic (congestive) heart failure (CMS/HCC) documented in this encounter Care Teams Global Marketing Manager Relationship Specialty Start Date End Date Orquidea Keller MD [address] [place] [address] PCP - General 01/07/23 documented as of this encounter
--- OUTSIDE RECORDS SUMMARY | 2024-03-25 14:41 | XMS_ITS | Encounter Summary ---
Author Organization [facility] Address [address] [place] [address] Care Team Providers Care Infection Prevention Coordinator Name Role Phone Orquidea Keller MD Primary Care Provider [phone] Encounter Details Date Type Department Care Team (Late st Contact Info) Description 01/18/2024 Lab Requisition [facility] - Main Lab 299 [facility] [place] [address] Salvatore Jenkins MD [address] [place], [place] [phone] Paroxysmal atrial fibrillation (CMS/HCC); Chronic systolic (congestive) [...] mmol/L LAB CHEMISTRY METHOD 01/20/2024 1:50 PM [facility] Potassium 4.9 3.5 - 5.5 mmol/L LAB CHEMISTRY METHOD 01/20/2024 1:50 PM [facility] Chloride 98 96 - 110 mmol/L LAB CHEMISTRY METHOD 01/20/2024 1:50 PM [facility] CO2 25 21 - 32 mmol/L LAB CHEMISTRY METHOD 01/20/2024 1:50 PM [facility] Anion Gap 9 3 - 11 LAB CHEMISTRY METHOD 01/20/2024 1:50 PM [facility] Glucose 113(H) 70 - 100 mg/dL LAB CHEMISTRY METHOD 01/20/2024 1:50 PM [facility] BUN 37(H) 5 - 25 mg/dL LAB CHEMISTRY METHOD 01/20/2024 1:50 PM [facility] Creatinine 1.64(H) 0.50 - 1.10 mg/dL LAB CHEMISTRY METHOD 01/20/2024 1:50 PM [facility] eGFR 30(L) >=60 mL/min/1. 73m2 LAB CHEMISTRY METHOD 01/20/2024 1:50 PM [facility] Comment:Calculation based on the??Chronic Kidney Disease Epidemiology Collaboration (CKD-EPI) equation refit??without adjustment for race. BUN/Creatinine Ratio 22.6 LAB CHEMISTRY METHOD 01/20/2024 1:50 PM [facility] Calcium 8.8 8.5 - 10.5 mg/dL LAB CHEMISTRY METHOD 01/20/2024 1:50 PM [facility] Blood Venous blood specimen / Unknown Venipuncture / Unknown 01/20/2024 8:18 AM EST 01/20/2024 10:46 AM EST Salvatore Jenkins MD LAB BLOOD ORDERABL ES [facility] [address] [place] [address], [place] [phone] * (ABNORMAL) Complete blood count (01/20/2024 8:18 AM EST) [facility] WBC 10.9(H) 4.8 - 10.8 K/mcL LAB HEMETOLOGY METHOD 01/20/2024 12:21 PM [facility] RBC 2.50(L) 3.80 - 4.80 M/mcL LAB HEMETOLOGY METHOD 01/20/2024 12:21 PM [facility] Hemoglobin 7.9(L) 11.5 - 16.0 g/dL LAB HEMETOLOGY METHOD 01/20/2024 12:21 PM [facility] Hematocrit 25.1(L) 35.0 - 47.0 % LAB HEMETOLOGY METHOD 01/20/2024 12:21 PM [facility] MCV 101.2(H) 79.0 - 98.0 FL LAB HEMETOLOGY METHOD 01/20/2024 12:21 PM [facility] MCH 31.9 27.0 - 32.0 pcg LAB HEMETOLOGY METHOD 01/20/2024 12:21 PM [facility] MCHC 31.5(L) 32.0 - 37.0 g/dL LAB HEMETOLOGY METHOD 01/20/2024 12:21 PM [facility] RDW 13.5 11.0 - 15.0 % LAB HEMETOLOGY METHOD 01/20/2024 12:21 PM [facility] Platelets 833(H) 130 - 400 K/mcL LAB HEMETOLOGY METHOD 01/20/2024 12:21 PM [facility] MPV 9.5 7.0 - 11.0 FL LAB HEMETOLOGY METHOD 01/20/2024 12:21 PM [facility] NRBC 0.0 <1.0 % LAB HEMETOLOGY METHOD 01/20/2024 12:21 PM EST [facility] NRBC Absolute 0.00 <0.10 K/mcL LAB HEMETOLOGY METHOD 01/20/2024 12:21 PM EST [facility] Blood Venous blood specimen / Unknown Venipuncture / Unknown 01/20/2024 8:18 AM EST 01/20/2024 10:46 AM EST Salvatore Jenkins MD LAB BLOOD ORDERABL ES [facility] [address] [place] [address], documented in this encounter Visit Diagnoses Diagnosis Paroxysmal atrial fibrillation (CMS/HCC) Atrial fibrillation Chronic systolic (congestive) heart failure (CMS/HCC) documented in this encounter Care Teams Infection Prevention Coordinator Relationship Specialty Start Date End Date Orquidea Keller MD [address] [place] [address] PCP - General 01/07/23 documented as of this encounter
--- OUTSIDE RECORDS SUMMARY | 2024-03-25 14:42 | XMS_ITS | Encounter Summary ---
Author Organization [facility] Address [address] [place] [address] Care Team Providers Care Supervisor Transferring And Boxing Name Role Phone Orquidea Keller MD Primary Care Provider [phone] Encounter Details Date Type Department Care Team (Late st Contact Info) Description 02/09/2024 Lab Requisition [facility] - Main Lab 299 [facility] [place] [place] [address] Salvatore Jenkins MD [address] [place], [place] [phone] Paroxysmal atrial fibrillation (CMS/HCC); Chronic systolic (congestive) [...] (CMS/HCC) documented in this encounter Care Teams Supervisor Transferring And Boxing Relationship Specialty Start Date End Date Orquidea Keller MD [address] [facility] [place] [address] PCP - General 01/07/23 documented as of this encounter
--- OUTSIDE RECORDS SUMMARY | 2024-03-25 14:42 | XMS_ITS | Clinical Summary ---
Author Organization 299 [facility] Address [address] [place] [address] Phone Care Team Providers Care Pipelines Superintendent Name Role Phone Orquidea Keller MD Primary Care Provider [phone] Medications Medication Sig Dispensed Refills Start Date End Date Status atorvastatin (LIPITOR) 80 mg tablet TAKE 1 TABLET BY MOUTH EVERY DAY 90 tablet 2 03/25/2024 Active clopidogreL (PLAVIX) 75 mg tablet TAKE 1 TABLET BY MOUTH EVERY DAY 90 tablet 2 03/25/2024 Active Encounters Date Type Department Care Team Description 02/09/2024 Lab Requisition [facility] Lab [address] [place] [phone] Salvatore Jenkins MD Paroxysmal atrial fibrillation (CMS/HCC); Chronic systolic (congestive) heart failure (CMS/HCC) 01/31/2024 Lab Requisition [facility] Lab [address] [place] [phone] Salvatore Jenkins MD Paroxysmal atrial fibrillation (CMS/HCC); Chronic systolic (congestive) heart failure (CMS/HCC) 01/31/2024 Telephone [facility] [address] [place] [address] Jerson Campos MD 01/25/2024 Lab Requisition [facility] Lab [address] [place] [phone] Salvatore Jenkins MD Paroxysmal atrial fibrillation (CMS/HCC); Chronic systolic (congestive) heart failure (CMS/HCC) 01/18/2024 Lab Requisition [facility] Lab [address] [place] [address] Salvatore Jenkins MD Paroxysmal atrial fibrillation (CMS/HCC); Chronic systolic (congestive) heart failure (CMS/HCC) 01/10/2024 Lab Requisition [facility] Lab [address] [place] [address] Salvatore Jenkins MD Paroxysmal atrial fibrillation ([facility]/HCC); Chronic systolic (congestive) heart failure (CMS/HCC) 01/08/2024 Lab Requisition [facility] Lab [address] [place] [address] Salvatore Jenkins MD Type 2 diabetes mellitus without complications (CMS/HCC); Iron deficiency anemia, unspecified; Paroxysmal atrial fibrillation (CMS/HCC); Chronic systolic (congestive) heart failure ([facility]/HCC) from Last 3 Months Social History Tobacco [...] is included. WBC 7.1 4.8 - 10.8 K/[facility] LAB HEMETOLOGY METHOD 02/03/2024 12:[address] [facility] RBC 2.80(L) 3.80 - 4.80 M/mcL LAB HEMETOLOGY METHOD 02/03/2024 12:[address] [facility] Hemoglobin 8.8(L) 11.5 - 16.0 g/dL LAB HEMETOLOGY METHOD 02/03/2024 12:[address] [facility] Hematocrit 28.1(L) 35.0 - 47.0 % LAB HEMETOLOGY METHOD 02/03/2024 12:[address] [facility] MCV 101.4(H) 79.0 - 98.0 FL LAB HEMETOLOGY METHOD 02/03/2024 12:[address] [facility] MCH 31.8 27.0 - 32.0 pcg LAB HEMETOLOGY METHOD 02/03/2024 12:[address] [facility] MCHC 31.3(L) 32.0 - 37.0 g/dL LAB HEMETOLOGY METHOD 02/03/2024 12:[address] [facility] RDW 14.3 11.0 - 15.0 % LAB HEMETOLOGY METHOD 02/03/2024 12:[address] [facility] Platelets 368 130 - 400 K/mcL LAB HEMETOLOGY METHOD 02/03/2024 12:[address] [facility] MPV 10.2 7.0 - 11.0 FL LAB HEMETOLOGY METHOD 02/03/2024 12:[address] [facility] NRBC 0.0 <1.0 % LAB HEMETOLOGY METHOD 02/03/2024 12:[address] [facility] NRBC Absolute 0.00 <0.10 K/mcL LAB HEMETOLOGY METHOD 02/03/2024 12:[address] [facility] Blood Venous blood specimen / Unknown Venipuncture / Unknown 02/03/2024 8:36 AM EST 02/03/2024 11:48 AM EST Salvatore Jenkins MD LAB BLOOD ORDERABL ES [facility] [address] [place] [address], * (ABNORMAL) Basic metabolic panel (02/03/2024 8:36 AM EST) Only the most recent of4 resultswithin the time period is included. Sodium 137 133 - 145 mmol/L LAB CHEMISTRY METHOD 02/03/2024 4:[address] [facility] Potassium 5.0 3.5 - 5.5 mmol/L LAB CHEMISTRY METHOD 02/03/2024 4:[address] [facility] Chloride 104 96 - 110 mmol/L LAB CHEMISTRY METHOD 02/03/2024 4:[address] [facility] CO2 27 21 - 32 mmol/L LAB CHEMISTRY METHOD 02/03/2024 4:[address] [facility] Anion Gap 6 3 - 11 LAB CHEMISTRY METHOD 02/03/2024 4:[address] [facility] Glucose 114(H) 70 - 100 mg/dL LAB CHEMISTRY METHOD 02/03/2024 4:[address] [facility] BUN 38(H) 5 - 25 mg/dL LAB CHEMISTRY METHOD 02/03/2024 4:[address] [facility] Creatinine 1.53(H) 0.50 - 1.10 mg/dL LAB CHEMISTRY METHOD 02/03/2024 4:[address] [facility] eGFR 33(L) >=60 mL/min/1. 73m2 LAB CHEMISTRY METHOD 02/03/2024 4:[address] [facility] Comment:Calculation based on the??Chronic Kidney Disease Epidemiology Collaboration (CKD-EPI) equation refit??without adjustment for race. BUN/Creatinine Ratio 24.8 LAB CHEMISTRY METHOD 02/03/2024 4:56 PM EST [facility] Calcium 9.1 8.5 - 10.5 mg/dL LAB CHEMISTRY METHOD 02/03/2024 4:56 PM EST [facility] Blood Venous blood specimen / Unknown Venipuncture / Unknown 02/03/2024 8:36 AM EST 02/03/2024 11:48 AM EST Salvatore Jenkins MD LAB BLOOD ORDERABL ES Performing Organization Address City/[facility]/ZIP Co de Phone Number [facility] [address] [place] [address], * Hemoglobin A1c (01/08/2024 6:24 AM EST) [...] ORDERABL ES [facility] [address] [place] [address], * (ABNORMAL) Comprehensive metabolic panel (01/08/2024 6:24 AM EST) Sodium 134 133 - 145 mmol/L LAB CHEMISTRY METHOD 01/08/2024 10:52 AM EST [facility] Potassium 4.9 3.5 - 5.5 mmol/L LAB CHEMISTRY METHOD 01/08/2024 10:52 AM EST [facility] Chloride 102 96 - 110 mmol/L LAB CHEMISTRY METHOD 01/08/2024 10:[address] [facility] CO2 22 21 - 32 mmol/L LAB CHEMISTRY METHOD 01/08/2024 10:[address] [facility] Anion Gap 10 3 - 11 LAB CHEMISTRY METHOD 01/08/2024 10:[address] [facility] Glucose 134(H) 70 - 100 mg/dL LAB CHEMISTRY METHOD 01/08/2024 10:[address] [facility] BUN 39(H) 5 - 25 mg/dL LAB CHEMISTRY METHOD 01/08/2024 10:[address] [facility] Creatinine 1.52(H) 0.50 - 1.10 mg/dL LAB CHEMISTRY METHOD 01/08/2024 10:[address] [facility] eGFR 33(L) >=60 mL/min/1. 73m2 LAB CHEMISTRY METHOD 01/08/2024 10:[address] [facility] Comment:Calculation based on the??Chronic Kidney Disease Epidemiology Collaboration (CKD-EPI) equation refit??without adjustment for race. BUN/Creatinine Ratio 25.7 LAB CHEMISTRY METHOD 01/08/2024 10:[address] [facility] Calcium 8.6 8.5 - 10.5 mg/dL LAB CHEMISTRY METHOD 01/08/2024 10:[address] [facility] AST (SGOT) 23 10 - 42 unit/L LAB CHEMISTRY METHOD 01/08/2024 10:[address] [facility] ALT (SGPT) 17 10 - 60 unit/L LAB CHEMISTRY METHOD 01/08/2024 10:[address] [facility] Alkaline Phosphatase 99 42 - 121 unit/L LAB CHEMISTRY METHOD 01/08/2024 10:[address] [facility] Total Protein 5.2(L) 6.0 - 8.0 g/dL LAB CHEMISTRY METHOD 01/08/2024 10:[address] [facility] Albumin 2.5(L) 3.2 - 5.0 g/dL LAB CHEMISTRY METHOD 01/08/2024 10:52 AM EST [facility] Total Bilirubin 0.6 0.0 - 1.4 mg/dL LAB CHEMISTRY METHOD 01/08/2024 10:52 AM EST [facility] Blood Venous blood specimen / Unknown Venipuncture / Unknown 01/08/2024 6:24 AM EST 01/08/2024 9:05 AM EST Salvatore Jenkins MD LAB BLOOD ORDERABL ES [facility] [address] [place] [address], from Last 3 Months Care Teams Pipelines Superintendent Relationship Specialty Start Date End Date Orquidea Keller MD [address] [place] [address] PCP - General 01/07/23
--- OUTSIDE RECORDS SUMMARY | 2024-03-25 14:42 | XMS_ITS | Encounter Summary ---
Author Organization [facility] Address [address] [place] [address] Care Team Providers Care Mobile Practice Lead Name Role Phone Orquidea Keller MD Primary Care Provider [phone] Encounter Details Date Type Department Care Team (Late st Contact Info) Description 01/31/2024 Lab Requisition [facility] [address] [facility] [place] [address] Salvatore Jenkins MD [address] [place], [place] [phone] Paroxysmal atrial fibrillation (CMS/HCC); Chronic systolic (congestive) [...] mmol/L LAB CHEMISTRY METHOD 02/03/2024 4:56 PM [facility] LAB Potassium 5.0 3.5 - 5.5 mmol/L LAB CHEMISTRY METHOD 02/03/2024 4:56 PM [facility] Chloride 104 96 - 110 mmol/L LAB CHEMISTRY METHOD 02/03/2024 4:56 PM [facility] LAB CO2 27 21 - 32 mmol/L LAB CHEMISTRY METHOD 02/03/2024 4:56 PM [facility] LAB Anion Gap 6 3 - 11 LAB CHEMISTRY METHOD 02/03/2024 4:56 PM [facility] LAB Glucose 114(H) 70 - 100 mg/dL LAB CHEMISTRY METHOD 02/03/2024 4:56 PM [facility] BUN 38(H) 5 - 25 mg/dL LAB CHEMISTRY METHOD 02/03/2024 4:56 PM [facility] Creatinine 1.53(H) 0.50 - 1.10 mg/dL LAB CHEMISTRY METHOD 02/03/2024 4:56 PM [facility] LAB eGFR 33(L) >=60 mL/min/1. 73m2 LAB CHEMISTRY METHOD 02/03/2024 4:56 PM [facility] LAB Comment:Calculation based on the??Chronic Kidney Disease Epidemiology Collaboration (CKD-EPI) equation refit??without adjustment for race. BUN/Creatinine Ratio 24.8 LAB CHEMISTRY METHOD 02/03/2024 4:56 PM [facility] LAB Calcium 9.1 8.5 - 10.5 mg/dL LAB CHEMISTRY METHOD 02/03/2024 4:56 PM [facility] Blood Venous blood specimen / Unknown Venipuncture / Unknown 02/03/2024 8:36 AM EST 02/03/2024 11:48 AM EST Salvatore Jenkins MD LAB BLOOD ORDERABL ES [facility] [address] [place] [address], * (ABNORMAL) Complete blood count (02/03/2024 8:36 AM EST) [facility] WBC 7.1 4.8 - 10.8 K/mcL LAB HEMETOLOGY METHOD 02/03/2024 12:30 PM [facility] LAB RBC 2.80(L) 3.80 - 4.80 M/mcL LAB HEMETOLOGY METHOD 02/03/2024 12:30 PM [facility] Hemoglobin 8.8(L) 11.5 - 16.0 g/dL LAB HEMETOLOGY METHOD 02/03/2024 12:30 PM [facility] LAB Hematocrit 28.1(L) 35.0 - 47.0 % LAB HEMETOLOGY METHOD 02/03/2024 12:30 PM [facility] LAB MCV 101.4(H) 79.0 - 98.0 FL LAB HEMETOLOGY METHOD 02/03/2024 12:30 PM [facility] LAB MCH 31.8 27.0 - 32.0 pcg LAB HEMETOLOGY METHOD 02/03/2024 12:30 PM [facility] LAB MCHC 31.3(L) 32.0 - 37.0 g/dL LAB HEMETOLOGY METHOD 02/03/2024 12:30 PM [facility] LAB RDW 14.3 11.0 - 15.0 % LAB HEMETOLOGY METHOD 02/03/2024 12:30 PM [facility] LAB Platelets 368 130 - 400 K/mcL LAB HEMETOLOGY METHOD 02/03/2024 12:30 PM [facility] LAB MPV 10.2 7.0 - 11.0 FL LAB HEMETOLOGY METHOD 02/03/2024 12:30 PM [facility] LAB NRBC 0.0 <1.0 % LAB HEMETOLOGY METHOD 02/03/2024 12:30 PM EST [facility] LAB NRBC Absolute 0.00 <0.10 K/mcL LAB HEMETOLOGY METHOD 02/03/2024 12:30 PM EST [facility] Blood Venous blood specimen / Unknown Venipuncture / Unknown 02/03/2024 8:36 AM EST 02/03/2024 11:48 AM EST Salvatore Jenkins MD LAB BLOOD ORDERABL ES [facility] [address] [place] [address], documented in this encounter Visit Diagnoses Diagnosis Paroxysmal atrial fibrillation (CMS/HCC) Atrial fibrillation Chronic systolic (congestive) heart failure (CMS/HCC) documented in this encounter Care Teams Mobile Practice Lead Relationship Specialty Start Date End Date Orquidea Keller MD [address] [place] [phone] PCP - General 01/07/23 documented as of this encounter
== END 2024-03-25 15:01 | disposition home or self-care (01) ==
PROVIDERS: PCP Internal Medicine; Visit Provider Internal Medicine
DX: E11.9 Type 2 diabetes mellitus without complications (principal); Z79.4 Long term (current) use of insulin; I48.0 Paroxysmal atrial fibrillation; I50.9 Heart failure, unspecified; D64.9 Anemia, unspecified

== ENCOUNTER 2024-04-09 14:52 | Outpatient (AMB) | payer MEDICARE, SELFPAY ==
[2024-04-09 14:57] VITALS: BP 138/54; PULSE 73; O2SAT 98; BMI 22.2
--- NOTE | 2024-04-09 14:57 | HO.NEPHOV_ITS ---
Vital Signs 04/09/24 14:57 Height 5 ft 7 in Weight 142 lb BMI 22.2 BP 138/54 L Blood Pressure Location Lt brachial Position Sitting Pulse 73 Pulse Source Pulse Oximeter Pulse Oximetry (%) 98 Oxygen Delivery Method Room Air Intake Visit Reasons: CKD/ Conf Child Caregiver Required: No Accompanied by: Daughter Allergies dulaglutide [Trulicity] Allergy (Unknown, Verified 04/09/24 14:59) GERD losartan Allergy (Unknown, Verified 04/09/24 14:59) Hyperkalemia Sulfa (Sulfonamide Antibiotics) Allergy (Unknown, Verified 04/09/24 14:59) Rash dapagliflozin [From Farxiga] Adverse Reaction (Intermediate, Verified 04/09/24 14:59) candidasis empagliflozin [From Jardiance] Adverse Reaction (Intermediate, Verified 04/09/24 14:59) candidiasis amiodarone Adverse Reaction (Verified 04/09/24 14:59) Cough spironolactone Adverse Reaction (Verified 04/09/24 14:59) Hyperkalemia Medication List - Last Reconciled 04/09/24 by Abhishek Carrero MD acetaminophen (Tylenol Extra Strength) 500 mg PO Q6H PRN albuterol sulfate 0.63 mg (3 mL) inhalation QID PRN allopurinol 100 mg PO DAILY apixaban (Eliquis) 2.5 mg PO BID ascorbate calcium (vitamin C) 500 mg PO DAILY atorvastatin 80 mg PO BEDTIME benzonatate 100 mg PO TID PRN blood sugar diagnostic (FreeStyle Lite Strips) Use to test blood sugar three times daily blood-glucose meter,continuous (Dexcom G7 Luncheonette Operator) As directed blood-glucose sensor (Dexcom G7 Sensor device) As directed buspirone 40 mg (4 x 10 mg) PO BEDTIME carvedilol 6.25 mg PO BID cholecalciferol (vitamin D3) 50 mcg PO DAILY codeine-guaifenesin 10-100 mg/5 mL 5 mL PO Q4-6H PRN ferrous fumarate 325 mg PO DAILY fluticasone furoate-vilanterol 100-25 mcg/dose (Breo Ellipta) 1 inh inhalation DAILY PRN furosemide 40 mg (2 x 20 mg) PO QAM Humalog KwikPen Insulin (insulin lispro) 10 units (0.1 mL) subcut TID NS insulin degludec (Tresiba FlexTouch U-200 insulin) 20 units subcut DAILY lactic acid-urea 1 appl topical DAILY PRN lancets (FreeStyle Lancets) use to test blood sugars three times per day latanoprost 0.005% 1 drp ophthalmic (eye) DAILY levothyroxine 75 mcg PO DAILY nebulizers As directed for updraft treatments-with all needed supplies omeprazole 20 mg PO DAILY oxycodone 5 mg PO BID PRN pen needle, diabetic QID sacubitril-valsartan 97-103 mg (Entresto) 1 tab PO BID HPI Comments Details: Clinical Practitioner is a pleasant 84-year-old man with a history of longstanding diabetes mellitus and hypertension with coronary disease has been referred for chronic kidney disease. Her baseline creatinine has been around 1.2-1.3 mg/dL in 2022. In February of 2023 creatinine was 1.54 In November of 2023 creatinine was 1.9 mg/dL. In December she underwent hip surgery. She was in a rehab. She had some difficulty urination which required Mcmahon catheterization. At present she denies any urinary frequency or urgency. Although she has some discomfort while she urinates. No hematuria. Blood sugar has been suboptimal. 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 She does not drink alcohol anymore. She was accompanied by her daughter. Currently she is on Lasix 40 mg a day. She had significant leg edema but this is improved. He has no shortness of breath at rest. No rash no joint pain. She was lost about 20 lb over the last 2 years. [facility] Medical History History of partial replacement of left hip joint using bipolar prosthesis Vitamin D deficiency Macrocytosis Cough Sciatica Hypothyroidism HTN (hypertension) Lower extremity edema Irritable bowel syndrome (IBS) Chronic GERD Anxiety Chronic kidney disease (CKD) Hyperlipidemia Hypertension associated with diabetes Surgical History No pertinent past surgical history Family History Mother Ovarian cancer Father Pancreatic cancer Thyroid disease Social History Household Members Other:: Housing: House Alcohol intake: never Patient Tobacco Use Status: Never used Tobacco e-Cigarette/Vaping Use: Never Used Second Hand Smoke Exposure: No service: No Current occupational status: retired Cognitive needs: No Hearing needs: No Vision needs: Yes Physical Exam Vital Signs: Last Vital Signs Pulse 73 04/09/24 14:57 BP 138/54 L 04/09/24 14:57 Pulse Ox 98 04/09/24 14:57 Oxygen Delivery Method Room Air 04/09/24 14:57 BMI result Body Mass Index 22.2 Comfortable Neck supple no JVD. Lungs entry equal no rales. Heart S1-S2 heard no gallop or rub. Abdomen soft nontender. Neuro alert awake oriented. No asterixis. Extremities 2+edema. 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 Obstructive uropathy should be ruled out. Glomerular nephritis/interstitial disease seem unlikely Code(s): N18.9 - Chronic kidney disease, unspecified Category: Medical Plan: Workup initiated for CKD. Check renal ultrasonogram to rule out hydronephrosis. Urine studies ordered. Goal is to slow the progression of renal disease. Continue to avoid nephrotoxic agents including NSAIDs. Encouraged her to stand low-sodium diet. Further workup will depend on the outcome of the baseline investigations. (2) CHF (congestive heart failure): Comment: Echo LVEF 40-45%, mid to distal anterior, apical, mid-distal septal/anteroseptal and apical inf wall akinesis 01/10 [facility], [place] [facility] EF 55- 60 %, calcification of aortic and mitral valve, no pulmonary hypertension Code(s): I50.9 - Heart failure, unspecified Category: Medical Plan: Currently appears well compensated She should stay on low-sodium diet Continue with the Entresto and follow up with Cardiology (3) HTN (hypertension): Comment: Essential hypertension Code(s): I10 - Essential (primary) hypertension Category: Medical Plan: Overall blood pressure seems well controlled at this time. No changes were made to antihypertensive medications. (4) Anemia: Comment: Probably has postop anemia Primarily due to iron deficiency. Erythropoietin deficiency due to underlying CKD is a possibility. Code(s): D64.9 - Anemia, unspecified Category: Medical Plan: Continue with iron supplementation. Follow hemoglobin. If hemoglobin does not improve once iron is repleted she may require erythropoietin. Orders: Orders Urine Culture 04/09/24 R30.0 - Dysuria Basic Metabolic Panel 3 Months D64.9 - Anemia, unspecified, I50.9 - Heart failure, unspecified, N18.9 - Chronic kidney disease, unspecified Complete Blood Count no Diff 3 Months D64.9 - Anemia, unspecified, I50.9 - Heart failure, unspecified, N18.9 - Chronic kidney disease, unspecified Coding Level of Care Code Est Pt Level 4 (44106) Diagnoses Chronic kidney disease (CKD) N18.9 CHF (congestive heart failure) I50.9 HTN (hypertension) I10 Anemia D64.9
--- OUTSIDE RECORDS SUMMARY | 2024-04-09 15:59 | XMS_ITS | Clinical Summary ---
Author Organization Unknown Care Team Providers Care Coding Manager Name Role Phone KAITLYN RAJAN, BE Unavailable Unavailable ADALGISA RN, DANIEL Unavailable Unavailable SUSY PT, LEV Unavailable Unavailable ROSE FISCHERN, FORREST Unavailable Unavailable Payers Payer Name Policy Type Policy Number Effective Date Expira tion Date MEDICARE - NGS [place] - PDGM [id number] Problems Condition Name Condition Details Condition Category [...] CHRONIC KIDNEY DISEASE Active 02-18 00:00: 00 CORRECTION (CURRENT) USE OF INSULIN Active 02-18 00:00: 00 PAROXYSMAL ATRIAL FIBRILLATION Active 02-18 00:00: 00 HYPOTHYROIDI SM, UNSPECIFIED Active 02-18 00:00: 00 ISCHEMIC CARDIOMYOPAT HY Active 02-18 00:00: 00 ATHSCL HEART DISEASE OF [place] CORONARY ARTERY W/O ANG PCTRS Active 02-18 00:00: 00 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 02-18 00:00: 00 CORRECTION (CURRENT) USE OF ANTICOAGULAN TS Active 02-18 00:00: 00 [employer] (CURRENT) USE OF ANTITHROMBOT ICS/ANTIPLAT ELETS Active [...] 09-06 00:00: 00 03-13 23:59 :00 No [id number] 1 tablet BEDTIME 1 tablet BEDTIME (route: oral) Med Classific ation: Gout and Hyperuric emia Therapy Aspirin Low Dose 81 mg tablet,av yed release 09-06 00:00: 00 03-13 23:59 :00 No [id number] 1 tablet DAILY 1 tablet DAILY (route: oral) Med Classific ation: Hematolog ical Agents benzonatate 100 mg capsule 09-06 00:00: 00 03-13 23:59 :00 No [id number] 100 mg NEEDED 100 mg NEEDED (route: oral) Med Classific ation: Respirato ry Therapy Agents buspirone 10 mg tablet 09-06 00:00: 00 03-13 23:59 :00 No [id number] 1 tablet BEDTIME 1 tablet BEDTIME (route: oral) Med Classific ation: Central Nervous System Agents furosemide 20 mg tablet 09-06 00:00: 00 03-13 23:59 :00 No [id number] 1 tablet DIRECTED 1 tablet DIRECTED (route: oral) Med Classific ation: Cardiovas cular Therapy Agents levothyroxi ne 50 mcg capsule 09-06 00:00: 00 03-13 23:59 :00 No [id number] 1 capsule DAILY 1 capsule DAILY (route: oral) Med Classific ation: Endocrine metoprolol tartrate 25 mg tablet 09-06 00:00: 00 03-13 23:59 :00 No [id number] 1 tablet DAILY 1 tablet DAILY (route: oral) Med Classific ation: Cardiovas cular Therapy Agents omeprazole 20 mg tablet,av yed release 09-06 00:00: 00 03-13 23:59 :00 No [id number] 1 tablet DAILY 1 tablet DAILY (route: oral) Med Classific ation: Gastroint estinal Therapy Agents One-A-Day Essential tablet 09-06 00:00: 00 03-13 23:59 :00 No [id number] 1 tablet DAILY 1 tablet DAILY (route: oral) Med Classific ation: Electroly te Balance-N utritiona l Products oxycodone 5 mg tablet 09-06 00:00: 00 03-13 23:59 :00 No [id number] 1 tablet NEEDED 1 tablet NEEDED (route: oral) Med Classific ation: Analgesic , Anti-infl ammatory or Antipyret ic prednisone 10 mg tablet 08-29 00:00: 00 03-13 23:59 :00 No [id number] 10 mg DIRECTED 10 mg DIRECTED (route: oral) Med Classific ation: Endocrine simvastatin 20 mg tablet 09-06 00:00: 00 03-13 23:59 :00 No [id number] 1 tablet DAILY 1 tablet DAILY (route: oral) Med Classific ation: Cardiovas cular Therapy Agents tramadol 50 mg tablet 09-06 00:00: 00 03-13 23:59 :00 No [id number] 1 tablet NEEDED 1 tablet NEEDED (route: oral) Med Classific ation: Analgesic , Anti-infl ammatory or Antipyret ic triamterene 37.5 mg-hydrochl orothiazide 25 mg tablet 09-06 00:00: 00 03-13 23:59 :00 No [id number] .5 tablet DAILY .5 tablet DAILY (route: oral) Med Classific ation: Cardiovas cular Therapy Agents Tylenol PM Extra Strength 25 mg-500 mg tablet 09-06 00:00: 00 03-13 23:59 :00 No [id number] 1 tablet BEDTIME 1 tablet BEDTIME (route: oral) Med Classific ation: Analgesic , Anti-infl ammatory or Antipyret ic Novolin R Flexpen 100 unit/mL (3 mL) subcutaneou s insulin pen 09-06 00:00: 00 03-13 23:59 :00 No [id number] 1 In unit DIRECTED 1 In unit DIRECTED (route: subcutaneo us) Med Classific ation: Endocrine Tresiba FlexTouch U-200 insulin 200 unit/mL (3 mL) subcutaneou s pen 09-06 00:00: 00 03-13 23:59 :00 No [id number] 50 unit DAILY 50 unit DAILY (route: subcutaneo us) Med Classific ation: Endocrine lidocaine 5 % topical ointment 2020-02 00:00: 00 01-22 23:59 :00 No [id number] Per instruc tions NEEDED Per instructio ns NEEDED (route: topical) Med Classific ation: Dermatolo gical latanoprost 0.005 % eye drops 2020-02 00:00: 00 01-22 23:59 :00 No [id number] 1 drops BEDTIME 1 drops BEDTIME (route: ophthalmic (eye)) Med Classific ation: Ophthalmi c Agents furosemide 20 mg tablet 03-13 00:00: 00 01-22 23:59 :00 No [id number] 1 tablet 3 TIMES A WEEK 1 tablet 3 TIMES A WEEK (route: oral) Med Classific ation: Cardiovas cular Therapy Agents tramadol 50 mg tablet 2020-02 00:00: 00 01-22 23:59 :00 No [id number] 1 tablet NEEDED 1 tablet NEEDED (route: oral) Med Classific ation: Analgesic , Anti-infl ammatory or Antipyret ic simvastatin 40 mg tablet 2020-02 00:00: 00 01-22 23:59 :00 No [id number] 1 tablet DAILY 1 tablet DAILY (route: oral) Med Classific ation: Cardiovas cular Therapy Agents allopurinol 100 mg tablet 03-13 00:00: 00 01-22 23:59 :00 No [id number] 1 tablet DAILY 1 tablet DAILY (route: oral) Med Classific ation: Gout and Hyperuric emia Therapy triamterene 37.5 mg-hydrochl orothiazide 25 mg tablet 2020-02 00:00: 00 01-22 23:59 :00 No [id number] .5 tablet DAILY .5 tablet DAILY (route: oral) Med Classific ation: Cardiovas cular Therapy Agents metoprolol succinate ER 25 mg tablet,exte nded release 24 hr 2020-02 00:00: 00 01-22 23:59 :00 No [id number] 2 tablet DAILY 2 tablet DAILY (route: oral) Med Classific ation: Cardiovas cular Therapy Agents buspirone 10 mg tablet 2020-02 00:00: 00 01-22 23:59 :00 No [id number] 1 tablet BEDTIME 1 tablet BEDTIME (route: oral) Med Classific ation: Central Nervous System Agents levothyroxi ne 75 mcg tablet 2020-02 00:00: 00 01-22 23:59 :00 No [id number] 1 tablet DAILY 1 tablet DAILY (route: oral) Med Classific ation: Endocrine Tresiba FlexTouch U-200 insulin 200 unit/mL (3 mL[facility] 2020-02 00:00: 00 01-22 23:59 :00 No [id number] 50 unit DAILY 50 unit DAILY (route: subcutaneo ) Med Classific ation: Endocrine Aspirin Low Dose 81 mg tablet,av yed release 02-18 00:00: 00 01-22 23:59 :00 No [id number] 1 tablet 3 TIMES A WEEK 1 tablet 3 TIMES A WEEK (route: oral) Med Classific ation: Hematolog ical Agents Novolog Flexpen U-100 Insulin aspart 100 unit/mL (3 mL) subcutane s 02-18 00:00: 00 01-22 23:59 :00 No [id number] Per instruc tions DIRECTED Per instructio ns DIRECTED (route: subcutaneo us) Med Classific ation: Endocrine omeprazole 20 mg tablet,av yed release 02-18 00:00: 00 01-22 23:59 :00 No [id number] 1 tablet DAILY 1 tablet DAILY (route: oral) Med Classific ation: Gastroint estinal Therapy Agents One-A-Day Essential tablet 02-18 00:00: 00 01-22 23:59 :00 No [id number] 1 tablet 3 TIMES A WEEK 1 tablet 3 TIMES A WEEK (route: oral) Med Classific ation: Electroly te Balance-N utritiona l Products Tylenol PM Extra Strength 25 mg-500 mg tablet 02-18 00:00: 00 01-22 23:59 :00 No [id number] 1 tablet BEDTIME 1 tablet BEDTIME (route: oral) Med Classific ation: Analgesic , Anti-infl ammatory or Antipyret ic allopurinol 100 mg tablet 2023-02 00:00: 00 Yes [id number] 1 tablet DAILY 1 tablet DAILY (route: oral) Med Classific ation: Gout and Hyperuric emia Therapy amiodarone 100 mg tablet 2023-02 00:00: 00 Yes [id number] 1 tablet DAILY 1 tablet DAILY (route: oral) Med Classific ation: Cardiovas cular Therapy Agents amlodipine 2.5 mg tablet 2023-02 00:00: 00 Yes [id number] 1 tablet DAILY 1 tablet DAILY (route: oral) Med Classific ation: Cardiovas cular Therapy Agents atorvastati n 80 mg tablet 2023-02 00:00: 00 Yes [id number] 1 tablet BEDTIME 1 tablet BEDTIME (route: oral) Med Classific ation: Cardiovas cular Therapy Agents buspirone 10 mg tablet 2023-02 00:00: 00 Yes [id number] 4 tablet DAILY 4 tablet DAILY (route: oral) Med Classific ation: Central Nervous System Agents Eliquis 2.5 mg tablet 2023-02 00:00: 00 Yes [id number] 1 tablet 2 TIMES DAILY 1 tablet 2 TIMES DAILY (route: oral) Med Classific ation: Hematolog ical Agents Entresto 24 mg-26 mg tablet 2023-02 00:00: 00 Yes [id number] 1 tablet DAILY 1 tablet DAILY (route: oral) Med Classific ation: Cardiovas cular Therapy Agents famotidine 20 mg tablet 2023-02 00:00: 00 Yes [id number] 1 tablet DAILY 1 tablet DAILY (route: oral) Med Classific ation: Gastroint estinal Therapy Agents insulin lispro (U-100) 100 unit/mL subcutaneou s half-unit pen 2023-02 00:00: 00 Yes [id number] Per instruc tions 3 TIMES DAILY Per instructio ns 3 TIMES DAILY (route: subcutaneo us) Med Classific ation: Endocrine Iron (ferrous sulfate) 325 mg (65 mg iron) tablet 2023-02 00:00: 00 Yes [id number] 1 tablet DAILY 1 tablet DAILY (route: oral) Med Classific ation: Electroly te Balance-N utritiona l Products Lasix 40 mg tablet 2023-02 00:00: 00 Yes [id number] 1 tablet DAILY 1 tablet DAILY (route: oral) Med Classific ation: Cardiovas cular Therapy Agents latanoprost 0.005 % eye drops 2023-02 00:00: 00 Yes [id number] 1 drops DAILY 1 drops DAILY (route: ophthalmic (eye)) Med Classific ation: Ophthalmi c Agents levothyroxi ne 75 mcg capsule 2023-02 00:00: 00 Yes [id number] 1 capsule DAILY 1 capsule DAILY (route: oral) Med Classific ation: Endocrine metoprolol succinate ER 25 mg tablet,exte nded release 24 hr 2023-02 00:00: 00 03-05 23:59 :00 No [id number] 1 tablet DAILY 1 tablet DAILY (route: oral) Med Classific ation: Cardiovas cular Therapy Agents Plavix 75 mg tablet 2023-02 00:00: 00 03-05 23:59 :00 No [id number] 1 tablet DAILY 1 tablet DAILY (route: oral) Med Classific ation: Hematolog ical Agents Tresiba FlexTouch U-100 insulin 100 unit/mL (3 mL) subcutaneou s pen 2023-02 00:00: 00 03-12 23:59 :00 No [id number] 20 unit DAILY 20 unit DAILY (route: subcutaneo us) Med Classific ation: Endocrine Vitamin C 500 mg chewable tablet 2023-02 00:00: 00 Yes [id number] 1 tablet DAILY 1 tablet DAILY (route: oral) Med Classific ation: Electroly te Balance-N utritiona l Products Vitamin D3 50 mcg (2,000 unit) capsule 2023-02 00:00: 00 Yes [id number] 1 capsule DAILY 1 capsule DAILY (route: oral) Med Classific ation: Electroly te Balance-N utritiona l Products carvedilol 3.125 mg tablet 03-05 00:00: 00 Yes [id number] 1 tablet 2 TIMES DAILY 1 tablet 2 TIMES DAILY (route: oral) Med Classific ation: Cardiovas cular Therapy Agents Tresiba FlexTouch U-100 insulin 100 unit/mL (3 mL) subcutaneou s pen 03-12 00:00: 00 Yes [id number] 10 unit DAILY 10 unit DAILY (route: subcutaneo us) Med Classific ation: Endocrine Immunizations Ordered Immunization Name Filled Immunization Name Date Status Comments Refusal Reason COVID-19, COVID-19 2024-02-06 00:00:00 Vital Signs Vital Name Observation Time Observation Value Commen ts Temperature 2024-03-26 09:20:00.000 97.8 [degF] Temperature 2024-03-18 10:15:00.000 98.8 [degF] Temperature 2024-03-12 10:52:00.000 97.8 [degF] Temperature 2024-03-10 12:38:00.000 97.6 [degF] Temperature 2024-03-05 16:36:00.000 98.1 [degF] Temperature 2024-02-27 12:43:00.000 97.6 [degF] Temperature 2024-02-26 14:55:00.000 98.1 [degF] Temperature 2024-02-25 12:33:00.000 97.6 [degF] Temperature 2024-02-21 10:47:00.000 97.9 [degF] Temperature 2024-02-20 11:43:00.000 97.6 [degF] Temperature 2024-02-14 10:16:00.000 97.4 [degF] Temperature 2024-02-11 10:19:00.000 97.6 [degF] Temperature 2024-02-06 12:59:00.000 97.9 [degF] Temperature 2024-02-06 11:20:00.000 97.8 [degF] BMI (%) 2024-02-06 11:20:00.000 25 kg/m2 Height 2024-02-06 11:20:00.000 63 [in_us] Pulse 2024-03-26 09:20:00.000 70 /min Pulse 2024-03-18 10:15:00.000 83 /min Pulse 2024-03-12 10:52:00.000 72 /min Pulse 2024-03-10 12:38:00.000 75 /min Pulse 2024-03-05 16:36:00.000 70 /min Pulse 2024-02-27 12:43:00.000 71 /min Pulse 2024-02-26 14:55:00.000 72 /min Pulse 2024-02-25 12:33:00.000 74 /min Pulse 2024-02-21 10:47:00.000 70 /min Pulse 2024-02-20 11:43:00.000 68 /min Pulse 2024-02-14 10:16:00.000 68 /min Pulse 2024-02-11 10:19:00.000 64 /min Pulse 2024-02-06 12:59:00.000 68 /min Pulse 2024-02-06 11:20:00.000 66 /min O2 Saturation (%) 2024-03-26 09:21:00.000 97 % O2 Saturation (%) 2024-03-18 10:15:00.000 97 % O2 Saturation (%) 2024-03-10 12:38:00.000 98 % O2 Saturation (%) 2024-03-05 16:36:00.000 99 % O2 Saturation (%) 2024-02-27 12:43:00.000 98 % O2 Saturation (%) 2024-02-26 14:55:00.000 99 % O2 Saturation (%) 2024-02-25 12:33:00.000 98 % O2 Saturation (%) 2024-02-21 10:48:00.000 97 % O2 Saturation (%) 2024-02-20 11:43:00.000 98 % O2 Saturation (%) 2024-02-14 10:17:00.000 96 % O2 Saturation (%) 2024-02-11 10:19:00.000 98 % O2 Saturation (%) 2024-02-06 12:59:00.000 98 % Respirations 2024-03-26 09:20:00.000 18 /min Respirations 2024-03-18 10:15:00.000 18 /min Respirations 2024-03-12 10:52:00.000 18 /min Respirations 2024-03-10 12:38:00.000 16 /min Respirations 2024-03-05 16:36:00.000 18 /min Respirations 2024-02-27 12:43:00.000 16 /min Respirations 2024-02-26 14:55:00.000 18 /min Respirations 2024-02-25 12:33:00.000 16 /min Respirations 2024-02-21 10:47:00.000 18 /min Respirations 2024-02-20 11:43:00.000 16 /min Respirations 2024-02-14 10:16:00.000 18 /min Respirations 2024-02-11 10:19:00.000 17 /min Respirations 2024-02-06 12:59:00.000 17 /min Respirations 2024-02-06 11:20:00.000 18 /min Weight (lbs) 2024-03-05 16:39:00.000 141.8 [lb_av] Weight (lbs) 2024-02-27 12:44:00.000 144 [lb_av] Weight (lbs) 2024-02-26 14:55:00.000 144 [lb_av] Weight (lbs) 2024-02-25 12:33:00.000 147 [lb_av] Weight (lbs) 2024-02-21 10:48:00.000 143 [lb_av] Weight (lbs) 2024-02-14 10:17:00.000 143 [lb_av] Weight (lbs) 2024-02-11 10:40:00.000 146.2 [lb_av] Weight (lbs) 2024-02-06 11:20:00.000 144 [lb_av] Systolic Blood Pressure 2024-03-26 09:20:00.000 140 mm [Hg] Systolic Blood Pressure 2024-03-18 10:15:00.000 160 mm [Hg] Systolic Blood Pressure 2024-03-12 10:52:00.000 144 mm [Hg] Systolic Blood Pressure 2024-03-10 12:38:00.000 152 mm [Hg] Systolic Blood Pressure 2024-03-05 16:36:00.000 128 mm [Hg] Systolic Blood Pressure 2024-02-27 12:43:00.000 148 mm [...] 11:20:00.000 138 mm [Hg] Diastolic Blood Pressure 2024-03-26 09:20:00.000 78 mm [Hg] Diastolic Blood Pressure 2024-03-18 10:15:00.000 68 mm [Hg] Diastolic Blood Pressure 2024-03-12 10:52:00.000 80 mm [Hg] Diastolic Blood Pressure 2024-03-10 12:38:00.000 64 mm [Hg] Diastolic Blood Pressure 2024-03-05 16:36:00.000 60 mm [Hg] Diastolic Blood Pressure 2024-02-27 12:43:00.000 [...] MAINTAIN SITUATIONAL AWARENESS AND WILL NOTIFY CLINICAL CLAM BED WORKER AND PHYSICIAN/PROVIDER WITH ANY CHANGE IN CONDITION. [code = SKILLED NURSE TO PERFORM ENVIRONMENTAL SAFETY RISK ASSESSMENT AND FALL RISK ASSESSMENT AND PROVIDE INSTRUCTION TO IMPLEMENT ENVIRONMENTAL SAFETY AND FALL PREVENTION STRATEGIES THROUGHOUT THE CERTIFICATION PERIOD. SKILLED NURSE WILL MAINTAIN SITUATIONAL AWARENESS AND WILL NOTIFY CLINICAL CLAM BED WORKER AND PHYSICIAN/PROVIDER WITH ANY CHANGE IN CONDITION.] [...] AWARENESS FOR SAFETY AND WILL NOTIFY CLINICAL CLAM BED WORKER AND PHYSICIAN/PROVIDER WITH ANY CHANGE IN CONDITION. [...] AWARENESS FOR SAFETY AND WILL NOTIFY CLINICAL CLAM BED WORKER AND PHYSICIAN/PROVIDER WITH ANY CHANGE IN CONDITION.] [...] AND INJURY INCLUDING PARTICIPATION IN [facility] BALANCE SPECIALTY PROGRAM SUMMARY OF THERAPY [...] SAME FLOOR WITH A LOWER LEVEL FOR [employer] PT WAS AMB WITH NO DEVICE IN [...] AND REPOSITIONING. TUG SCORE AND 30 SECOND [id number]-[id number] INDICATE THAT PATIENT IS A FALL RISK. [...] AND INJURY INCLUDING PARTICIPATION IN [facility] BALANCE SPECIALTY PROGRAM SUMMARY OF THERAPY [...] SAME FLOOR WITH A LOWER LEVEL FOR [employer] PT WAS AMB WITH NO DEVICE IN [...] AND REPOSITIONING. TUG SCORE AND 30 SECOND MBO-WP-[id number] INDICATE THAT PATIENT IS A FALL RISK. [...] ULCERS, PAIN, AND DISEASE MANAGEMENT. ] Goal 2024-03-26 Patient Goal - TO NOT FALL Goal Provider Goal - A PLAN OF CARE WILL BE ESTABLISHED THAT MEETS PATIENT'S [facility] NEEDS AND INCLUDES PATIENT GOAL FOR HOME [...] CHANGES OR COMPLICATIONS THROUGHOUT THE CERTIFICATION PERIOD. Reason for Visit INDEPENDENT IN THE HOME Encounters Start Date/Time End Date/Time Encounter Type Admission Type Attending [facility] Department Encounter ID Discharge Date Discharge Status Discharge Condition Discharge Reason Percent Goals Met 2024-02-06 00:00:00 2024-03-26 00:00:00 Outpatient DANIEL LOREDO [facility] [id number] 2024-03-26 00:00:00 DISCHARGE TO HOME OR SELF CARE INDEPENDEN T IN THE HOME GOALS MET ( ONLY) 94.55
--- OUTSIDE RECORDS SUMMARY | 2024-04-09 15:59 | XMS_ITS | Encounter Summary ---
Author Organization [facility] Address [address] [place] [address] Care Team Providers Care Missile Facilities Repairer Name Role Phone Orquidea Keller MD Primary Care Provider [phone] Encounter Details Date Type Department Care Team (Late st Contact Info) Description 01/08/2024 Lab Requisition [facility] Lab [address] [facility] [address] Salvatore Jenkins MD [address] [place], [place] [id number] Type 2 diabetes mellitus without complications (CMS/HCC); Iron deficiency anemia, unspecified; Paroxysmal atrial fibrillation (CMS/HCC); Chronic systolic (congestive) heart failure (CMS/HCC) Social History Tobacco Use Types Packs/Day Years Used Date Smoking Tobacco: Former Smokeless Tobacco: Never Alcohol Use Standard Drinks/Week Comments Not Currently 0 (1 standard drink = 0.6 oz pur e alcohol) Comments Unknown Sex and Gender Information Value Date Recorded Sex Assigned at Not on file Legal Sex Female 12:10 PM EST Gender Identity Not on file Sexual Orientation [...] mg/dL LAB CHEMISTRY METHOD 01/08/2024 1:04 PM [facility] Blood Venous blood specimen / Unknown Venipuncture / Unknown 01/08/2024 6:24 AM EST 01/08/2024 9:05 AM EST Salvatore Jenkins MD LAB BLOOD ORDERABLES Final Result [facility] [address] [place] [address], * (ABNORMAL) Comprehensive metabolic panel (01/08/2024 6:24 AM EST) Pathologist [facility] Sodium 134 133 - 145 mmol/L LAB CHEMISTRY METHOD 01/08/2024 10:52 AM EST [facility] Potassium 4.9 3.5 - 5.5 mmol/L LAB CHEMISTRY METHOD 01/08/2024 10:52 AM EST [facility] Chloride 102 96 - 110 mmol/L LAB CHEMISTRY METHOD 01/08/2024 10:52 AM EST [facility] CO2 22 21 - 32 mmol/L LAB CHEMISTRY METHOD 01/08/2024 10:52 AM [facility] Anion Gap 10 3 - 11 LAB CHEMISTRY METHOD 01/08/2024 10:52 AM [facility] Glucose 134(H) 70 - 100 mg/dL LAB CHEMISTRY METHOD 01/08/2024 10:52 AM [facility] BUN 39(H) 5 - 25 mg/dL LAB CHEMISTRY METHOD 01/08/2024 10:52 AM [facility] Creatinine 1.52(H) 0.50 - 1.10 mg/dL LAB CHEMISTRY METHOD 01/08/2024 10:52 AM [facility] eGFR 33(L) >=60 mL/min/1. 73m2 LAB CHEMISTRY METHOD 01/08/2024 10:52 AM [facility] Comment:Calculation based on the??Chronic Kidney Disease Epidemiology Collaboration (CKD-EPI) equation refit??without adjustment for race. BUN/Creatinine Ratio 25.7 LAB CHEMISTRY METHOD 01/08/2024 10:52 AM [facility] Calcium 8.6 8.5 - 10.5 mg/dL LAB CHEMISTRY METHOD 01/08/2024 10:52 AM [facility] AST (SGOT) 23 10 - 42 unit/L LAB CHEMISTRY METHOD 01/08/2024 10:52 AM [facility] ALT (SGPT) 17 10 - 60 unit/L LAB CHEMISTRY METHOD 01/08/2024 10:52 AM [facility] Alkaline Phosphatase 99 42 - 121 unit/L LAB CHEMISTRY METHOD 01/08/2024 10:52 AM [facility] Total Protein 5.2(L) 6.0 - 8.0 g/dL LAB CHEMISTRY METHOD 01/08/2024 10:52 AM [facility] Albumin 2.5(L) 3.2 - 5.0 g/dL LAB CHEMISTRY METHOD 01/08/2024 10:52 AM [facility] Total Bilirubin 0.6 0.0 - 1.4 mg/dL LAB CHEMISTRY METHOD 01/08/2024 10:52 AM [facility] Blood Venous blood specimen / Unknown Venipuncture / Unknown 01/08/2024 6:24 AM EST 01/08/2024 9:05 AM EST Salvatore Jenkins MD LAB BLOOD ORDERABLES Final Result [facility] [address] [place] [address], [place] [phone] * (ABNORMAL) Complete blood count (01/08/2024 6:24 AM EST) [facility] WBC 9.4 4.8 - 10.8 K/mcL LAB HEMETOLOGY METHOD 01/08/2024 10:12 AM [facility] RBC 2.50(L) 3.80 - 4.80 M/mcL LAB HEMETOLOGY METHOD 01/08/2024 10:12 AM [facility] Hemoglobin 8.0(L) 11.5 - 16.0 g/dL LAB HEMETOLOGY METHOD 01/08/2024 10:12 AM [facility] Hematocrit 24.8(L) 35.0 - 47.0 % LAB HEMETOLOGY METHOD 01/08/2024 10:12 AM [facility] MCV 101.2(H) 79.0 - 98.0 FL LAB HEMETOLOGY METHOD 01/08/2024 10:12 AM [facility] MCH 32.7(H) 27.0 - 32.0 pcg LAB HEMETOLOGY METHOD 01/08/2024 10:12 AM [facility] MCHC 32.3 32.0 - 37.0 g/dL LAB HEMETOLOGY METHOD 01/08/2024 10:12 AM [facility] RDW 13.8 11.0 - 15.0 % LAB HEMETOLOGY METHOD 01/08/2024 10:12 AM [facility] Platelets 251 130 - 400 K/mcL LAB HEMETOLOGY METHOD 01/08/2024 10:12 AM EST [facility] MPV 10.9 7.0 - 11.0 [...] 6:24 AM EST 01/08/2024 9:05 AM EST us Salvatore Jenkins MD LAB BLOOD ORDERABLES Final Result [facility] [address] [place] [address], documented in this encounter Visit Diagnoses Diagnosis Type 2 diabetes mellitus without complications (CMS/HCC) Iron deficiency anemia, unspecified Paroxysmal atrial fibrillation (CMS/HCC) Atrial fibrillation Chronic systolic (congestive) heart failure (CMS/HCC) documented in this encounter Care Teams Missile Facilities Repairer Relationship Specialty Start Date End Date Orquidea Keller MD [address] [facility] [place] [address] PCP - General 01/07/23 documented as of this encounter
--- OUTSIDE RECORDS SUMMARY | 2024-04-09 15:59 | XMS_ITS | Data Portability ---
Author Organization [place] - [facility], Allergy Address [address] [place] [address] Care Team Providers Care Bootmaker Name Role Phone BE SAHNI Primary Care Provider [phone] Assessment Encounter Date Assessment Date Assessment LastModified [...] audio gram No observ ation record ed. [email or web address] Not Available 09/19 15:12:40 12/16/19 audio gram No observ ation record ed. [email or web address] Not Available 11/19 15:12:52 Result Notes None recorded. Problems Name Problem SNOMED Code Status Onset Date Resolution Date Notes Provider Name and Address Organization Details Recorded Time Sensorine ural hearing loss of bilateral ears 897962829 Active 2018 Sensorine ural hearing loss, bilateral ; Note: Date Diagnosed : 08/12/2018 1:56 PM (H90.3) Not Available [facility] 4 03:11:58 Bilateral tinnitus 82793044633 02 Active 2018 Tinnitus, bilateral ; Note: Date Diagnosed : 08/12/2018 1:56 PM (H93.13) Not Available [facility] 4 03:11:57 Otalgia of right ear 8585017744 Active 2018 Otalgia, right ear; Note: Date Diagnosed : 03/12/2018 2:36 PM (H92.01) Not Available [facility] 4 03:11:57 Impacted cerumen in right ear 20664121900 36512 Active 2022 Impacted cerumen, right ear; Note: Date Diagnosed : 07/04/2022 1:17 PM (H61.21) Not Available [facility] 4 03:11:57 Bilateral disorder of Eustachia n tubes 81179452438 40661 Active 2023 DUKE NAVARRETE [address] [place] [address], [place], [address] , [facility] - [facility] [place] 4 13:39:50 Acute serous otitis media of right ear 71370810312 82768 Active 2023 YADIRA JORDAN MD [address] [place] [address], [place], [address] , [facility] - [facility] 4 13:59:45 Problem Notes None recorded. Procedures Surgical History Date Name Laterality Status Provider Name and Address Organization Details Recorded Time 10/28/20 24 Tympanometry (03329) completed MARTIN ARNETT, AUD 100 [facility], [place], [address], [facility] 12/16/2023 13:08:04 10/16/19 24 Air & Speech Audio with Tymps (19163, 43144 & 16661) completed ROBIN RODRIGUEZ, AUD 100 [facility], [place], [address], [facility] 10/16/2023 13:43:04 Imaging Results Imaging Date Name Status LastModified by [facility] Details LastModified Time 07/04/2022 imaging/diagno stic result [...] ot available 10/16/2023 15:12:40 12/16/2023 audiogram completed [email or web address] Information n ot available 12/16/2023 15:12:52 Procedure Notes None recorded. Medical Equipment None Reported. Allergies Allergen ID Allergen Name Allergen Category Reaction Reaction Severity Criticality Documentation Date Start Date Code Code System Note Provider Name and Address Organization Details Recorded Time 32064 Substance with sulfonami de structure and antibacte rial mechanism of action (substanc e) medicatio n other Not available Not available 07/02/2023 [id number] 8298 SNOMED React ion: unkno wn, unspe cifie [...] TAKE 1 TABLET BY MOUTH EVERY DAY [id number] active Not Available Not Available Not Available [...] Not Available No t Available [facility] spacer USE WITH INHALER active Not Available [...] Updated DateTime 10/16/2023 160.02 cm 26 kg/m2 40268.08 g Ghada Peters [facility] 10/16/2023 13:54:00 Date Recorded Body height Body mass index (BMI) Body weight Provider Name and Address Organization Details Last Updated DateTime 12/16/2023 160.02 cm 26 kg/m2 50956.08 g Raina Gallego [facility] 12/16/2023 12:58:48 Social History None recorded. Functional Status None recorded. Mental Status None recorded. Family History Nothing Reported. Medical History No medical history recorded. Gynecological HistoryNo gynecological history recorded. Obstetrics History GPAL:G 0 P 0 0 0 0 Past Encounters Encounter ID Performer Location Encounter Start Date Encounter Closed Date Diagnosis/Indication Diagnosis SNOMED-CT Code Diagnosis ICD10 Code Diagnosis Note [id number] YADIRA JORDAN MD [facility] [address] [address] 10/16/2023 13:00:57 10/16/2023 14:01:35 Acute serous otitis media of right ear 5133510348 690804 H65.01 Likely due to a URI. Will reevaluate in 6 weeks and I will expect it will resolve. Hearing is stable. [id number] DUKE NAVARRETE [facility] [address] [address] 10/16/2023 13:39:08 10/16/2023 16:44:20 Sensorineural hearing loss of bilateral ears 338928865 H90.3 Right Ear:Mild to severe SNHL with excellent speech discrimina tion.Type B tympanogra m.Left Ear:Normal hearing through 1K Hz sloping to a severe SNHL with excellent speech discrimina tion.Type As tympanogra m. Bilateral disorder of Eustachian tubes 7188309609 503450 H69.93 [id number] SILVIO SILVERIO MD [facility] [address] [address] 12/16/2023 12:50:25 12/16/2023 13:30:32 Bilateral disorder of Eustachian tubes 9017071104 961278 H69.93 Acute sero us otitis media of right ear 5897364230 054434 H65.01 [id number] DUKE LOVE [facility] [address] [address] 12/16/2023 13:07:22 12/16/2023 14:57:24 Sensorineural hearing loss of bilateral ears 313259219 H90.3 Tympanomet ry:Right: Type {{A B* B [...] ID Guarantor Name 10/16/2023 1 MEDICARE B-ME: AOL SERVICES Beverly Marie [id number] Beverly Marie 10/16/2023 2 [place] [id number] Beverly Marie [id number] Beverly Marie 10/16/2023 1 MEDICARE B-ME: NATIONAL GOVERNMENT SERVICES Beverly Marie [id number] Beverly Marie 10/16/2023 2 [place] [id number] Beverly Marie [id number] Beverly Marie 12/16/2023 1 MEDICARE B-ME: NATIONAL GOVERNMENT SERVICES Beverly Marie [id number] Beverly Marie 12/16/2023 2 [place] [id number] Beverly Marie [id number] 21 Beverly Marie 12/16/2023 1 MEDICARE B-ME: NATIONAL GOVERNMENT SERVICES Beverly Marie [id number] Beverly Marie 12/16/2023 2 [place] [id number] Beverly Marie [id number] Beverly Marie Notes Date Note Type Note Provider Name and Address Organization Details Recorded Time 10/16/2023 text/html He of slightly asymmetric HL. Right ear has felt blocked for two days. She also has a cough. Hx of [place] and afib since last visit. YADIRA JORDAN MD [address] [place] [address], [address], [facility] - [facility] 10/16/2023 14:00:41 12/16/2023 text/html 83-year-old fema [...] some seasonal allergies. SILVIO RODRIGUEZ MD 100 [facility],[address], [address], [facility] - [facility] 12/16/2023 16:30:44 12/16/2023 text/html ELEAZAR Bishop, requested tympanometry. MARTIN ARNETT, [facility] [address] [facility],[place] [address], [place], [address], [facility] - [facility] 12/16/2023 13:09:48 OBGyn Episode No OBEpisode recorded.
--- OUTSIDE RECORDS SUMMARY | 2024-04-09 15:59 | XMS_ITS | Clinical Summary ---
Author Organization Unknown Care Team Providers Care Student Development Advisor Name Role Phone KAITLYN RAJAN, BE Unavailable Unavailable ADALGISA RN, DANIEL Unavailable Unavailable SUSY PT, LEV Unavailable Unavailable ROSE FISCHERN, FORREST Unavailable Unavailable Payers Payer Name Policy Type Policy Number Effective Date Expira tion Date MEDICARE - [place] PDGM [id number] Problems Condition Name Condition Details Condition Category [...] CHRONIC KIDNEY DISEASE Active 02-18 00:00: 00 LONG-TERM (CURRENT) USE OF INSULIN Active 02-18 00:00: 00 PAROXYSMAL ATRIAL FIBRILLATION Active 02-18 00:00: 00 HYPOTHYROIDI SM, UNSPECIFIED Active 02-18 00:00: 00 ISCHEMIC CARDIOMYOPAT HY Active 02-18 00:00: 00 ATHSCL HEART DISEASE OF [place] CORONARY ARTERY W/O ANG PCTRS Active 02-18 00:00: 00 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 02-18 00:00: 00 LONG-TERM (CURRENT) USE OF ANTICOAGULAN TS Active 02-18 00:00: 00 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 (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) USE OF ANTITHROMBOT ICS/ANTIPLAT ELETS Active [...] 09-06 00:00: 00 03-13 23:59 :00 No [id number] 1 tablet BEDTIME 1 tablet BEDTIME (route: oral) Med Classific ation: Gout and Hyperuric emia Therapy Aspirin Low Dose 81 mg tablet,av yed release 09-06 00:00: 00 03-13 23:59 :00 No [id number] 1 tablet DAILY 1 tablet DAILY (route: oral) Med Classific ation: Hematolog ical Agents benzonatate 100 mg capsule 09-06 00:00: 00 03-13 23:59 :00 No [id number] 100 mg NEEDED 100 mg NEEDED (route: oral) Med Classific ation: Respirato ry Therapy Agents buspirone 10 mg tablet 09-06 00:00: 00 03-13 23:59 :00 No [id number] 1 tablet BEDTIME 1 tablet BEDTIME (route: oral) Med Classific ation: Central Nervous System Agents furosemide 20 mg tablet 09-06 00:00: 00 03-13 23:59 :00 No [id number] 1 tablet DIRECTED 1 tablet DIRECTED (route: oral) Med Classific ation: Cardiovas cular Therapy Agents levothyroxi ne 50 mcg capsule 09-06 00:00: 00 03-13 23:59 :00 No [id number] 1 capsule DAILY 1 capsule DAILY (route: oral) Med Classific ation: Endocrine metoprolol tartrate 25 mg tablet 09-06 00:00: 00 03-13 23:59 :00 No [id number] 1 tablet DAILY 1 tablet DAILY (route: oral) Med Classific ation: Cardiovas cular Therapy Agents omeprazole 20 mg tablet,av yed release 09-06 00:00: 00 03-13 23:59 :00 No [id number] 1 tablet DAILY 1 tablet DAILY (route: oral) Med Classific ation: Gastroint estinal Therapy Agents One-A-Day Essential tablet 09-06 00:00: 00 03-13 23:59 :00 No [id number] 1 tablet DAILY 1 tablet DAILY (route: oral) Med Classific ation: Electroly te Balance-N utritiona l Products oxycodone 5 mg tablet 09-06 00:00: 00 03-13 23:59 :00 No [id number] 1 tablet NEEDED 1 tablet NEEDED (route: oral) Med Classific ation: Analgesic , Anti-infl ammatory or Antipyret ic prednisone 10 mg tablet 08-29 00:00: 00 03-13 23:59 :00 No [id number] 10 mg DIRECTED 10 mg DIRECTED (route: oral) Med Classific ation: Endocrine simvastatin 20 mg tablet 09-06 00:00: 00 03-13 23:59 :00 No [id number] 1 tablet DAILY 1 tablet DAILY (route: oral) Med Classific ation: Cardiovas cular Therapy Agents tramadol 50 mg tablet 09-06 00:00: 00 03-13 23:59 :00 No [id number] 1 tablet NEEDED 1 tablet NEEDED (route: oral) Med Classific ation: Analgesic , Anti-infl ammatory or Antipyret ic triamterene 37.5 mg-hydrochl orothiazide 25 mg tablet 09-06 00:00: 00 03-13 23:59 :00 No [id number] .5 tablet DAILY .5 tablet DAILY (route: oral) Med Classific ation: Cardiovas cular Therapy Agents Tylenol PM Extra Strength 25 mg-500 mg tablet 09-06 00:00: 00 03-13 23:59 :00 No [id number] 1 tablet BEDTIME 1 tablet BEDTIME (route: oral) Med Classific ation: Analgesic , Anti-infl ammatory or Antipyret ic Novolin R Flexpen 100 unit/mL (3 mL) subcutaneou s insulin pen 09-06 00:00: 00 03-13 23:59 :00 No [id number] 1 In unit DIRECTED 1 In unit DIRECTED (route: subcutaneo us) Med Classific ation: Endocrine Tresiba FlexTouch U-200 insulin 200 unit/mL (3 mL) subcutaneou s pen 09-06 00:00: 00 03-13 23:59 :00 No [id number] 50 unit DAILY 50 unit DAILY (route: subcutaneo us) Med Classific ation: Endocrine lidocaine 5 % topical ointment 2020-02 00:00: 00 01-22 23:59 :00 No [id number] Per instruc tions NEEDED Per instructio ns NEEDED (route: topical) Med Classific ation: Dermatolo gical latanoprost 0.005 % eye drops 2020-02 00:00: 00 01-22 23:59 :00 No [id number] 1 drops BEDTIME 1 drops BEDTIME (route: ophthalmic (eye)) Med Classific ation: Ophthalmi c Agents furosemide 20 mg tablet 03-13 00:00: 00 01-22 23:59 :00 No [id number] 1 tablet 3 TIMES A WEEK 1 tablet 3 TIMES A WEEK (route: oral) Med Classific ation: Cardiovas cular Therapy Agents tramadol 50 mg tablet 2020-02 00:00: 00 01-22 23:59 :00 No [id number] 1 tablet NEEDED 1 tablet NEEDED (route: oral) Med Classific ation: Analgesic , Anti-infl ammatory or Antipyret ic simvastatin 40 mg tablet 2020-02 00:00: 00 01-22 23:59 :00 No [id number] 1 tablet DAILY 1 tablet DAILY (route: oral) Med Classific ation: Cardiovas cular Therapy Agents allopurinol 100 mg tablet 03-13 00:00: 00 01-22 23:59 :00 No [id number] 1 tablet DAILY 1 tablet DAILY (route: oral) Med Classific ation: Gout and Hyperuric emia Therapy triamterene 37.5 mg-hydrochl orothiazide 25 mg tablet 2020-02 00:00: 00 01-22 23:59 :00 No [id number] .5 tablet DAILY .5 tablet DAILY (route: oral) Med Classific ation: Cardiovas cular Therapy Agents metoprolol succinate ER 25 mg tablet,exte nded release 24 hr 2020-02 00:00: 00 01-22 23:59 :00 No [id number] 2 tablet DAILY 2 tablet DAILY (route: oral) Med Classific ation: Cardiovas cular Therapy Agents buspirone 10 mg tablet 2020-02 00:00: 00 01-22 23:59 :00 No [id number] 1 tablet BEDTIME 1 tablet BEDTIME (route: oral) Med Classific ation: Central Nervous System Agents levothyroxi ne 75 mcg tablet 2020-02 00:00: 00 01-22 23:59 :00 No [id number] 1 tablet DAILY 1 tablet DAILY (route: oral) Med Classific ation: Endocrine Tresiba FlexTouch U-200 insulin 200 unit/mL (3 mL) [facility] pen 2020-02 00:00: 00 01-22 23:59 :00 No [id number] 50 unit DAILY 50 unit DAILY (route: subcutaneo ) Med Classific ation: Endocrine Aspirin Low Dose 81 mg tablet,av yed release 02-18 00:00: 00 01-22 23:59 :00 No [id number] 1 tablet 3 TIMES A WEEK 1 tablet 3 TIMES A WEEK (route: oral) Med Classific ation: Hematolog ical Agents Novolog Flexpen U-100 Insulin aspart 100 unit/mL (3 mL) subcutane s 02-18 00:00: 00 01-22 23:59 :00 No [id number] Per instruc tions DIRECTED Per instructio ns DIRECTED (route: subcutaneo us) Med Classific ation: Endocrine omeprazole 20 mg tablet,av yed release 02-18 00:00: 00 01-22 23:59 :00 No [id number] 1 tablet DAILY 1 tablet DAILY (route: oral) Med Classific ation: Gastroint estinal Therapy Agents One-A-Day Essential tablet 02-18 00:00: 00 01-22 23:59 :00 No [id number] 1 tablet 3 TIMES A WEEK 1 tablet 3 TIMES A WEEK (route: oral) Med Classific ation: Electroly te Balance-N utritiona l Products Tylenol PM Extra Strength 25 mg-500 mg tablet 02-18 00:00: 00 01-22 23:59 :00 No [id number] 1 tablet BEDTIME 1 tablet BEDTIME (route: oral) Med Classific ation: Analgesic , Anti-infl ammatory or Antipyret ic allopurinol 100 mg tablet 2023-02 00:00: 00 Yes [id number] 1 tablet DAILY 1 tablet DAILY (route: oral) Med Classific ation: Gout and Hyperuric emia Therapy amiodarone 100 mg tablet 2023-02 00:00: 00 Yes [id number] 1 tablet DAILY 1 tablet DAILY (route: oral) Med Classific ation: Cardiovas cular Therapy Agents amlodipine 2.5 mg tablet 2023-02 00:00: 00 Yes [id number] 1 tablet DAILY 1 tablet DAILY (route: oral) Med Classific ation: Cardiovas cular Therapy Agents atorvastati n 80 mg tablet 2023-02 00:00: 00 Yes [id number] 1 tablet BEDTIME 1 tablet BEDTIME (route: oral) Med Classific ation: Cardiovas cular Therapy Agents buspirone 10 mg tablet 2023-02 00:00: 00 Yes [id number] 4 tablet DAILY 4 tablet DAILY (route: oral) Med Classific ation: Central Nervous System Agents Eliquis 2.5 mg tablet 2023-02 00:00: 00 Yes [id number] 1 tablet 2 TIMES DAILY 1 tablet 2 TIMES DAILY (route: oral) Med Classific ation: Hematolog ical Agents Entresto 24 mg-26 mg tablet 2023-02 00:00: 00 Yes [id number] 1 tablet DAILY 1 tablet DAILY (route: oral) Med Classific ation: Cardiovas cular Therapy Agents famotidine 20 mg tablet 2023-02 00:00: 00 Yes [id number] 1 tablet DAILY 1 tablet DAILY (route: oral) Med Classific ation: Gastroint estinal Therapy Agents insulin lispro (U-100) 100 unit/mL subcutaneou s half-unit pen 2023-02 00:00: 00 Yes [id number] Per instruc tions 3 TIMES DAILY Per instructio ns 3 TIMES DAILY (route: subcutaneo us) Med Classific ation: Endocrine Iron (ferrous sulfate) 325 mg (65 mg iron) tablet 2023-02 00:00: 00 Yes [id number] 1 tablet DAILY 1 tablet DAILY (route: oral) Med Classific ation: Electroly te Balance-N utritiona l Products Lasix 40 mg tablet 2023-02 00:00: 00 Yes [id number] 1 tablet DAILY 1 tablet DAILY (route: oral) Med Classific ation: Cardiovas cular Therapy Agents latanoprost 0.005 % eye drops 2023-02 00:00: 00 Yes [id number] 1 drops DAILY 1 drops DAILY (route: ophthalmic (eye)) Med Classific ation: Ophthalmi c Agents levothyroxi ne 75 mcg capsule 2023-02 00:00: 00 Yes [id number] 1 capsule DAILY 1 capsule DAILY (route: oral) Med Classific ation: Endocrine metoprolol succinate ER 25 mg tablet,exte nded release 24 hr 2023-02 00:00: 00 03-05 23:59 :00 No [id number] 1 tablet DAILY 1 tablet DAILY (route: oral) Med Classific ation: Cardiovas cular Therapy Agents Plavix 75 mg tablet 2023-02 00:00: 00 03-05 23:59 :00 No [id number] 1 tablet DAILY 1 tablet DAILY (route: oral) Med Classific ation: Hematolog ical Agents Tresiba FlexTouch U-100 insulin 100 unit/mL (3 mL) subcutaneou s pen 2023-02 00:00: 00 03-12 23:59 :00 No [id number] 20 unit DAILY 20 unit DAILY (route: subcutaneo us) Med Classific ation: Endocrine Vitamin C 500 mg chewable tablet 2023-02 00:00: 00 Yes [id number] 1 tablet DAILY 1 tablet DAILY (route: oral) Med Classific ation: Electroly te Balance-N utritiona l Products Vitamin D3 50 mcg (2,000 unit) capsule 2023-02 00:00: 00 Yes [id number] 1 capsule DAILY 1 capsule DAILY (route: oral) Med Classific ation: Electroly te Balance-N utritiona l Products carvedilol 3.125 mg tablet 03-05 00:00: 00 Yes [id number] 1 tablet 2 TIMES DAILY 1 tablet 2 TIMES DAILY (route: oral) Med Classific ation: Cardiovas cular Therapy Agents Tresiba FlexTouch U-100 insulin 100 unit/mL (3 mL) subcutaneou s pen 03-12 00:00: 00 Yes [id number] 10 unit DAILY 10 unit DAILY (route: [...] MAINTAIN SITUATIONAL AWARENESS AND WILL NOTIFY CLINICAL CREW TRAINER AND PHYSICIAN/PROVIDER WITH ANY CHANGE IN CONDITION. [code = SKILLED NURSE TO PERFORM ENVIRONMENTAL SAFETY RISK ASSESSMENT AND FALL RISK ASSESSMENT AND PROVIDE INSTRUCTION TO IMPLEMENT ENVIRONMENTAL SAFETY AND FALL PREVENTION STRATEGIES THROUGHOUT THE CERTIFICATION PERIOD. SKILLED NURSE WILL MAINTAIN SITUATIONAL AWARENESS AND WILL NOTIFY CLINICAL CREW TRAINER AND PHYSICIAN/PROVIDER WITH ANY CHANGE IN CONDITION.] [...] AWARENESS FOR SAFETY AND WILL NOTIFY CLINICAL CREW TRAINER AND PHYSICIAN/PROVIDER WITH ANY CHANGE IN CONDITION. [...] AWARENESS FOR SAFETY AND WILL NOTIFY CLINICAL CREW TRAINER AND PHYSICIAN/PROVIDER WITH ANY CHANGE IN CONDITION.] [...] FOR FALL AND INJURY INCLUDING PARTICIPATION IN [facility] PROGRAM SUMMARY OF THERAPY [...] SAME FLOOR WITH A LOWER LEVEL FOR [employer]. PT WAS AMB WITH NO DEVICE IN [...] AND REPOSITIONING. TUG SCORE AND 30 SECOND [id number]-OVESN INDICATE THAT PATIENT IS A FALL RISK. [...] FOR FALL AND INJURY INCLUDING PARTICIPATION IN [facility] PRO[facility] SUMMARY OF THERAPY [...] SAME FLOOR WITH A LOWER LEVEL FOR [employer]. PT WAS AMB WITH NO DEVICE IN [...] AND REPOSITIONING. TUG SCORE AND 30 SECOND [id number] INDICATE THAT PATIENT IS A FALL RISK. [...] End Date/Time Encounter Type Admission Type Attending [facility] Department Encounter ID Discharge Date Discharge Status Discharge Condition Discharge Reason Percent Goals Met 2024-02-06 00:00:00 2024-03-26 00:00:00 Outpatient DANIEL LOREDO [facility] [id number] 2024-03-26 00:00:00 DISCHARGE TO HOME OR SELF CARE INDEPENDEN T IN THE HOME GOALS MET ( ONLY) 94.55
--- OUTSIDE RECORDS SUMMARY | 2024-04-09 15:59 | XMS_ITS | Encounter Summary ---
Author Organization [facility] Address [address] [place] [address] Care Team Providers Care Service Representative Name Role Phone Orquidea Keller MD Primary Care Provider [phone] Encounter Details Date Type Department Care Team (Late st Contact Info) Description 01/10/2024 Lab Requisition [facility] - Main Lab [address] [facility] [place] [address] Salvatore Jenkins MD [address] [place], [place] [id number] Paroxysmal atrial fibrillation (CMS/HCC); Chronic systolic (congestive) [...] mmol/L LAB CHEMISTRY METHOD 01/13/2024 12:38 PM [facility] Potassium 5.1 3.5 - 5.5 mmol/L LAB CHEMISTRY METHOD 01/13/2024 12:38 PM [facility] Chloride 102 96 - 110 mmol/L LAB CHEMISTRY METHOD 01/13/2024 12:38 PM [facility] CO2 26 21 - 32 mmol/L LAB CHEMISTRY METHOD 01/13/2024 12:38 PM [facility] Anion Gap 6 3 - 11 LAB CHEMISTRY METHOD 01/13/2024 12:38 PM [facility] Glucose 107(H) 70 - 100 mg/dL LAB CHEMISTRY METHOD 01/13/2024 12:38 PM [facility] BUN 38(H) 5 - 25 mg/dL LAB CHEMISTRY METHOD 01/13/2024 12:38 PM [facility] Creatinine 1.57(H) 0.50 - 1.10 mg/dL LAB CHEMISTRY METHOD 01/13/2024 12:38 PM [facility] eGFR 32(L) >=60 mL/min/1. 73m2 LAB CHEMISTRY METHOD 01/13/2024 12:38 PM [facility] Comment:Calculation based on the??Chronic Kidney Disease Epidemiology Collaboration (CKD-EPI) equation refit??without adjustment for race. BUN/Creatinine Ratio 24.2 LAB CHEMISTRY METHOD 01/13/2024 12:38 PM [facility] Calcium 8.6 8.5 - 10.5 mg/dL LAB CHEMISTRY METHOD 01/13/2024 12:38 PM [facility] Blood Venous blood specimen / Unknown Venipuncture / Unknown 01/13/2024 8:11 AM EST 01/13/2024 11:29 AM EST us Salvatore Jenkins MD LAB BLOOD ORDERABLES Final Result [facility] [address] [place] [address], * (ABNORMAL) Complete blood count (01/13/2024 8:11 AM EST) WBC 11.4(H) 4.8 - 10.8 K/mcL LAB HEMETOLOGY METHOD 01/13/2024 12:05 PM EST [facility] RBC 2.40(L) 3.80 - 4.80 M/mcL LAB HEMETOLOGY METHOD 01/13/2024 12:05 PM [facility] Hemoglobin 7.8(L) 11.5 - 16.0 g/dL LAB HEMETOLOGY METHOD 01/13/2024 12:05 PM [facility] Hematocrit 24.6(L) 35.0 - 47.0 % LAB HEMETOLOGY METHOD 01/13/2024 12:05 PM [facility] MCV 101.2(H) 79.0 - 98.0 FL LAB HEMETOLOGY METHOD 01/13/2024 12:05 PM [facility] MCH 32.1(H) 27.0 - 32.0 pcg LAB HEMETOLOGY METHOD 01/13/2024 12:05 PM [facility] MCHC 31.7(L) 32.0 - 37.0 g/dL LAB HEMETOLOGY METHOD 01/13/2024 12:05 PM [facility] RDW 13.4 11.0 - 15.0 % LAB HEMETOLOGY METHOD 01/13/2024 12:05 PM [facility] Platelets 506(H) 130 - 400 K/mcL LAB HEMETOLOGY METHOD 01/13/2024 12:05 PM [facility] MPV 10.0 7.0 - 11.0 FL LAB HEMETOLOGY METHOD 01/13/2024 12:05 PM [facility] NRBC 0.0 <1.0 % LAB HEMETOLOGY METHOD 01/13/2024 12:05 PM EST [facility] NRBC Absolute 0.00 <0.10 K/mcL LAB HEMETOLOGY METHOD 01/13/2024 12:05 PM EST [facility] Blood Venous blood specimen / Unknown Venipuncture / Unknown 01/13/2024 8:11 AM EST 01/13/2024 11:12 AM EST us Salvatore Jenkins MD LAB BLOOD ORDERABLES Final Result [facility] [address] [place] [address], documented in this encounter Visit Diagnoses Diagnosis Paroxysmal atrial fibrillation (CMS/HCC) Atrial fibrillation Chronic systolic (congestive) heart failure (CMS/HCC) documented in this encounter Care Teams Service Representative Relationship Specialty Start Date End Date Orquidea Keller MD [address] [place] [address] PCP - General 01/07/23 documented as of this encounter
--- OUTSIDE RECORDS SUMMARY | 2024-04-09 16:00 | XMS_ITS | Patient Health Record ---
Author Organization [facility] Address [address] [address] Support Name Relationship Address Phone KAYLEEN RENTERIA Guarantor Unknown [phone] Reason For Referral No Information Medications Medication SIG (Take, Route, Frequency, Duration) Notes Start Date End Date Status Diovan 40MG 1 ORAL daily for -3 [place] [facility] 02/05/2012 Active busPIRone HCl 10MG 1 ORAL twice daily f or -3 [facility]- 02/05/2012 Active Aspirin EC 81MG 1 ORAL daily for -3 [place] [facility] 02/05/2012 Active Allopurinol 100MG ORAL for -3 [place] [facility] 02/05/2012 Active Vitamin D3 1000 IU ORAL daily for -3 [place] [facility] 02/05/2012 Active Actos 45MG 1 ORAL daily for -3 [place] [facility] 02/05/2012 Active Triamterene-HCTZ 37.5/25MG 1 ORAL daily for -3 [place] [facility] Active Simvastatin 20MG 1 ORAL daily for -3 [place] [facility] 02/05/2012 Active PriLOSEC OTC 20MG 1 ORAL daily for -3 [place] [facility] 02/05/2012 Active Multivitamins 1 ORAL daily for -3 [place] [facility] [facility] 02/05/2012 Active Levothyroxine Sodium .05MG 1 ORAL daily for -3 [place] [facility] [facility] Active Januvia 100MG 1 ORAL daily for -3 [place] [facility] 02/05/2012 Active Glucovance 500/5MG 1 ORAL daily for - [facility]- 02/05/2012 Active Problems Problem Type SNOMED Code ICD Code Onset Dates Problem Status W/U Status Risk Notes Problem 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
--- OUTSIDE RECORDS SUMMARY | 2024-04-09 16:00 | XMS_ITS | Encounter Summary ---
Author Organization [facility] Address [address] [place] [address] Care Team Providers Care Criminal Records Technician Name Role Phone Orquidea Keller MD Primary Care Provider [phone] Encounter Details Date Type Department Care Team (Late st Contact Info) Description 02/09/2024 Lab Requisition [facility] - Main Lab [address] [facility] [place] [address] Salvatore Jenkins MD [address] [place], [place] [phone] Paroxysmal atrial fibrillation (CMS/HCC); Chronic systolic (congestive) [...] (CMS/HCC) documented in this encounter Care Teams Criminal Records Technician Relationship Specialty Start Date End Date Orquidea Keller MD [address] [place] [address] PCP - General 01/07/23 documented as of this encounter
--- OUTSIDE RECORDS SUMMARY | 2024-04-09 16:00 | XMS_ITS | Clinical Summary ---
Author Organization [address] [facility] Address [address] [place] [address] Phone Care Team Providers Care Fiberglass Quality Technician Name Role Phone Orquidea Keller MD Primary Care Provider [phone] Medications atorvastatin (LIPITOR) 80 mg tablet TAKE 1 TABLET BY MOUTH EVERY DAY 90 tablet 2 03/25/2024 Active clopidogreL (PLAVIX) 75 mg tablet TAKE 1 TABLET BY MOUTH EVERY DAY 90 tablet 2 03/25/2024 Active Encounters Date Type Department Care Team Description 02/09/2024 Lab Requisition [facility] Lab [address] [place] [phone] Salvatore Jenkins MD Paroxysmal atrial fibrillation ([facility]/HCC); Chronic systolic (congestive) heart failure ([facility]/HCC) 01/31/2024 Lab Requisition [facility] Lab [address] [place] [phone] Salvatore Jenkins MD Paroxysmal atrial fibrillation (CMS/HCC); Chronic systolic (congestive) heart failure (CMS/HCC) 01/31/2024 Telephone [facility] [address] [place] [phone] Jerson Campos MD 01/25/2024 Lab Requisition [facility] [address] [place] [phone] Salvatore Jenkins MD Paroxysmal atrial fibrillation (CMS/HCC); Chronic systolic (congestive) heart failure (CMS/HCC) 01/18/2024 Lab Requisition [facility] [address] [place] [address] Salvatore Jenkins MD Paroxysmal atrial fibrillation ([facility]/HCC); Chronic systolic (congestive) heart failure ([facility]/HCC) 01/10/2024 Lab Requisition [facility] Main Lab [address] [place] [address] Salvatore Jenkins MD Paroxysmal atrial fibrillation ([facility]/HCC); Chronic systolic (congestive) heart failure ([facility]/HCC) 01/08/2024 Lab Requisition [facility] [address] [place] [address] Salvatore Jenkins MD Type 2 diabetes mellitus without complications ([facility]/HCC); Iron deficiency anemia, unspecified; Paroxysmal atrial fibrillation ([facility]/HCC); Chronic systolic (congestive) heart failure ([facility]/HCC) from Last 3 Months Social History Tobacco [...] Health Maintenance Due Date Last Done Comments Diabetes: Annual Foot Exam 01/07/1950 Diabetes: Annual Retina Eye Exam 01/07/1950 DTaP,Tdap,and Td Vaccines (1 - Tdap) 1957 Pneumococcal Vaccine: 50+ Years (1 of 2 - PCV) 1957 Zoster Vaccines (1 of 2) 01/07/1988 RSV Immunization Patients 60+ Years Old (1 - 1-dose 75+ series) 2013 COVID-19 Vaccine ( season) 2023 Influenza Vaccine (#1) 2023 9, [...] patient's age to complete this topic Meningococcal B Vacine Aged Out No lo nger eligible based on patient's age to complete [...] of5 resultswithin the time period is included. [facility] WBC 7.1 4.8 - 10.8 K/mcL LAB [...] 8:36 AM EST 02/03/2024 11:48 AM EST us Salvatore Jenkins MD LAB BLOOD ORDERABLES Final Result [facility] [address] [place] [address], [place] [phone] * (ABNORMAL) Basic metabolic panel (02/03/2024 8:36 [...] 73m2 LAB CHEMISTRY METHOD 02/03/2024 4:56 PM EST [facility] Comment:Calculation based on the??Chronic Kidney Disease Epidemiology Collaboration (CKD-EPI) equation refit??without adjustment for race. BUN/Creatinine Ratio 24.8 LAB CHEMISTRY METHOD 02/03/2024 4:56 PM [facility] Calcium 9.1 8.5 - 10.5 mg/dL LAB CHEMISTRY METHOD 02/03/2024 4:56 PM [facility] Blood Venous blood specimen / Unknown Venipuncture / Unknown 02/03/2024 8:36 AM EST 02/03/2024 11:48 AM EST Salvatore Jenkins MD LAB BLOOD ORDERABLES Final Result Performing Organization Address City/[facility]/ZIP Co de Phone Number [facility] [address] [place] [address], [place] [phone] * Hemoglobin A1c (01/08/2024 6:24 AM EST) Hemoglobin A1C 6.4 <6.5 % LAB CHEMISTRY METHOD 01/08/2024 1:04 PM [facility] Mean Bld Glu Estim. 137 mg/dL LAB CHEMISTRY METHOD 01/08/2024 1:04 PM [facility] Blood Venous blood specimen / Unknown Venipuncture / Unknown 01/08/2024 6:24 AM EST 01/08/2024 9:05 AM EST Salvatore Jenkins MD LAB BLOOD ORDERABLES Final Result [facility] [address] [place] [address], [place] [phone] * (ABNORMAL) Comprehensive metabolic panel (01/08/2024 6:24 AM EST) Sodium 134 133 - 145 mmol/L LAB CHEMISTRY METHOD 01/08/2024 10:52 AM [facility] Potassium 4.9 3.5 - 5.5 mmol/L LAB CHEMISTRY METHOD 01/08/2024 10:52 AM [facility] Chloride 102 96 - 110 [...] LAB CHEMISTRY METHOD 01/08/2024 10:52 AM EST [facility] Albumin 2.5(L) 3.2 - 5.0 g/dL LAB CHEMISTRY METHOD 01/08/2024 10:52 AM EST [facility] Total Bilirubin 0.6 0.0 - 1.4 mg/dL LAB CHEMISTRY METHOD 01/08/2024 10:52 AM EST [facility] ([facility] Blood Venous blood specimen / Unknown Venipuncture / Unknown 01/08/2024 6:24 AM EST 01/08/2024 9:05 AM EST Salvatore Jenkins MD LAB BLOOD ORDERABLES Final Result [facility] ([facility]) [facility] [address] [place] [address], from Last 3 Months Insurance MEDICARE [facility] Care Teams Fiberglass Quality Technician Relationship Specialty Start Date End Date Orquidea Keller MD [address] [place] [address] PCP - General 01/07/23
--- OUTSIDE RECORDS SUMMARY | 2024-04-09 16:00 | XMS_ITS | Encounter Summary ---
Author Organization [facility] Address [address] [place] [address] Care Team Providers Care Senior Mainframe Developer Name Role Phone Orquidea Keller MD Primary Care Provider [phone] Encounter Details Date Type Department Care Team (Late st Contact Info) Description 01/31/2024 Lab Requisition [facility] - Main Lab [address] [facility] [place] [address] Salvatore Jenkins MD [address] [place], [place] [phone] Paroxysmal atrial fibrillation (CMS/HCC); Chronic systolic (congestive) [...] mmol/L LAB CHEMISTRY METHOD 02/03/2024 4:56 PM [facility] Potassium 5.0 3.5 - 5.5 mmol/L LAB CHEMISTRY METHOD 02/03/2024 4:56 PM [facility] Chloride 104 96 - 110 mmol/L LAB CHEMISTRY METHOD 02/03/2024 4:56 PM [facility] CO2 27 21 - 32 mmol/L LAB CHEMISTRY METHOD 02/03/2024 4:56 PM [facility] Anion Gap 6 3 - 11 LAB CHEMISTRY METHOD 02/03/2024 4:56 PM [facility] Glucose 114(H) 70 - 100 mg/dL LAB CHEMISTRY METHOD 02/03/2024 4:56 PM [facility] BUN 38(H) 5 - 25 mg/dL LAB CHEMISTRY METHOD 02/03/2024 4:56 PM [facility] Creatinine 1.53(H) 0.50 - 1.10 mg/dL LAB CHEMISTRY METHOD 02/03/2024 4:56 PM [facility] eGFR 33(L) >=60 mL/min/1. 73m2 LAB CHEMISTRY METHOD 02/03/2024 4:56 PM [facility] Comment:Calculation based on the??Chronic Kidney Disease Epidemiology Collaboration (CKD-EPI) equation refit??without adjustment for race. BUN/Creatinine Ratio 24.8 LAB CHEMISTRY METHOD 02/03/2024 4:56 PM [facility] Calcium 9.1 8.5 - 10.5 mg/dL LAB CHEMISTRY METHOD 02/03/2024 4:56 PM [facility] Blood Venous blood specimen / Unknown Venipuncture / Unknown 02/03/2024 8:36 AM EST 02/03/2024 11:48 AM EST us Salvatore Jenkins MD LAB BLOOD ORDERABLES Final Result [facility] [address] [place] [address], * (ABNORMAL) Complete blood count (02/03/2024 8:36 AM EST) [facility] WBC 7.1 4.8 - 10.8 K/mcL LAB HEMETOLOGY METHOD 02/03/2024 12:30 PM EST [facility] RBC 2.80(L) 3.80 - 4.80 M/mcL LAB HEMETOLOGY METHOD 02/03/2024 12:30 PM EST [facility] Hemoglobin 8.8(L) 11.5 - 16.0 g/dL LAB HEMETOLOGY METHOD 02/03/2024 12:30 PM [facility] Hematocrit 28.1(L) 35.0 - 47.0 % LAB HEMETOLOGY METHOD 02/03/2024 12:30 PM [facility] MCV 101.4(H) 79.0 - 98.0 FL LAB HEMETOLOGY METHOD 02/03/2024 12:30 PM EST [facility] MCH 31.8 27.0 - 32.0 pcg LAB HEMETOLOGY METHOD 02/03/2024 12:30 PM [facility] MCHC 31.3(L) 32.0 - 37.0 g/dL LAB HEMETOLOGY METHOD 02/03/2024 12:30 PM EST [facility] RDW 14.3 11.0 - 15.0 % LAB HEMETOLOGY METHOD 02/03/2024 12:30 PM [facility] Platelets 368 130 - 400 K/mcL LAB HEMETOLOGY METHOD 02/03/2024 12:30 PM [facility] MPV 10.2 7.0 - 11.0 FL LAB HEMETOLOGY METHOD 02/03/2024 12:30 PM EST [facility] NRBC 0.0 <1.0 % LAB HEMETOLOGY METHOD 02/03/2024 12:30 PM EST [facility] NRBC Absolute 0.00 <0.10 K/mcL LAB HEMETOLOGY METHOD 02/03/2024 12:30 PM EST [facility] Blood Venous blood specimen / Unknown Venipuncture / Unknown 02/03/2024 8:36 AM EST 02/03/2024 11:48 AM EST us Salvatore Jenkins MD LAB BLOOD ORDERABLES Final Result [facility] [address] [place] [address], documented in this encounter Visit Diagnoses Diagnosis Paroxysmal atrial fibrillation (CMS/HCC) Atrial fibrillation Chronic systolic (congestive) heart failure (CMS/HCC) documented in this encounter Care Teams Senior Mainframe Developer Relationship Specialty Start Date End Date Orquidea Keller MD [address] [place] [address] PCP - General 01/07/23 documented as of this encounter
--- OUTSIDE RECORDS SUMMARY | 2024-04-09 16:00 | XMS_ITS | Encounter Summary ---
Author Organization [facility] Address [address] [place] [address] Care Team Providers Care Whiskey Filterer Name Role Phone Orquidea Keller MD Primary Care Provider Encounter Details Date Type Department Care Team (Late st Contact Info) Description 01/25/2024 Lab Requisition [facility] - Main Lab [address] [facility] [email or web address] [address] Salvatore Jenkins MD [address] [place], [place] [phone] Paroxysmal atrial fibrillation (CMS/HCC); Chronic systolic (congestive) [...] mmol/L LAB CHEMISTRY METHOD 01/27/2024 11:44 AM [facility] Potassium 5.4 3.5 - 5.5 mmol/L LAB CHEMISTRY METHOD 01/27/2024 11:44 AM [facility] Chloride 102 96 - 110 mmol/L LAB CHEMISTRY METHOD 01/27/2024 11:44 AM [facility] CO2 28 21 - 32 mmol/L LAB CHEMISTRY METHOD 01/27/2024 11:44 AM [facility] Anion Gap 6 3 - 11 LAB CHEMISTRY METHOD 01/27/2024 11:44 AM [facility] Glucose 132(H) 70 - 100 mg/dL LAB CHEMISTRY METHOD 01/27/2024 11:44 AM [facility] BUN 41(H) 5 - 25 mg/dL LAB CHEMISTRY METHOD 01/27/2024 11:44 AM [facility] Creatinine 1.66(H) 0.50 - 1.10 mg/dL LAB CHEMISTRY METHOD 01/27/2024 11:44 AM [facility] eGFR 30(L) >=60 mL/min/1. 73m2 LAB CHEMISTRY METHOD 01/27/2024 11:44 AM [facility] Comment:Calculation based on the??Chronic Kidney Disease Epidemiology Collaboration (CKD-EPI) equation refit??without adjustment for race. BUN/Creatinine Ratio 24.7 LAB CHEMISTRY METHOD 01/27/2024 11:44 AM [facility] Calcium 9.0 8.5 - 10.5 mg/dL LAB CHEMISTRY METHOD 01/27/2024 11:44 AM [facility] Blood Venous blood specimen / Unknown Venipuncture / Unknown 01/27/2024 7:57 AM EST 01/27/2024 10:26 AM EST us Salvatore Jenkins MD LAB BLOOD ORDERABLES Final Result [facility] [address] [place] [address], * (ABNORMAL) Complete blood count (01/27/2024 7:37 AM EST) [facility] Signature WBC 8.8 4.8 - 10.8 K/mcL LAB HEMETOLOGY METHOD 01/27/2024 11:22 AM EST [facility] RBC 2.70(L) 3.80 - 4.80 M/mcL LAB HEMETOLOGY METHOD 01/27/2024 11:22 AM [facility] Hemoglobin 8.4(L) 11.5 - 16.0 g/dL LAB HEMETOLOGY METHOD 01/27/2024 11:22 AM [facility] Hematocrit 27.2(L) 35.0 - 47.0 % LAB HEMETOLOGY METHOD 01/27/2024 11:22 AM [facility] MCV 102.6(H) 79.0 - 98.0 FL LAB HEMETOLOGY METHOD 01/27/2024 11:22 AM [facility] MCH 31.7 27.0 - 32.0 pcg LAB HEMETOLOGY METHOD 01/27/2024 11:22 AM [facility] MCHC 30.9(L) 32.0 - 37.0 g/dL LAB HEMETOLOGY METHOD 01/27/2024 11:22 AM EST [facility] RDW 14.1 11.0 - 15.0 % LAB HEMETOLOGY METHOD 01/27/2024 11:22 AM [facility] Platelets 512(H) 130 - 400 K/mcL LAB HEMETOLOGY METHOD 01/27/2024 11:22 AM [facility] MPV 9.7 7.0 - 11.0 FL LAB HEMETOLOGY METHOD 01/27/2024 11:22 AM [facility] NRBC 0.0 <1.0 % LAB HEMETOLOGY METHOD 01/27/2024 11:22 AM EST [facility] NRBC Absolute 0.00 <0.10 K/mcL LAB HEMETOLOGY METHOD 01/27/2024 11:22 AM EST [facility] Blood Venous blood specimen / Unknown Venipuncture / Unknown 01/27/2024 7:37 AM EST 01/27/2024 10:28 AM EST us Salvatore Jenkins MD LAB BLOOD ORDERABLES Final Result [facility] [address] [place] [address], documented in this encounter Visit Diagnoses Diagnosis Paroxysmal atrial fibrillation (CMS/HCC) Atrial fibrillation Chronic systolic (congestive) heart failure (CMS/HCC) documented in this encounter Care Teams Whiskey Filterer Relationship Specialty Start Date End Date Orquidea Keller MD [address] [place] [address] PCP - General 01/07/23 documented as of this encounter
--- OUTSIDE RECORDS SUMMARY | 2024-04-09 16:00 | XMS_ITS | Encounter Summary ---
Author Organization [facility] Address [address] [place] [address] Care Team Providers Care Seat Nailer Name Role Phone Orquidea Keller MD Primary Care Provider [phone] Encounter Details Date Type Department Care Team (Late st Contact Info) Description 01/18/2024 Lab Requisition [facility] - Main Lab [address] [facility] [place] [address] Salvatore Jenkins MD [address] [place], [place] [phone] Paroxysmal atrial fibrillation (CMS/HCC); Chronic systolic (congestive) [...] mmol/L LAB CHEMISTRY METHOD 01/20/2024 1:50 PM [facility] Potassium 4.9 3.5 - 5.5 mmol/L LAB CHEMISTRY METHOD 01/20/2024 1:50 PM [facility] Chloride 98 96 - 110 mmol/L LAB CHEMISTRY METHOD 01/20/2024 1:50 PM [facility] CO2 25 21 - 32 mmol/L LAB CHEMISTRY METHOD 01/20/2024 1:50 PM [facility] Anion Gap 9 3 - 11 LAB CHEMISTRY METHOD 01/20/2024 1:50 PM [facility] Glucose 113(H) 70 - 100 mg/dL LAB CHEMISTRY METHOD 01/20/2024 1:50 PM [facility] BUN 37(H) 5 - 25 mg/dL LAB CHEMISTRY METHOD 01/20/2024 1:50 PM [facility] Creatinine 1.64(H) 0.50 - 1.10 mg/dL LAB CHEMISTRY METHOD 01/20/2024 1:50 PM [facility] eGFR 30(L) >=60 mL/min/1. 73m2 LAB CHEMISTRY METHOD 01/20/2024 1:50 PM [facility] Comment:Calculation based on the??Chronic Kidney Disease Epidemiology Collaboration (CKD-EPI) equation refit??without adjustment for race. BUN/Creatinine Ratio 22.6 LAB CHEMISTRY METHOD 01/20/2024 1:50 PM [facility] Calcium 8.8 8.5 - 10.5 mg/dL LAB CHEMISTRY METHOD 01/20/2024 1:50 PM [facility] Blood Venous blood specimen / Unknown Venipuncture / Unknown 01/20/2024 8:18 AM EST 01/20/2024 10:46 AM EST Salvatore Jenkins MD LAB BLOOD ORDERABLES Final Result [facility] [address] [place] [address], * (ABNORMAL) Complete blood count (01/20/2024 8:18 AM EST) [facility] Signature WBC 10.9(H) 4.8 - 10.8 K/mcL LAB HEMETOLOGY METHOD 01/20/2024 12:21 PM EST [facility] RBC 2.50(L) 3.80 - 4.80 M/mcL LAB HEMETOLOGY METHOD 01/20/2024 12:21 PM [facility] Hemoglobin 7.9(L) 11.5 - 16.0 g/dL LAB HEMETOLOGY METHOD 01/20/2024 12:21 PM [facility] Hematocrit 25.1(L) 35.0 - 47.0 % LAB HEMETOLOGY METHOD 01/20/2024 12:21 PM [facility] MCV 101.2(H) 79.0 - 98.0 FL LAB HEMETOLOGY METHOD 01/20/2024 12:21 PM EST [facility] MCH 31.9 27.0 - 32.0 pcg LAB HEMETOLOGY METHOD 01/20/2024 12:21 PM [facility] MCHC 31.5(L) 32.0 - 37.0 g/dL LAB HEMETOLOGY METHOD 01/20/2024 12:21 PM EST [facility] RDW 13.5 11.0 - 15.0 % LAB HEMETOLOGY METHOD 01/20/2024 12:21 PM [facility] Platelets 833(H) 130 - 400 K/mcL LAB HEMETOLOGY METHOD 01/20/2024 12:21 PM [facility] MPV 9.5 7.0 - 11.0 FL LAB HEMETOLOGY METHOD 01/20/2024 12:21 PM EST [facility] NRBC 0.0 <1.0 % LAB HEMETOLOGY METHOD 01/20/2024 12:21 PM EST [facility] NRBC Absolute 0.00 <0.10 K/mcL LAB HEMETOLOGY METHOD 01/20/2024 12:21 PM EST [facility] Blood Venous blood specimen / Unknown Venipuncture / Unknown 01/20/2024 8:18 AM EST 01/20/2024 10:46 AM EST us Salvatore Jenkins MD LAB BLOOD ORDERABLES Final Result [facility] [address] [place] [address], documented in this encounter Visit Diagnoses Diagnosis Paroxysmal atrial fibrillation (CMS/HCC) Atrial fibrillation Chronic systolic (congestive) heart failure (CMS/HCC) documented in this encounter Care Teams Seat Nailer Relationship Specialty Start Date End Date Orquidea Keller MD [address] [place] [address] PCP - General 01/07/23 documented as of this encounter
== END 2024-04-09 15:21 | disposition home or self-care (01) ==
PROVIDERS: PCP Internal Medicine; Visit Provider Internal Medicine Hypertension Specialist
DX: I12.9 Hypertensive chronic kidney disease with stage 1 through stage 4 chronic kidney disease, or unspecified chronic kidney disease (principal); N18.9 Chronic kidney disease, unspecified; I50.9 Heart failure, unspecified; D64.9 Anemia, unspecified
CPT/HCPCS: 99214

== ENCOUNTER → 2024-04-09 14:52 | Outpatient (BNVA) | payer MEDICARE, SELFPAY | PROVIDERS: PCP Internal Medicine; Visit Provider Internal Medicine Hypertension Specialist | DX: I13.0 Hypertensive heart and chronic kidney disease with heart failure and stage 1 through stage 4 chronic kidney disease, or unspecified chronic kidney disease (principal); I50.9 Heart failure, unspecified; N18.9 Chronic kidney disease, unspecified; D64.9 Anemia, unspecified | CPT/HCPCS: 99212 ==

== ENCOUNTER 2024-06-30 14:38 | Outpatient (AMB) | payer MEDICARE, SELFPAY ==
--- NOTE | 2024-06-30 14:44 | HO.NEPHOV ---
Vital Signs 06/30/24 14:46 Height 5 ft 7 in Weight 138 lb 2 oz BMI 21.6 BP 130/50 L Blood Pressure Location Lt brachial Position Sitting Pulse 72 Pulse Source Pulse Oximeter Pulse Oximetry (%) 95 Oxygen Delivery Method Room Air Intake Visit Reasons: CKD/ Conf Bank Cashier Required: No Accompanied by: Self / Same As Patient Allergies dulaglutide [Trulicity] Allergy (Unknown, Verified 06/30/24 14:45) GERD losartan Allergy (Unknown, Verified 06/30/24 14:45) Hyperkalemia Sulfa (Sulfonamide Antibiotics) Allergy (Unknown, Verified 06/30/24 14:45) Rash dapagliflozin [From Farxiga] Adverse Reaction (Intermediate, Verified 06/30/24 14:45) candidasis empagliflozin [From Jardiance] Adverse Reaction (Intermediate, Verified 06/30/24 14:45) candidiasis amiodarone Adverse Reaction (Verified 06/30/24 14:45) Cough spironolactone Adverse Reaction (Verified 06/30/24 14:45) Hyperkalemia Medication List - Last Reconciled 06/30/24 by Abhishek Carrero MD acetaminophen (Tylenol Extra Strength) 500 mg PO Q6H PRN albuterol sulfate 0.63 mg (3 mL) inhalation QID PRN allopurinol 100 mg PO DAILY apixaban (Eliquis) 2.5 mg PO BID ascorbate calcium (vitamin C) 500 mg PO DAILY atorvastatin 80 mg PO BEDTIME benzonatate 100 mg PO TID PRN blood sugar diagnostic (FreeStyle Lite Strips) Use to test blood sugar three times daily blood-glucose sensor ([place] G7 Sensor device) As directed blood-glucose,tutoring assistant,cont (Dexcom G7 Cooky Machine Operator) As directed buspirone 40 mg (4 x 10 mg) PO BEDTIME carvedilol 6.25 mg PO BID cholecalciferol (vitamin D3) 50 mcg PO DAILY codeine-guaifenesin 10-100 mg/5 mL 5 mL PO Q4-6H PRN ferrous fumarate 325 mg PO DAILY fluticasone furoate-vilanterol 100-25 mcg/dose (Breo Ellipta) 1 inh inhalation DAILY PRN furosemide 40 mg (2 x 20 mg) PO QAM insulin aspart U-100 (Novolog FlexPen U-100 Insulin aspart) 16 units (0.16 mL) subcut TID insulin degludec (Tresiba FlexTouch U-200 insulin) 20 units subcut DAILY lactic acid-urea 1 appl topical DAILY PRN lancets (FreeStyle Lancets) use to test blood sugars three times per day latanoprost 0.005% 1 drp ophthalmic (eye) DAILY levothyroxine 75 mcg PO DAILY nebulizers As directed for updraft treatments-with all needed supplies omeprazole 20 mg PO DAILY oxycodone 5 mg PO BID PRN pen needle, diabetic QID sacubitril-valsartan 97-103 mg (Entresto) 1 tab PO BID HPI Comments Details: Pleasant 84-year-old man with a history of longstanding diabetes mellitus and hypertension with coronary disease has been referred for chronic kidney disease. Her baseline creatinine has been around 1.2-1.3 mg/dL in 2022. In February of 2023 creatinine was 1.54 In November of 2023 creatinine was 1.9 mg/dL. In December she underwent hip surgery. She was in a rehab. She had some difficulty urination which required Mcmahon catheterization. At present she denies any urinary frequency or urgency. Although she has some discomfort while she urinates. No hematuria. Blood sugar has been suboptimal. 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 She does not drink alcohol anymore. She was accompanied by her daughter. Currently she is on Lasix 40 mg a day. She had significant leg edema but this is improved. He has no shortness of breath at rest. No rash no joint pain. She was lost about 20 lb over the last 2 years. 06/30/24 84-year-old female presenting for management of chronic kidney disease and related conditions. Previous health issues include a recent upper respiratory episode, managed effectively with medication without signs of bacterial infection. Edema in her lower extremities is reducing, attributed to effective use of diuretics, necessary due to her heart failure. Her diabetes, while historically erratic, is monitored closely, showing improvement with a recent blood sugar reading of 170. Earlier lab tests and a recent urinary specimen add to the understanding of her current renal status, although some tests were incomplete due to non-fasting. Her anemia, aided by iron supplementation, has improved with recent hemoglobin values moving towards normalcy. Her medical journey since a fall in December includes recovery from shingles and significant efforts to maintain kidney function stability. Recent measures show improved renal function compared to earlier assessments in March. The integration of medication strategies aims to sustain both cardiac and renal balance, essential for her broader health management plan. [facility] Medical History History of partial replacement of left hip joint using bipolar prosthesis Vitamin D deficiency Macrocytosis Cough Sciatica Hypothyroidism HTN (hypertension) Lower extremity edema Irritable bowel syndrome (IBS) Chronic GERD Anxiety Chronic kidney disease (CKD) Hyperlipidemia Hypertension associated with diabetes Surgical History No pertinent past surgical history Family History Mother Ovarian cancer Father Pancreatic cancer Thyroid disease Social History Household Members Other:: Housing: House Alcohol intake: never Patient Tobacco Use Status: Never used Tobacco e-Cigarette/Vaping Use: Never Used Second Hand Smoke Exposure: No service: No Current occupational status: retired Cognitive needs: No Hearing needs: No Vision needs: Yes Physical Exam Vital Signs: Last Vital Signs Pulse 72 06/30/24 14:46 BP 130/50 L 06/30/24 14:46 Pulse Ox 95 06/30/24 14:46 Oxygen Delivery Method Room Air 06/30/24 14:46 BMI result Body Mass Index 21.6 Comfortable Neck supple no JVD. Lungs entry equal no rales. Heart S1-S2 heard no gallop or rub. Abdomen soft nontender. Neuro alert awake oriented. No asterixis. Extremities 2+edema. Results Reviewed Results Reviewed: Mar 2024 Right kidney normal size and echotexture, 10.2 x 4.6 x 4.6 cm. Left kidney normal size and echotexture, 9.9 x 4.9 x 4.1 cm. 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 Glomerular nephritis/interstitial disease seem unlikely Code(s): N18.9 - Chronic kidney disease, unspecified Category: Medical Plan: Urine studies : Protienuria : 934 mg UA -pending Creatinine is down to 1.54 from 1.9 Goal is to slow the progression of renal disease. Continue to avoid nephrotoxic agents including NSAIDs. (2) CHF (congestive heart failure): Comment: Echo LVEF 40-45%, mid to distal anterior, apical, mid-distal septal/anteroseptal and apical inf wall akinesis 01/10 [facility], Echo 10/2023 [facility] [place], EF 55- 60 %, calcification of aortic and mitral valve, no pulmonary hypertension Code(s): I50.9 - Heart failure, unspecified Category: Medical Plan: Currently appears well compensated She should stay on low-sodium diet Continue with the Entresto and follow up with Cardiology (3) HTN (hypertension): Comment: Essential hypertension Code(s): I10 - Essential (primary) hypertension Category: Medical Plan: Home readings are acceptable.Overall blood pressure seems well controlled at this time. No changes were made to antihypertensive medications. Discussed low salt diet. (4) Anemia: Comment: Probably has postop anemia Primarily due to iron deficiency. Erythropoietin deficiency due to underlying CKD is a possibility. Code(s): D64.9 - Anemia, unspecified Category: Medical Plan: HCT is improving Continue with iron supplementation. Follow hemoglobin. If hemoglobin does not improve once iron is repleted she may require erythropoietin. Orders: Orders Basic Metabolic Panel 2 Months D64.9 - Anemia, unspecified, I50.9 - Heart failure, unspecified, N18.9 - Chronic kidney disease, unspecified Complete Blood Count no Diff 2 Months D64.9 - Anemia, unspecified, I50.9 - Heart failure, unspecified, N18.9 - Chronic kidney disease, unspecified Coding Level of Care Code Est Pt Level 4 (11991) Diagnoses Chronic kidney disease (CKD) N18.9 CHF (congestive heart failure) I50.9 HTN (hypertension) I10 Anemia D64.9
[2024-06-30 14:46] VITALS: BP 130/50; PULSE 72; O2SAT 95; BMI 21.6
--- OUTSIDE RECORDS SUMMARY | 2024-06-30 15:47 | XMS_ITS | Encounter Summary ---
Author Organization [facility] Address [address] [place] [address] Care Team Providers Care Clerical Order Filler Name Role Phone Orquidea Keller MD Primary Care Provider [phone] Encounter Details Date Type Department Care Team (Late st Contact Info) Description 01/25/2024 Lab Requisition [facility] - Main Lab [address] [facility] [employer] [address] Salvatore Jenkins MD [address] [place], [place] [id number] Paroxysmal atrial fibrillation (CMS/HCC V24, CMS/HCC V28); Chronic systolic (congestive) heart failure (CMS/HCC V24, CMS/HCC V28) Social History Tobacco Use Types Packs/Day Years [...] Jenkins MD LAB BLOOD ORDERABLES Final Result [facility] [address] [place] [address], * (ABNORMAL) Complete blood count (01/27/2024 7:37 AM EST) WBC 8.8 4.8 - 10.8 K/mcL LAB HEMETOLOGY METHOD 01/27/2024 11:22 AM EST [facility] RBC 2.70(L) 3.80 - 4.80 [...] 01/27/2024 11:22 AM [facility] RDW 14.1 11.0 - 15.0 % LAB HEMETOLOGY METHOD 01/27/2024 11:22 AM [facility] Platelets 512(H) 130 - 400 K/mcL LAB HEMETOLOGY METHOD 01/27/2024 11:22 AM [facility] MPV 9.7 7.0 - 11.0 FL LAB HEMETOLOGY METHOD 01/27/2024 11:22 AM EST [facility] NRBC 0.0 <1.0 % LAB HEMETOLOGY METHOD 01/27/2024 11:22 AM EST [facility] NRBC Absolute 0.00 <0.10 K/mcL LAB HEMETOLOGY METHOD 01/27/2024 11:22 AM EST [facility] Blood Venous blood specimen / Unknown Venipuncture / Unknown 01/27/2024 7:37 AM EST 01/27/2024 10:28 AM EST us Salvatore Jenkins MD LAB BLOOD ORDERABLES Final Result [facility] [address] [place] [address], documented in this encounter Visit Diagnoses Diagnosis Paroxysmal atrial fibrillation (CMS/HCC V24, CMS/HCC V28) Atrial fibrillation Chronic systolic (congestive) heart failure (CMS/HCC V24, CMS/HCC V28) documented in this encounter Care Teams Clerical Order Filler Relationship Specialty Start Date End Date Orquidea Keller MD [address] [facility] [place] [address] PCP - General 01/07/23 documented as of this encounter
--- OUTSIDE RECORDS SUMMARY | 2024-06-30 15:47 | XMS_ITS | Encounter Summary ---
Author Organization [facility] Address [address] [place] [address] Care Team Providers Care Engine Dispatcher Name Role Phone Orquidea Keller MD Primary Care Provider [phone] Encounter Details Date Type Department Care Team (Late st Contact Info) Description 01/10/2024 Lab Requisition [facility] - Main Lab [address] [facility] [place] [email or web address] [address] Salvatore Jenkins MD [address] [place], [place] [id number] Paroxysmal atrial fibrillation (CMS/HCC V24, CMS/HCC V28); [...] mmol/L LAB CHEMISTRY METHOD 01/13/2024 12:38 PM [facility] Potassium 5.1 3.5 - 5.5 mmol/L LAB CHEMISTRY METHOD 01/13/2024 12:38 PM [facility] Chloride 102 96 - 110 mmol/L LAB CHEMISTRY METHOD 01/13/2024 12:38 PM [facility] CO2 26 21 - 32 mmol/L LAB CHEMISTRY METHOD 01/13/2024 12:38 PM [facility] Anion Gap 6 3 - 11 LAB CHEMISTRY METHOD 01/13/2024 12:38 PM [facility] Glucose 107(H) 70 - 100 mg/dL LAB CHEMISTRY METHOD 01/13/2024 12:38 PM [facility] BUN 38(H) 5 - 25 mg/dL LAB CHEMISTRY METHOD 01/13/2024 12:38 PM [facility] Creatinine 1.57(H) 0.50 - 1.10 mg/dL LAB CHEMISTRY METHOD 01/13/2024 12:38 PM [facility] eGFR 32(L) >=60 mL/min/1. 73m2 LAB CHEMISTRY METHOD 01/13/2024 12:38 PM [facility] Comment:Calculation based on the??Chronic Kidney Disease Epidemiology Collaboration (CKD-EPI) equation refit??without adjustment for race. BUN/Creatinine Ratio 24.2 LAB CHEMISTRY METHOD 01/13/2024 12:38 PM [facility] Calcium 8.6 8.5 - 10.5 mg/dL LAB CHEMISTRY METHOD 01/13/2024 12:38 PM [facility] Blood Venous blood specimen / Unknown Venipuncture / Unknown 01/13/2024 8:11 AM EST 01/13/2024 11:29 AM EST us Salvatore Jenkins MD LAB BLOOD ORDERABLES Final Result [facility] [address] [place] [address], * (ABNORMAL) Complete blood count (01/13/2024 8:11 AM EST) WBC 11.4(H) 4.8 - 10.8 K/mcL LAB HEMETOLOGY METHOD 01/13/2024 12:05 PM [facility] RBC 2.40(L) 3.80 - 4.80 M/mcL LAB HEMETOLOGY METHOD 01/13/2024 12:05 PM [facility] Hemoglobin 7.8(L) 11.5 - 16.0 g/dL LAB HEMETOLOGY METHOD 01/13/2024 12:05 PM [facility] Hematocrit 24.6(L) 35.0 - 47.0 % LAB HEMETOLOGY METHOD 01/13/2024 12:05 PM [facility] MCV 101.2(H) 79.0 - 98.0 FL LAB HEMETOLOGY METHOD 01/13/2024 12:05 PM [facility] MCH 32.1(H) 27.0 - 32.0 pcg LAB HEMETOLOGY METHOD 01/13/2024 12:05 PM [facility] MCHC 31.7(L) 32.0 - 37.0 g/dL LAB HEMETOLOGY METHOD 01/13/2024 12:05 PM [facility] RDW 13.4 11.0 - 15.0 % LAB HEMETOLOGY METHOD 01/13/2024 12:05 PM [facility] Platelets 506(H) 130 - 400 K/mcL LAB HEMETOLOGY METHOD 01/13/2024 12:05 PM [facility] MPV 10.0 7.0 - 11.0 FL LAB HEMETOLOGY METHOD 01/13/2024 12:05 PM EST [facility] NRBC 0.0 <1.0 % LAB HEMETOLOGY METHOD 01/13/2024 12:05 PM EST [facility] NRBC Absolute 0.00 <0.10 K/mcL LAB HEMETOLOGY METHOD 01/13/2024 12:05 PM EST [facility] Blood Venous blood specimen / Unknown Venipuncture / Unknown 01/13/2024 8:11 AM EST 01/13/2024 11:12 AM EST us Salvatore Jenkins MD LAB BLOOD ORDERABLES Final Result [facility] [address] [place] [address], documented in this encounter Visit Diagnoses Diagnosis Paroxysmal atrial fibrillation (CMS/HCC V24, CMS/HCC V28) Atrial fibrillation Chronic systolic (congestive) heart failure (CMS/HCC V24, CMS/HCC V28) documented in this encounter Care Teams Engine Dispatcher Relationship Specialty Start Date End Date Orquidea Keller MD [address] [place] [address] PCP - General 01/07/23 documented as of this encounter
--- OUTSIDE RECORDS SUMMARY | 2024-06-30 15:47 | XMS_ITS | Patient Health Record ---
Author Organization [facility] Address [address] [address] Support Name Relationship Address Phone KAYLEEN RENTERIA Guarantor Unknown [phone] Reason For Referral No Information Medications Medication SIG (Take, Route, Frequency, Duration) Notes Start Date End Date Status Diovan 40MG 1 ORAL daily for -3 [facility] 02/05/2012 Active busPIRone HCl 10MG 1 ORAL twice daily f or -3 [facility]- 02/05/2012 Active Aspirin EC 81MG 1 ORAL daily for -3 [facility] 02/05/2012 Active Allopurinol 100MG ORAL for -3 [facility] 02/05/2012 Active Vitamin D3 1000 IU ORAL daily for -3 [facility] 02/05/2012 Active Actos 45MG 1 ORAL daily for -3 [facility] 02/05/2012 Active Triamterene-HCTZ 37.5/25MG 1 ORAL daily for -3 [facility] Active Simvastatin 20MG 1 ORAL daily for -3 [facility] 02/05/2012 Active PriLOSEC OTC 20MG 1 ORAL daily for -3 [facility] 02/05/2012 Active Multivitamins 1 ORAL daily for -3 [facility] 02/05/2012 Active Levothyroxine Sodium .05MG 1 ORAL daily for -3 [facility] Active Januvia 100MG 1 ORAL daily for -3 [facility] 02/05/2012 Active Glucovance 500/5MG 1 ORAL daily for -3 [facility]- 02/05/2012 Active Problems Problem Type SNOMED Code ICD Code Onset Dates Problem Status W/U Status Risk Notes Problem 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
--- OUTSIDE RECORDS SUMMARY | 2024-06-30 15:47 | XMS_ITS | Data Portability ---
Author Organization [place] - [facility], Allergy Address [address] [place] [address] Care Team Providers Care Mucking Machine Operator Name Role Phone BE SAHNI Primary Care Provider [phone] Assessment Encounter Date Assessment Date Assessment LastModified [...] audio gram No observ ation record ed. [email or web address] Not Available 09/19 15:12:40 12/16/19 audio gram No observ ation record ed. [email or web address] Not Available 11/19 15:12:52 Result Notes None recorded. Problems Name Problem SNOMED Code Status Onset Date Resolution Date Notes Provider Name and Address Organization Details Recorded Time Sensorine ural hearing loss of bilateral ears 536649444 Active 2018 Sensorine ural hearing loss, bilateral ; Note: Date Diagnosed : 08/12/2018 1:56 PM (H90.3) Not Available [facility] 4 03:11:58 Bilateral tinnitus 81548695921 02 Active 2018 Tinnitus, bilateral ; Note: Date Diagnosed : 08/12/2018 1:56 PM (H93.13) Not Available [facility] 4 03:11:57 Otalgia of right ear 2378970383 Active 2018 Otalgia, right ear; Note: Date Diagnosed : 03/12/2018 2:36 PM (H92.01) Not Available [facility] 4 03:11:57 Impacted cerumen in right ear 27483021659 82445 Active 2022 Impacted cerumen, right ear; Note: Date Diagnosed : 07/04/2022 1:17 PM (H61.21) Not Available [facility] 4 03:11:57 Bilateral disorder of Eustachia n tubes 70484166982 64356 Active 2023 DUKE NAVARRETE [address] [place] [address], [place], [address] , [facility] [place] 4 13:39:50 Acute serous otitis media of right ear 40697057469 29790 Active 2023 YADIRA JORDAN MD [address] [place] [address], [place], [address] , [facility] - [facility] [place] 4 13:59:45 Problem Notes None recorded. Procedures Surgical History Date Name Laterality Status Provider Name and Address Organization Details Recorded Time 10/28/20 24 Tympanometry - 31735 completed MARTIN ARNETT, AUD [address] [facility], [place], [address], [facility] 12/16/2023 13:08:04 10/16/19 24 Air & Speech Audio with Tymps - 29104, 87353 & 48614 completed ROBIN RODRIGUEZ, AUD [address], [place], [address], [facility] 10/16/2023 13:43:04 Imaging Results Imaging Date Name Status LastModified by Organiz ation Details LastModified Time 07/04/2022 imaging/diagno stic result completed Information not available 10/09/2023 01:22:51 08/10/2020 imaging/diagno stic result completed Information not available 10/09/2023 01:22:58 08/12/2018 audiogram completed Information not available 10/09/2023 01:23:04 07/04/2022 audiogram completed Information not available 10/09/2023 01:23:21 08/10/2020 audiogram completed Information not available 10/09/2023 01:23:32 08/12/2018 audiogram completed Information not available 10/09/2023 01:23:51 10/16/2023 audiogram completed [email or web address] Information n ot available 10/16/2023 15:12:40 12/16/2023 audiogram completed [email or web address] Information n ot available 12/16/2023 15:12:52 Procedure Notes None recorded. Medical Equipment None Reported. Allergies Allergen ID Allergen Name Allergen Category Reaction Reaction Severity Criticality Documentation Date Start Date Code Code System Note Provider Name and Address Organization Details Recorded Time 54894 Substance with sulfonami de structure and antibacte rial mechanism of action (substanc e) medicatio n other Not available Not available 07/02/2023 58377 6809 SNOMED React ion: unkno wn, unspe cifie [...] TAKE 1 TABLET BY MOUTH EVERY DAY [id number] active Not Available Not Available Not Available [...] Not Available Not Available No t Available [facility] spacer USE WITH INHALER [...] Updated DateTime 10/16/2023 160.02 cm 26 kg/m2 15302.08 g Ghada [facility] 10/16/2023 13:54:00 Date Recorded Body height Body mass index (BMI) Body weight Provider Name and Address Organization Details Last Updated DateTime 12/16/2023 160.02 cm 26 kg/m2 20465.08 g Raina [facility] 12/16/2023 12:58:48 Social History None recorded. Functional Status None recorded. Mental Status None recorded. Family History Nothing Reported. Medical History No medical history recorded. Gynecological HistoryNo gynecological history recorded. Obstetrics History GPAL:G 0 P 0 0 0 0 Past Encounters Encounter ID Performer Location Encounter Start Date Encounter Closed Date Diagnosis/Indication Diagnosis SNOMED-CT Code Diagnosis ICD10 Code Diagnosis Note [id number] YADIRA JORDAN MD [facility] [address] [address] 10/16/2023 13:00:57 10/16/2023 14:01:35 Acute serous otitis media of right ear [id number] 781637 H65.01 Likely due to a URI. Will reevaluate in 6 weeks and I will expect it will resolve. Hearing is stable. [id number] DUKE NAVARRETE [facility] [address] [address] 10/16/2023 13:39:08 10/16/2023 16:44:20 Sensorineural hearing loss of bilateral ears 589865842 H90.3 Right Ear:Mild to severe SNHL with excellent speech discrimina tion.Type B tympanogra m.Left Ear:Normal hearing through 1K Hz sloping to a severe SNHL with excellent speech discrimina tion.Type As tympanogra m. Bilateral disorder of Eustachian tubes 5810870607 566763 H69.93 [id number] RITO VALDIVIA PA-C [facility] [address] [address] 12/16/2023 12:50:25 12/16/2023 13:30:32 Bilateral disorder of Eustachian tubes 5486410577 739378 H69.93 Acute sero us otitis media of right ear 8364790376 653578 H65.01 [id number] DUKE LOVE [facility] [address] [address] 12/16/2023 13:07:22 12/16/2023 14:57:24 Sensorineural hearing loss of bilateral ears 117191258 H90.3 Tympanomet ry:Right: Type {{A B* B with large ECV C}}Lef t: {{A B B with large ECV C*}} Health Concerns Section Related Observation LastModified by Organization Detai ls LastModified Time None Recorded Concern Status LastModified by Organization Details LastModified Time None Recorded Advance Directives Directive None Recorded Payers Insurance Date Sequence Insurance Name Policy Number Policy Vilchis Covered Member ID Vilchis Member ID Guarantor Name 12/16/2023 [place]IC[place]: [employer] Beverly Marie [id number] 2 Beverly Marie 12/16/2023 [place]: [facility] Beverly Marie [id number] 2 Beverly Marie 12/16/2023 1 MEDICARE [place]: [facility] Beverly Marie [id number] Beverly Marie 12/13/2023 2 [place] [id number] Beverly Marie [id number] Beverly Marie Notes Date Note Type Note Provider Name and Address Organization Details Recorded Time 10/16/2023 text/html He of slightly asymmetric HL. Right ear has felt blocked for two days. She also has a cough. Hx of [place] and afib since last visit. YADIRA JORDAN MD [address] [place] [address], [address], [facility] 10/16/2023 14:00:41 12/16/2023 text/html 83-year-old fema [...] some seasonal allergies. SILVIO RODRIGUEZ MD [address], [address], [facility] 12/16/2023 16:30:44 12/16/2023 text/html ELEAZAR Bishop, requested tympanometry. DUKE LOVE [address] [facility],[address], [address], [facility] 12/16/2023 13:09:48 OBGyn Episode No OBEpisode recorded.
--- OUTSIDE RECORDS SUMMARY | 2024-06-30 15:47 | XMS_ITS | Encounter Summary ---
Author Organization [facility] Address [address] [place] [address] Care Team Providers Care Back Tufter Name Role Phone Orquidea Keller MD Primary Care Provider [phone] Encounter Details Date Type Department Care Team (Late st Contact Info) Description 01/18/2024 Lab Requisition [facility] - Main Lab [address] [facility] [place] [address] Salvatore Jenkins MD [address] [place], [place] [phone] Paroxysmal atrial fibrillation (CMS/HCC V24, CMS/HCC V28); [...] mmol/L LAB CHEMISTRY METHOD 01/20/2024 1:[address] [facility] Potassium 4.9 3.5 - 5.5 mmol/L LAB CHEMISTRY METHOD 01/20/2024 1:[address] [facility] Chloride 98 96 - 110 mmol/L LAB CHEMISTRY METHOD 01/20/2024 1:[address] [facility] CO2 25 21 - 32 mmol/L LAB CHEMISTRY METHOD 01/20/2024 1:[address] [facility] Anion Gap 9 3 - 11 LAB CHEMISTRY METHOD 01/20/2024 1:[address] [facility] Glucose 113(H) 70 - 100 mg/dL LAB CHEMISTRY METHOD 01/20/2024 1:[address] [facility] BUN 37(H) 5 - 25 mg/dL LAB CHEMISTRY METHOD 01/20/2024 1:[address] [facility] Creatinine 1.64(H) 0.50 - 1.10 mg/dL LAB CHEMISTRY METHOD 01/20/2024 1:[address] [facility] eGFR 30(L) >=60 mL/min/1. 73m2 LAB CHEMISTRY METHOD 01/20/2024 1:[address] [facility] Comment:Calculation based on the??Chronic Kidney Disease Epidemiology Collaboration (CKD-EPI) equation refit??without adjustment for race. BUN/Creatinine Ratio 22.6 LAB CHEMISTRY METHOD 01/20/2024 1:[address] [facility] Calcium 8.8 8.5 - 10.5 mg/dL LAB CHEMISTRY METHOD 01/20/2024 1:[address] [facility] Blood Venous blood specimen / Unknown Venipuncture / Unknown 01/20/2024 8:18 AM EST 01/20/2024 10:46 AM EST us Salvatore Jenkins MD LAB BLOOD ORDERABLES Final Result [facility] [address] [place] [address], * (ABNORMAL) Complete blood count (01/20/2024 8:18 AM EST) WBC 10.9(H) 4.8 - 10.8 K/mcL LAB HEMETOLOGY METHOD 01/20/2024 12:[address] [facility] RBC 2.50(L) 3.80 - 4.80 M/mcL LAB HEMETOLOGY METHOD 01/20/2024 12:[address] [facility] Hemoglobin 7.9(L) 11.5 - 16.0 g/dL LAB HEMETOLOGY METHOD 01/20/2024 12:[address] [facility] Hematocrit 25.1(L) 35.0 - 47.0 % LAB HEMETOLOGY METHOD 01/20/2024 12:[address] [facility] MCV 101.2(H) 79.0 - 98.0 FL LAB HEMETOLOGY METHOD 01/20/2024 12:[address] [facility] MCH 31.9 27.0 - 32.0 pcg LAB HEMETOLOGY METHOD 01/20/2024 12:[address] [facility] MCHC 31.5(L) 32.0 - 37.0 g/dL LAB HEMETOLOGY METHOD 01/20/2024 12:[address] [facility] RDW 13.5 11.0 - 15.0 % LAB HEMETOLOGY METHOD 01/20/2024 12:[address] [facility] Platelets 833(H) 130 - 400 K/mcL LAB HEMETOLOGY METHOD 01/20/2024 12:[address] [facility] MPV 9.5 7.0 - 11.0 FL LAB HEMETOLOGY METHOD 01/20/2024 12:21 PM EST [facility] NRBC 0.0 <1.0 % LAB HEMETOLOGY METHOD 01/20/2024 12:21 PM EST [facility] NRBC Absolute 0.00 <0.10 K/mcL LAB HEMETOLOGY METHOD 01/20/2024 12:21 PM EST [facility] Blood Venous blood specimen / Unknown Venipuncture / Unknown 01/20/2024 8:18 AM EST 01/20/2024 10:46 AM EST us Salvatore Jenkins MD LAB BLOOD ORDERABLES Final Result [facility] [address] [place] [address], documented in this encounter Visit Diagnoses Diagnosis Paroxysmal atrial fibrillation (CMS/HCC V24, CMS/HCC V28) Atrial fibrillation Chronic systolic (congestive) heart failure (CMS/HCC V24, CMS/HCC V28) documented in this encounter Care Teams Back Tufter Relationship Specialty Start Date End Date Orquidea Keller MD [address] [place] [address] PCP - General 01/07/23 documented as of this encounter
--- OUTSIDE RECORDS SUMMARY | 2024-06-30 15:47 | XMS_ITS | Encounter Summary ---
Author Organization [facility] Address [address] [place] [address] Care Team Providers Care Balance Clerk Name Role Phone Orquidea Keller MD Primary Care Provider [phone] Encounter Details Date Type Department Care Team (Late st Contact Info) Description 01/08/2024 Lab Requisition [facility] - Main Lab 299 [facility] [place] [address] Salvatore Jenkins MD [address] [place], [place] [phone] Type 2 diabetes mellitus without complications (CMS/HCC V24, CMS/HCC V28); Iron deficiency anemia, unspecified; Paroxysmal atrial fibrillation (CMS/HCC V24, CMS/HCC V28); [...] Final Result [facility] [address] [place] [address], * (ABNORMAL) Comprehensive metabolic panel (01/08/2024 6:24 AM EST) Pathologist [facility] Sodium 134 133 - 145 [...] 11 LAB CHEMISTRY METHOD 01/08/2024 10:52 AM [facility] Glucose 134(H) 70 - 100 mg/dL LAB CHEMISTRY METHOD 01/08/2024 10:52 AM [facility] BUN 39(H) 5 - 25 mg/dL LAB CHEMISTRY METHOD 01/08/2024 10:52 AM [facility] Creatinine 1.52(H) 0.50 - 1.10 mg/dL LAB CHEMISTRY METHOD 01/08/2024 10:52 AM [facility] eGFR 33(L) >=60 mL/min/1. 73m2 LAB CHEMISTRY METHOD 01/08/2024 10:52 AM [facility] Comment:Calculation based on the??Chronic Kidney Disease Epidemiology Collaboration (CKD-EPI) equation refit??without adjustment for race. BUN/Creatinine Ratio 25.7 LAB CHEMISTRY METHOD 01/08/2024 10:52 AM [facility] Calcium 8.6 8.5 - 10.5 mg/dL LAB CHEMISTRY METHOD 01/08/2024 10:52 AM [facility] AST (SGOT) 23 10 - 42 unit/L LAB CHEMISTRY METHOD 01/08/2024 10:52 AM [facility] ALT (SGPT) 17 10 - 60 unit/L LAB CHEMISTRY METHOD 01/08/2024 10:52 AM [facility] Alkaline Phosphatase 99 42 - 121 unit/L LAB CHEMISTRY METHOD 01/08/2024 10:52 AM [facility] Total Protein 5.2(L) 6.0 - 8.0 g/dL LAB CHEMISTRY METHOD 01/08/2024 10:52 AM [facility] Albumin 2.5(L) 3.2 - 5.0 g/dL LAB CHEMISTRY METHOD 01/08/2024 10:52 AM [facility] Total Bilirubin 0.6 0.0 - 1.4 mg/dL LAB CHEMISTRY METHOD 01/08/2024 10:52 AM [facility] Blood Venous blood specimen / Unknown Venipuncture / Unknown 01/08/2024 6:24 AM EST 01/08/2024 9:05 AM EST us Salvatore Jenkins MD LAB BLOOD ORDERABLES Final Result [facility] [address] [place] [address], * (ABNORMAL) Complete blood count (01/08/2024 6:24 AM EST) WBC 9.4 4.8 - 10.8 K/mcL LAB HEMETOLOGY METHOD 01/08/2024 10:12 AM [facility] RBC 2.50(L) 3.80 - 4.80 M/mcL LAB HEMETOLOGY METHOD 01/08/2024 10:12 AM [facility] Hemoglobin 8.0(L) 11.5 - 16.0 g/dL LAB HEMETOLOGY METHOD 01/08/2024 10:12 AM [facility] Hematocrit 24.8(L) 35.0 - 47.0 % LAB HEMETOLOGY METHOD 01/08/2024 10:12 AM [facility] MCV 101.2(H) 79.0 - 98.0 FL LAB HEMETOLOGY METHOD 01/08/2024 10:12 AM [facility] MCH 32.7(H) 27.0 - 32.0 pcg LAB HEMETOLOGY METHOD 01/08/2024 10:12 AM [facility] MCHC 32.3 32.0 - 37.0 g/dL LAB HEMETOLOGY METHOD 01/08/2024 10:12 AM [facility] RDW 13.8 11.0 - 15.0 % LAB HEMETOLOGY METHOD 01/08/2024 10:12 AM [facility] Platelets 251 130 - 400 [...] Result [facility] [address] [place] [address], documented in this encounter Visit Diagnoses Diagnosis Type 2 diabetes mellitus without complications (CMS/HCC V24, [facility]/HCC V28) Iron deficiency anemia, unspecified Paroxysmal atrial fibrillation (CMS/HCC V24, [facility]/HCC V28) Atrial fibrillation Chronic systolic (congestive) heart failure (CMS/HCC V24, CMS/HCC V28) documented in this encounter Care Teams Balance Clerk Relationship Specialty Start Date End Date Orquidea Keller MD [address] [facility] [place] [address] PCP - General 01/07/23 documented as of this encounter
--- OUTSIDE RECORDS SUMMARY | 2024-06-30 15:47 | XMS_ITS | Clinical Summary ---
Author Organization 299 [facility] Address [address] [place] [address] Phone Care Team Providers Care Cloth Bolt Bander Name Role Phone Orquidea Keller MD Primary Care Provider [phone] Medications atorvastatin (LIPITOR) 80 mg tablet TAKE 1 TABLET BY MOUTH EVERY DAY 90 tablet 2 03/25/2024 Active clopidogreL (PLAVIX) 75 mg tablet TAKE 1 TABLET BY MOUTH EVERY DAY 90 tablet 2 03/25/2024 Active Social History Tobacco Use Types Packs/Day Years [...] Vaccines (1 of 2) 01/07/1988 RSV Immunization Adult Patients (1 - 1-dose 75+ series) 2013 COVID-19 Vaccine ( season) 2023 Cholesterol Screening (Lipid Panel) 01/08/2024 Depression Screening 01/08/2024 Falls Risk Assessment 01/08/2024 Medicare Annual Wellness Visit 01/08/2024 Osteoporosis Screening (Bone Density Screening) 01/08/2024 Social Influencers of Health Screening 01/08/2024 Diabetes: Blood Sugar Control Test (HGBA1C) 07/07/2024 01/08/2024 Influenza Vaccine (Season Ended) 2024 02/07/2009, 12/13/2008, 12/31/2007, Additional history exists Hypertension/CHF/CAD Annual BMP Blood Test 02/02/2025 02/03/2024, [...] age to complete this topic Meningococcal B Vaccine Aged Out No l onger eligible based on patient's age to complete [...] fibrillation (CMS/HCC) Chronic systolic (congestive) heart failure ([facility]/HCC) from Last 3 Months or Most Recently Relevant to Health Maintenance Results * (ABNORMAL) Basic metabolic panel (02/03/2024 8:36 AM EST) Sodium 137 133 - 145 mmol/L LAB CHEMISTRY METHOD 02/03/2024 4:[address] [facility] Potassium 5.0 3.5 - 5.5 mmol/L LAB CHEMISTRY METHOD 02/03/2024 4:[address] [facility] Chloride 104 96 - 110 mmol/L LAB CHEMISTRY METHOD 02/03/2024 4:[address] [facility] CO2 27 21 - 32 mmol/L LAB CHEMISTRY METHOD 02/03/2024 4:[address] [facility] Anion Gap 6 3 - 11 LAB CHEMISTRY METHOD 02/03/2024 4:[address] [facility] Glucose 114(H) 70 - 100 mg/dL LAB CHEMISTRY METHOD 02/03/2024 4:[address] [facility] BUN 38(H) 5 - 25 mg/dL LAB CHEMISTRY METHOD 02/03/2024 4:[address] [facility] Creatinine 1.53(H) 0.50 - 1.10 mg/dL LAB CHEMISTRY METHOD 02/03/2024 4:[address] [facility] eGFR 33(L) >=60 mL/min/1. 73m2 LAB CHEMISTRY METHOD 02/03/2024 4:[address] [facility] Comment:Calculation based on the??Chronic Kidney Disease Epidemiology Collaboration (CKD-EPI) equation refit??without adjustment for race. BUN/Creatinine Ratio 24.8 LAB CHEMISTRY METHOD 02/03/2024 4:[address] [facility] Calcium 9.1 8.5 - 10.5 mg/dL LAB CHEMISTRY METHOD 02/03/2024 4:[address] [facility] Blood Venous blood specimen / Unknown Venipuncture / Unknown 02/03/2024 8:36 AM EST 02/03/2024 11:48 AM EST Salvatore Jenkins MD LAB BLOOD ORDERABLES Final Result [facility] [address] [place] [address], [place] [phone] * Hemoglobin A1c (01/08/2024 6:24 AM EST) [facility] Hemoglobin A1C 6.4 <6.5 % LAB CHEMISTRY METHOD 01/08/2024 1:04 PM EST [facility] Mean Bld Glu Estim. 137 mg/dL LAB CHEMISTRY METHOD 01/08/2024 1:04 PM EST [facility] Blood Venous blood specimen / Unknown Venipuncture / Unknown 01/08/2024 6:24 AM EST 01/08/2024 9:05 AM EST Salvatore Jenkins MD LAB BLOOD ORDERABLES Final Result [facility] [address] [place] [address], [place] [phone] from Last 3 Months or Most Recently Relevant to Health Maintenance Insurance MEDICARE [facility] Care Teams Cloth Bolt Bander Relationship Specialty Start Date End Date Orquidea Keller MD [address] [place] [address] PCP - General 01/07/23
--- OUTSIDE RECORDS SUMMARY | 2024-06-30 15:48 | XMS_ITS | Encounter Summary ---
Author Organization [facility] Address [address] [place] [address] Care Team Providers Care Fiber Locking Supervisor Name Role Phone Orquidea Keller MD Primary Care Provider [phone] Encounter Details Date Type Department Care Team (Late st Contact Info) Description 02/09/2024 Lab Requisition [facility] - Main Lab [address] [facility] [place] [address] Salvatore Jenkins MD [address] [place], [place] [phone] Paroxysmal atrial fibrillation (CMS/HCC V24, CMS/HCC V28); [...] V28) documented in this encounter Care Teams Fiber Locking Supervisor Relationship Specialty Start Date End Date Orquidea Keller MD [address] [place] [address] PCP - General 01/07/23 documented as of this encounter
--- OUTSIDE RECORDS SUMMARY | 2024-06-30 15:48 | XMS_ITS | Data Portability ---
Author Organization [place] - [facility], [facility] Address [address] [place] [address] Care Team Providers Care Bell Tier Name Role Phone BE SAHNI Primary Care Provider Assessment Encounter Date Assessment Date Assessment LastModified by Organization Details LastModified Time 03/04/2024 03/04/2024 HPI: 84-year-old female, Beverly Marie, presents for followup of left hip hemiarthroplasty performed on 01/05/2024. Subjective: - Patient reports using a walker ( wheelie ) for mobility, which she dislikes but manages to cook and hold onto counters for support. - Complains about the number of kacie (32) used during surgery, causing discomfort during removal. - Describes a traumatic experience with catheter insertion at the hospital, requiring multiple attempts by different nurses. - Expresses dissatisfaction with the hospital food and has lodged a complaint. - Notes improvement in mobility and decrease in leg swelling, anticipates physical therapy release by the end of the month. - Reports difficulty with donning compression stockings but is managing. - Pain management transitioned from oxycodone to Tylenol, with Tylenol PM aiding sleep. - No pain at the incision site or greater trochanter. - Expresses fear of bending over but is informed she has no restrictions on range of motion. Objective: Physical Exam: - Incision site on the left hip appears well-healed with no signs of infection or dehiscence; a small retained suture was removed. - No pain elicited on palpation of the greater trochanter or with flexion, internal, and external rotation of the left hip. - Patient demonstrates limited range of motion when attempting to reach her feet, likely due to tightness and scar tissue maturation. Imaging: - Imaging ordered, obtained, and reviewed at [facility]. - AP pelvis and AP and lateral views of the left hip show a well-seated hip hemiarthroplasty with no evidence of subsidence, periprosthetic fracture, acetabular wear, or other abnormalities. Assessment: - Successful left hip hemiarthroplasty with no complications noted on imaging. - Good postoperative progress with pain management and physical therapy. - No current signs of infection or mechanical issues with the hip prosthesis. Plan: - Continue physical therapy as tolerated to improve range of motion and strength. - Gradual weaning off assistive devices as patient gains confidence and mobility. - Follow-up appointment scheduled for two months from the current date (05/02/2024) to monitor progress. - Investigate patient's concerns regarding catheter insertion experience and address with the appropriate hospital department. Disclaimer: This note was accomplished with the use of PicBadges software, which is prone to medical and other word misidentifications , grammatical errors, and other misinterpretations . The physician does strive to identify and correct these, but some could still be present. Please do not hesitate to contact the physician for clarifications. Not available 03/04/2024 14:47:55 05/06/2024 05/06/2024 Subjective: 84-year-old female, Beverly Marie, presents for followup of left hip hemiarthroplasty performed on 01/05/2024. Ms. Marie reports occasional soreness in her left hip, particularly with changes in weather, which she attributes to her arthritis. She mentions being able to walk around her house most days without assistance but uses a cane for stability when going out, such as grocery shopping. She also uses a wheelchair for longer distances, like going to the [facility]. Ms. Marie inquires about her previous difficulty with catheter insertion during her hospital stay, suspecting it was due to inexperienced nurses. She discusses her dental procedures and the need for antibiotic prophylaxis with amoxicillin. Ms. Marie also mentions a history of heart attack, requiring lifelong anticoagulation with Eliquis. She reports recent weight loss associated with severe diarrhea but notes her weight has stabilized. She denies any significant pain in the hip, with only occasional throbbing related to weather changes. Objective: Physical Exam: - Non-tender to palpation over the trochanter - No pain with flexion, internal, or external rotation of the hip Imaging: - Imaging ordered, obtained, and reviewed at [facility]. - AP pelvis and AP in lateral of the left hip demonstrate well-seated hip hemiarthroplasty with comparable offset and leg length to the contralateral side - No evidence of subsidence, periprosthetic fracture, or other complications Assessment: - Status post left hip hemiarthroplasty with no evidence of complications - Well-managed arthritic symptoms with occasional weather-related soreness - Stable weight after recent episode of severe diarrhea - No signs of infection or significant pain on physical examination Plan: - Continue monitoring hip condition; no routine follow-up required at this point unless new issues arise - Maintain antibiotic prophylaxis with amoxicillin prior to dental procedures as per current guidelines - Encourage continued physical activity and exercises with a personalization specialist to promote rehabilitation - Monitor for any signs of infection or complications and report immediately - Address any suture-related issues, such as the small piece of suture noted during the exam, with appropriate removal if necessary Disclaimer: This note was accomplished with use of PicBadges software, which is prone to medical and other word misidentifications , grammatical errors, and other misinterpretations . The physician does strive to identify and correct these, but some could still be present. Please do not hesitate to contact the physician for clarifications. Not available 05/06/2024 15:38:49 Plan of Treatment Reminders Order Date Submit Date Provider Last Modified By Organization Details Last Modified Time Details Appointments RECHECK 15 2024 01:00P M Bessy owens PA-C Not available Not available Not available Lab None recorded . Referral None recorded . Procedures None recorded . Surgeries None recorded . Imaging XR, hip + pelvis, unilater al, 2 or 3 view - 310 2V LEFT HIP - WAITING BY XRAY 2024 025 [email or web address] [facility], [address], [address], [place], [address], 05/21/2024 12:44:17 XR, knee, 4 or more view - New right knee, room [email or web address] [facility], [address], [address], [place], [address], 04/22/2024 16:27:33 XR, hip + pelvis, unilater al, 2 or 3 view - 310 2V LEFT HIP - WAITING BY XRAY 2024 025 [email or web address] [facility], [address], [address], [place], [address], 03/18/2024 09:34:45 XR, hip + pelvis, unilater al, 2 or 3 view - 2 trauma po 2023 024 [email or web address] [facility], [address], [address], [place], [address], 01/22/2024 15:40:30 Medication Orders None recorded . Patient TargetsNo targets recorded. Patient InstructionsNo instructions recorded. Reason for Referral None Reported. Results Created Date Observation Date Name Description Value Unit Range Abnormal Flag Note LastModifiedBy Organization Detail LastModifiedTime 01/22/20 24 01/22/2024 XR, hip + pelvi s, unila teral , 2 or 3 view [email or web address] ?Encry pted=s hAaTro YD8dLq bEUv6g %2BXZw aYqtaq 0bqfl% 2Fg9IQ a4ajBk vP9nXo QUaueC m3YtLR FvZl JJ8mAn HZtai3 1p2967 AC0Kqa XqDU6O mKiQtr MwF INTERFACE [facility] [address] [facility], [place], [address], 01/22/2024 14:35:39 01/22/20 24 01/22/2024 XR, hip + pelvi s, unila teral , 2 or 3 view [email or web address] ?Encry pted=s hAaTro YD8dLq bEUv6g %2BXZw aYqtaq 0bqfl% 2Fg9IQ a4ajBk vP9nXo QUaueC m3YtLR FvZlgJ JJ8mAn HZtai3 4t1608 AC0Kqa XqDU6O mKiQtr MwF INTERFACE [facility] [address], [place], [address], 01/22/2024 14:35:41 03/04/19 25 03/04/2024 XR, hip + pelvi s, unila teral , 2 or 3 view [email or web address] ?Encry pted=s hAaTro YD8dLq bEUv6g %2BXZw aYqtaq 0bqfl% 2Fg9IQ a4ajBk vP9nXo QUaueC m3YtLR FvZlgJ JJ8mAn HZtai3 1p7479 AC0Kqb 3mCV6O mKiQtr MwF INTERFACE [facility] [address], [place], [address], 03/04/2024 13:41:49 03/04/19 25 03/04/2024 XR, hip + pelvi s, unila teral , 2 or 3 view [email or web address] ?Encry pted=s hAaTro YD8dLq bEUv6g %2BXZw aYqtaq 0bqfl% 2Fg9IQ a4ajBk vP9nXo QUaueC m3YtLR FvZlgJ JJ8mAn HZtai3 0j2491 AC0Kqb 3mCV6O mKiQtr MwF INTERFACE [facility] [address] [facility] [address], [place], [address], 03/04/2024 13:41:51 04/23/19 25 04/22/2024 XR, knee, 4 or more view [email or web address] ?Encry pted=s hAaTro YD8dLq bEUv6g %2BXZw aYqtaq 0bqfl% 2Fg9IQ a4ajBk vP9nXo QUaueC m3YtLR FvZlgJ JJ8mAn HZtai3 5p4118 AC0Kqb XqMVqa mKiQtr MwF INTERFACE [facility] [address], [place], [address], 04/22/2024 15:19:26 04/23/19 25 04/22/2024 XR, knee, 4 or more view [email or web address] ?Encry pted=s hAaTro YD8dLq bEUv6g %2BXZw aYqtaq 0bqfl% 2Fg9IQ a4ajBk vP9nXo QUaueC m3YtLR FvZlgJ JJ8mAn HZtai3 4i1244 AC0Kqb XqMVqa mKiQtr MwF INTERFACE [facility] [address], [place], [address], 04/22/2024 15:19:28 05/07/19 25 05/06/2024 XR, hip + pelvi s, unila teral , 2 or 3 view [email or web address] ?Encry pted=s hAaTro YD8dLq bEUv6g %2BXZw aYqtaq 0bqfl% 2Fg9IQ a4ajBk vP9nXo QUaueC m3YtLR FvZlgJ JJ8mAn HZtai3 4q0724 AC0KqY nmGVqq gKiQtr MwF INTERFACE [facility] [address], [place], [address], 05/06/2024 13:19:44 05/07/19 25 05/06/2024 XR, hip + pelvi s, unila teral , 2 or 3 view [email or web address] ?Encry pted=s hAaTro YD8dLq bEUv6g %2BXZw aYqtaq 0bqfl% 2Fg9IQ a4ajBk vP9nXo QUaueC m3YtLR FvZlgJ JJ8mAn HZtai3 4s7177 AC0KqY nmGVqq gKiQtr MwF INTERFACE [facility] [address], [place], [address], 05/06/2024 13:19:46 Result Notes None recorded. Problems Name Problem SNOMED Code Status Onset Date Resolution Date Notes Provider Name and Address Organization Details Recorded Time No complaint s 208334847 Active Status: 'I'; Not Available [facility] 4 09:12:17 Postopera tive pain 577421464 Active 2024 Bessy Wilson PA-C [address] [facility], [place], [address] , [facility] 5 14:37:17 Osteoporo tic fracture of femur 968271276 Active 2024 FRAN JAVIER [facility] 5 13:32:20 Closed fracture of hip 401313143 Active 2024 FRAN JAVIER [facility] 5 13:33:04 Pain of hip region 78041337 Active 2024 OBINNA FELIZ [facility] 5 13:27:28 Pain of right knee joint 813083593338 100 Active 2024 FLY MONTALVO [facility] 5 15:10:28 Full thickness rotator cuff tear 278202409 Active 2017 Problem Code: M75.122; Problem Code Type: ICD-10; Status: 'A'; Not Available [facility] 4 10:57:01 Problem Notes None recorded. Procedures Surgical History Date Name Laterality Status Provider Name and Address Organization Details Recorded Time 04/22/2024 Sports Knee 4&1 completed Bessy Wilson PA-C [address] [facility], [place], [address], [facility] 04/22/2024 16:14:41 Imaging Results Imaging Date Name Status LastModified by Organiz ation Details LastModified Time 01/22/2024 XR, hip + pelvis, unilateral , 2 or 3 view completed INTERFACE [facility] [address], [place], [address], 01/22/2024 14:35:39 01/22/2024 XR, hip + pelvis, unilateral , 2 or 3 view completed INTERFACE [facility] [address], [place], [address], 01/22/2024 14:35:41 03/04/2024 XR, hip + pelvis, unilateral , 2 or 3 view completed INTERFACE [facility] [address], [place], [address], 03/04/2024 13:41:49 03/04/2024 XR, hip + pelvis, unilateral , 2 or 3 view completed INTERFACE [facility] [address], [place], [address], 03/04/2024 13:41:51 04/22/2024 XR, knee, 4 or more view completed INTERFACE [facility] [address], [place], [address], 04/22/2024 15:19:26 04/22/2024 XR, knee, 4 or more view completed INTERFACE [facility] [address], [place], [address], 04/22/2024 15:19:28 05/06/2024 XR, hip + pelvis, unilateral , 2 or 3 view completed INTERFACE [facility] [address], [place], [address], 05/06/2024 13:19:44 05/06/2024 XR, hip + pelvis, unilateral , 2 or 3 view completed INTERFACE [facility] [address], [place], [address], 05/06/2024 13:19:46 Procedure Notes None recorded. Medical Equipment None Reported. Allergies Allergen ID Allergen Name Allergen Category Reaction Reaction Severity Criticality Documentation Date Start Date Code Code System Note Provider Name and Address Organization Details Recorded Time 77467 [facility] medicatio n Not available Not available Not available 04/22/20232016 71685 RxNorm Not Available [facility] 4 10:54:01 20576 Substance with sulfonami de structure and antibacte rial mechanism of action (substanc e) medicatio n Not available Not available Not available 04/22/20232019 81722 8003 SNOMED Not Available [facility] 4 10:54:01 Medications Name Sig Start Date Stop Date Status Note LastModified by Organization Details LastModified Time amoxicillin 500 mg capsule TAKE 4 CAPSULES BY MOUTH 1 HOUR PRIOR TO APPT active Not Available Not Available No t Available furosemide 40 mg tablet TAKE 1 TABLET BY MOUTH EVERY DAY active Not Available Not Available No t Available latanoprost 0.005 % eye drops LOCATION: BOTH EYES. PLACE ONE DROP INTO EACH EYE AT BEDTIME, 90 DAY SUPPLY active Not Available Not Available No t Available albuterol sulfate 0.63 mg/3 mL solution for nebulizatio n USE 0.63 MG (3 ML) INHALED 4 TIMES A DAY NEEDED FOR SHORTNESS OF BREATH OR WHEEZING 03/04 completed Not Available Not Available Not Available atorvastati n 80 mg tablet TAKE 1 TABLET BY MOUTH EVERY DAY active Not Available Not Available No t Available carvedilol 6.25 mg tablet TAKE 1 TABLET BY MOUTH TWICE A DAY MUST ADMINISTE R WITH A MEAL/FOOD active Not Available Not Available No t Available amiodarone 200 mg tablet PLEASE SEE ATTACHED FOR DETAILED DIRECTION S 03/04 completed Not Available Not Available Not Available FreeStyle Lancets 28 gauge USE TO [...] Not Available Not Available No t Available acetaminoph en 500 mg tablet TAKE 1 TABLET EVERY 6 HOURS NEEDED FOR PAIN 04/22 completed Not Available Not Available Not Available simvastatin 40 mg tablet TAKE 1 TABLET BY MOUTH AT BEDTIME active Not Available Not Available No t Available carvedilol 3.125 mg tablet active Not Available Not Available Not Available levothyroxi ne 75 mcg tablet TAKE 1 TABLET BY MOUTH EVERY DAY active Not Available Not Available No t Available benzonatate 100 mg capsule TAKE 1 CAPSULE BY MOUTH 3 TIMES A DAY active Not Available Not Available No t Available buspirone 10 mg tablet TAKE 4 TABLETS ORALLY AT BEDTIME active Not Available Not Available No t Available clotrimazol e-betametha sone 1 %-0.05 % topical cream APPLY TO [...] Available No t Available omeprazole 20 mg capsule,del ayed release TAKE 1 CAPSULE BY MOUTH EVERY DAY active Not Available Not Available No t Available codeine 10 mg-guaifene sin 100 mg/5 mL oral liquid TAKE 5 [...] t Available furosemide 20 mg tablet TAKE 1 TABLET BY MOUTH EVERY OTHER DAY active Not Available Not Available No t Available metoprolol succinate ER 25 mg tablet,exte nded release 24 hr TAKE 1 TABLET BY MOUTH EVERY DAY active Not Available Not Available No t Available albuterol sulfate HFA 90 mcg/actuati on aerosol inhaler INHALE 2 PUFFS BY MOUTH EVERY 4 HOURS NEEDED FOR WHEEZING/ SHORTNESS OF BREATH. USE WITH SPACER active Not Available Not Available No t Available doxycycline hyclate 100 mg tablet TAKE 1 TABLET BY MOUTH TWICE A DAY 03/04 completed Not Available Not Available Not Available oxycodone 5 mg tablet TAKE 1 TABLET BY MOUTH EVERY 4 HOURS active Not Available Not Available No t Available valsartan 40 mg tablet TAKE 1 TABLET BY MOUTH EVERY DAY [id number] active Not Available Not Available No t Available insulin aspart (U-100) 100 unit/mL (3 mL) subcutaneou s pen INJECT 14 UNITS INTO THE SKIN 3 TIMES A DAY active Not Available Not Available No t Available amiodarone 100 mg tablet TAKE 1 TABLET BY MOUTH EVERY DAY active Not Available Not Available No t Available BD Ultra-Fine Mini Pen Needle 31 gauge x 3/16 USE 4 TIMES A DAY 03/04 completed Not Available Not Available Not Available chlorhexidi ne gluconate 0.12 % mouthwash SWISH AND SPIT 15 CC TWICE DAILY FOR 14 DAYS STARTING THE DAY AFTER PROCEDURE . 03/04 completed Not Available Not Available Not Available BD Ultra-Fine Short Pen Needle 31 gauge x 5/16 USE 4 TIMES A DAY 03/04 completed Not Available Not Available Not Available FreeStyle Lite Strips USE TO TEST BLOOD SUGAR THREE TIMES DAILY active Not Available Not Available No t Available Humalog KwikPen (U-100) Insulin 100 unit/mL subcutaneou s TAKE 10 UNITS (0.1 ML) SUBCUTANE OUSLY 3 TIMES A DAY active Not Available Not Available No t Available oxycodone HCl-oxycodo ne-ASA From ER 12/06 completed Statu s: 'Disc ontin ued'; Not Available Not Available Not Available Leanne Hutchinson [facility] spacer USE WITH INHALER active Not Available Not Available No t Available lidocaine 5 % topical ointment APPLY PEA SIZED AMOUNT TO AFFECTED AREA UP TO 5 TIMES DAILY NEEDED-PE PPERMINT OIL FREE active Not Available Not Available No t Available Eliquis 2.5 mg tablet TAKE 1 TABLET BY MOUTH TWICE A DAY active Not Available Not Available No t Available Breo Ellipta 100 mcg-25 mcg/dose powder for inhalation INHALE 1 PUFF DAILY active Not Available Not Available No t Available Entresto 97 mg-103 mg tablet TAKE 1 TABLET BY MOUTH TWICE A DAY active Not Available Not Available No t Available Entresto 49 mg-51 mg tablet TAKE 1 TABLET BY MOUTH TWICE A DAY 03/04 completed Not Available Not Available Not Available Entresto 24 mg-26 mg tablet TAKE 1&1/2 TABLETS BY MOUTH 2 TIMES A DAY active Not Available Not Available No t Available Tresiba FlexTouch U-200 insulin 200 unit/mL (3 mL) subcutaneou s pen 60 UNIT (0.3 ML) SUBCUTANE OUSLY DAILY FOR 30 DAYS active Not Available Not Available No t Available Fiasp FlexTouch U-100 Insulin 100 unit/mL (3 mL) subcutaneou s pen 10 UNIT SUBCUTANE OUSLY 3 TIMES A DAY 03/04 completed Not Available Not Available Not Available Vitals Date Recorded Body height Body mass index (BMI) Body weight Provider Name and Address Organization Details Last Updated DateTime 01/22/2024 152.4 cm 28.7 kg/m2 37631.08 g AIDEE REYES [facility] 01/22/2024 13:04:02 Date Recorded Body height Body mass index (BMI) Body weight Provider Name and Address Organization Details Last Updated DateTime 03/04/2024 152.4 cm 28.7 kg/m2 96548.08 g FRAN JAVIER [facility] 03/04/2024 13:19:01 Date Recorded Body height Body mass index (BMI) Body weight Provider Name and Address Organization Details Last Updated DateTime 04/22/2024 152.4 cm 28.7 kg/m2 50149.08 g FLY MONTALVO [facility] 04/22/2024 15:01:46 Date Recorded Body height Body mass index (BMI) Body weight Provider Name and Address Organization Details Last Updated DateTime 05/06/2024 152.4 cm 28.7 kg/m2 30794.08 g FRAN JAVIER [facility] 05/06/2024 13:14:12 Social History None recorded. Functional Status None recorded. Mental Status None recorded. Family History Nothing Reported. Medical History No medical history recorded. Gynecological HistoryNo gynecological history recorded. Obstetrics History GPAL:G 0 P 0 0 0 0 Past Encounters Encounter ID Performer Location Encounter Start Date Encounter Closed Date Diagnosis/Indication Diagnosis SNOMED-CT Code Diagnosis ICD10 Code Diagnosis Note [id number] Shane Lawrence PA-C [place] [address] [place] [address] 01/22/2024 12:51:45 02/06/2024 06:46:40 Postoperative visit 091382440 Z48.89 [id number] MD MIR Dejesus [facility] [address] [place] [address] 03/04/2024 13:10:46 03/18/2024 09:34:45 Closed fracture of hip 336193452 S72.002D [id number] GELY Chan [facility] [address] [place] [address] 04/22/2024 14:44:41 05/06/2024 12:44:54 Pain of right knee joint 5099057427 93678 M25.428 [id number] MD MIR Dejesus [address] [place] [address] 05/06/2024 12:52:35 05/21/2024 12:44:16 Closed fracture of hip 844793198 S72.002D Health Concerns Section Related Observation LastModified by Organization Detai ls LastModified Time None Recorded Concern Status LastModified by Organization Details LastModified Time None Recorded Advance Directives Directive None Recorded Payers Encounter Date Sequence Insurance Name Policy Number Policy Vilchis Covered Member ID Vilchis Member ID Guarantor Name 01/22/2024 2 [place] [id number] Beverly Marie [id number] 21 Beverly Marie 01/22/2024 1 [place] Beverly Marie [id number] 2 Beverly Marie 03/04/2024 2 [place] [id number] Beverly Marie [id number] Beverly Marie 03/04/2024 1 [place] Beverly Marie [id number] 2 Beverly Marie 04/22/2024 2 [place] [id number] Beverly Marie [id number] 21 Beverly Marie 04/22/2024 1 [place] Beverly Marie [id number] 2 Beverly Marie 05/06/2024 2 [place] [id number] Beverly Marie [id number] 21 Beverly Marie 05/06/2024 1 [place] Beverly Marei [id number] 2 Beverly Marie Notes Date Note Type Note Provider Name and Address Organization Details Recorded Time 01/22/2024 text/html I am seeing the patient today under the supervision of dr Arrington who was available but who did not see the patient. DX: Status post left hip hemiarthroplasty January 05, 2024 HPI: 84-year-old female here for wound check and suture removal. She is weightbearing as tolerated. She denies any fever or chills. Pain is controlled. No numbness tingling. Past family, medical, social history and review of systems has been reviewed, updated and is located in the patient? s chart. Examination: Alert and oriented ? ? 3 . No acute distress. + antalgic gait. She is in a wheelchair. Examination left lateral hip reveals healed incision. [place] are removed. She has decent hip range of motion. Calf soft nontender to palpation. Compartments are soft. Dorsiflexion plantarflexion intact. 2+ dorsalis pedis pulse 1+ cap X-rays ordered, obtained and reviewed at [facility] 1 view AP pelvis 1 view left lateral hip reveals an aligned left total hip hemiarthroplasty. No loosening. Good interface. Impression/Plan:1. Weightbearing as tolerated 2. May shower and get the incision wet 3. OT/PT 4. Continue DVT prophylaxis for another 2 weeks 5. Follow-up with Dr. Arrington in 4 weeks for repeat x-rays 1 view AP pelvis 1 view left lateral Shane Lawrence PA-C [address] [facility] [address] [facility], [place], [address], [facility] 01/22/2024 15:02:15 04/22/2024 text/html I am seeing the patient today under the supervision of {{Murphy# }} who was available but who did not see the patient. HPI:Patient presents today follow-up regarding their {{Left Right* Bi-later al}} knee. They have had difficulty up and down stairs sitting standing. Previous injection gave good relief until recent. Problems ambulating. Gifp-jfl-pmzmper medications are helping somewhat but not significantly. Pain is constant aching sometimes sharp pain with giving out sensations. Past family, medical, social history and review of systems has been reviewed, updated and is located in the patient? s chart. Examination:The patient is well appearing and in no apparent distress. Alert and oriented x3. Gait is symmetric. Examination of the {{Left Right* Bi-later al}} knee reveals no evidence of any edema, erythema, or warmth. No Deformity. Range of motion of the knee limited with mild discomfort at the end ranges. Mild effusion. Does have some tenderness to palpation about the medial hemijoint line. No tenderness to palpation about the lateral hemijoint line. Patellofemoral crepitus is noted. mild lateral ligamentous laxity. Negative Rossy? s . Calf is supple and nontender. Neurovascularly intact distally. xray- 4 views right knee taken today at [facility], independently reviewed in the office at this time shows significant arthritis and no acute pathology. Impression:{{Left Righ t* Bi-lateral}} Knee osteoarthritis Plan:We discussed the role of conservative management including medications, physical therapy, injection and bracing. At this point the patient was to proceed with injection. Please see procedure note. They will follow up with us as scheduled. Bessy Wilson PA-C [address] [facility] [address], [place], [address], [facility] - [facility] 05/06/2024 15:04:10 OBGyn Episode No OBEpisode recorded.
== END 2024-06-30 15:01 | disposition home or self-care (01) ==
LOC: HO.HKA 14:38
PROVIDERS: PCP Internal Medicine; Visit Provider Internal Medicine Hypertension Specialist
DX: I12.9 Hypertensive chronic kidney disease with stage 1 through stage 4 chronic kidney disease, or unspecified chronic kidney disease (principal); N18.9 Chronic kidney disease, unspecified; I50.9 Heart failure, unspecified; D64.9 Anemia, unspecified
CPT/HCPCS: 99214

== ENCOUNTER → 2024-06-30 14:38 | Outpatient (BNVA) | payer MEDICARE, SELFPAY | PROVIDERS: PCP Internal Medicine; Visit Provider Internal Medicine Hypertension Specialist | DX: I12.9 Hypertensive chronic kidney disease with stage 1 through stage 4 chronic kidney disease, or unspecified chronic kidney disease (principal); N18.9 Chronic kidney disease, unspecified; I50.9 Heart failure, unspecified; D64.9 Anemia, unspecified | CPT/HCPCS: 99212 ==

== ENCOUNTER 2024-08-03 13:33 | Outpatient (AMB) | payer MEDICARE, SELFPAY ==
--- NOTE | 2024-08-03 13:38 | A.OFFVIS_ITS ---
Intake Vital Signs 08/03/24 13:42 Height 5 ft 7 in Weight 137 lb BMI 21.5 BP 128/76 Blood Pressure Location Rt brachial Position Sitting Respiration 18 Pulse 81 Pulse Source Pulse Oximeter Temp 97.7 F Temp Source Oral Pulse Oximetry (%) 98 Oxygen Delivery Method Room Air Intake Visit Reasons: SWV G4039 Intake Note: Pt is here today for AWV. Allergies dulaglutide [Trulicity] Allergy (Unknown, Verified 08/03/24 13:41) GERD losartan Allergy (Unknown, Verified 08/03/24 13:41) Hyperkalemia Sulfa (Sulfonamide Antibiotics) Allergy (Unknown, Verified 08/03/24 13:41) Rash dapagliflozin [From Farxiga] Adverse Reaction (Intermediate, Verified 08/03/24 13:41) candidasis empagliflozin [From Jardiance] Adverse Reaction (Intermediate, Verified 08/03/24 13:41) candidiasis amiodarone Adverse Reaction (Verified 08/03/24 13:41) Cough spironolactone Adverse Reaction (Verified 08/03/24 13:41) Hyperkalemia Medication List - Last Reconciled 08/03/24 by Orquidea Keller MD acetaminophen (Tylenol Extra Strength) 500 mg PO Q6H PRN albuterol sulfate 0.63 mg (3 mL) inhalation QID PRN allopurinol 100 mg PO DAILY apixaban (Eliquis) 2.5 mg PO BID ascorbate calcium (vitamin C) 500 mg PO DAILY atorvastatin 80 mg PO BEDTIME benzonatate 100 mg PO TID PRN blood sugar diagnostic (FreeStyle Lite Strips) Use to test blood sugar three times daily blood-glucose sensor ([employer] G7 Sensor device) As directed blood-glucose,harp regulator,cont ([employer] G7 Warehouse Analyst) As directed buspirone 40 mg (4 x 10 mg) PO BEDTIME carvedilol 6.25 mg PO BID cholecalciferol (vitamin D3) 50 mcg PO DAILY codeine-guaifenesin 10-100 mg/5 mL 5 mL PO Q4-6H PRN ferrous fumarate 325 mg PO DAILY fluticasone furoate-vilanterol 100-25 mcg/dose (Breo Ellipta) 1 inh inhalation DAILY PRN furosemide 40 mg (2 x 20 mg) PO QAM insulin aspart U-100 (Novolog FlexPen U-100 Insulin aspart) 16 units (0.16 mL) subcut TID insulin degludec (Tresiba FlexTouch U-200 insulin) 10 units subcut DAILY lactic acid-urea 1 appl topical DAILY PRN lancets (FreeStyle Lancets) use to test blood sugars three times per day latanoprost 0.005% 1 drp ophthalmic (eye) DAILY levothyroxine 75 mcg PO DAILY nebulizers As directed for updraft treatments-with all needed supplies omeprazole 20 mg PO DAILY oxycodone 5 mg PO BID PRN pen needle, diabetic USE 4 TIMES A DAY sacubitril-valsartan 97-103 mg (Entresto) 1 tab PO BID HPI SWV G4039 HPI Details Initiated the conversation about Advanced Directives. Advanced Directives help? patients prepare for current and future decisions about their medical treatment? and place of care. Discussed with patient that it is a process where a patients? current condition and prognosis are reviewed, their wishes for information? regarding their illness are elicited, and likely medical dilemmas are presented? and options discussed. The form can be amended as needed, reviewed yearly and? make changes as needed IPPE/AWV ? year old presents? for her ? Annual? Wellness Visit, initial visit.? Medical / Social History Reviewed? Past Medical History ?Yes? . ? [place]? of Care / Care Team list updated ?Yes . ? Surgical/Hospitalization? History ?Yes . ? Current Medications? (including OTC and supplements) ?Yes . ? Family History ?Yes? . ? Tobacco? Control form ?Yes . ? AUDIT-C (Alcohol use) form? ?Yes . ? Illicit drug use in Social? History ?Yes . ? Current diagnosis of? depression? ?No ? Appropriate PHQ2/PHQ9? completed ?Yes . ? Data entered by ?Medical? Soda Clerk and reviewed by provider ? Fall Risk ? Fall? History? Have you had any falls with? injury in the past year? ?No . ? Have you had two or more? falls in the past year? ?No . ? Fall Risk Assessment: ?No? falls in the past year . ? HRA filled out by? the patient, reviewed by Provider and scanned. ? IPPE/AWV ? Balance? Romberg? ?Yes . ? Tandem? walk ?Yes . ? Walk and? Turn ?Yes . ? Rise from? sit to stand ?Yes . ?Vision? Corrective? lens ?Yes ? Vision? screen ? Up-to-date, has an appointment [] for vision? screening and glaucoma screening ?Hearing? Whisper? test ?pass .? Initiated the conversation about Advanced Directives. Advanced Directives help? patients prepare for current and future decisions about their medical treatment? and place of care. Discussed with patient that it is a process where a patients? current condition and prognosis are reviewed, their wishes for information? regarding their illness are elicited, and likely medical dilemmas are presented? and options discussed. The form can be amended as needed, reviewed yearly and? make changes as needed Written? Plan?Completed. See Patient? Documents. [facility] Medical History (Updated 08/03/24 @ 15:13 by Orquidea Keller MD) CHF (congestive heart failure) Insulin dependent type 2 diabetes mellitus Diabetic retinopathy History of partial replacement of left hip joint using bipolar prosthesis Vitamin D deficiency Macrocytosis Cough Sciatica Hypothyroidism HTN (hypertension) Lower extremity edema Irritable bowel syndrome (IBS) Chronic GERD Anxiety Chronic kidney disease (CKD) Hyperlipidemia Hypertension associated with diabetes Surgical History No pertinent past surgical history Family History Mother Ovarian cancer Father Pancreatic cancer Thyroid disease Social History Household Members Other:: Housing: House Alcohol intake: never Patient Tobacco Use Status: Never used Tobacco e-Cigarette/Vaping Use: Never Used Second Hand Smoke Exposure: No service: No Current occupational status: retired Cognitive needs: No Hearing needs: No Vision needs: Yes Questionnaire Medicare Wellness Checkup What is your age?: 80 or older What gender do you identify with?: female During the past 4 weeks, how much have you been bothered by emotional problems such as feeling anxious, depressed, irritable, sad or downhearted, and blue?: not at all During the past 4 weeks, has your physical & emotional health limited your social activities with family, friends, neighbors, or groups?: not at all During the past 4 weeks, how much bodily pain have you generally had?: very mild pain During the past 4 weeks, was someone available to help you if you needed & wanted help?: no, not at all During the past 4 weeks, what was the hardest physical activity you could do for at least 2 minutes?: moderate Can you go shopping for groceries or clothes without someone's help?: Yes Can you prepare your own meals?: Yes Can you do your housework without help?: Yes Because of any health problems, do you need the help of another person with your personal care needs such as eating, bathing, dressing or getting around the house?: No Can you handle your own money without help?: Yes During the past 4 weeks, how would you rate your health in general?: good During the past 4 weeks how have things been going for you?: very well; could hardly better Are you having difficulties driving your car?: no Do you always fasten your seat belt when you are in a car?: yes, usually During past 4 weeks, have you been bothered by the following: never: Falling or dizzy when standing up, Sexual problems?, Trouble eating well?, Teeth or denture problems? and Problems using the telephone? and sometimes: Tiredness or fatigue? Have you fallen 2 or more times in the past year?: No Are you afraid of falling?: No Are you a smoker?: no During the past 4 weeks, how many drinks of wine, beer, or other alcoholic beverages did you have?: no alcohol at all Do you exercise for about 20 minutes 3 or more times a week?: yes, most of the time Have you been given information to help with the following?: yes: Hazards in your house that might hurt you? and yes: Keeping track of your medications? How often do you have trouble taking medicines the way you have been told to take them?: I always take medicine as prescribed How confident are you that you can control & manage most of your health problems?: very confident What is your race?: White Mini Mental State Exam (MMSE) Orientation What is the (year) (season) (date) (day) (month)?: year, season, date, day and month Where are we (state) (county) (town or city) (hospital) (floor)?: state, county, town or city, hospital/clinic and floor Registration Name of 3 unrelated objects clearly and slowly, then ask patient to repeat all 3 of them. (1st repeat determines score. Make sure they can repeat all three): object 1, object 2 and object 3 Attention & Calculation (CHOOSE ONE) Spell WORLD backwards (DLROW): 5 letters Recall Ask patient to repeat the 3 items from question #3.: object 1, object 2 and object 3 Language Show patient a wristwatch & ask what it is. Repeat for pencil.: watch and pencil Ask the patient to repeat the phrase 'No ifs, ands, or buts' after you.: correct Ask the patient to 'take a piece of paper with their right hand' 'fold paper in half' 'place paper on floor': take paper in right hand, fold paper in half and place paper on floor Print the sentence 'CLOSE YOUR EYES' on a piece. If patient actually closes eyes then score.: followed written direction Give patient a blank piece of paper & ask to write a sentence. Score if it contains a noun & verb.: sentence contains subject and verb Score Score: 29 PHQ-9 Over the last 2 weeks, how often have you been bothered by any of the following problems? 1. Little interest or pleasure in doing things: not at all 2. Feeling down, depressed, or hopeless: not at all 3. Trouble falling or staying asleep, or sleeping too much: not at all 4. Feeling tired or having little energy: several days 5. Poor appetite or overeating: not at all 6. Feeling bad about yourself - or that you are a failure or have let yourself or your family down: not at all 7. Trouble concentrating on things, such as reading the newspaper or watching television: not at all 8. Moving or speaking so slowly that other people could have noticed. Or the opposite - being so fidgety or restless that you have been moving around a lot more than usual: not at all 9. Thoughts that you would be better off or of hurting yourself in some way: not at all Total score: 1 Depression Screening Interpretation: Negative Depression Screening Done: Yes 78870 - PHQ-9 Billing: Yes Source: Developed by Drs. Bryce Garcia, Sophie Baldwin, Rock Coyle and colleagues, with an educational pranay from [employer]. Review of Systems Const All systems reviewed & are unremarkable except as noted in HPI and below Eyes Reports no additional complaints ENT Reports no additional complaints Card Reports no additional complaints Resp Reports no additional complaints GI Reports no additional complaints Reports no additional complaints Physical Exam Vital Signs: Last Vital Signs Temp 97.7 F 08/03/24 13:42 Pulse 81 08/03/24 13:42 Resp 18 08/03/24 13:42 BP 128/76 08/03/24 13:42 Pulse Ox 98 08/03/24 13:42 Oxygen Delivery Method Room Air 08/03/24 13:42 BMI result Body Mass Index 21.5 Const General: no acute distress HEENT Head: Yes normal to inspection Ears: TM's normal bilaterally Eyes General: appearance normal, both eyes and all related structures Neck Neck: Yes no lymphadenopathy and Yes supple Resp Effort & Inspection: normal respiratory effort Auscultation: clear to auscultation bilaterally Cardio Rhythm: regular rhythm Heart sounds: S1 normal heart sound present and S2 normal heart sound present GI Inspection: Yes normal to inspection Palpation (GI): Soft to palpation Percussion: Yes normal to percussion Auscultation: normal bowel sounds Extrem Other: 2+ pitting edema bilaterally Results AMB Hemoglobin A1c AMB Hemoglobin A1c 8.8 % Last Edit by ZULEYKA Petty on 08/03/24 14:4 4 Results Reviewed Results Reviewed: Laboratory Last Values Hgb A1c (Clinic) 8.8 % (4.0-6.0) H 08/03/24 14:42 Assessment & Plan Assessment & Plan (1) Annual physical exam: Code(s): Z00.00 - Encounter for general adult medical examination without abnormal findings Plan: Well-balanced diet regular physical activity discussed with the patient (2) Paroxysmal A-fib: Comment: 01/10 during hospitalization for NSTEMI 01/10, on metoprolol and Eliquis Code(s): I48.0 - Paroxysmal atrial fibrillation Plan: Continue Coreg and Eliquis established with automotive painter helper every 6 months (3) CHF (congestive heart failure): Comment: Echo LVEF 40-45%, mid to distal anterior, apical, mid-distal septal/anteroseptal and apical inf wall akinesis 01/10 [facility], Echo 10/2023 [facility], EF 55- 60 %, calcification of aortic and mitral valve, no pulmonary hypertension Code(s): I50.9 - Heart failure, unspecified Plan: Recovered injection fraction continue Entresto furosemide and follow-up with Cardiology (4) Chronic kidney disease (CKD): Comment: stage 3/4 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 Glomerular nephritis/interstitial disease seem unlikely Code(s): N18.9 - Chronic kidney disease, unspecified Plan: Avoid nephrotoxins monitor renal function established with Nephrology (5) Hypothyroidism: Code(s): E03.9 - Hypothyroidism, unspecified Plan: Continue levothyroxine (6) HTN (hypertension): Comment: Essential hypertension Code(s): I10 - Essential (primary) hypertension Plan: Continue current medications (7) Insulin dependent type 2 diabetes mellitus: Comment: Poorly controlled due to patient noncompliance with diet Code(s): E11.9 - Type 2 diabetes mellitus without complications; Z79.4 - ad terminal makeup operator (current) use of insulin Plan: A1c is 8.8 today. Patient has not been compliant with ADA diet. She reports hypoglycemia episodes after taking short-acting insulin before small and meals. NovoLog will be decreased from 16 units before meals to 10 units and Tresiba will be increased from 10 units to 20 units, Patient will follow-up in 3 months with a fasting labs before Orders: Orders AMB Hemoglobin A1c Today Z13.9 - Encounter for screening, unspecified Comprehensive [place]. Panel Fast 3 Months I48.0 - Paroxysmal atrial fibrillation, I50.9 - Heart failure, unspecified, M54.30 - Sciatica, unspecified side, N18.9 - Chronic kidney disease, unspecified, Z00.00 - Encounter for general adult medical examination without abnormal findings Complete Blood Count Auto Diff 3 Months I48.0 - Paroxysmal atrial fibrillation, I50.9 - Heart failure, unspecified, M54.30 - Sciatica, unspecified side, N18.9 - Chronic kidney disease, unspecified, Z00.00 - Encounter for general adult medical examination without abnormal findings Hemoglobin A1c 3 Months I48.0 - Paroxysmal atrial fibrillation, I50.9 - Heart failure, unspecified, M54.30 - Sciatica, unspecified side, N18.9 - Chronic kidney disease, unspecified, Z00.00 - Encounter for general adult medical examination without abnormal findings TSH reflex Free T4 3 Months I48.0 - Paroxysmal atrial fibrillation, I50.9 - Heart failure, unspecified, M54.30 - Sciatica, unspecified side, N18.9 - Chronic kidney disease, unspecified, Z00.00 - Encounter for general adult medical examination without abnormal findings IRON PROFILE 3 Months I48.0 - Paroxysmal atrial fibrillation, I50.9 - Heart failure, unspecified, M54.30 - Sciatica, unspecified side, N18.9 - Chronic kidney disease, unspecified, Z00.00 - Encounter for general adult medical examination without abnormal findings Comprehensive Met. Panel 3 Months E03.9 - Hypothyroidism, unspecified Medications: Changed From insulin degludec (Tresiba FlexTouch U-200 insulin) 10 units subcut DAILY E11.9 - Type 2 diabetes mellitus without complications To insulin degludec (Tresiba FlexTouch U-200 insulin) 20 units subcut DAILY E11.9 - Type 2 diabetes mellitus without complications From insulin aspart U-100 (Novolog FlexPen U-100 Insulin aspart) 16 units (0.16 mL) subcut TID 15 mL 5RF To insulin aspart U-100 (Novolog FlexPen U-100 Insulin aspart) 10 units (0.1 mL) subcut TID 15 mL 5RF Quality Reporting (2019) Depression/Bipolar (159/160/161/177) PHQ-9: Total score: 1 Coding Level of Care Code Medicare Subsequent (G0439) Diagnoses Annual physical exam Z00.00 Paroxysmal A-fib I48.0 CHF (congestive heart failure) I50.9 Chronic kidney disease (CKD) N18.9 Hypothyroidism E03.9 HTN (hypertension) I10 Insulin dependent type 2 diabetes mellitus E11.9; Z79.4 CPT Codes Advance Care Planning - Advance Care Planning discussion: On file, no changes ([id number]) Advance Care Planning - Time spent: 1-15 minutes, on File ([id number]) Additional Codes PHQ-9 - 29741 - PHQ-9 Billing: Yes ([id number]) Advance Care Planning Advance Care Planning discussion: On file, no changes Forms completed: Health Care Proxy Time spent: 1-15 minutes, on File Did not discuss due to Cultural/Spiritual beliefs: Yes
[2024-08-03 13:42] VITALS: BP 128/76; PULSE 81; RESP 18; TEMP 36.5; O2SAT 98; BMI 21.5
--- OUTSIDE RECORDS SUMMARY | 2024-08-03 15:05 | XMS_ITS | Patient Health Record ---
Author [facility] [place] Address [address] [place] [address] Care Team Providers Care Armature Winder Repair Name Role Phone Orquidea Keller MD Primary Care Provider Unavaila Costa Scott Unavailable [phone] Allergies Allergen (clinical drug ingredient) Drug/Non Drug Allergy documented on EMR Reaction Allergy Type Onset Date Status sulfa Unknown Drug Allergy Active Reason For Referral No Information Medications Medication SIG (Take, Route, Frequency, Duration) Notes Start Date End Date Status Valsartan 40 MG Orally Once a day Active Multivitamin Active Metoprolol Succinate Active NovoLOG Active Omeprazole 20 MG Orally Once a day Active Simvastatin 20 MG Orally Once a day Active Allopurinol 100 MG Orally Once a day Active traMADol HCl 50 MG 1 tablet as needed Orally Active Aspir-81 Active Tresiba FlexTouch Ac tive Benzonatate 100 MG Orally Three times a day Active Triamterene Active busPIRone HCl 10 MG Orally Active Tylenol PM Extra Strength Active Fish Oil Active Tylenol w/codeine #3 PRN Active Levothyroxine Sodium Active Immunizations Vaccine Route Administration Date Status Comme nts Influenza Unknown 10/30/2016 Administered Social History Tobacco Use: Social History Observation Description Date Details (start date - stop date) Never Smoker NA - NA Tobacco Use/Smoking Question Answer Notes Are you a: nonsmoker Additional Findings: Tobacco Non-User Current no n-smoker Alcohol Screen Question Answer Notes Did you have a drink containing alcohol in the p ast year? No Points 0 Interpretation Negative Tobacco use other than smoking: Question Answer Notes Are you an other tobacco user? No Problems Problem Type SNOMED Code ICD Code Onset Dates Problem Status W/U Status Risk Notes Problem Polyneuropathy due to type 2 diabetes mellitus ([id number]) Type 2 diabetes mellitus with diabetic polyneuropathy (E11.42) Active confirmed Plan Of Treatment No Information Insurance Providers Payer Name Payer Address Payer Phone Subscriber Number Group Number Insured Name Patient Relationship to Insured Coverage Start Date Coverage End Date Medicare National [employer] [address] [place] [address] [id number] Beverly Marie Self - patient is the insured 3 [employer] [address] [place] [address] [id number] Beverly Marie Self - patient is the insured Medical (General) History Medical History History ICD Code Arthritis CAD (Cholesterol) Cataracts Chicken pox Diabetes mellitus Glaucoma Gout Hypertensive disorder Hypertension Knee Pain Measles Mumps Numbness Osteoporosis Reflux ( GERD) Thyroid disorder
== END 2024-08-03 15:15 | disposition home or self-care (01) ==
LOC: HO.HMCC 13:34
PROVIDERS: PCP Internal Medicine; Visit Provider Internal Medicine
DX: Z00.00 Encounter for general adult medical examination without abnormal findings (principal); I12.9 Hypertensive chronic kidney disease with stage 1 through stage 4 chronic kidney disease, or unspecified chronic kidney disease; I48.0 Paroxysmal atrial fibrillation; I50.9 Heart failure, unspecified; E11.9 Type 2 diabetes mellitus without complications; Z79.4 Long term (current) use of insulin; N18.9 Chronic kidney disease, unspecified; E03.9 Hypothyroidism, unspecified

== ENCOUNTER → 2024-08-03 13:33 | Outpatient (BNVA) | payer MEDICARE, SELFPAY | PROVIDERS: PCP Internal Medicine; Visit Provider Internal Medicine | DX: Z00.00 Encounter for general adult medical examination without abnormal findings (principal); I48.0 Paroxysmal atrial fibrillation; I13.0 Hypertensive heart and chronic kidney disease with heart failure and stage 1 through stage 4 chronic kidney disease, or unspecified chronic kidney disease; E11.22 Type 2 diabetes mellitus with diabetic chronic kidney disease; N18.9 Chronic kidney disease, unspecified; I50.9 Heart failure, unspecified; E03.9 Hypothyroidism, unspecified; Z79.4 Long term (current) use of insulin | CPT/HCPCS: 83036; 96127 ==

== ENCOUNTER 2024-08-25 14:31 | Outpatient (AMB) | payer MEDICARE, SELFPAY ==
[2024-08-25 14:48] VITALS: BP 98/64; PULSE 68; BMI 21.4
--- NOTE | 2024-08-25 14:48 | MHC.OFFVIS ---
Vital Signs 08/25/24 14:48 Height 5 ft 7 in Weight 136 lb 10.986 oz BMI 21.4 BP 98/64 Blood Pressure Location Lt brachial Position Sitting Pulse 68 Intake Visit Reasons: 6m follow up Intake Note: 6 month follow-up feeling good Scorekeeper Required: No Allergies dulaglutide (Trulicity) Allergy (Unknown, Verified 08/03/24 13:41) GERD losartan Allergy (Unknown, Verified 08/03/24 13:41) Hyperkalemia Sulfa (Sulfonamide Antibiotics) Allergy (Unknown, Verified 08/03/24 13:41) Rash dapagliflozin (From Farxiga) Adverse Reaction (Intermediate, Verified 08/03/24 13:41) candidasis [facility] Adverse Reaction (Intermediate, Verified 08/03/24 13:41) candidiasis amiodarone Adverse Reaction (Verified 08/03/24 13:41) Cough spironolactone Adverse Reaction (Verified 08/03/24 13:41) Hyperkalemia Medication List - Last Reconciled 08/25/24 by Spenser Horne MD acetaminophen (Tylenol Extra Strength) 500 mg PO Q6H PRN albuterol sulfate 0.63 mg (3 mL) inhalation QID PRN allopurinol 100 mg PO DAILY apixaban (Eliquis) 2.5 mg PO BID ascorbate calcium (vitamin C) 500 mg PO DAILY atorvastatin 80 mg PO BEDTIME benzonatate 100 mg PO TID PRN blood sugar diagnostic (FreeStyle Lite Strips) Use to test blood sugar three times daily blood-glucose sensor (AD[employer]OTOPE G7 Sensor device) As directed blood-glucose,health administration teacher,cont (Dexcom G7 Insulation Supervisor) As directed buspirone 40 mg (4 x 10 mg) PO BEDTIME carvedilol 6.25 mg PO BID cholecalciferol (vitamin D3) 50 mcg PO DAILY codeine-guaifenesin 10-100 mg/5 mL 5 mL PO Q4-6H PRN ferrous fumarate 325 mg PO DAILY furosemide 40 mg (2 x 20 mg) PO QAM insulin aspart U-100 (Novolog FlexPen U-100 Insulin aspart) 10 units (0.1 mL) subcut TID insulin degludec (Tresiba FlexTouch U-200 insulin) 20 units subcut DAILY lactic acid-urea 1 appl topical DAILY PRN lancets (FreeStyle Lancets) use to test blood sugars three times per day latanoprost 0.005% 1 drp ophthalmic (eye) DAILY levothyroxine 75 mcg PO DAILY nebulizers As directed for updraft treatments-with all needed supplies omeprazole 20 mg PO DAILY PRN pen needle, diabetic USE 4 TIMES A DAY sacubitril-valsartan 97-103 mg (Entresto) 1 tab PO BID HPI Comments Details: Beverly comes for follow-up. Overall she has been doing well. She has not had any cardiovascular symptoms. Denies any prolonged palpitation irregular heartbeat. Denies any lightheadedness, syncope. Her carvedilol was increased about 3 months ago. Blood pressure today on the lower side. She says at home the blood pressure is very labile. She denies any orthostatic symptoms. Denies any orthopnea, PND, leg edema. No bleeding issues or neurologic events. No exertional chest pain. [facility] Medical History CHF (congestive heart failure) Insulin dependent type 2 diabetes mellitus Diabetic retinopathy History of partial replacement of left hip joint using bipolar prosthesis Vitamin D deficiency Macrocytosis Cough Sciatica Hypothyroidism HTN (hypertension) Lower extremity edema Irritable bowel syndrome (IBS) Chronic GERD Anxiety Chronic kidney disease (CKD) Hyperlipidemia Hypertension associated with diabetes Surgical History No pertinent past surgical history Family History Mother Ovarian cancer Father Pancreatic cancer Thyroid disease Social History Household Members Other:: Housing: House Alcohol intake: never Patient Tobacco Use Status: Never used Tobacco e-Cigarette/Vaping Use: Never Used Second Hand Smoke Exposure: No service: No Current occupational status: retired Cognitive needs: No Hearing needs: No Vision needs: Yes Review of Systems Const Denies chills, Denies fatigue, Denies fever(s), Denies frequent falls, Denies weakness, Denies weight gain and Denies weight loss ENT Denies dizziness Card Denies chest pain, Denies leg edema, Denies lightheadedness, Denies palpitations, Denies dyspnea, Denies dyspnea on exertion, Denies orthopnea and Denies other (loss of consciousness) Resp Denies cough, Denies dyspnea and Denies dyspnea on exertion GI Denies hematochezia and Denies change in stool character Musc Denies abnormal gait, Denies muscle weakness, Denies numbness, Denies radiating pain into limb and Denies tingling Neuro Denies Abnormal speech present, Denies abnormal gait, Denies dizziness, Denies frequent falls, Denies numbness, Denies tingling and Denies weakness Endo Denies fatigue and Denies palpitations Physical Exam Vital Signs: Last Vital Signs Pulse 68 08/25/24 14:48 BP 98/64 08/25/24 14:48 BMI result Body Mass Index 21.4 Const General: cooperative, comfortable, no acute distress, alert and awake Nutritional Appearance: average body habitus Orientation/consciousness: patient oriented x3 Limitations: ambulation with walker HEENT Head: Yes normocephalic and Yes atraumatic Neck Neck: Yes trachea midline, Yes supple and Yes no JVD Resp Effort & Inspection: normal respiratory effort Auscultation: clear to auscultation bilaterally Cardio Jugular venous distension: no JVD Palpation: normal PMI Rate: regular rate Rhythm: regular rhythm Heart sounds: S1 normal heart sound present, S2 normal heart sound present, no click, no gallops, no murmurs and no rubs GI Auscultation: normal bowel sounds Skin General skin exam: no rashes or lesions noted Neuro General: patient oriented x3 and no focal motor deficits Speech: No Abnormal speech present Extrem General: No clubbing, No cyanosis and Yes edema (Left greater than right below knee) Psych Appearance: grossly normal Assessment & Plan Assessment & Plan (1) Paroxysmal A-fib: Comment: 01/10 during hospitalization for NSTEMI 01/10, on metoprolol and Eliquis Code(s): I48.0 - Paroxysmal atrial fibrillation Category: Medical Plan: Paroxysmal atrial fibrillation without any obvious clinical recurrence. Continue rhythm control approach. Continue current therapy with carvedilol. Avoidance of stimulants was discussed. Advised to call me with new symptoms. Currently on full oral anticoagulation with Eliquis at 2.5 mg b.i.d.. Semi annual renal function test should be pursued. No indication for antiarrhythmic drug therapy at this point time. (2) CAD (coronary artery disease): Comment: NSTEMI, S/P AMOR to mid LAD (90% stenosis) 01/10 Code(s): I25.10 - Atherosclerotic heart disease of [place] coronary artery without angina pectoris Category: Medical Plan: CAD with stenting to the LAD in 2022. No recurrent symptoms since then. Continue aggressive risk factor modification. Currently on full oral anticoagulation Eliquis and therefore would avoid antiplatelet therapy to reduce bleeding risk. Continue aggressive blood pressure control which currently well optimized. Continue high-intensity statin therapy to target goal LDL less than 70 mg/dL. (3) CHF (congestive heart failure): Comment: Echo LVEF 40-45%, mid to distal anterior, apical, mid-distal septal/anteroseptal and apical inf wall akinesis 01/10 [facility], [place] [facility] [place] 55- 60 %, calcification of aortic and mitral valve, no pulmonary hypertension Code(s): I50.9 - Heart failure, unspecified Category: Medical Plan: CHF with prior reduced ejection fraction but which has normalized since with neurohormonal modulation as well as stenting. Clinically euvolemic well compensated. Currently on 40 mg of furosemide. Continue the same. Daily weight monitoring avoidance salt loading was discussed. Continue current carvedilol as well as Entresto therapy. A blood pressure on today's exam is on the lower side but she has no orthostatic symptoms. Advised to monitor blood pressure at home. If persistently remains low may need to pull back on the carvedilol therapy. Will follow up in the clinic in 6 months time after echocardiogram with the EKG. Thank you for allowing me to partake in her care Orders: Orders CA echo transthoracic complete 6 Months Spenser Horne MD I50.9 - Heart failure, unspecified Medications: Changed From omeprazole 20 mg PO DAILY 90 caps 3RF To omeprazole 20 mg PO DAILY PRN Orquidea Keller MD Coding Level of Care Code Est Pt Level 4 (74698) Complex EM visit Add On G2211 Diagnoses Paroxysmal A-fib I48.0 CAD (coronary artery disease) I25.10 CHF (congestive heart failure) I50.9
--- OUTSIDE RECORDS SUMMARY | 2024-08-25 15:24 | XMS_ITS | Patient Health Record ---
Author [facility] jaguar Maynard Address [address] [place] [address] Care Team Providers Care Operations Tech Name Role Phone Orquidea Keller MD Primary Care Provider Unavaila Costa Scott Unavailable [phone] Allergies Allergen (clinical drug ingredient) Drug/Non Drug [...] Problem Status W/U Status Risk Notes Problem Type 2 diabetes mellitus with diabetic polyneuropathy (E11.42) Active confirmed Plan Of Treatment No Information Insurance Providers Payer Name Payer Address Payer Phone Subscriber Number Group Number Insured Name Patient Relationship to Insured Coverage Start Date Coverage End Date Medicare National Govt Svcs Inc [address] [place] [address] [id number] Beverly Marie Self - patient is the insured 3 [employer] Blue Shield [address] [place] [address] [id number] Beverly Marie Self - patient is the insured Medical (General) History Medical History History ICD Code Arthritis CAD (Cholesterol) Cataracts Chicken pox Diabetes mellitus Glaucoma Gout Hypertensive disorder Hypertension Knee Pain Measles Mumps Numbness Osteoporosis Reflux ( GERD) Thyroid disorder
--- OUTSIDE RECORDS SUMMARY | 2024-08-25 15:24 | XMS_ITS | Data Portability ---
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 [email or web address] Not Available 01:23:51 08/28/20 24 audio gram No observ ation record ed. [email or web address] Not Available 09/19 15:12:40 12/16/19 audio gram No observ ation record ed. [email or web address] Not Available 11/19 15:12:52 Result Notes None recorded. Problems Name Problem SNOMED Code Status Onset Date Resolution Date Notes Provider Name and Address Organization Details Recorded Time Sensorine ural hearing loss of bilateral ears 064796417 Active 2018 Sensorine ural hearing loss, bilateral ; Note: Date Diagnosed : 08/12/2018 1:56 PM (H90.3) Not Available [facility] 4 03:11:58 Bilateral tinnitus 35624125786 02 Active 2018 Tinnitus, bilateral ; Note: Date Diagnosed : 08/12/2018 1:56 PM (H93.13) Not Available [facility] 4 03:11:57 Otalgia of right ear 5146552916 Active 2018 Otalgia, right ear; Note: Date Diagnosed : 03/12/2018 2:36 PM (H92.01) Not Available [facility] 4 03:11:57 Impacted cerumen in right ear 20932096831 88909 Active 2022 Impacted cerumen, right ear; Note: Date Diagnosed : 07/04/2022 1:17 PM (H61.21) Not Available [facility] 4 03:11:57 Bilateral disorder of Eustachia n tubes 31482182156 57481 Active 2023 DUKE ANVARRETE [address] [place] [address], [place], [address] , [facility] - [facility] 4 13:39:50 Acute serous otitis media of right ear 42233864335 12768 Active 2023 YADIRA JORDAN MD [address] [place] [address], [place], [address] , [facility] - [facility] 4 13:59:45 Problem Notes None recorded. Procedures Surgical History Date Name Laterality Status Provider Name and Address Organization Details Recorded Time 12/16/19 24 Tympanometry - 30732 completed MARTIN ARNETT, AUD [address] [facility],[place] [address], [place], [address], [facility] 12/16/2023 13:08:04 10/16/19 24 Air & Speech Audio with Tymps - 26737, 35845 & 99197 completed ROBIN RODRIGUEZ, AUD [address] [facility] [place],[facility] [address], [place], [address], [facility] 10/16/2023 13:43:04 Imaging Results None recorded. Procedure Notes None recorded. Medical Equipment None Reported. Allergies Allergen ID Allergen Name Allergen Category Reaction Reaction Severity Criticality Documentation Date Start Date Code Code System Note Provider Name and Address Organization Details Recorded Time 97141 Substance with sulfonami de structure and antibacte rial mechanism of action (substanc e) medicatio n other Not available Not available 07/02/2023 79730 8003 SNOMED React ion: unkno wn, unspe cifie d;; Not Available [facility] 4 00:49:45 Medications Name Sig Start [...] TAKE 1 TABLET BY MOUTH EVERY DAY [id number] active Not Available Not Available Not Available [...] Not Available Not Available No t Available [facility] spacer USE WITH INHALER active Not [...] Updated DateTime 10/16/2023 160.02 cm 26 kg/m2 92701.08 g Ghada Lorraine [facility] 10/16/2023 13:54:00 Date Recorded Body height Body mass index (BMI) Body weight Provider Name and Address Organization Details Last Updated DateTime 12/16/2023 160.02 cm 26 kg/m2 57434.08 g Raina Gallego [facility] 12/16/2023 12:58:48 Social History None recorded. Functional Status None recorded. Mental Status None recorded. Family History Nothing Reported. Medical History No medical history recorded. Gynecological HistoryNo gynecological history recorded. Obstetrics History GPAL:G 0 P 0 0 0 0 Past Encounters Encounter ID Performer Location Encounter Start Date Encounter Closed Date Diagnosis/Indication Diagnosis SNOMED-CT Code Diagnosis ICD10 Code Diagnosis Note [id number] YADIRA JORDAN MD [facility] [address] [address] 10/16/2023 13:00:57 10/16/2023 14:01:35 Acute serous otitis media of right ear 0771232894 647185 H65.01 Likely due to a URI. Will reevaluate in 6 weeks and I will expect it will resolve. Hearing is stable. [id number] DUKE NAVARRETE [facility] [address] [address] 10/16/2023 13:39:08 10/16/2023 16:44:20 Sensorineural hearing loss of bilateral ears 404060141 H90.3 Right Ear:Mild to severe SNHL with excellent speech discrimina tion.Type B tympanogra m.Left Ear:Normal hearing through 1K Hz sloping to a severe SNHL with excellent speech discrimina tion.Type As tympanogra m. Bilateral disorder of Eustachian tubes 9928505837 440748 H69.93 [id number] RITO VALDIVIA PA-C [facility] [address] [address] 12/16/2023 12:50:25 12/16/2023 13:30:32 Bilateral disorder of Eustachian tubes 8423545895 566147 H69.93 Acute sero us otitis media of right ear 6867956117 194170 H65.01 [id number] DUKE LOVE [facility] [address] [place] [address] 12/16/2023 13:07:22 12/16/2023 14:57:24 Sensorineural hearing loss of bilateral ears 738207036 H90.3 Tympanomet ry:Right: Type BLeft: C Health Concerns Section Related Observation LastModified by Organization Detai ls LastModified Time None Recorded Concern Status LastModified by Organization Details LastModified Time None Recorded Advance Directives Directive None Recorded Payers Insurance Date Sequence Insurance Name Policy Number Policy Vilchis Covered Member ID Vilchis Member ID Guarantor Name 12/16/2023 [place] [facility] [employer] Beverly Marie [id number] Beverly Marie 12/16/2023 [place]ATIONAL GOVERNMENT SERVICES Beverly Marie [id number] Beverly Marie 12/16/2023 1 [place] Beverly Marie [id number] Beverly Marie 12/13/2023 2 [place] [id number] Beverly Marie [id number] Beverly Marie Notes Date Note Type Note Provider Name and Address Organization Details Recorded Time 10/16/2023 text/html He of slightly asymmetric HL. Right ear has felt blocked for two days. She also has a cough. Hx of [place] and afib since last visit. YADIRA JORDAN MD [address] [place] [address], [address], [facility] - [facility] 10/16/2023 14:00:41 12/16/2023 text/html 83-year-old femdebra [...] some seasonal allergies. SILVIO RODRIGUEZ MD [address] [facility],[address], [address], [facility] - [facility] 12/16/2023 16:30:44 12/16/2023 text/html ELEAZAR Bishop, requested tympanometry. DUKE LOVE [address] [facility],[place] [address], [place], [address], [facility] - [facility] 12/16/2023 13:09:48 OBGyn Episode No OBEpisode recorded.
--- OUTSIDE RECORDS SUMMARY | 2024-08-25 15:24 | XMS_ITS | Patient Health Record ---
Author Organization [facility] Address [address] [facility] [facility] [address] [place] [address] Support Name Relationship Address Phone KAYLEEN RENTERIA Guarantor Unknown [phone] Reason For Referral No Information Medications Medication SIG (Take, Route, Frequency, Duration) Notes Start Date End Date Status Diovan 40MG 1 ORAL daily; Durati on: - [facility] 02/05/2012 Active busPIRone HCl 10MG 1 ORAL twice daily; Duration: - [facility] 02/05/2012 Active Aspirin EC 81MG 1 ORAL daily; Durati on: - [facility] 02/05/2012 Active Allopurinol 100MG ORAL; Duration: - [facility] 02/05/2012 Active Vitamin D3 1000 IU ORAL daily; Duration: - [facility] [place] Active Actos 45MG 1 ORAL daily; Durati on: - [facility] 02/05/2012 Active Triamterene-HCTZ 37.5/25MG 1 ORAL daily; Duration: - [facility] [place] 02/05/2012 Active Simvastatin 20MG 1 ORAL daily; Durati on: - [facility] 02/05/2012 Active PriLOSEC OTC 20MG 1 ORAL daily; Durati on: - [facility] 02/05/2012 Active Multivitamins 1 ORAL daily; Durati on: - [facility] 02/05/2012 Active Levothyroxine Sodium .05MG 1 ORAL daily; Duration: - [facility] 02/05/2012 Active Januvia 100MG 1 ORAL daily; Durati on: - [facility] 02/05/2012 Active Glucovance 500/5MG 1 ORAL daily; Durati on: - [facility] [place] 02/05/2012 Active Problems Problem Type SNOMED Code ICD Code Onset Dates Problem Status W/U Status Risk Notes Problem 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
--- OUTSIDE RECORDS SUMMARY | 2024-08-25 15:24 | XMS_ITS | Encounter Summary ---
Author Organization [facility] Address [address] [place] [address] Care Team Providers Care Flask Cleaner Name Role Phone Orquidea Keller MD Primary Care Provider [phone] Encounter Details Date Type Department Care Team (Late st Contact Info) Description 01/10/2024 Lab Requisition [facility] - Main Lab [address] [facility] [employer] [place] [address] Salvatore Jenkins MD [address] [place], [place] [phone] Paroxysmal atrial fibrillation (CMS/HCC V24, CMS/HCC V28); [...] mmol/L LAB CHEMISTRY METHOD 01/13/2024 12:38 PM [facility] Potassium 5.1 3.5 - 5.5 mmol/L LAB CHEMISTRY METHOD 01/13/2024 12:38 PM [facility] Chloride 102 96 - 110 mmol/L LAB CHEMISTRY METHOD 01/13/2024 12:38 PM [facility] CO2 26 21 - 32 mmol/L LAB CHEMISTRY METHOD 01/13/2024 12:38 PM [facility] Anion Gap 6 3 - 11 LAB CHEMISTRY METHOD 01/13/2024 12:38 PM [facility] Glucose 107(H) 70 - 100 mg/dL LAB CHEMISTRY METHOD 01/13/2024 12:38 PM [facility] BUN 38(H) 5 - 25 mg/dL LAB CHEMISTRY METHOD 01/13/2024 12:38 PM [facility] Creatinine 1.57(H) 0.50 - 1.10 mg/dL LAB CHEMISTRY METHOD 01/13/2024 12:38 PM [facility] eGFR 32(L) >=60 mL/min/1. 73m2 LAB CHEMISTRY METHOD 01/13/2024 12:38 PM [facility] Comment:Calculation based on the Chronic Kidney Disease Epidemiology Collaboration (CKD-EPI) equation refit without adjustment for race. BUN/Creatinine Ratio 24.2 LAB CHEMISTRY METHOD 01/13/2024 12:38 PM [facility] Calcium 8.6 8.5 - 10.5 mg/dL LAB CHEMISTRY METHOD 01/13/2024 12:38 PM [facility] Blood Venous blood specimen / Unknown Venipuncture / Unknown 01/13/2024 8:11 AM EST 01/13/2024 11:29 AM EST us Salvatore Jenkins MD LAB BLOOD ORDERABLES Final Result [facility] [address] [place] [address], * (ABNORMAL) Complete blood count (01/13/2024 8:11 AM EST) WBC 11.4(H) 4.8 - 10.8 K/mcL LAB HEMETOLOGY METHOD 01/13/2024 12:05 PM [facility] RBC 2.40(L) 3.80 - 4.80 M/mcL LAB HEMETOLOGY METHOD 01/13/2024 12:05 PM [facility] Hemoglobin 7.8(L) 11.5 - 16.0 g/dL LAB HEMETOLOGY METHOD 01/13/2024 12:05 PM [facility] Hematocrit 24.6(L) 35.0 - 47.0 % LAB HEMETOLOGY METHOD 01/13/2024 12:05 PM [facility] MCV 101.2(H) 79.0 - 98.0 FL LAB HEMETOLOGY METHOD 01/13/2024 12:05 PM [facility] MCH 32.1(H) 27.0 - 32.0 pcg LAB HEMETOLOGY METHOD 01/13/2024 12:05 PM [facility] MCHC 31.7(L) 32.0 - 37.0 g/dL LAB HEMETOLOGY METHOD 01/13/2024 12:05 PM [facility] RDW 13.4 11.0 - 15.0 % LAB HEMETOLOGY METHOD 01/13/2024 12:05 PM [facility] Platelets 506(H) 130 - 400 K/mcL LAB HEMETOLOGY METHOD 01/13/2024 12:05 PM [facility] MPV 10.0 7.0 - 11.0 FL LAB HEMETOLOGY METHOD 01/13/2024 12:05 PM EST [facility] NRBC 0.0 <1.0 % LAB HEMETOLOGY METHOD 01/13/2024 12:05 PM EST [facility] NRBC Absolute 0.00 <0.10 K/mcL LAB HEMETOLOGY METHOD 01/13/2024 12:05 PM EST [facility] Blood Venous blood specimen / Unknown Venipuncture / Unknown 01/13/2024 8:11 AM EST 01/13/2024 11:12 AM EST us Salvatore Jenkins MD LAB BLOOD ORDERABLES Final Result [facility] [address] [place] [address], documented in this encounter Visit Diagnoses Diagnosis Paroxysmal atrial fibrillation (CMS/HCC V24, CMS/HCC V28) Atrial fibrillation Chronic systolic (congestive) heart failure (CMS/HCC V24, CMS/HCC V28) documented in this encounter Care Teams Flask Cleaner Relationship Specialty Start Date End Date Orquidea Keller MD [address] [facility] [place] [address] PCP - General 01/07/23 documented as of this encounter
== END 2024-08-25 15:10 | disposition home or self-care (01) ==
LOC: HO.HCS 14:32
PROVIDERS: PCP Internal Medicine; Visit Provider Internal Medicine Cardiovascular Disease
DX: I48.0 Paroxysmal atrial fibrillation (principal); I25.10 Atherosclerotic heart disease of native coronary artery without angina pectoris; I50.9 Heart failure, unspecified
CPT/HCPCS: 99214; G2211

== ENCOUNTER → 2024-08-25 14:31 | Outpatient (BNVA) | payer MEDICARE, SELFPAY | PROVIDERS: PCP Internal Medicine; Visit Provider Internal Medicine Cardiovascular Disease | DX: I48.0 Paroxysmal atrial fibrillation (principal); I25.10 Atherosclerotic heart disease of native coronary artery without angina pectoris; I50.9 Heart failure, unspecified; Z79.01 Long term (current) use of anticoagulants; Z79.899 Other long term (current) drug therapy | CPT/HCPCS: 99212 ==

== ENCOUNTER 2024-09-28 13:28 | Outpatient (AMB) | payer MEDICARE, SELFPAY ==
[2024-09-28 13:33] VITALS: BP 146/62; PULSE 76; O2SAT 97; BMI 23.3
--- NOTE | 2024-09-28 13:33 | HO.NEPHOV_ITS ---
Vital Signs 09/28/24 13:33 Height 5 ft 7 in Weight 149 lb BMI 23.3 BP 146/62 H Blood Pressure Location Lt brachial Position Sitting Pulse 76 Pulse Source Pulse Oximeter Pulse Oximetry (%) 97 Oxygen Delivery Method Room Air Intake Visit Reasons: 3 MO FU/ Conf Order Management Specialist Required: No Accompanied by: Daughter Allergies dulaglutide (Trulicity) Allergy (Unknown, Verified 09/28/24 13:35) GERD losartan Allergy (Unknown, Verified 09/28/24 13:35) Hyperkalemia Sulfa (Sulfonamide Antibiotics) Allergy (Unknown, Verified 09/28/24 13:35) Rash dapagliflozin (From [facility]) Adverse Reaction (Intermediate, Verified 09/28/24 13:35) candidasis empagliflozin (From [facility]) Adverse Reaction (Intermediate, Verified 09/28/24 13:35) candidiasis amiodarone Adverse Reaction (Verified 09/28/24 13:35) Cough spironolactone Adverse Reaction (Verified 09/28/24 13:35) Hyperkalemia Medication List - Last Reconciled 09/28/24 by Abhishek Carrero MD acetaminophen (Tylenol Extra Strength) 500 mg PO Q6H PRN albuterol sulfate 0.63 mg (3 mL) inhalation QID PRN allopurinol 100 mg PO DAILY apixaban (Eliquis) 2.5 mg PO BID ascorbate calcium (vitamin C) 500 mg PO DAILY atorvastatin 80 mg PO BEDTIME benzonatate 100 mg PO TID PRN blood sugar diagnostic (FreeStyle Lite Strips) Use to test blood sugar three times daily blood-glucose sensor (DexVisualtising G7 Sensor device) As directed blood-glucose,branch service specialist,cont (Dexcom G7 Paper Tube Cutter) As directed buspirone 40 mg (4 x 10 mg) PO BEDTIME carvedilol 6.25 mg PO BID cholecalciferol (vitamin D3) 50 mcg PO DAILY codeine-guaifenesin 10-100 mg/5 mL 5 mL PO Q4-6H PRN ferrous fumarate 325 mg PO DAILY furosemide 40 mg (2 x 20 mg) PO QAM insulin aspart U-100 (Novolog FlexPen U-100 Insulin aspart) 10 units (0.1 mL) subcut TID insulin degludec (Tresiba FlexTouch U-200 insulin) 20 units subcut DAILY lactic acid-urea 1 appl topical DAILY PRN lancets (FreeStyle Lancets) use to test blood sugars three times per day latanoprost 0.005% 1 drp ophthalmic (eye) DAILY levothyroxine 75 mcg PO DAILY nebulizers As directed for updraft treatments-with all needed supplies omeprazole 20 mg PO DAILY PRN oxycodone 5 mg PO TID PRN pen needle, diabetic USE 4 TIMES A DAY sacubitril-valsartan 97-103 mg (Entresto) 1 tab PO BID HPI Comments Details: Pleasant 84-year-old woman with a history of longstanding diabetes mellitus and hypertension with coronary disease has been referred for chronic kidney disease. Her baseline creatinine has been around 1.2-1.3 mg/dL in 2022. In February of 2023 creatinine was 1.54 In November of 2023 creatinine was 1.9 mg/dL. In December she underwent hip surgery. She was in a rehab. She had some difficulty urination which required Mcmahon catheterization. At present she denies any urinary frequency or urgency. Although she has some discomfort while she urinates. No hematuria. Blood sugar has been suboptimal. 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 She does not drink alcohol anymore. She was accompanied by her daughter. Currently she is on Lasix 40 mg a day. She had significant leg edema but this is improved. He has no shortness of breath at rest. No rash no joint pain. She was lost about 20 lb over the last 2 years. 06/30/24 84-year-old female presenting for management of chronic kidney disease and related conditions. Previous health issues include a recent upper respiratory episode, managed effectively with medication without signs of bacterial infection. Edema in her lower extremities is reducing, attributed to effective use of diuretics, necessary due to her heart failure. Her diabetes, while historically erratic, is monitored closely, showing improvement with a recent blood sugar reading of 170. Earlier lab tests and a recent urinary specimen add to the understanding of her current renal status, although some tests were incomplete due to non-fasting. Her anemia, aided by iron supplementation, has improved with recent hemoglobin values moving towards normalcy. Her medical journey since a fall in December includes recovery from shingles and significant efforts to maintain kidney function stability. Recent measures show improved renal function compared to earlier assessments in March. The integration of medication strategies aims to sustain both cardiac and renal balance, essential for her broader health management plan. 09/28/2024 Complains of leg edema. Show accompanied by her daughter. She admits to eating excessive amounts of salt. No shortness of breath. She feels tired [facility] Medical History CHF (congestive heart failure) Insulin dependent type 2 diabetes mellitus Diabetic retinopathy History of partial replacement of left hip joint using bipolar prosthesis Vitamin D deficiency Macrocytosis Cough Sciatica Hypothyroidism HTN (hypertension) Lower extremity edema Irritable bowel syndrome (IBS) Chronic GERD Anxiety Chronic kidney disease (CKD) Hyperlipidemia Hypertension associated with diabetes Surgical History No pertinent past surgical history Family History Mother Ovarian cancer Father Pancreatic cancer Thyroid disease Social History Household Members Other:: Housing: House Alcohol intake: never Patient Tobacco Use Status: Never used Tobacco e-Cigarette/Vaping Use: Never Used Second Hand Smoke Exposure: No service: No Current occupational status: retired Cognitive needs: No Hearing needs: No Vision needs: Yes Physical Exam Vital Signs: Last Vital Signs Pulse 76 09/28/24 13:33 BP 146/62 H 09/28/24 13:33 Pulse Ox 97 09/28/24 13:33 Oxygen Delivery Method Room Air 09/28/24 13:33 BMI result Body Mass Index 23.3 Comfortable Neck supple no JVD. Lungs entry equal no rales. Heart S1-S2 heard no gallop or rub. Abdomen soft nontender. Neuro alert awake oriented. No asterixis. Extremities 2+edema. Results Reviewed Results Reviewed: Creatinine 1.4 EGFR 36 mL/minute Hemoglobin 10.0 MCV 106 Nephrology Results: Renal US 03/25/24 Assessment & Plan Assessment & Plan (1) CAD (coronary artery disease): Comment: NSTEMI, S/P AMOR to mid LAD (90% stenosis) 01/10 Code(s): I25.10 - Atherosclerotic heart disease of galena coronary artery without angina pectoris Category: Medical Plan: CAD with stenting to the LAD in 2023. No recurrent symptoms since then. Continue aggressive risk factor modification. Currently on full oral anticoagulation Eliquis and therefore would avoid antiplatelet therapy to reduce bleeding risk. Continue aggressive blood pressure control which currently well optimized. Continue high-intensity statin therapy to target goal LDL less than 70 mg/dL. (2) CHF (congestive heart failure): Comment: Echo LVEF 40-45%, mid to distal anterior, apical, mid-distal septal/anteroseptal and apical inf wall akinesis 01/10 [facility], [place]20[place] [facility] [place] 55- 60 %, calcification of aortic and mitral valve, no pulmonary hypertension Code(s): I50.9 - Heart failure, unspecified Category: Medical Plan: CHF with prior reduced ejection fraction but which has normalized since with neurohormonal modulation as well as stenting. Clinically euvolemic well compen sated. Currently on 40 mg of furosemide. Continue the same. Daily weight monitoring avoidance salt loading was discussed. Continue current carvedilol as well as Entresto therapy. A blood pressure on today's exam is on the lower side but she has no orthostatic symptoms. Advised to monitor blood pressure at home. If persistently remains low may need to pull back on the carvedilol therapy. Will follow up in the clinic in 6 months time after echocardiogram with the EKG. 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 Glomerular nephritis/interstitial disease seem unlikely Code(s): N18.9 - Chronic kidney disease, unspecified Category: Medical Plan: Urine studies : Protienuria : 934 mg Creatinine is down to 1.4 Goal is to slow the progression of renal disease. Continue to avoid nephrotoxic agents including NSAIDs. (4) HTN (hypertension): Comment: Essential hypertension Code(s): I10 - Essential (primary) hypertension Category: Medical Plan: Home readings are acceptable.Overall blood pressure seems well controlled at this time. No changes were made to antihypertensive medications. Discussed low salt diet. (5) Anemia: Comment: Probably has postop anemia MCV is 106. Iron deficiency seems less likely. Erythropoietin deficiency due to underlying CKD is a possibility. Code(s): D64.9 - Anemia, unspecified Category: Medical Plan: Continue with iron supplementation. Follow hemoglobin. If hemoglobin drops further d she may require erythropoietin. Plan Edema. Multifactorial. She should stay on low-sodium diet. Continue current dose of diuretics. . Orders: Orders Complete Blood Count no Diff 2 Months D64.9 - Anemia, unspecified, I10 - Essential (primary) hypertension, I50.9 - Heart failure, unspecified Comprehensive Met. Panel 2 Months D64.9 - Anemia, unspecified, I10 - Essential (primary) hypertension, I50.9 - Heart failure, unspecified IRON PROFILE 2 Months D64.9 - Anemia, unspecified, I10 - Essential (primary) hypertension, I50.9 - Heart failure, unspecified Ferritin 2 Months D64.9 - Anemia, unspecified, I10 - Essential (primary) hypertension, I50.9 - Heart failure, unspecified Vitamin B12 and Folate 2 Months D64.9 - Anemia, unspecified, I10 - Essential (primary) hypertension, I50.9 - Heart failure, unspecified Coding Level of Care Code Est Pt Level 4 (79881) Diagnoses CAD (coronary artery disease) I25.10 CHF (congestive heart failure) I50.9 Chronic kidney disease (CKD) N18.9 HTN (hypertension) I10 Anemia D64.9
--- OUTSIDE RECORDS SUMMARY | 2024-09-28 13:41 | XMS_ITS | Encounter Summary ---
Author Organization [facility] Address [address] [place] [address] Care Team Providers Care Wood Heel Attacher Name Role Phone Orquidea Keller MD Primary Care Provider [phone] Encounter Details Date Type Department Care Team (Late st Contact Info) Description 01/10/2024 Lab Requisition [facility] - Main Lab [address] [facility] [place] [address] Salvatore Jenkins MD [address] [place], [place] [id number] Paroxysmal atrial fibrillation (CMS/HCC V24, CMS/HCC V28); [...] mmol/L LAB CHEMISTRY METHOD 01/13/2024 12:38 PM [facility] Potassium 5.1 3.5 - 5.5 mmol/L LAB CHEMISTRY METHOD 01/13/2024 12:38 PM [facility] Chloride 102 96 - 110 mmol/L LAB CHEMISTRY METHOD 01/13/2024 12:38 PM [facility] CO2 26 21 - 32 mmol/L LAB CHEMISTRY METHOD 01/13/2024 12:38 PM [facility] Anion Gap 6 3 - 11 LAB CHEMISTRY METHOD 01/13/2024 12:38 PM [facility] Glucose 107(H) 70 - 100 mg/dL LAB CHEMISTRY METHOD 01/13/2024 12:38 PM [facility] BUN 38(H) 5 - 25 mg/dL LAB CHEMISTRY METHOD 01/13/2024 12:38 PM [facility] Creatinine 1.57(H) 0.50 - 1.10 mg/dL LAB CHEMISTRY METHOD 01/13/2024 12:38 PM [facility] eGFR 32(L) >=60 mL/min/1. 73m2 LAB CHEMISTRY METHOD 01/13/2024 12:38 PM [facility] Comment:Calculation based on the Chronic Kidney Disease Epidemiology Collaboration (CKD-EPI) equation refit without adjustment for race. BUN/Creatinine Ratio 24.2 LAB CHEMISTRY METHOD 01/13/2024 12:38 PM [facility] Calcium 8.6 8.5 - 10.5 mg/dL LAB CHEMISTRY METHOD 01/13/2024 12:38 PM [facility] Blood Venous blood specimen / Unknown Venipuncture / Unknown 01/13/2024 8:11 AM EST 01/13/2024 11:29 AM EST us Salvatore Jenkins MD LAB BLOOD ORDERABLES Final Result [facility] [address] [place] [address], * (ABNORMAL) Complete blood count (01/13/2024 8:11 AM EST) WBC 11.4(H) 4.8 - 10.8 K/mcL LAB HEMETOLOGY METHOD 01/13/2024 12:05 PM [facility] RBC 2.40(L) 3.80 - 4.80 M/mcL LAB HEMETOLOGY METHOD 01/13/2024 12:05 PM [facility] Hemoglobin 7.8(L) 11.5 - 16.0 g/dL LAB HEMETOLOGY METHOD 01/13/2024 12:05 PM [facility] Hematocrit 24.6(L) 35.0 - 47.0 % LAB HEMETOLOGY METHOD 01/13/2024 12:05 PM [facility] MCV 101.2(H) 79.0 - 98.0 FL LAB HEMETOLOGY METHOD 01/13/2024 12:05 PM [facility] MCH 32.1(H) 27.0 - 32.0 pcg LAB HEMETOLOGY METHOD 01/13/2024 12:05 PM [facility] MCHC 31.7(L) 32.0 - 37.0 g/dL LAB HEMETOLOGY METHOD 01/13/2024 12:05 PM [facility] RDW 13.4 11.0 - 15.0 % LAB HEMETOLOGY METHOD 01/13/2024 12:05 PM [facility] Platelets 506(H) 130 - 400 K/mcL LAB HEMETOLOGY METHOD 01/13/2024 12:05 PM [facility] MPV 10.0 7.0 - 11.0 FL LAB HEMETOLOGY METHOD 01/13/2024 12:05 PM EST [facility] NRBC 0.0 <1.0 % LAB HEMETOLOGY METHOD 01/13/2024 12:05 PM EST [facility] NRBC Absolute 0.00 <0.10 K/mcL LAB HEMETOLOGY METHOD 01/13/2024 12:05 PM EST [facility] Blood Venous blood specimen / Unknown Venipuncture / Unknown 01/13/2024 8:11 AM EST 01/13/2024 11:12 AM EST us Salvatore Jenkins MD LAB BLOOD ORDERABLES Final Result [facility] [address] [place] [address], documented in this encounter Visit Diagnoses Diagnosis Paroxysmal atrial fibrillation (CMS/HCC V24, CMS/HCC V28) Atrial fibrillation Chronic systolic (congestive) heart failure (CMS/HCC V24, CMS/HCC V28) documented in this encounter Care Teams Wood Heel Attacher Relationship Specialty Start Date End Date Orquidea Keller MD [address] [facility] [place] [address] PCP - General 01/07/23 documented as of this encounter
--- OUTSIDE RECORDS SUMMARY | 2024-09-28 13:41 | XMS_ITS | Encounter Summary ---
Author Organization [facility] Address [address] [address] Phone Care Team Providers Care Community Relations Director Name Role Phone Orquidea Keller MD Primary Care Provider [phone] Encounter Details Date Type Department Care Team (Late Contact Info) Description 09/10/2019 Telephone [facility] [address] [place] [phone] Figueroa Jewell DPM [address] [address] Social History Tobacco Use Types Packs/Day Years Used Date Smoking Tobacco: Never Assessed Comments Unknown Sex and Gender Information Value Date Recorded Sex Assigned at Not on file Legal Sex Female 7:47 AM EST Gender Identity Not on file Sexual Orientation Not on file documented as of this encounter Plan of Treatment Upcoming Encounters Date Type Department Care Team (Late Contact Info) Description 12/22/2024 1:00 PM EST Office Visit [facility] [address] [address] Guru [place] DPM [address] [address] documented as of this encounter Visit Diagnoses Not on filedocumented in this encounter Care Teams Community Relations Director Relationship Specialty Start Date End Date Orquidea Keller MD [facility] [place] [address] PCP - General Internal Medicine 05/31/15 documented as of this encounter Additional Source Comments The information contained in this document represents components of the legal health record. It is not the complete legal health record.[facility]
== END 2024-09-28 13:52 | disposition home or self-care (01) ==
LOC: HO.HKA 13:29
PROVIDERS: PCP Internal Medicine; Visit Provider Internal Medicine Hypertension Specialist
DX: I25.10 Atherosclerotic heart disease of native coronary artery without angina pectoris (principal); I50.9 Heart failure, unspecified; I12.9 Hypertensive chronic kidney disease with stage 1 through stage 4 chronic kidney disease, or unspecified chronic kidney disease; N18.9 Chronic kidney disease, unspecified; D64.9 Anemia, unspecified
CPT/HCPCS: 99214

== ENCOUNTER → 2024-09-28 13:28 | Outpatient (BNVA) | payer MEDICARE, SELFPAY | PROVIDERS: PCP Internal Medicine; Visit Provider Internal Medicine Hypertension Specialist | DX: I13.0 Hypertensive heart and chronic kidney disease with heart failure and stage 1 through stage 4 chronic kidney disease, or unspecified chronic kidney disease (principal); N18.9 Chronic kidney disease, unspecified; I50.9 Heart failure, unspecified; I25.10 Atherosclerotic heart disease of native coronary artery without angina pectoris; D64.9 Anemia, unspecified | CPT/HCPCS: 99212 ==

== ENCOUNTER 2024-10-06 13:16 | Outpatient (REF) | payer MEDICARE, SELFPAY ==
--- OUTSIDE RECORDS SUMMARY | 2024-10-06 14:28 | XMS_ITS | Encounter Summary ---
Author Organization [facility] Address [address] [place] [address] Care Team Providers Care Review Rn Name Role Phone Orquidea Keller MD Primary Care Provider [phone] Encounter Details Date Type Department Care Team (Late st Contact Info) Description 01/10/2024 Lab Requisition [facility] - Main Lab [address] [facility] [place] [address] Salvatore Jenkins MD [address] [place], [place] [phone] Paroxysmal atrial fibrillation (CMS/HCC V24, CMS/HCC V28); [...] mmol/L LAB CHEMISTRY METHOD 01/13/2024 12:38 PM [facility] Potassium 5.1 3.5 - 5.5 mmol/L LAB CHEMISTRY METHOD 01/13/2024 12:38 PM [facility] Chloride 102 96 - 110 mmol/L LAB CHEMISTRY METHOD 01/13/2024 12:38 PM [facility] CO2 26 21 - 32 mmol/L LAB CHEMISTRY METHOD 01/13/2024 12:38 PM [facility] Anion Gap 6 3 - 11 LAB CHEMISTRY METHOD 01/13/2024 12:38 PM [facility] Glucose 107(H) 70 - 100 mg/dL LAB CHEMISTRY METHOD 01/13/2024 12:38 PM [facility] BUN 38(H) 5 - 25 mg/dL LAB CHEMISTRY METHOD 01/13/2024 12:38 PM [facility] Creatinine 1.57(H) 0.50 - 1.10 mg/dL LAB CHEMISTRY METHOD 01/13/2024 12:38 PM [facility] eGFR 32(L) >=60 mL/min/1. 73m2 LAB CHEMISTRY METHOD 01/13/2024 12:38 PM [facility] Comment:Calculation based on the Chronic Kidney Disease Epidemiology Collaboration (CKD-EPI) equation refit without adjustment for race. BUN/Creatinine Ratio 24.2 LAB CHEMISTRY METHOD 01/13/2024 12:38 PM [facility] Calcium 8.6 8.5 - 10.5 mg/dL LAB CHEMISTRY METHOD 01/13/2024 12:38 PM [facility] Blood Venous blood specimen / Unknown Venipuncture / Unknown 01/13/2024 8:11 AM EST 01/13/2024 11:29 AM EST us Salvatore Jenkins MD LAB BLOOD ORDERABLES Final Result [facility] [address] [place] [address], * (ABNORMAL) Complete blood count (01/13/2024 8:11 AM EST) WBC 11.4(H) 4.8 - 10.8 K/mcL LAB HEMETOLOGY METHOD 01/13/2024 12:05 PM [facility] RBC 2.40(L) 3.80 - 4.80 M/mcL LAB HEMETOLOGY METHOD 01/13/2024 12:05 PM [facility] Hemoglobin 7.8(L) 11.5 - 16.0 g/dL LAB HEMETOLOGY METHOD 01/13/2024 12:05 PM [facility] Hematocrit 24.6(L) 35.0 - 47.0 % LAB HEMETOLOGY METHOD 01/13/2024 12:05 PM [facility] MCV 101.2(H) 79.0 - 98.0 FL LAB HEMETOLOGY METHOD 01/13/2024 12:05 PM [facility] MCH 32.1(H) 27.0 - 32.0 pcg LAB HEMETOLOGY METHOD 01/13/2024 12:05 PM [facility] MCHC 31.7(L) 32.0 - 37.0 g/dL LAB HEMETOLOGY METHOD 01/13/2024 12:05 PM [facility] RDW 13.4 11.0 - 15.0 % LAB HEMETOLOGY METHOD 01/13/2024 12:05 PM [facility] Platelets 506(H) 130 - 400 K/mcL LAB HEMETOLOGY METHOD 01/13/2024 12:05 PM [facility] MPV 10.0 7.0 - 11.0 FL LAB HEMETOLOGY METHOD 01/13/2024 12:05 PM EST [facility] NRBC 0.0 <1.0 % [...] Final Result [facility] [address] [place] [address], documented in this encounter Visit Diagnoses Diagnosis Paroxysmal atrial fibrillation (CMS/HCC V24, CMS/HCC V28) Atrial fibrillation Chronic systolic (congestive) heart failure (CMS/HCC V24, CMS/HCC V28) documented in this encounter Care Teams Review Rn Relationship Specialty Start Date End Date Orquidea Keller MD [address] [facility] [place] [address] PCP - General 01/07/23 documented as of this encounter
--- OUTSIDE RECORDS SUMMARY | 2024-10-06 14:28 | XMS_ITS | Encounter Summary ---
Author Organization [facility] Address [address] [address] Phone Care Team Providers Care Physician Internist Name Role Phone Orquidea Keller MD Primary Care Provider [phone] Encounter Details Date Type Department Care Team (Late Contact Info) Description 09/10/2019 Telephone [facility] [address] [place] [phone] Figueroa Jewell DPM [address] [address] Social History Tobacco Use Types Packs/Day Years [...] Description 12/22/2024 1:00 PM EST Office Visit [facility] [address] [address] Guru [place] DPM [address] [address] documented as of this encounter Visit Diagnoses Not on filedocumented in this encounter Care Teams Physician Internist Relationship Specialty Start Date End Date Orquidea Keller MD [facility] [address] PCP - General Internal Medicine 05/31/15 documented as of this encounter Additional Source Comments The information contained in this document represents components of the legal health record. It is not the complete legal health record.[facility]
--- OUTSIDE RECORDS SUMMARY | 2024-10-06 14:28 | XMS_ITS | Patient Health Record ---
Author Organization [facility] Address [address] [facility] [place] [address] Support Name Relationship Address Phone KAYLEEN RENTERIA Guarantor Unknown [phone] Reason For Referral No Information Medications Medication SIG (Take, Route, Frequency, Duration) Notes Start Date End Date Status Diovan 40MG 1 ORAL daily; Durati on: - [facility] 02/05/2012 Active busPIRone HCl 10MG 1 ORAL twice daily; Duration: - [facility] 02/05/2012 Active Aspirin EC 81MG 1 ORAL daily; Durati on: - [facility] 02/05/2012 Active Allopurinol 100MG ORAL; Duration: - [facility] 02/05/2012 Active Vitamin D3 1000 IU ORAL daily; Duration: - [facility] [place] [place] 2011 Active Actos 45MG 1 ORAL daily; Durati on: - [facility] 02/05/2012 Active Triamterene-HCTZ 37.5/25MG 1 ORAL daily; Duration: - [facility] 02/05/2012 Active Simvastatin 20MG 1 ORAL daily; Durati on: - [facility] 02/05/2012 Active PriLOSEC OTC 20MG 1 ORAL daily; Durati on: - [facility] 02/05/2012 Active Multivitamins 1 ORAL daily; Durati on: - [facility] 02/05/2012 Active Levothyroxine Sodium .05MG 1 ORAL daily; Duration: - [facility] 02/05/2012 Active Januvia 100MG 1 ORAL daily; Durati on: - [facility] 02/05/2012 Active Glucovance 500/5MG 1 ORAL daily; Durati on: - [facility] [place] [place]- 02/05/2012 Active Problems Problem Type SNOMED Code ICD Code Onset Dates Problem Status W/U Status Risk Notes 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
--- OUTSIDE RECORDS SUMMARY | 2024-10-06 14:28 | XMS_ITS | Patient Health Record ---
Author Organization [facility] [place] Address [address] [place] [address] Care Team Providers Care Bunch Trimmer Mold Name Role Phone Orquidea Keller MD Primary Care Provider Unavaila Costa Scott Unavailable [phone] Allergies Allergen (clinical drug ingredient) Drug/Non Drug [...] Inc [address] [place] [address] [id number] Beverly Marie Self - patient is the insured 3 [employer] Blue Shield [address] [place] [address] [id number] Beverly Marie Self - patient is the insured Medical (General) History Medical History History ICD Code Arthritis CAD (Cholesterol) Cataracts Chicken pox Diabetes mellitus Glaucoma Gout Hypertensive disorder Hypertension Knee Pain Measles Mumps Numbness Osteoporosis Reflux ( GERD) Thyroid disorder
[2024-10-06 16:48] LABS: Anion Gap 12 (12-20); Blood Urea Nitrogen 47 mg/dL (9-16); Calcium 8.9 mg/dL (8.4-10.2); Carbon Dioxide 25 mmol/L (22-29); Chloride 106 mmol/L (96-108); Estimated Glomerular Filt Rate 38; Potassium 4.3 mmol/L (3.3-5.1); Sodium 139 mmol/L (135-145)
[2024-10-06 16:57] LABS: B Type Natriuretic Peptide 306 pg/mL (<100)
== END 2024-10-06 13:17 | disposition home or self-care (01) ==
LOC: HO.HMGCLDS 13:16
PROVIDERS: PCP Internal Medicine; Visit Provider Internal Medicine Cardiovascular Disease
DX: I48.0 Paroxysmal atrial fibrillation (principal); I50.9 Heart failure, unspecified
CPT/HCPCS: 36415; 80048; 83880

== ENCOUNTER 2024-11-03 12:58 | Outpatient (AMB) | payer MEDICARE, SELFPAY ==
--- NOTE | 2024-11-03 13:01 | MHC.PC.OV ---
Vital Signs 11/03/24 13:14 Height 5 ft 7 in Weight 146 lb BMI 22.9 BP 128/64 Blood Pressure Location Lt brachial Position Sitting Respiration 18 Pulse 57 Pulse Source Pulse Oximeter Temp 97.6 F Temp Source Oral Pulse Oximetry (%) 97 Oxygen Delivery Method Room Air Intake Visit Reasons: 3 Months FU Allergies dulaglutide (Trulicity) Allergy (Unknown, Verified 11/03/24 13:40) GERD losartan Allergy (Unknown, Verified 11/03/24 13:40) Hyperkalemia Sulfa (Sulfonamide Antibiotics) Allergy (Unknown, Verified 11/03/24 13:40) Rash dapagliflozin (From [facility]) Adverse Reaction (Intermediate, Verified 11/03/24 13:40) candidasis empagliflozin (From [facility]) Adverse Reaction (Intermediate, Verified 11/03/24 13:40) candidiasis amiodarone Adverse Reaction (Verified 11/03/24 13:40) Cough spironolactone Adverse Reaction (Verified 11/03/24 13:40) Hyperkalemia Medication List - Last Reconciled 11/03/24 by Orquidea Keller MD acetaminophen (Tylenol Extra Strength) 500 mg PO Q6H PRN albuterol sulfate 0.63 mg (3 mL) inhalation QID PRN allopurinol 100 mg PO DAILY apixaban (Eliquis) 2.5 mg PO BID ascorbate calcium (vitamin C) 500 mg PO DAILY atorvastatin 80 mg PO BEDTIME benzonatate 100 mg PO TID PRN blood sugar diagnostic (FreeStyle Lite Strips) Use to test blood sugar three times daily blood-glucose sensor (Uppidy G7 Sensor device) As directed blood-glucose,servicing rep,cont (Dexcom G7 Psychotherapist Counselor) As directed buspirone 40 mg (4 x 10 mg) PO BEDTIME carvedilol 6.25 mg PO BID cholecalciferol (vitamin D3) 50 mcg PO DAILY codeine-guaifenesin 10-100 mg/5 mL 5 mL PO Q4-6H PRN ferrous fumarate 325 mg PO DAILY furosemide 80 mg PO QAM insulin aspart U-100 (Novolog FlexPen U-100 Insulin aspart) 10 units (0.1 mL) subcut TID insulin degludec (Tresiba FlexTouch U-200 insulin) 20 units subcut DAILY lactic acid-urea 1 appl topical DAILY PRN lancets (FreeStyle Lancets) use to test blood sugars three times per day latanoprost 0.005% 1 drp ophthalmic (eye) DAILY levothyroxine 75 mcg PO DAILY nebulizers As directed for updraft treatments-with all needed supplies omeprazole 20 mg PO DAILY PRN oxycodone 5 mg PO TID PRN pen needle, diabetic USE 4 TIMES A DAY sacubitril-valsartan 97-103 mg (Entresto) 1 tab PO BID Tobacco use date assessed: 11/03/24 Fall risk assessment: No Falls in past year Last assessed Fall Risk: 11/03/24 Dental Screening Dental Screen Date: 11/03/24 Did you have a dental visit in the last 12 months?: Yes Did you have a dental problem in the last 6 months where you did not have access to dental care?: No Was dental information given to patient?: Patient has dentist HPI 3 Months FU HPI Details Patient presents for the follow-up. She complains of worsening lower extremity swelling despite increasing dose of furosemide to 80 mg as recommended by Cardiology. She reports fluctuating blood glucose between 100 to over 200's. She has been drinking a lot of orange juice when her glucose level drops. She has not been compliant with ADA diet. 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 [facility] Medical History CHF (congestive heart failure) Insulin dependent type 2 diabetes mellitus Diabetic retinopathy History of partial replacement of left hip joint using bipolar prosthesis Vitamin D deficiency Macrocytosis Cough Sciatica Hypothyroidism HTN (hypertension) Lower extremity edema Irritable bowel syndrome (IBS) Chronic GERD Anxiety Chronic kidney disease (CKD) Hyperlipidemia Hypertension associated with diabetes Surgical History No pertinent past surgical history Family History Mother Ovarian cancer Father Pancreatic cancer Thyroid disease Social History Household Members Other:: Housing: House Alcohol intake: never Patient Tobacco Use Status: Never used Tobacco e-Cigarette/Vaping Use: Never Used Second Hand Smoke Exposure: No service: No Current occupational status: retired Cognitive needs: No Hearing needs: No Vision needs: Yes Questionnaire PHQ-9 Over the last 2 weeks, how often have you been bothered by any of the following problems? 1. Little interest or pleasure in doing things: not at all 2. Feeling down, depressed, or hopeless: not at all 3. Trouble falling or staying asleep, or sleeping too much: not at all 4. Feeling tired or having little energy: several days 5. Poor appetite or overeating: not at all 6. Feeling bad about yourself - or that you are a failure or have let yourself or your family down: not at all 7. Trouble concentrating on things, such as reading the newspaper or watching television: not at all 8. Moving or speaking so slowly that other people could have noticed. Or the opposite - being so fidgety or restless that you have been moving around a lot more than usual: not at all 9. Thoughts that you would be better off or of hurting yourself in some way: not at all Total score: 1 Depression Screening Interpretation: Negative Depression Screening Done: Yes Source: Developed by Drs. Bryce Garcia, Sophie Baldwin, Rock Coyle and colleagues, with an educational pranay from [email or web address]. Thrive Questionnaire Date Thrive assessed: 03/25/24 JAMES-7 AMB Questionnaire JAMES-7 Date JAMES - 7 assessed: 11/03/24 Feeling nervous, anxious, or on edge: 0 = Not at all Not being able to stop or control worryin = Not at all Worrying too much about different things: 0 = Not at all Trouble relaxin = Not at all Being so restless that it is hard to sit still: 0 = Not at all Becoming easily annoyed or irritable: 0 = Not at all Feeling afraid as if something awful might happen: 0 = Not at all Total JAMES-7 score (0-4 normal; 5-9 mild; 10-14 moderate; 15-21 severe): 0 Source: Developed by Drs. Bryce Garcia, Rock Magana and colleagues, with an educational pranay from [email or web address]. JAMES-7 Assessment Billing JAMES-7 Assessment Tool: JAMES-7 Assessment 31019 Review of Systems Const All systems reviewed & are unremarkable except as noted in HPI and below Eyes Reports no additional complaints ENT Reports no additional complaints Card Reports no additional complaints Resp Reports no additional complaints GI Reports no additional complaints Physical exam (Primary Care) Vital Signs: Last Vital Signs Temp 97.6 F 11/03/24 13:14 Pulse 57 11/03/24 13:14 Resp 18 11/03/24 13:14 BP 128/64 11/03/24 13:14 Pulse Ox 97 11/03/24 13:14 Oxygen Delivery Method Room Air 11/03/24 13:14 BMI result Body Mass Index 22.9 Tobacco/Smoking Status: Tobacco use Status Tobacco use date assessed 11/03/24 11/03/24 13:16 Patient Tobacco Use Status Never used Tobacco 11/03/24 13:01 e-Cigarette/Vaping Use Never Used 11/03/24 13:01 PHQ-9: PHQ-9 Score PHQ-9: Total score 1 11/03/24 13:16 Depression Screening Interpretation: Negative Thrive Assessment: Date of Thrive Assessment Date Thrive assessed 03/25/24 11/03/24 13:01 Const General: no acute distress HENMT Head: Yes normal to inspection Eyes General: appearance normal, both eyes and all related structures Resp Effort & Inspection: normal respiratory effort Auscultation: clear to auscultation bilaterally Cardio Rhythm: regular rhythm Heart sounds: S1 normal heart sound present and S2 normal heart sound present GI Inspection: Yes normal to inspection Palpation (GI): Soft to palpation Extrem Other: 3+ pitting edema bilaterally Coding Level of Care Code Est Pt Level 4 (83002) Diagnoses HTN (hypertension) I10 CHF (congestive heart failure) I50.9 Insulin dependent type 2 diabetes mellitus E11.9; Z79.4 Additional Codes JAMES-7 Assessment Billing - JAMES-7 Assessment Tool: JAMES-7 Assessment 68179 ([id number]) Assessment & Plan Assessment & Plan (1) HTN (hypertension): Comment: Essential hypertension Code(s): I10 - Essential (primary) hypertension Category: Medical Plan: Continue current medications (2) CHF (congestive heart failure): Comment: Echo LVEF 40-45%, mid to distal anterior, apical, mid-distal septal/anteroseptal and apical inf wall akinesis 01/10 [facility], Echo 10/2023 [facility] [place], EF 55- 60 %, calcification of aortic and mitral valve, no pulmonary hypertension Code(s): I50.9 - Heart failure, unspecified Category: Medical Plan: Continue current medications and follow-up with the Cardiology. For worsening lower extremity edema add metolazone every other day for 1 week patient will have fasting blood work in 1 week to monitor renal function and electrolytes (3) Insulin dependent type 2 diabetes mellitus: Comment: Poorly controlled due to patient noncompliance with diet Code(s): E11.9 - Type 2 diabetes mellitus without complications; Z79.4 - halfway (current) use of insulin Category: Medical Plan: ADA diet eating small well-balanced meals and high protein snacks in between but also at bedtime to prevent nocturnal hypoglycemia discussed with the patient. She we will continue current medications and check blood glucose 2 hours after dinner her largest meal, and record her glucose readings before meals at bedtime, follow-up in 1 month Orders: Orders Comprehensive [place]. Panel Fast 1 Week E11.9 - Type 2 diabetes mellitus without complications, I10 - Essential (primary) hypertension, I50.9 - Heart failure, unspecified, Z79.4 - halfway (current) use of insulin Hemoglobin A1c 1 Week E11.9 - Type 2 diabetes mellitus without complications, I10 - Essential (primary) hypertension, I50.9 - Heart failure, unspecified, Z79.4 - halfway (current) use of insulin Microalbumin, Random (w Creat) 1 Week E11.9 - Type 2 diabetes mellitus without complications, Z79.4 - halfway (current) use of insulin Complete Blood Count Auto Diff 1 Week E11.9 - Type 2 diabetes mellitus without complications, I10 - Essential (primary) hypertension, I50.9 - Heart failure, unspecified, Z79.4 - 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 of insulin B Type Natriuretic Peptide 1 Week E11.9 - Type 2 diabetes mellitus without complications, I10 - Essential (primary) hypertension, I50.9 - Heart failure, unspecified, Z79.4 - 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
[2024-11-03 13:14] VITALS: BP 128/64; PULSE 57; RESP 18; TEMP 36.4; O2SAT 97; BMI 22.9
--- OUTSIDE RECORDS SUMMARY | 2024-11-03 16:56 | XMS_ITS | Patient Health Record ---
Author Organization [facility] [place] Address [address] [place] [address] Care Team Providers Care Day Care Home Provider Name Role Phone Orquidea Keller MD Primary Care Provider Unavaila Costa Scott Unavailable [phone] Allergies Allergen (clinical drug ingredient) Drug/Non Drug [...] Polyneuropathy due to type 2 diabetes mellitus ([id number]) Type 2 diabetes mellitus with diabetic polyneuropathy (E11.42) Active confirmed Plan Of Treatment No Information Insurance Providers Payer Name Payer Address Payer Phone Subscriber Number Group Number Insured Name Patient Relationship to Insured Coverage Start Date Coverage End Date Medicare National Govt Svcs [employer] [address] [place] [address] [id number] Beverly Marie Self - patient is the insured 3 [employer] [address] [place] [address] [phone] [id number] Beverly Marie Self - patient is the insured Medical (General) History Medical History History ICD Code Arthritis CAD (Cholesterol) Cataracts Chicken pox Diabetes mellitus Glaucoma Gout Hypertensive disorder Hypertension Knee Pain Measles Mumps Numbness Osteoporosis Reflux ( GERD) Thyroid disorder
--- OUTSIDE RECORDS SUMMARY | 2024-11-03 16:57 | XMS_ITS | Clinical Summary ---
Author Organization [facility] Address [address] [place] [address] Phone Care Team Providers Care Card Stripper Name Role Phone Orquidea Keller MD Primary Care Provider [phone] Medications atorvastatin (LIPITOR) 80 mg tablet TAKE [...] Patients (1 - 1-dose 75+ series) 2013 Cholesterol Screening (Lipid Panel) 01/08/2024 Falls Risk Assessment 01/08/2024 Medicare Annual Wellness Visit 01/08/2024 Osteoporosis Screening (Bone Density Screening) 01/08/2024 Social Influencers of Health Screening 01/08/2024 Depression Screening 02/19/2024 Diabetes: Blood Sugar Control Test (HGBA1C) 07/07/2024 01/08/2024 COVID-19 Vaccine ( season) 2024 Influenza Vaccine (#1) 2024 9, 12/13/2008, 12/31/2007, Additional history exists Hypertension/CHF/CAD Annual [...] heart failure (CMS/HCC) from Last 3 Months or Most Recently Relevant to Health Maintenance Results * (ABNORMAL) Basic metabolic panel (02/03/2024 8:36 AM EST) Sodium 137 133 - 145 mmol/L LAB CHEMISTRY METHOD 02/03/2024 4:56 PM [facility] Potassium 5.0 3.5 - 5.5 mmol/L LAB CHEMISTRY METHOD 02/03/2024 4:56 PM [facility] Chloride 104 96 - 110 mmol/L LAB CHEMISTRY METHOD 02/03/2024 4:56 PM [facility] CO2 27 21 - 32 mmol/L LAB CHEMISTRY METHOD 02/03/2024 4:56 PM [facility] Anion Gap 6 3 - 11 LAB CHEMISTRY METHOD 02/03/2024 4:56 PM [facility] Glucose 114(H) 70 - 100 mg/dL LAB CHEMISTRY METHOD 02/03/2024 4:56 PM [facility] BUN 38(H) 5 - 25 mg/dL LAB CHEMISTRY METHOD 02/03/2024 4:56 PM [facility] Creatinine 1.53(H) 0.50 - 1.10 mg/dL LAB CHEMISTRY METHOD 02/03/2024 4:56 PM [facility] eGFR 33(L) >=60 mL/min/1. 73m2 LAB CHEMISTRY METHOD 02/03/2024 4:56 PM [facility] Comment:Calculation based on the Chronic Kidney Disease Epidemiology Collaboration (CKD-EPI) equation refit without adjustment for race. BUN/Creatinine Ratio 24.8 LAB CHEMISTRY METHOD 02/03/2024 4:56 PM [facility] Calcium 9.1 8.5 - 10.5 mg/dL LAB CHEMISTRY METHOD 02/03/2024 4:56 PM [facility] Blood Venous blood specimen / Unknown Venipuncture / Unknown 02/03/2024 8:36 AM EST 02/03/2024 11:48 AM EST Salvatore Jenkins MD LAB BLOOD ORDERABLES Final Result [facility] [address] [place] [address], [place] [phone] * Hemoglobin A1c (01/08/2024 6:24 AM EST) Hemoglobin A1C 6.4 <6.5 % LAB CHEMISTRY METHOD 01/08/2024 1:[address] [facility] Mean Bld Glu Estim. 137 mg/dL LAB CHEMISTRY METHOD 01/08/2024 1:[address] [facility] Blood Venous blood specimen / Unknown Venipuncture / Unknown 01/08/2024 6:24 AM EST 01/08/2024 9:05 AM EST Salvatore Jenkins MD LAB BLOOD ORDERABLES Final Result [facility] [address] [place] [address], [place] [phone] from Last 3 Months or Most Recently Relevant to Health Maintenance Insurance MEDICARE [facility] Care Teams Card Stripper Relationship Specialty Start Date End Date Orquidea Keller MD [address] [place] [address] PCP - General 01/07/23
--- OUTSIDE RECORDS SUMMARY | 2024-11-03 16:57 | XMS_ITS | Clinical Summary ---
Author Organization [facility] Address [address] [place] [address] Phone Care Team Providers Care Automotive Diagnostic Technician Name Role Phone Orquidea Keller MD Primary Care Provider [phone] Allergies Active Allergy Reactions Criticality Noted Date Comments Sulfa (Sulfonamide Antibiotics) Unknown 12/23/2002 Rash. But as of 09/27 had a burn treated for several days with silvadene with excellent healing of burn, and no adverse reaction. Medications aspirin 81 mg chewable tablet Take 1 tablet by mouth daily. 10/08/19 13 Active PIOGLITAZONE HCL (ACTOS ORAL) Dose: Not available; Form: Not available; Route: PO; Frequency: Not available; Directions: As directed; Details: Dispense: Tablet(s); Date: 10/07/2012 10/08/19 13 Active ALLOPURINOL ORAL Dose: Not available; Form: Not available; Route: PO; Frequency: Not available; Directions: As directed; Details: Dispense: Tablet(s); Date: 10/07/2012 10/08/19 13 Active BUSPIRONE HCL (BUSPIRONE ORAL) Dose: Not available; Form: Not available; Route: PO; Frequency: Not available; Directions: As directed; Details: Dispense: Tablet(s); Date: 10/07/2012 10/08/19 13 Active VALSARTAN (DIOVAN ORAL) Dose: Not available; Form: Not available; Route: PO; Frequency: Not available; Directions: As directed; Details: Dispense: Tablet(s); Date: 10/07/2012 10/08/19 13 Active GLYBURIDE/METFOR MIN HCL (GLUCOVANCE ORAL) Dose: Not available; Form: Not available; Route: PO; Frequency: Not available; Directions: As directed; Details: Not available; Date: 10/07/2012 10/08/19 13 Active SITAGLIPTIN PHOSPHATE (JANUVIA ORAL) Dose: Not available; Form: Not available; Route: PO; Frequency: Not available; Directions: As directed; Details: Dispense: Tablet(s); Date: 10/07/2012 10/08/19 13 Active LEVOTHYROXINE SODIUM (LEVOTHYROXINE ORAL) Dose: Not available; Form: Not available; Route: PO; Frequency: Not available; Directions: As directed; Details: Dispense: Tablet(s); Date: 10/07/2012 10/08/19 13 Active ATORVASTATIN CALCIUM (LIPITOR ORAL) Dose: Not available; Form: Not available; Route: PO; Frequency: Not available; Directions: Not available; Details: Dispense: Tablet(s); Date: 03/11/2012 03/11/19 13 Active multivitamin per tablet Take 1 tablet by mouth daily. 10/08/19 13 Active OMEPRAZOLE (PRILOSEC ORAL) Dose: Not available; Form: Not available; Route: PO; Frequency: Not available; Directions: As directed; Details: Dispense: Capsule(s); Date: 10/07/2012 10/08/19 13 Active TRIAMTERENE ORAL Dose: Not available; Form: Not available; Route: PO; Frequency: Not available; Directions: As directed; Details: Dispense: Capsule(s); Date: 10/07/2012 10/08/19 13 Active CHOLECALCIFEROL, VITAMIN D3, (VITAMIN D3 ORAL) Dose: Not available; Form: Not available; Route: PO; Frequency: Not available; Directions: As directed; Details: Dispense: Tablet(s); Date: 10/07/2012 10/08/19 13 Active acetaminophen-co deine (TYLENOL #2) 300-15 mg per tablet Take 1 tablet by mouth as needed for pain (specific location in comments) (Before bed). 10 tablet 01/03/20 16 Active calcium carbonate-vitami n D3 500 mg(1,250mg) -200 unit PwPk Take by mouth. Activ e omeprazole (PRILOSEC) 20 MG capsule Take by mouth. Activ e diphenhydrAMINE- acetaminophen (TYLENOL PM) 25-500 mg Tab Take by mouth. A ctive blood sugar diagnostic (FREESTYLE LITE) Strp strips CHECK BLOOD SUGAR 4 TO 6 TIMES DAILY 01/15/20 16 Active halobetasol (ULTRAVATE) 0.05 % ointment Apply in a thin film 1x/day 3 times a week 08/01/19 17 Active insulin aspart U-100 (NOVOLOG FLEXPEN U-100 INSULIN) 100 unit/mL (3 mL) injection pen INJECT 3 UNITS SUBCUTANEOUSLY 3 TIMES A DAY WITH MEALS, HOLD IF POC GLUCOSE <110 12/15/19 16 Active insulin degludec U-100 (TRESIBA) injection pen Inject under the skin. Active lancets (FREESTYLE) 28 gauge Misc USE 4 TIMES A DAY 12/15/19 16 Active lidocaine 5 % ointment Apply small amount to affected area as needed up to 5x/d. 07/08/19 19 Active lidocaine 5 % ointment Apply small amount to affected area as needed, up to 5-6 times/day 09/01/19 15 Active metoprolol succinate (TOPROL-XL) 25 MG 24 hr tablet Take 25 mg by mouth. 01/19/20 16 Active insulin pen needles, disposable, (BD INSULIN PEN NEEDLE UF SHORT) 31 gauge x 5/16 Ndle USE 4 TIMES DAILY WITH INSULIN 12/23/19 16 Active simvastatin (ZOCOR) 20 MG tablet Take by mouth. Activ e triamterene-hydr oCHLOROthiazide (MAXZIDE-25) 37.5-25 mg per tablet Take by mouth. 11/23/19 16 Active allopurinol (ZYLOPRIM) 100 MG tablet Take by mouth. Activ e aspirin 81 mg chewable tablet Take by mouth. Active busPIRone (BUSPAR) 10 MG tablet Take by mouth. Activ e levothyroxine (SYNTHROID, LEVOTHROID) 50 MCG tablet Take by mouth. Acti ve clotrimazole-bet amethasone (LOTRISONE) cream Apply topically 2 (two) times a day. 30 g 2 04/11/19 22 Active betamethasone dipropionate 0.05 % cream Apply topically 2 (two) times a day. 15 g 2 05/25/19 22 Active clotrimazole-bet amethasone (LOTRISONE) cream Apply topically 2 (two) times a day. 30 g 10/30/19 23 Active mupirocin (BACTROBAN) 2 % ointmentIndicati ons:minor bacterial skin infections Apply topically daily. Indications: minor skin infection due to bacteria 22 g 01/02/20 23 Active Active Problems Problem Noted Date Diagnosed Date Diabetic polyneuropathy asso ciated with type 2 diabetes mellitus 11/22/2020 Chronic dermatitis 11/22/2020 Onychomycosis 11/22/2020 Toe pain, bilateral 11/22/2020 Hypertensive disorder 10/07/2012 Overview (04/10/2014): Hypertensive disorder Vulvar ulcer 06/12/2012 DM (diabetes mellitus) 08/09/2011 Overview (01/27/2019): Diabetes mellitus Atrophic vaginitis 04/17/2011 Allergic drug reaction 10/13/2009 Overview (01/27/2019): Overview: Allergy detail includes sulfa, as there was a rash related to oral sulfa in the distant past. Recently, 09/27, had a burn treated with silvadene, with excellent healing and no adverse reaction. Lichen planus 09/03/2006 Overview (01/27/2019): Overview: 3 photos taken 09/03/06 Encounters Date Type Department Care Team Description 09/22/2024 1:00 PM EDT Office Visit [facility] [address] [address] Guru Holden, SUZY Onychomycosis (Primary Dx); Pain in toes of both feet; Inflammatory hyperkeratotic dermatosis; Type 2 diabetes mellitus with peripheral neuropathy from Last 3 Months Social History Tobacco Use Types Packs/Day Years Used Date Smoking Tobacco: Never Assessed Education Answer Date Recorded Are you interested in more education? Not on chantal e 06/15/2022 Are you concerned about learning? Not on file 06/15/2022 No 06/15/2022 No 06/15/2022 Digital Access Answer Date Recorded No 07/10/2022 No 07/10/2022 Reliable internet access at home? Not on file 07/10/2022 Device with a working camera? Not on file Comments Unknown Sex and Gender Information Value Date Recorded Sex Assigned at Not on file Legal Sex Female 7:47 AM EST Gender Identity Not on file Sexual Orientation Not on file Plan of Treatment Upcoming Encounters Date Type Department Care Team (Late st Contact Info) Description 12/22/2024 1:00 PM EST Office Visit [facility] [address] [facility] [address] [place] [address] Guru Holden, DPM [address] [address] [email or web address] Health Maintenance Due Date Last Done Comments Adult Td,Tdap Booster 1938 CREATININE LEVEL 1938 POTASSIUM LEVEL 1938 TSH LEVEL 1938 DEPRESSION SCREENING 1950 OSTEOPOROSIS SCREENING INITIAL (ONE-TIME) 2003 RSV VACCINE (1 - 1-dose 75+ series) 2013 DIABETIC EYE EXAM 04/10/2014 PNEUMOCOCCAL VACCINES (50+ years) (2 of 2 - PCV) 03/08/2016 03/08/2015 COVID-19 VACCINE (3 - season) 2023 04/17/2020, 03/24/2020 HEMOGLOBIN A1C 07/07/2024 01/08/2024 INFLUENZA VACCINE (#1) 2024 9, 11/20/2017, 10/30/2016, Additional history exists ZOSTER VACCINES Completed 12/21/2018, 050 03/2018, 02/18/2005 HEPATITIS A VACCINES Aged Out No long er eligible based on patient's age to complete this topic HIB VACCINES Aged Out No longer eligi ble based on patient's age to complete this topic MENINGOCOCCAL VACCINES (ACWY) Aged Out No longer eligible based on patient's age to complete this topic MENINGOCOCCAL VACCINES (B) Aged Out N o longer eligible based on patient's age to complete this topic Medical Devices Not on file Insurance [employer] SU[employer] Care Teams Automotive Diagnostic Technician Relationship Specialty Start Date End Date Orquidea Keller MD [address] [place] [address] PCP - General Internal Medicine 05/31/15 Additional Source Comments The information contained in this document represents components of the legal health record. It is not the complete legal health record.[facility]
--- OUTSIDE RECORDS SUMMARY | 2024-11-03 16:57 | XMS_ITS | Encounter Summary ---
Author Organization [facility] Address [address] [address] Phone Care Team Providers Care Manager Inventory Name Role Phone Orquidea Keller MD Primary Care Provider [phone] Reason for Visit * Reason Comments Medication Refill Encounter Details Date Type Department Care Team (Late Contact Info) Description 02/15/2021 Refill [facility] [address] [address] Mike Shahid, DPM [address] [address] [email or web address] Medication Refill Social History Tobacco Use Types Packs/Day Years [...] Description 12/22/2024 1:00 PM EST Office Visit [facility] [address] [address] Guru Holden DPM [address] [address] documented as of this encounter Visit Diagnoses Not on filedocumented in this encounter Care Teams Manager Inventory Relationship Specialty Start Date End Date Orquidea Keller MD [address] [facility] [place] [address] PCP - General Internal Medicine 05/31/15 documented as of this encounter Additional Source Comments The information contained in this document represents components of the legal health record. It is not the complete legal health record.[facility]
--- OUTSIDE RECORDS SUMMARY | 2024-11-03 16:57 | XMS_ITS | Encounter Summary ---
Author Organization [facility] Address [address] [place] [address] Care Team Providers Care Recruiting Scheduler Name Role Phone Orquidea Keller MD Primary Care Provider [phone] Encounter Details Date Type Department Care Team (Late st Contact Info) Description 01/08/2024 Lab Requisition [facility] - Main Lab [address] [facility] [place] [address] Salvatore Jenkins MD [address] [place], [place] [id number] Type 2 diabetes mellitus without complications (CMS/HCC [...] Hemoglobin A1c (01/08/2024 6:24 AM EST) Pathologist [facility] Hemoglobin A1C 6.4 <6.5 % LAB CHEMISTRY METHOD 01/08/2024 1:04 PM EST [facility] Mean Bld Glu Estim. 137 mg/dL LAB CHEMISTRY METHOD 01/08/2024 1:04 PM EST [facility] Blood Venous blood specimen / Unknown Venipuncture / Unknown 01/08/2024 6:24 AM EST 01/08/2024 9:05 AM EST Salvatore Jenkins MD LAB BLOOD ORDERABLES Final Result [facility] [address] [place] [address], * (ABNORMAL) Comprehensive metabolic panel (01/08/2024 6:24 AM EST) Pathologist [facility] Sodium 134 133 - 145 mmol/L LAB CHEMISTRY METHOD 01/08/2024 10:52 AM EST [facility] Potassium 4.9 3.5 - 5.5 mmol/L LAB CHEMISTRY METHOD 01/08/2024 10:52 AM EST [facility] Chloride 102 96 - 110 mmol/L LAB CHEMISTRY METHOD 01/08/2024 10:52 AM EST [facility] CO2 22 21 - 32 mmol/L LAB CHEMISTRY METHOD 01/08/2024 10:52 AM EST [facility] Anion Gap 10 3 - 11 LAB CHEMISTRY METHOD 01/08/2024 10:52 AM [facility] Glucose 134(H) 70 - 100 mg/dL LAB CHEMISTRY METHOD 01/08/2024 10:52 AM [facility] BUN 39(H) 5 - 25 mg/dL LAB CHEMISTRY METHOD 01/08/2024 10:52 AM [facility] Creatinine 1.52(H) 0.50 - 1.10 mg/dL LAB CHEMISTRY METHOD 01/08/2024 10:52 AM [facility] eGFR 33(L) >=60 mL/min/1. 73m2 LAB CHEMISTRY METHOD 01/08/2024 10:52 AM [facility] Comment:Calculation based on the Chronic Kidney Disease Epidemiology Collaboration (CKD-EPI) equation refit without adjustment for race. BUN/Creatinine Ratio 25.7 LAB CHEMISTRY METHOD 01/08/2024 10:52 AM [facility] Calcium 8.6 8.5 - 10.5 mg/dL LAB CHEMISTRY METHOD 01/08/2024 10:52 AM [facility] AST (SGOT) 23 10 - 42 unit/L LAB CHEMISTRY METHOD 01/08/2024 10:52 AM [facility] ALT (SGPT) 17 10 - 60 unit/L LAB CHEMISTRY METHOD 01/08/2024 10:52 AM [facility] Alkaline Phosphatase 99 42 - 121 unit/L LAB CHEMISTRY METHOD 01/08/2024 10:52 AM [facility] Total Protein 5.2(L) 6.0 - 8.0 g/dL LAB CHEMISTRY METHOD 01/08/2024 10:52 AM [facility] Albumin 2.5(L) 3.2 - 5.0 g/dL LAB CHEMISTRY METHOD 01/08/2024 10:52 AM [facility] Total Bilirubin 0.6 0.0 - 1.4 mg/dL LAB CHEMISTRY METHOD 01/08/2024 10:52 AM [facility] Blood Venous blood specimen / Unknown Venipuncture / Unknown 01/08/2024 6:24 AM EST 01/08/2024 9:05 AM EST Salvatore Jenkins MD LAB BLOOD ORDERABLES Final Result [facility] [address] [place] [address], * (ABNORMAL) Complete blood count (01/08/2024 6:24 AM EST) WBC 9.4 4.8 - 10.8 K/mcL LAB HEMETOLOGY METHOD 01/08/2024 10:12 AM [facility] RBC 2.50(L) 3.80 - 4.80 M/mcL LAB HEMETOLOGY METHOD 01/08/2024 10:12 AM [facility] Hemoglobin 8.0(L) 11.5 - 16.0 g/dL LAB HEMETOLOGY METHOD 01/08/2024 10:12 AM [facility] Hematocrit 24.8(L) 35.0 - 47.0 % LAB HEMETOLOGY METHOD 01/08/2024 10:12 AM [facility] MCV 101.2(H) 79.0 - 98.0 FL LAB HEMETOLOGY METHOD 01/08/2024 10:12 AM [facility] MCH 32.7(H) 27.0 - 32.0 pcg LAB HEMETOLOGY METHOD 01/08/2024 10:12 AM [facility] MCHC 32.3 32.0 - 37.0 g/dL LAB HEMETOLOGY METHOD 01/08/2024 10:12 AM [facility] RDW 13.8 11.0 - 15.0 % LAB HEMETOLOGY METHOD 01/08/2024 10:12 AM EST [facility] Platelets 251 130 - 400 K/mcL LAB HEMETOLOGY METHOD 01/08/2024 10:12 AM EST [facility] MPV 10.9 7.0 - 11.0 FL LAB HEMETOLOGY METHOD 01/08/2024 10:12 AM EST [facility] NRBC 0.0 <1.0 % LAB HEMETOLOGY METHOD 01/08/2024 10:12 AM EST [facility] NRBC Absolute 0.00 <0.10 K/mcL LAB HEMETOLOGY METHOD 01/08/2024 10:12 AM EST [facility] Blood Venous blood specimen / Unknown Venipuncture / Unknown 01/08/2024 6:24 AM EST 01/08/2024 9:05 AM EST us Salvatore Jenkins MD LAB BLOOD ORDERABLES Final Result [facility] [address] [place] [address], documented in this encounter Visit Diagnoses Diagnosis Type 2 diabetes mellitus without complications (CMS/HCC V24, CMS/HCC V28) Iron deficiency anemia, unspecified Paroxysmal atrial fibrillation (CMS/HCC V24, CMS/HCC V28) Atrial fibrillation Chronic systolic (congestive) heart failure (CMS/HCC V24, CMS/HCC V28) documented in this encounter Care Teams Recruiting Scheduler Relationship Specialty Start Date End Date Orquidea Keller MD [address] [place] [address] PCP - General 01/07/23 documented as of this encounter
--- OUTSIDE RECORDS SUMMARY | 2024-11-03 16:57 | XMS_ITS | Encounter Summary ---
Author Organization [facility] Address [address] [address] Phone Care Team Providers Care Radiologic Technologist Name Role Phone Orquidea Keller MD Primary Care Provider [phone] Encounter Details Date Type Department Care Team (Late Contact Info) Description 09/10/2019 Telephone [facility] [address] [place] [address] Figueroa Jewell DPM [address] [address] Social History Tobacco Use Types Packs/Day Years [...] Description 12/22/2024 1:00 PM EST Office Visit [facility] [address] [address] Guru Holden DPM [address] [address] documented as of this encounter Visit Diagnoses Not on filedocumented in this encounter Care Teams Radiologic Technologist Relationship Specialty Start Date End Date Orquidea Keller MD [facility] [place] [address] PCP - General Internal Medicine 05/31/15 documented as of this encounter Additional Source Comments The information contained in this document represents components of the legal health record. It is not the complete legal health record.[facility]
--- OUTSIDE RECORDS SUMMARY | 2024-11-03 16:57 | XMS_ITS | Encounter Summary ---
Author Organization [facility] Address [address] [place] [address] Care Team Providers Care Junior Accountant Name Role Phone Orquidea Keller MD Primary Care Provider [phone] Encounter Details Date Type Department Care Team (Late st Contact Info) Description 02/09/2024 Lab Requisition [facility] - Main Lab [address] [facility] [place] [address] Salvatore Jenkins MD [address] [place], [place] [phone] Paroxysmal atrial fibrillation (CMS/HCC V24, CMS/HCC V28); [...] V28) documented in this encounter Care Teams Junior Accountant Relationship Specialty Start Date End Date Orquidea Keller MD [address] [facility] [address] PCP - General 01/07/23 documented as of this encounter
--- OUTSIDE RECORDS SUMMARY | 2024-11-03 16:57 | XMS_ITS | Encounter Summary ---
Author Organization [facility] Address [address] [place] [address] Care Team Providers Care Upper Tier Name Role Phone Orquidea Keller MD Primary Care Provider Encounter Details Date Type Department Care Team (Late st Contact Info) Description 01/25/[address] [facility] - Main Lab 299 [facility] [place] [address] Salvatore Jenkins MD [address] [place], [place] [phone] Paroxysmal atrial fibrillation (CMS/HCC V24, CMS/HCC V28); [...] mmol/L LAB CHEMISTRY METHOD 01/27/2024 11:44 AM [facility] Potassium 5.4 3.5 - 5.5 mmol/L LAB CHEMISTRY METHOD 01/27/2024 11:44 AM [facility] Chloride 102 96 - 110 mmol/L LAB CHEMISTRY METHOD 01/27/2024 11:44 AM [facility] CO2 28 21 - 32 mmol/L LAB CHEMISTRY METHOD 01/27/2024 11:44 AM [facility] Anion Gap 6 3 - 11 LAB CHEMISTRY METHOD 01/27/2024 11:44 AM [facility] Glucose 132(H) 70 - 100 mg/dL LAB CHEMISTRY METHOD 01/27/2024 11:44 AM [facility] BUN 41(H) 5 - 25 mg/dL LAB CHEMISTRY METHOD 01/27/2024 11:44 AM [facility] Creatinine 1.66(H) 0.50 - 1.10 mg/dL LAB CHEMISTRY METHOD 01/27/2024 11:44 AM [facility] eGFR 30(L) >=60 mL/min/1. 73m2 LAB CHEMISTRY METHOD 01/27/2024 11:44 AM [facility] Comment:Calculation based on the Chronic Kidney Disease Epidemiology Collaboration (CKD-EPI) equation refit without adjustment for race. BUN/Creatinine Ratio 24.7 LAB CHEMISTRY METHOD 01/27/2024 11:44 AM [facility] Calcium 9.0 8.5 - 10.5 mg/dL LAB CHEMISTRY METHOD 01/27/2024 11:44 AM [facility] Blood Venous blood specimen / Unknown Venipuncture / Unknown 01/27/2024 7:57 AM EST 01/27/2024 10:26 AM EST us Salvatore Jenkins MD LAB BLOOD ORDERABLES Final Result [facility] [address] [place] [address], * (ABNORMAL) Complete blood count (01/27/2024 7:37 AM EST) WBC 8.8 4.8 - 10.8 K/mcL LAB HEMETOLOGY METHOD 01/27/2024 11:22 AM EST [facility] RBC 2.70(L) 3.80 - 4.80 M/mcL LAB HEMETOLOGY METHOD 01/27/2024 11:22 AM [facility] Hemoglobin 8.4(L) 11.5 - 16.0 g/dL LAB HEMETOLOGY METHOD 01/27/2024 11:22 AM [facility] Hematocrit 27.2(L) 35.0 - 47.0 % LAB HEMETOLOGY METHOD 01/27/2024 11:22 AM [facility] MCV 102.6(H) 79.0 - 98.0 FL LAB HEMETOLOGY METHOD 01/27/2024 11:22 AM [facility] MCH 31.7 27.0 - 32.0 pcg LAB HEMETOLOGY METHOD 01/27/2024 11:22 AM [facility] MCHC 30.9(L) 32.0 - 37.0 g/dL LAB HEMETOLOGY METHOD 01/27/2024 11:22 AM [facility] RDW 14.1 11.0 - 15.0 % LAB HEMETOLOGY METHOD 01/27/2024 11:22 AM [facility] Platelets 512(H) 130 - 400 K/mcL LAB HEMETOLOGY METHOD 01/27/2024 11:22 AM [facility] MPV 9.7 7.0 - 11.0 FL LAB HEMETOLOGY METHOD 01/27/2024 11:22 AM EST [facility] NRBC 0.0 <1.0 % LAB HEMETOLOGY METHOD 01/27/2024 11:22 AM EST [facility] NRBC Absolute 0.00 <0.10 K/mcL LAB HEMETOLOGY METHOD 01/27/2024 11:22 AM EST [facility] Blood Venous blood specimen / Unknown Venipuncture / Unknown 01/27/2024 7:37 AM EST 01/27/2024 10:28 AM EST us Salvatore Jenkins MD LAB BLOOD ORDERABLES Final Result [facility] [address] [place] [address], documented in this encounter Visit Diagnoses Diagnosis Paroxysmal atrial fibrillation (CMS/HCC V24, CMS/HCC V28) Atrial fibrillation Chronic systolic (congestive) heart failure (CMS/HCC V24, CMS/HCC V28) documented in this encounter Care Teams Upper Tier Relationship Specialty Start Date End Date Orquidea Keller MD [address] [place] [address] PCP - General 01/07/23 documented as of this encounter
--- OUTSIDE RECORDS SUMMARY | 2024-11-03 16:57 | XMS_ITS | Encounter Summary ---
Author Organization [facility] Address [address] [place] [address] Care Team Providers Care Database Security Expert Name Role Phone Orquidea Keller MD Primary Care Provider Encounter Details Date Type Department Care Team (Late st Contact Info) Description 01/10/2024 Lab Requisition [facility] - Main Lab [address] [facility] [place] [address] Salvatore Jenkins MD [address] [place], [place] [phone] Paroxysmal atrial fibrillation (CMS/HCC V24, CMS/HCC V28); [...] mmol/L LAB CHEMISTRY METHOD 01/13/2024 12:38 PM [facility] Potassium 5.1 3.5 - 5.5 mmol/L LAB CHEMISTRY METHOD 01/13/2024 12:38 PM [facility] Chloride 102 96 - 110 mmol/L LAB CHEMISTRY METHOD 01/13/2024 12:38 PM [facility] CO2 26 21 - 32 mmol/L LAB CHEMISTRY METHOD 01/13/2024 12:38 PM [facility] Anion Gap 6 3 - 11 LAB CHEMISTRY METHOD 01/13/2024 12:38 PM [facility] Glucose 107(H) 70 - 100 mg/dL LAB CHEMISTRY METHOD 01/13/2024 12:38 PM [facility] BUN 38(H) 5 - 25 mg/dL LAB CHEMISTRY METHOD 01/13/2024 12:38 PM [facility] Creatinine 1.57(H) 0.50 - 1.10 mg/dL LAB CHEMISTRY METHOD 01/13/2024 12:38 PM [facility] eGFR 32(L) >=60 mL/min/1. 73m2 LAB CHEMISTRY METHOD 01/13/2024 12:38 PM [facility] Comment:Calculation based on the Chronic Kidney Disease Epidemiology Collaboration (CKD-EPI) equation refit without adjustment for race. BUN/Creatinine Ratio 24.2 LAB CHEMISTRY METHOD 01/13/2024 12:38 PM [facility] Calcium 8.6 8.5 - 10.5 mg/dL LAB CHEMISTRY METHOD 01/13/2024 12:38 PM [facility] Blood Venous blood specimen / Unknown Venipuncture / Unknown 01/13/2024 8:11 AM EST 01/13/2024 11:29 AM EST us Salvatore Jenkins MD LAB BLOOD ORDERABLES Final Result [facility] [address] [place] [address], * (ABNORMAL) Complete blood count (01/13/2024 8:11 AM EST) WBC 11.4(H) 4.8 - 10.8 K/mcL LAB HEMETOLOGY METHOD 01/13/2024 12:05 PM [facility] RBC 2.40(L) 3.80 - 4.80 M/mcL LAB HEMETOLOGY METHOD 01/13/2024 12:05 PM [facility] Hemoglobin 7.8(L) 11.5 - 16.0 g/dL LAB HEMETOLOGY METHOD 01/13/2024 12:05 PM [facility] Hematocrit 24.6(L) 35.0 - 47.0 % LAB HEMETOLOGY METHOD 01/13/2024 12:05 PM [facility] MCV 101.2(H) 79.0 - 98.0 FL LAB HEMETOLOGY METHOD 01/13/2024 12:05 PM [facility] MCH 32.1(H) 27.0 - 32.0 pcg LAB HEMETOLOGY METHOD 01/13/2024 12:05 PM [facility] MCHC 31.7(L) 32.0 - 37.0 g/dL LAB HEMETOLOGY METHOD 01/13/2024 12:05 PM [facility] RDW 13.4 11.0 - 15.0 % LAB HEMETOLOGY METHOD 01/13/2024 12:05 PM [facility] Platelets 506(H) 130 - 400 K/mcL LAB HEMETOLOGY METHOD 01/13/2024 12:05 PM [facility] MPV 10.0 7.0 - 11.0 FL LAB HEMETOLOGY METHOD 01/13/2024 12:05 PM EST [facility] NRBC 0.0 <1.0 % LAB HEMETOLOGY METHOD 01/13/2024 12:05 PM EST [facility] NRBC Absolute 0.00 <0.10 K/mcL LAB HEMETOLOGY METHOD 01/13/2024 12:05 PM EST [facility] Blood Venous blood specimen / Unknown Venipuncture / Unknown 01/13/2024 8:11 AM EST 01/13/2024 11:12 AM EST us Salvatore Jenkins MD LAB BLOOD ORDERABLES Final Result [facility] [address] [place] [address], documented in this encounter Visit Diagnoses Diagnosis Paroxysmal atrial fibrillation (CMS/HCC V24, CMS/HCC V28) Atrial fibrillation Chronic systolic (congestive) heart failure (CMS/HCC V24, CMS/HCC V28) documented in this encounter Care Teams Database Security Expert Relationship Specialty Start Date End Date Orquidea Keller MD [address] [facility] [place] [address] PCP - General 01/07/23 documented as of this encounter
--- OUTSIDE RECORDS SUMMARY | 2024-11-03 16:57 | XMS_ITS | Encounter Summary ---
Author Organization [facility] Address [address] [address] Phone Care Team Providers Care Commercial Real Estate Attorney Name Role Phone Orquidea Keller MD Primary Care Provider [phone] Reason for Visit * Reason Comments Medication Refill Encounter Details Date Type Department Care Team (Late Contact Info) Description 02/01/2021 Refill [facility] [address] [address] Mike Shahid, DPM [address] [address] [email or web address] Medication Refill Social History Tobacco Use Types [...] Description 12/22/2024 1:00 PM EST Office Visit [facility] [address] [address] Guru Holden DPM [address] [address] documented as of this encounter Visit Diagnoses Not on filedocumented in this encounter Care Teams Commercial Real Estate Attorney Relationship Specialty Start Date End Date Orquidea Keller MD [address] [place] [address] PCP - General Internal Medicine 05/31/15 documented as of this encounter Additional Source Comments The information contained in this document represents components of the legal health record. It is not the complete legal health record.[facility]
--- OUTSIDE RECORDS SUMMARY | 2024-11-03 16:57 | XMS_ITS | Encounter Summary ---
Author Organization [facility] Address [address] [place] [address] Care Team Providers Care Respiratory Therapy Technician Name Role Phone Orquidea Keller MD Primary Care Provider [phone] Encounter Details Date Type Department Care Team (Late st Contact Info) Description 01/31/2024 Lab Requisition [facility] - Main Lab 299 [facility] [place] [address] Salvatore Jenkins MD [address] [place], [place] [phone] Paroxysmal atrial fibrillation (CMS/HCC V24, CMS/HCC V28); [...] mmol/L LAB CHEMISTRY METHOD 02/03/2024 4:56 PM [facility] Potassium 5.0 3.5 - 5.5 mmol/L LAB CHEMISTRY METHOD 02/03/2024 4:56 PM [facility] Chloride 104 96 - 110 mmol/L LAB CHEMISTRY METHOD 02/03/2024 4:56 PM [facility] CO2 27 21 - 32 mmol/L LAB CHEMISTRY METHOD 02/03/2024 4:56 PM [facility] Anion Gap 6 3 - 11 LAB CHEMISTRY METHOD 02/03/2024 4:56 PM [facility] Glucose 114(H) 70 - 100 mg/dL LAB CHEMISTRY METHOD 02/03/2024 4:56 PM [facility] BUN 38(H) 5 - 25 mg/dL LAB CHEMISTRY METHOD 02/03/2024 4:56 PM [facility] Creatinine 1.53(H) 0.50 - 1.10 mg/dL LAB CHEMISTRY METHOD 02/03/2024 4:56 PM [facility] eGFR 33(L) >=60 mL/min/1. 73m2 LAB CHEMISTRY METHOD 02/03/2024 4:56 PM [facility] Comment:Calculation based on the Chronic Kidney Disease Epidemiology Collaboration (CKD-EPI) equation refit without adjustment for race. BUN/Creatinine Ratio 24.8 LAB CHEMISTRY METHOD 02/03/2024 4:56 PM [facility] Calcium 9.1 8.5 - 10.5 mg/dL LAB CHEMISTRY METHOD 02/03/2024 4:56 PM [facility] Blood Venous blood specimen / Unknown Venipuncture / Unknown 02/03/2024 8:36 AM EST 02/03/2024 11:48 AM EST us Salvatore Jenkins MD LAB BLOOD ORDERABLES Final Result [facility] [address] [place] [address], * (ABNORMAL) Complete blood count (02/03/2024 8:36 AM EST) WBC 7.1 4.8 - 10.8 K/mcL LAB HEMETOLOGY METHOD 02/03/2024 12:30 PM EST [facility] RBC 2.80(L) 3.80 - 4.80 M/mcL LAB HEMETOLOGY METHOD 02/03/2024 12:30 PM [facility] Hemoglobin 8.8(L) 11.5 - 16.0 g/dL LAB HEMETOLOGY METHOD 02/03/2024 12:30 PM [facility] Hematocrit 28.1(L) 35.0 - 47.0 % LAB HEMETOLOGY METHOD 02/03/2024 12:30 PM EST [facility] MCV 101.4(H) 79.0 - 98.0 FL LAB HEMETOLOGY METHOD 02/03/2024 12:30 PM EST [facility] MCH 31.8 27.0 - 32.0 pcg LAB HEMETOLOGY METHOD 02/03/2024 12:30 PM [facility] MCHC 31.3(L) 32.0 - 37.0 g/dL LAB HEMETOLOGY METHOD 02/03/2024 12:30 PM EST [facility] RDW 14.3 11.0 - 15.0 % LAB HEMETOLOGY METHOD 02/03/2024 12:30 PM [facility] Platelets 368 130 - 400 K/mcL LAB HEMETOLOGY METHOD 02/03/2024 12:30 PM [facility] MPV 10.2 7.0 - 11.0 FL LAB HEMETOLOGY METHOD 02/03/2024 12:30 PM [facility] NRBC 0.0 <1.0 % LAB HEMETOLOGY METHOD 02/03/2024 12:30 PM EST [facility] NRBC Absolute 0.00 <0.10 K/mcL LAB HEMETOLOGY METHOD 02/03/2024 12:30 PM EST [facility] Blood Venous blood specimen / Unknown Venipuncture / Unknown 02/03/2024 8:36 AM EST 02/03/2024 11:48 AM EST us Salvatore Jenkins MD LAB BLOOD ORDERABLES Final Result [facility] [address] [place] [address], documented in this encounter Visit Diagnoses Diagnosis Paroxysmal atrial fibrillation (CMS/HCC V24, CMS/HCC V28) Atrial fibrillation Chronic systolic (congestive) heart failure (CMS/HCC V24, CMS/HCC V28) documented in this encounter Care Teams Respiratory Therapy Technician Relationship Specialty Start Date End Date Orquidea Keller MD [address] [place] [address] PCP - General 01/07/23 documented as of this encounter
--- OUTSIDE RECORDS SUMMARY | 2024-11-03 16:57 | XMS_ITS | Patient Health Record ---
Author Organization [facility] Address [address] [place] [address] Support Name Relationship Address Phone KAYLEEN RENTERIA Guarantor Unknown [phone] Reason For Referral No Information Medications Medication SIG (Take, Route, Frequency, Duration) Notes Start Date End Date Status Diovan 40MG 1 ORAL daily; Durati on: - [facility] 02/05/2012 Active busPIRone HCl 10MG 1 ORAL twice daily; Duration: - [facility] 02/05/2012 Active Aspirin EC 81MG 1 ORAL daily; Durati on: - [facility] 02/05/2012 Active Allopurinol 100MG ORAL; Duration: - [facility] 02/05/2012 Active Vitamin D3 1000 IU ORAL daily; Duration: - [facility] 2011 Active Actos 45MG 1 ORAL daily; Durati on: - [facility] 02/05/2012 Active Triamterene-HCTZ 37.5/25MG 1 ORAL daily; Duration: - [facility] 02/05/2012 Active Simvastatin 20MG 1 ORAL daily; Durati on: - [facility] 02/05/2012 Active PriLOSEC OTC 20MG 1 ORAL daily; Durati on: - [facility] 02/05/2012 Active Multivitamins 1 ORAL daily; Durati on: - [facility] 02/05/2012 Active Levothyroxine Sodium .05MG 1 ORAL daily; Duration: - [facility] 02/05/2012 Active Januvia 100MG 1 ORAL daily; Durati on: - [facility] 02/05/2012 Active Glucovance 500/5MG 1 ORAL daily; Durati on: - [facility]- 02/05/2012 Active Problems Problem Type SNOMED Code ICD Code Onset Dates Problem Status W/U Status Risk Notes Problem 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
--- OUTSIDE RECORDS SUMMARY | 2024-11-03 16:57 | XMS_ITS | Encounter Summary ---
Author Organization [facility] Address [address] [place] [address] Care Team Providers Care Boat Builder Name Role Phone Orquidea Keller MD Primary Care Provider [phone] Encounter Details Date Type Department Care Team (Late st Contact Info) Description 01/18/2024 Lab Requisition [facility] - Main Lab [address] [place] [address] Salvatore Jenkins MD [address] [place], [place] [id number] Paroxysmal atrial fibrillation (CMS/HCC V24, CMS/HCC V28); [...] mmol/L LAB CHEMISTRY METHOD 01/20/2024 1:50 PM [facility] Potassium 4.9 3.5 - 5.5 mmol/L LAB CHEMISTRY METHOD 01/20/2024 1:50 PM [facility] Chloride 98 96 - 110 mmol/L LAB CHEMISTRY METHOD 01/20/2024 1:50 PM [facility] CO2 25 21 - 32 mmol/L LAB CHEMISTRY METHOD 01/20/2024 1:50 PM [facility] Anion Gap 9 3 - 11 LAB CHEMISTRY METHOD 01/20/2024 1:50 PM [facility] Glucose 113(H) 70 - 100 mg/dL LAB CHEMISTRY METHOD 01/20/2024 1:50 PM [facility] BUN 37(H) 5 - 25 mg/dL LAB CHEMISTRY METHOD 01/20/2024 1:50 PM [facility] Creatinine 1.64(H) 0.50 - 1.10 mg/dL LAB CHEMISTRY METHOD 01/20/2024 1:50 PM [facility] eGFR 30(L) >=60 mL/min/1. 73m2 LAB CHEMISTRY METHOD 01/20/2024 1:50 PM [facility] Comment:Calculation based on the Chronic Kidney Disease Epidemiology Collaboration (CKD-EPI) equation refit without adjustment for race. BUN/Creatinine Ratio 22.6 LAB CHEMISTRY METHOD 01/20/2024 1:50 PM [facility] Calcium 8.8 8.5 - 10.5 mg/dL LAB CHEMISTRY METHOD 01/20/2024 1:50 PM [facility] Blood Venous blood specimen / Unknown Venipuncture / Unknown 01/20/2024 8:18 AM EST 01/20/2024 10:46 AM EST us Salvatore Jenkins MD LAB BLOOD ORDERABLES Final Result [facility] [address] [place] [address], * (ABNORMAL) Complete blood count (01/20/2024 8:18 AM EST) WBC 10.9(H) 4.8 - 10.8 K/mcL LAB HEMETOLOGY METHOD 01/20/2024 12:21 PM [facility] RBC 2.50(L) 3.80 - 4.80 M/mcL LAB HEMETOLOGY METHOD 01/20/2024 12:21 PM [facility] Hemoglobin 7.9(L) 11.5 - 16.0 g/dL LAB HEMETOLOGY METHOD 01/20/2024 12:21 PM [facility] Hematocrit 25.1(L) 35.0 - 47.0 % LAB HEMETOLOGY METHOD 01/20/2024 12:21 PM [facility] MCV 101.2(H) 79.0 - 98.0 FL LAB HEMETOLOGY METHOD 01/20/2024 12:21 PM [facility] MCH 31.9 27.0 - 32.0 pcg LAB HEMETOLOGY METHOD 01/20/2024 12:21 PM [facility] MCHC 31.5(L) 32.0 - 37.0 g/dL LAB HEMETOLOGY METHOD 01/20/2024 12:21 PM EST [facility] RDW 13.5 11.0 - 15.0 % LAB HEMETOLOGY METHOD 01/20/2024 12:21 PM [facility] Platelets 833(H) 130 - 400 K/mcL LAB HEMETOLOGY METHOD 01/20/2024 12:21 PM [facility] MPV 9.5 7.0 - 11.0 [...] Result [facility] [address] [place] [address], documented in this encounter Visit Diagnoses Diagnosis Paroxysmal atrial fibrillation (CMS/HCC V24, CMS/HCC V28) Atrial fibrillation Chronic systolic (congestive) heart failure (CMS/HCC V24, CMS/HCC V28) documented in this encounter Care Teams Boat Builder Relationship Specialty Start Date End Date Orquidea Keller MD [address] [place] [address] PCP - General 01/07/23 documented as of this encounter
== END 2024-11-03 14:31 | disposition home or self-care (01) ==
LOC: HO.HMCC 12:59
PROVIDERS: PCP Internal Medicine; Visit Provider Internal Medicine
DX: I10 Essential (primary) hypertension (principal); I50.9 Heart failure, unspecified; E11.9 Type 2 diabetes mellitus without complications; Z79.4 Long term (current) use of insulin

== ENCOUNTER → 2024-11-03 12:58 | Outpatient (BNVA) | payer MEDICARE, SELFPAY | PROVIDERS: PCP Internal Medicine; Visit Provider Internal Medicine | DX: I11.0 Hypertensive heart disease with heart failure (principal); I50.9 Heart failure, unspecified; E11.9 Type 2 diabetes mellitus without complications; Z79.4 Long term (current) use of insulin | CPT/HCPCS: 96127; 99212 ==

== ENCOUNTER 2024-12-07 15:10 | Outpatient (AMB) | payer MEDICARE, SELFPAY ==
--- NOTE | 2024-12-07 15:20 | HO.NEPHOV_ITS ---
Vital Signs 12/07/24 15:21 Height 5 ft 7 in Weight 146 lb BMI 22.9 BP 148/54 H Blood Pressure Location Lt brachial Position Sitting Intake Visit Reasons: 2mon f/u w/labs-Conf w/granddaughter Process Pumper Required: No Accompanied by: Daughter Allergies dulaglutide (Trulicity) Allergy (Unknown, Verified 12/07/24 15:23) GERD losartan Allergy (Unknown, Verified 12/07/24 15:23) Hyperkalemia Sulfa (Sulfonamide Antibiotics) Allergy (Unknown, Verified 12/07/24 15:23) Rash dapagliflozin (From Farxiga) Adverse Reaction (Intermediate, Verified 12/07/24 15:23) candidasis empagliflozin (From [facility]) Adverse Reaction (Intermediate, Verified 12/07/24 15:23) candidiasis amiodarone Adverse Reaction (Verified 12/07/24 15:23) Cough spironolactone Adverse Reaction (Verified 12/07/24 15:23) Hyperkalemia Medication List - Last Reconciled 12/07/24 by Abhishek Carrero MD acetaminophen (Tylenol Extra Strength) 500 mg PO Q6H PRN albuterol sulfate 0.63 mg (3 mL) inhalation QID PRN allopurinol 100 mg PO DAILY apixaban (Eliquis) 2.5 mg PO BID ascorbate calcium (vitamin C) 500 mg PO DAILY atorvastatin 80 mg PO BEDTIME benzonatate 100 mg PO TID PRN blood sugar diagnostic (FreeStyle Lite Strips) Use to test blood sugar three times daily blood-glucose sensor (Dexcom G7 Sensor device) As directed blood-glucose,survey interviewer,cont (Dexcom G7 Applications Programmer Analyst) As directed buspirone 40 mg (4 x 10 mg) PO BEDTIME carvedilol 6.25 mg PO BID cholecalciferol (vitamin D3) 50 mcg PO DAILY codeine-guaifenesin 10-100 mg/5 mL 5 mL PO Q4-6H PRN ferrous fumarate 325 mg PO DAILY furosemide 20 mg PO QAM insulin aspart U-100 (Novolog FlexPen U-100 Insulin aspart) 10 units (0.1 mL) subcut TID insulin degludec 20 units (0.2 mL) subcut BEDTIME insulin degludec (Tresiba FlexTouch U-200 insulin) 20 units (0.1 mL) subcut DAILY lactic acid-urea 1 appl topical DAILY PRN lancets (FreeStyle Lancets) use to test blood sugars three times per day latanoprost 0.005% 1 drp ophthalmic (eye) DAILY levothyroxine 75 mcg PO DAILY metolazone 2.5 mg PO 2XW nebulizers As directed for updraft treatments-with all needed supplies omeprazole 20 mg PO DAILY PRN pen needle, diabetic USE 4 TIMES A DAY sacubitril-valsartan 97-103 mg (Entresto) 1 tab PO BID HPI Comments Details: Pleasant 84-year-old woman with a history of longstanding diabetes mellitus and hypertension with coronary disease has been referred for chronic kidney disease. Her baseline creatinine has been around 1.2-1.3 mg/dL in 2022. In February of 2023 creatinine was 1.54 In November of 2023 creatinine was 1.9 mg/dL. In December she underwent hip surgery. She was in a rehab. She had some difficulty urination which required Mcmahon catheterization. At present she denies any urinary frequency or urgency. Although she has some discomfort while she urinates. No hematuria. Blood sugar has been suboptimal. 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 She does not drink alcohol anymore. She was accompanied by her daughter. Currently she is on Lasix 40 mg a day. She had significant leg edema but this is improved. He has no shortness of breath at rest. No rash no joint pain. She was lost about 20 lb over the last 2 years. 06/30/24 84-year-old female presenting for management of chronic kidney disease and related conditions. Previous health issues include a recent upper respiratory episode, managed effectively with medication without signs of bacterial infection. Edema in her lower extremities is reducing, attributed to effective use of diuretics, necessary due to her heart failure. Her diabetes, while historically erratic, is monitored closely, showing improvement with a recent blood sugar reading of 170. Earlier lab tests and a recent urinary specimen add to the understanding of her current renal status, although some tests were incomplete due to non-fasting. Her anemia, aided by iron supplementation, has improved with recent hemoglobin values moving towards normalcy. Her medical journey since a fall in December includes recovery from shingles and significant efforts to maintain kidney function stability. Recent measures show improved renal function compared to earlier assessments in March. The integration of medication strategies aims to sustain both cardiac and renal balance, essential for her broader health management plan. 09/28/2024 Complains of leg edema. Show accompanied by her daughter. She admits to eating excessive amounts of salt. No shortness of breath. She feels tired 12/07/24 History of Present Illness - The patient is an 84-year-old female presenting with peripheral edema and symptoms of an upper respiratory infection. - Peripheral edema has improved with Metolazone, now taken twice weekly. - Weight fluctuation suggests fluid retention. - Compression stockings are used for edema management. - Blood work results are pending. - Upper respiratory infection symptoms have slightly improved, no fever. [facility] Medical History CHF (congestive heart failure) Insulin dependent type 2 diabetes mellitus Diabetic retinopathy History of partial replacement of left hip joint using bipolar prosthesis Vitamin D deficiency Macrocytosis Cough Sciatica Hypothyroidism HTN (hypertension) Lower extremity edema Irritable bowel syndrome (IBS) Chronic GERD Anxiety Chronic kidney disease (CKD) Hyperlipidemia Hypertension associated with diabetes Surgical History No pertinent past surgical history Family History Mother Ovarian cancer Father Pancreatic cancer Thyroid disease Social History Household Members Other:: Housing: House Alcohol intake: never Patient Tobacco Use Status: Never used Tobacco e-Cigarette/Vaping Use: Never Used Second Hand Smoke Exposure: No service: No Current occupational status: retired Cognitive needs: No Hearing needs: No Vision needs: Yes Physical Exam Vital Signs: Last Vital Signs BP 148/54 H 12/07/24 15:21 BMI result Body Mass Index 22.9 Comfortable Neck supple no JVD. Lungs entry equal no rales. Heart S1-S2 heard no gallop or rub. Abdomen soft nontender. Neuro alert awake oriented. No asterixis. Extremities 2+edema. Results Reviewed Nephrology Results: Sodium, (135-145) 139 mmol/L 10/06/24 Potassium, (3.3-5.1) 4.3 mmol/L 10/06/24 Chloride, (96-108) 106 mmol/L 10/06/24 Carbon Dioxide, (22-29) 25 mmol/L 10/06/24 BUN, (9-16) 47 mg/dL H 10/06/24 Creatinine, (0.5-1.4) 1.33 mg/dL 10/06/24 Calcium, (8.4-10.2) 8.9 mg/dL 10/06/24 Renal US 03/25/24 Assessment & Plan Assessment & Plan (1) CAD (coronary artery disease): Comment: NSTEMI, S/P AMOR to mid LAD (90% stenosis) 01/10 Code(s): I25.10 - Atherosclerotic heart disease of [place] coronary artery without angina pectoris Category: Medical Plan: CAD with stenting to the LAD in 2022. No recurrent symptoms since then. Continue aggressive risk factor modification. Currently on full oral anticoagulation Eliquis and therefore would avoid antiplatelet therapy to reduce bleeding risk. Continue aggressive blood pressure control which currently well optimized. Continue high-intensity statin therapy to target goal LDL less than 70 mg/dL. (2) CHF (congestive heart failure): Comment: Echo LVEF 40-45%, mid to distal anterior, apical, mid-distal septal/anteroseptal and apical inf wall akinesis 01/10 [facility], Echo 10/2023 [facility], EF 55- 60 %, calcification of aortic and mitral valve, no pulmonary hypertension Code(s): I50.9 - Heart failure, unspecified Category: Medical Plan: CHF with prior reduced ejection fraction but which has normalized since with phoebe rohormonal modulation as well as stenting. Clinically euvolemic well compensated. Currently on 40 mg of furosemide. Continue the same. Daily weight monitoring avoidance salt loading was discussed. Continue current carvedilol as well as Entresto therapy. A blood pressure on today's exam is on the lower side but she has no orthostatic symptoms. Advised to monitor blood pressure at home. If persistently remains low may need to pull back on the carvedilol therapy. Will follow up in the clinic in 6 months time after echocardiogram with the EKG. 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 Glomerular nephritis/interstitial disease seem unlikely Code(s): N18.9 - Chronic kidney disease, unspecified Category: Medical Plan: Urine studies : Protienuria : 934 mg Creatinine is down to 1.4 Goal is to slow the progression of renal disease. Continue to avoid nephrotoxic agents including NSAIDs. (4) HTN (hypertension): Comment: Essential hypertension Code(s): I10 - Essential (primary) hypertension Category: Medical Plan: Home readings are acceptable.Overall blood pressure seems well controlled at this time. No changes were made to antihypertensive medications. Discussed low salt diet. (5) Anemia: Comment: Probably has postop anemia MCV is 106. Iron deficiency seems less likely. Erythropoietin deficiency due to underlying CKD is a possibility. Code(s): D64.9 - Anemia, unspecified Category: Medical Plan: Continue with iron supplementation. Follow hemoglobin. If hemoglobin drops further d she may require erythropoietin. Plan Edema. Multifactorial. She should stay on low-sodium diet. Continue current dose of diuretics. - Continue Metolazone twice weekly. - Monitor kidney function. - Use compression stockings. Orders: Orders Basic Metabolic Panel 8 Weeks N18.9 - Chronic kidney disease, unspecified Coding Level of Care Code Est Pt Level 4 (55358) Diagnoses CAD (coronary artery disease) I25.10 CHF (congestive heart failure) I50.9 Chronic kidney disease (CKD) N18.9 HTN (hypertension) I10 Anemia D64.9
[2024-12-07 15:21] VITALS: BP 148/54; BMI 22.9
--- OUTSIDE RECORDS SUMMARY | 2024-12-07 19:24 | XMS_ITS | Patient Health Record ---
[facility] [place] Address [address] [place] [address] Care Team Providers Care Senior Software Qa Engineer Name Role Phone Orquidea Keller MD Primary Care Provider Unavaila Costa Scott Unavailable [phone] Allergies Allergen (clinical drug ingredient) Drug/Non Drug [...] Polyneuropathy due to type 2 diabetes mellitus (181736665) Type 2 diabetes mellitus with diabetic polyneuropathy (E11.42) Active confirmed Plan Of Treatment No Information Insurance Providers Payer Name Payer Address Payer Phone Subscriber Number Group Number Insured Name Patient Relationship to Insured Coverage Start Date Coverage End Date Medicare National Govt Svcs [employer] [address] [place] [address] [id number] Beverly Marie Self - patient is the insured 3 [employer]ex [employer] [address] [place] [address] [id number] Beverly Marie Self - patient is the insured Medical (General) History Medical History History ICD Code Arthritis CAD (Cholesterol) Cataracts Chicken pox Diabetes mellitus Glaucoma Gout Hypertensive disorder Hypertension Knee Pain Measles Mumps Numbness Osteoporosis Reflux ( GERD) Thyroid disorder
--- OUTSIDE RECORDS SUMMARY | 2024-12-07 19:25 | XMS_ITS | Patient Health Record ---
Author Organization [facility] Address [address] [place] [address] Support Name Relationship Address Phone KAYLEEN RENTERIA Guarantor Unknown [phone] Reason For Referral No Information Medications Medication SIG (Take, Route, Frequency, Duration) Notes Start Date End Date Status Diovan 40MG 1 ORAL daily; Durati on: - [facility] 02/05/2012 Active busPIRone HCl 10MG 1 ORAL twice daily; Duration: - [facility] 02/05/2012 Active Aspirin EC 81MG 1 ORAL daily; Durati on: - [facility] 02/05/2012 Active Allopurinol 100MG ORAL; Duration: - [facility] 02/05/2012 Active Vitamin D3 1000 IU ORAL daily; Duration: - [facility] 2011 Active Actos 45MG 1 ORAL daily; Durati on: - [facility] 02/05/2012 Active Triamterene-HCTZ 37.5/25MG 1 ORAL daily; Duration: - [facility] 02/05/2012 Active Simvastatin 20MG 1 ORAL daily; Durati on: - [facility] 02/05/2012 Active PriLOSEC OTC 20MG 1 ORAL daily; Durati on: - [facility] 02/05/2012 Active Multivitamins 1 ORAL daily; Durati on: - [facility] 02/05/2012 Active Levothyroxine Sodium .05MG 1 ORAL daily; Duration: - [facility] 02/05/2012 Active Januvia 100MG 1 ORAL daily; Durati on: - [facility] 02/05/2012 Active Glucovance 500/5MG 1 ORAL daily; Durati on: - [facility] 02/05/2012 Active Problems Problem Type SNOMED Code ICD Code Onset Dates Problem Status W/U Status Risk Notes Problem Benign neoplasm of vulva (93885889) 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
== END 2024-12-07 15:35 | disposition home or self-care (01) ==
LOC: HO.HKA 15:11
PROVIDERS: PCP Internal Medicine; Visit Provider Internal Medicine Hypertension Specialist
DX: I25.10 Atherosclerotic heart disease of native coronary artery without angina pectoris (principal); I50.9 Heart failure, unspecified; I12.9 Hypertensive chronic kidney disease with stage 1 through stage 4 chronic kidney disease, or unspecified chronic kidney disease; N18.9 Chronic kidney disease, unspecified; D64.9 Anemia, unspecified
CPT/HCPCS: 99214

== ENCOUNTER → 2024-12-07 15:10 | Outpatient (BNVA) | payer MEDICARE, SELFPAY | PROVIDERS: PCP Internal Medicine; Visit Provider Internal Medicine Hypertension Specialist | DX: I13.0 Hypertensive heart and chronic kidney disease with heart failure and stage 1 through stage 4 chronic kidney disease, or unspecified chronic kidney disease (principal); N18.30 Chronic kidney disease, stage 3 unspecified; I50.9 Heart failure, unspecified; D64.9 Anemia, unspecified; I25.10 Atherosclerotic heart disease of native coronary artery without angina pectoris | CPT/HCPCS: 99212 ==

== ENCOUNTER 2024-12-15 13:45 | Outpatient (AMB) | payer MEDICARE, SELFPAY ==
[2024-12-15 13:54] VITALS: BP 104/62; PULSE 62; RESP 16; TEMP 36.4; O2SAT 94; BMI 22.6
--- NOTE | 2024-12-15 13:54 | A.OFFPC_ITS ---
Vital Signs 12/15/24 13:54 Height 5 ft 7 in Weight 144 lb BMI 22.6 BP 104/62 Blood Pressure Location Lt brachial Position Sitting Respiration 16 Pulse 62 Pulse Source Pulse Oximeter Temp 97.5 F Temp Source Oral Pulse Oximetry (%) 94 Oxygen Delivery Method Room Air Intake Visit Reasons: 5 week follow up Intake Note: Pt is here today for 5 weeks follow up visit. Pt states that she is not feeling good. Pt states that her legs are still swollen and she has a cough. Allergies dulaglutide (Trulicity) Allergy (Unknown, Verified 12/07/24 15:23) GERD losartan Allergy (Unknown, Verified 12/07/24 15:23) Hyperkalemia Sulfa (Sulfonamide Antibiotics) Allergy (Unknown, Verified 12/07/24 15:23) Rash dapagliflozin (From Farxiga) Adverse Reaction (Intermediate, Verified 12/07/24 15:23) candidasis empagliflozin (From [facility]) Adverse Reaction (Intermediate, Verified 12/07/24 15:23) candidiasis amiodarone Adverse Reaction (Verified 12/07/24 15:23) Cough spironolactone Adverse Reaction (Verified 12/07/24 15:23) Hyperkalemia Medication List - Last Reconciled 12/15/24 by Orquidea Keller MD acetaminophen (Tylenol Extra Strength) 500 mg PO Q6H PRN albuterol sulfate 0.63 mg (3 mL) inhalation QID PRN allopurinol 100 mg PO DAILY apixaban (Eliquis) 2.5 mg PO BID ascorbate calcium (vitamin C) 500 mg PO DAILY atorvastatin 80 mg PO BEDTIME benzonatate 100 mg PO TID PRN blood sugar diagnostic (FreeStyle Lite Strips) Use to test blood sugar three times daily blood-glucose sensor (Eyeonix G7 Sensor device) As directed blood-glucose,log buncher,cont (Dexcom G7 Rocket Propellant Plant Supervisor) As directed buspirone 40 mg (4 x 10 mg) PO BEDTIME carvedilol 6.25 mg PO BID cholecalciferol (vitamin D3) 50 mcg PO DAILY codeine-guaifenesin 10-100 mg/5 mL 5 mL PO Q4-6H PRN ferrous fumarate 325 mg PO DAILY furosemide (Lasix) 40 mg PO BID insulin aspart U-100 (Novolog FlexPen U-100 Insulin aspart) 10 units (0.1 mL) subcut TID insulin degludec 20 units (0.2 mL) subcut BEDTIME insulin degludec (Tresiba FlexTouch U-200 insulin) 20 units (0.1 mL) subcut DAILY lactic acid-urea 1 appl topical DAILY PRN lancets (FreeStyle Lancets) use to test blood sugars three times per day latanoprost 0.005% 1 drp ophthalmic (eye) DAILY levothyroxine 75 mcg PO DAILY nebulizers As directed for updraft treatments-with all needed supplies omeprazole 20 mg PO DAILY PRN pen needle, diabetic USE 4 TIMES A DAY sacubitril-valsartan 97-103 mg (Entresto) 1 tab PO BID Tobacco use date assessed: 11/03/24 Dental Screening Dental Screen Date: 11/03/24 HPI 5 week follow up HPI Details Pt c/o productive cough with yellow sputum and general fatigue for 10 days. Pt denies fever, PND, orthopnea, CP, palpitations. Patient reports feeling very tired. She noticed improved lower extremity swelling on 80 mg of furosemide with 2.5 of metolazone twice a week but reports having intermittent itching sensation while taking metolazone. She has been taking Benadryl with it which relieved her symptoms. Patient reports fluctuating blood glucose due to noncompliance with ADA diet and occasionally skipping meals with episodes of hypoglycemia that she is treating with grape juice. Patient is established with casing trimmer for chronic kidney disease stage 3/4 [facility] Medical History CHF (congestive heart failure) Insulin dependent type 2 diabetes mellitus Diabetic retinopathy History of partial replacement of left hip joint using bipolar prosthesis Vitamin D deficiency Macrocytosis Cough Sciatica Hypothyroidism HTN (hypertension) Lower extremity edema Irritable bowel syndrome (IBS) Chronic GERD Anxiety Chronic kidney disease (CKD) Hyperlipidemia Hypertension associated with diabetes Surgical History No pertinent past surgical history Family History Mother Ovarian cancer Father Pancreatic cancer Thyroid disease Social History Household Members Other:: Housing: House Alcohol intake: never Patient Tobacco Use Status: Never used Tobacco e-Cigarette/Vaping Use: Never Used Second Hand Smoke Exposure: No service: No Current occupational status: retired Cognitive needs: No Hearing needs: No Vision needs: Yes Questionnaire Thrive Questionnaire Date Thrive assessed: 03/25/24 I am a: Patient AUDIT C Alcohol Use Questionnaire (AUDIT-C) 1. How often do you have a drink containing alcohol?: Never 3. How often do you have six or more drinks on one occasion?: Never Total Score: 0 JAMES-7 AMB Questionnaire JAMES-7 Date JAMES - 7 assessed: 11/03/24 Source: Developed by Drs. Bryce Garcia, Sophie Baldwin, Rock Coyle and colleagues, with an educational pranay from [employer]. Review of Systems Const All systems reviewed & are unremarkable except as noted in HPI and below Eyes Reports no additional complaints ENT Reports no additional complaints Card Reports no additional complaints Resp Reports no additional complaints GI Reports no additional complaints Physical exam (Primary Care) Vital Signs: Last Vital Signs Temp 97.5 F 12/15/24 13:54 Pulse 62 12/15/24 13:54 Resp 16 12/15/24 13:54 BP 104/62 12/15/24 13:54 Pulse Ox 94 12/15/24 13:54 Oxygen Delivery Method Room Air 12/15/24 13:54 BMI result Body Mass Index 22.6 Tobacco/Smoking Status: Tobacco use Status Tobacco use date assessed 11/03/24 12/15/24 13:54 Patient Tobacco Use Status Never used Tobacco 12/15/24 13:54 e-Cigarette/Vaping Use Never Used 12/15/24 13:54 Thrive Assessment: Date of Thrive Assessment Date Thrive assessed 03/25/24 12/15/24 13:54 Const General: no acute distress HENMT Head: Yes normal to inspection Mouth: Normal oral and palatal mucosa present Neck Neck: Yes no lymphadenopathy and Yes supple Resp Effort & Inspection: normal respiratory effort Auscultation: rhonchi and diminished lung sounds Cardio Rhythm: regular rhythm Heart sounds: S1 normal heart sound present and S2 normal heart sound present GI Inspection: Yes normal to inspection Palpation (GI): Soft to palpation Extrem Other: 2+ pitting edema bilaterally Coding Level of Care Code Est Pt Level 4 (12144) Diagnoses CHF (congestive heart failure) I50.9 Insulin dependent type 2 diabetes mellitus E11.9; Z79.4 Chronic kidney disease (CKD) N18.9 URI (upper respiratory infection) J06.9 Assessment & Plan Assessment & Plan (1) CHF (congestive heart failure): Comment: Echo LVEF 40-45%, mid to distal anterior, apical, mid-distal septal/anteroseptal and apical inf wall akinesis 01/10 [facility], Echo 10/2023 [facility], EF 55- 60 %, calcification of aortic and mitral valve, no pulmonary hypertension Code(s): I50.9 - Heart failure, unspecified Category: Medical Plan: Continue Entresto and carvedilol, decrease furosemide to 60 mg a day and patient will discontinue metolazone (2) Insulin dependent type 2 diabetes mellitus: Comment: Poorly controlled due to patient noncompliance with diet Code(s): E11.9 - Type 2 diabetes mellitus without complications; Z79.4 - termite control 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 (current) use of insulin Category: Medical Plan: ADA diet eating small frequent meals monitor her blood glucose regularly avoiding simple carbohydrates discussed with the patient. 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 Glomerular nephritis/interstitial disease seem unlikely Code(s): N18.9 - Chronic kidney disease, unspecified Category: Medical Plan: Monitor renal function and avoid nephrotoxins, decrease furosemide to 60 mg and patient will discontinue metolazone, she will repeat basic metabolic panel in 2 weeks (4) URI (upper respiratory infection): Code(s): J06.9 - Acute upper respiratory infection, unspecified Category: Medical Plan: Z-Shawn Tesnoah Dorman are prescribed and supportive care discussed with the patient Medications: New azithromycin For 250 mg dose pack: take 500 mg today (day 1), then 250 mg for 4 days (days 2-5) PO 6 tabs 0RF furosemide (Lasix) 60 mg (3 x 20 mg) PO DAILY 180 tabs 2RF Refilled apixaban (Eliquis) 2.5 mg PO BID 180 tabs 3RF Discontinued furosemide Discontinued Reason: Doctor's Order 20 mg PO QAM 90 tabs 3RF
--- OUTSIDE RECORDS SUMMARY | 2024-12-15 17:54 | XMS_ITS | Patient Health Record ---
[facility] [place] Address [address] [place] [address] Care Team Providers Care Pinion And Wheel Truer Name Role Phone Orquidea Keller MD Primary Care Provider Unavaila Costa Scott Unavailable [phone] Allergies Allergen (clinical drug ingredient) Drug/Non Drug [...] Polyneuropathy due to type 2 diabetes mellitus ([id number]) Type 2 diabetes mellitus with diabetic polyneuropathy (E11.42) Active confirmed Plan Of Treatment No Information Insurance Providers Payer Name Payer Address Payer Phone Subscriber Number Group Number Insured Name Patient Relationship to Insured Coverage Start Date Coverage End Date Medicare National Govt Svcs [employer] [address] [place] [address] [id number] Beverly Marie Self - patient is the insured 3 [employer] [address] [place] [address] [id number] Beverly Marie Self - patient is the insured Medical (General) History Medical History History ICD Code Arthritis CAD (Cholesterol) Cataracts Chicken pox Diabetes mellitus Glaucoma Gout Hypertensive disorder Hypertension Knee Pain Measles Mumps Numbness Osteoporosis Reflux ( GERD) Thyroid disorder
--- OUTSIDE RECORDS SUMMARY | 2024-12-15 17:55 | XMS_ITS | Encounter Summary ---
Author Organization [facility] Address [address] [place] [address] Care Team Providers Care Chief Digital Media Officer Name Role Phone Orquidea Keller MD Primary Care Provider [phone] Encounter Details Date Type Department Care Team (Late st Contact Info) Description 01/18/2024 Lab Requisition [facility] - Main Lab [address] [facility] [place] [address] Salvatore Jenkins MD [address] [place], [place] [phone] Paroxysmal atrial fibrillation (CMS/HCC V24, CMS/HCC V28); [...] mmol/L LAB CHEMISTRY METHOD 01/20/2024 1:50 PM [facility] Potassium 4.9 3.5 - 5.5 mmol/L LAB CHEMISTRY METHOD 01/20/2024 1:50 PM [facility] Chloride 98 96 - 110 mmol/L LAB CHEMISTRY METHOD 01/20/2024 1:50 PM [facility] CO2 25 21 - 32 mmol/L LAB CHEMISTRY METHOD 01/20/2024 1:50 PM [facility] Anion Gap 9 3 - 11 LAB CHEMISTRY METHOD 01/20/2024 1:50 PM [facility] Glucose 113(H) 70 - 100 mg/dL LAB CHEMISTRY METHOD 01/20/2024 1:50 PM [facility] BUN 37(H) 5 - 25 mg/dL LAB CHEMISTRY METHOD 01/20/2024 1:50 PM [facility] Creatinine 1.64(H) 0.50 - 1.10 mg/dL LAB CHEMISTRY METHOD 01/20/2024 1:50 PM [facility] eGFR 30(L) >=60 mL/min/1. 73m2 LAB CHEMISTRY METHOD 01/20/2024 1:50 PM [facility] Comment:Calculation based on the Chronic Kidney Disease Epidemiology Collaboration (CKD-EPI) equation refit without adjustment for race. BUN/Creatinine Ratio 22.6 LAB CHEMISTRY METHOD 01/20/2024 1:50 PM [facility] Calcium 8.8 8.5 - 10.5 mg/dL LAB CHEMISTRY METHOD 01/20/2024 1:50 PM [facility] Blood Venous blood specimen / Unknown Venipuncture / Unknown 01/20/2024 8:18 AM EST 01/20/2024 10:46 AM EST us Salvatore Jenkins MD LAB BLOOD ORDERABLES Final Result [facility] [address] [place] [address], * (ABNORMAL) Complete blood count (01/20/2024 8:18 AM EST) WBC 10.9(H) 4.8 - 10.8 K/mcL LAB HEMETOLOGY METHOD 01/20/2024 12:21 PM [facility] RBC 2.50(L) 3.80 - 4.80 M/mcL LAB HEMETOLOGY METHOD 01/20/2024 12:21 PM [facility] Hemoglobin 7.9(L) 11.5 - 16.0 g/dL LAB HEMETOLOGY METHOD 01/20/2024 12:21 PM [facility] Hematocrit 25.1(L) 35.0 - 47.0 % LAB HEMETOLOGY METHOD 01/20/2024 12:21 PM [facility] MCV 101.2(H) 79.0 - 98.0 FL LAB HEMETOLOGY METHOD 01/20/2024 12:21 PM [facility] MCH 31.9 27.0 - 32.0 pcg LAB HEMETOLOGY METHOD 01/20/2024 12:21 PM [facility] MCHC 31.5(L) 32.0 - 37.0 g/dL LAB HEMETOLOGY METHOD 01/20/2024 12:21 PM EST [facility] RDW 13.5 11.0 - 15.0 % LAB HEMETOLOGY METHOD 01/20/2024 12:21 PM [facility] Platelets 833(H) 130 - 400 K/mcL LAB HEMETOLOGY METHOD 01/20/2024 12:21 PM [facility] MPV 9.5 7.0 - 11.0 FL LAB HEMETOLOGY METHOD 01/20/2024 12:21 PM EST [facility] NRBC 0.0 <1.0 % LAB HEMETOLOGY METHOD 01/20/2024 12:21 PM EST [facility] NRBC Absolute 0.00 <0.10 K/mcL LAB HEMETOLOGY METHOD 01/20/2024 12:21 PM EST [facility] Blood Venous blood specimen / Unknown Venipuncture / Unknown 01/20/2024 8:18 AM EST 01/20/2024 10:46 AM EST us Salvatore Jenkins MD LAB BLOOD ORDERABLES Final Result [facility] [address] [place] [address], documented in this encounter Visit Diagnoses Diagnosis Paroxysmal atrial fibrillation (CMS/HCC V24, CMS/HCC V28) Atrial fibrillation Chronic systolic (congestive) heart failure (CMS/HCC V24, CMS/HCC V28) documented in this encounter Care Teams Chief Digital Media Officer Relationship Specialty Start Date End Date Orquidea Keller MD [address] [place] [address] PCP - General 01/07/23 documented as of this encounter
--- OUTSIDE RECORDS SUMMARY | 2024-12-15 17:55 | XMS_ITS | Encounter Summary ---
Author Organization [facility] Address [address] [address] Phone Care Team Providers Care Economic Specialist Name Role Phone Orquidea Keller MD Primary Care Provider [phone] Reason for Visit * Reason Comments Medication Refill Encounter Details Date Type Department Care Team (Late Contact Info) Description 02/15/2021 Refill [facility] [address] [address] Mike Shahid, DPM [address] [address] [email or web address] Medication Refill Social History Tobacco Use Types [...] Description 12/22/2024 1:00 PM EST Office Visit [facility] [address] [address] Guru Holden DPM [address] [address] documented as of this encounter Visit Diagnoses Not on filedocumented in this encounter Care Teams Economic Specialist Relationship Specialty Start Date End Date Orquidea Keller MD [place] [address] PCP - General Internal Medicine 05/31/15 documented as of this encounter Additional Source Comments The information contained in this document represents components of the legal health record. It is not the complete legal health record.[facility]
--- OUTSIDE RECORDS SUMMARY | 2024-12-15 17:55 | XMS_ITS | Clinical Summary ---
Author Organization [address] [facility] Address [address] [place] [address] Phone Care Team Providers Care Twine Winder Name Role Phone Orquidea Keller MD Primary Care Provider [phone] Medications atorvastatin (LIPITOR) 80 mg tablet TAKE [...] mmol/L LAB CHEMISTRY METHOD 02/03/2024 4:56 PM [facility] Potassium 5.0 3.5 - 5.5 mmol/L LAB CHEMISTRY METHOD 02/03/2024 4:56 PM [facility] Chloride 104 96 - 110 mmol/L LAB CHEMISTRY METHOD 02/03/2024 4:56 PM [facility] CO2 27 21 - 32 mmol/L LAB CHEMISTRY METHOD 02/03/2024 4:56 PM [facility] Anion Gap 6 3 - 11 LAB CHEMISTRY METHOD 02/03/2024 4:56 PM [facility] Glucose 114(H) 70 - 100 mg/dL LAB CHEMISTRY METHOD 02/03/2024 4:56 PM [facility] BUN 38(H) 5 - 25 mg/dL LAB CHEMISTRY METHOD 02/03/2024 4:56 PM [facility] Creatinine 1.53(H) 0.50 - 1.10 mg/dL LAB CHEMISTRY METHOD 02/03/2024 4:56 PM [facility] eGFR 33(L) >=60 mL/min/1. 73m2 LAB CHEMISTRY METHOD 02/03/2024 4:56 PM [facility] Comment:Calculation based on the Chronic Kidney Disease Epidemiology Collaboration (CKD-EPI) equation refit without adjustment for race. BUN/Creatinine Ratio 24.8 LAB CHEMISTRY METHOD 02/03/2024 4:56 PM [facility] Calcium 9.1 8.5 - 10.5 mg/dL LAB CHEMISTRY METHOD 02/03/2024 4:56 PM [facility] Blood Venous blood specimen / Unknown Venipuncture / Unknown 02/03/2024 8:36 AM EST 02/03/2024 11:48 AM EST Salvatore Jenkins MD LAB BLOOD ORDERABLES Final Result [facility] [address] [place] [address], [place] [phone] * Hemoglobin A1c (01/08/2024 6:24 AM EST) Hemoglobin A1C 6.4 <6.5 % LAB CHEMISTRY METHOD 01/08/2024 1:04 PM EST [facility] Mean Bld Glu Estim. 137 mg/dL LAB CHEMISTRY METHOD 01/08/2024 1:04 PM EST [facility] Blood Venous blood specimen / Unknown Venipuncture / Unknown 01/08/2024 6:24 AM EST 01/08/2024 9:05 AM EST Salvatore Jenkins MD LAB BLOOD ORDERABLES Final Result [facility] [address] [place] [address], [place] [phone] from Last 3 Months or Most Recently Relevant to Health Maintenance Insurance MEDICARE [facility] Care Teams Twine Winder Relationship Specialty Start Date End Date Orquidea Keller MD [address] [place] [address] PCP - General 01/07/23
--- OUTSIDE RECORDS SUMMARY | 2024-12-15 17:55 | XMS_ITS | Encounter Summary ---
Author Organization [facility] Address [address] [place] [address] Care Team Providers Care Flour Inspector Name Role Phone Orquidea Keller MD Primary Care Provider [phone] Encounter Details Date Type Department Care Team (Late st Contact Info) Description 01/10/2024 Lab Requisition [facility] - Main Lab [address] [facility] [place] [address] Salvatore Jenkins MD [address] [place], [place] [phone] Paroxysmal atrial fibrillation (CMS/HCC V24, CMS/HCC V28); [...] Result [facility] [address] [place] [address], * (ABNORMAL) Complete blood count (01/13/2024 8:11 [...] Final Result [facility] [address] [place] [address], documented in this encounter Visit Diagnoses Diagnosis Paroxysmal atrial fibrillation (CMS/HCC V24, CMS/HCC V28) Atrial fibrillation Chronic systolic (congestive) heart failure (CMS/HCC V24, CMS/HCC V28) documented in this encounter Care Teams Flour Inspector Relationship Specialty Start Date End Date Orquidea Keller MD [address] [place] [address] PCP - General 01/07/23 documented as of this encounter
--- OUTSIDE RECORDS SUMMARY | 2024-12-15 17:55 | XMS_ITS | Encounter Summary ---
Author Organization [facility] Address [address] [place] [address] Care Team Providers Care Pump Tender Name Role Phone Orquidea Keller MD Primary Care Provider [phone] Encounter Details Date Type Department Care Team (Late st Contact Info) Description 02/09/2024 Lab Requisition [facility] - Main Lab [address] [facility] [place] [address] Salvatore Jenkins MD [address] [place], [place] [phone] Paroxysmal atrial fibrillation (CMS/HCC V24, CMS/HCC V28); [...] V28) documented in this encounter Care Teams Pump Tender Relationship Specialty Start Date End Date Orquidea Keller MD [address] [facility] [place] [address] PCP - General 01/07/23 documented as of this encounter
--- OUTSIDE RECORDS SUMMARY | 2024-12-15 17:55 | XMS_ITS | Encounter Summary ---
Author Organization [facility] Address [address] [address] Phone Care Team Providers Care Machine Feeder Raw Stock Name Role Phone Orquidea Keller MD Primary Care Provider [phone] Reason for Visit * Reason Comments Medication Refill Encounter Details Date Type Department Care Team (Late Contact Info) Description 02/01/2021 Refill [facility] [address] [address] Mike Shahid, DPM [address] [address] [email or web address] Medication Refill Social History Tobacco Use Types [...] Description 12/22/2024 1:00 PM EST Office Visit [facility] [address] [address] Guru Holden DPM [address] [address] documented as of this encounter Visit Diagnoses Not on filedocumented in this encounter Care Teams Machine Feeder Raw Stock Relationship Specialty Start Date End Date Orquidea Keller MD [facility] [place] [address] PCP - General Internal Medicine 05/31/15 documented as of this encounter Additional Source Comments The information contained in this document represents components of the legal health record. It is not the complete legal health record.[facility]
--- OUTSIDE RECORDS SUMMARY | 2024-12-15 17:55 | XMS_ITS | Patient Health Record ---
Author Organization [facility] Address [address] [facility] [address] [place] [address] Support Name Relationship Address Phone KAYLEEN RENTERIA Guarantor Unknown [phone] Reason For Referral No Information Medications Medication SIG (Take, Route, Frequency, Duration) Notes Start Date End Date Status Diovan 40MG 1 ORAL daily; Durati on: - [facility] 02/05/2012 Active busPIRone HCl 10MG 1 ORAL twice daily; Duration: - [facility] 02/05/2012 Active Aspirin EC 81MG 1 ORAL daily; Durati on: - [facility] 02/05/2012 Active Allopurinol 100MG ORAL; Duration: - [facility] 02/05/2012 Active Vitamin D3 1000 IU ORAL daily; Duration: [place] [facility] [place] Active Actos 45MG 1 ORAL daily; Durati on: - [facility] 02/05/2012 Active Triamterene-HCTZ 37.5/25MG 1 ORAL daily; Duration: - [facility] 02/05/2012 Active Simvastatin 20MG 1 ORAL daily; Durati on: - [facility] 02/05/2012 Active PriLOSEC OTC 20MG 1 ORAL daily; Durati on: - [facility] 02/05/2012 Active Multivitamins 1 ORAL daily; Durati on: - [facility] 02/05/2012 Active Levothyroxine Sodium .05MG 1 ORAL daily; Duration: - [facility] 02/05/2012 Active Januvia 100MG 1 ORAL daily; Durati on: - [facility] 02/05/2012 Active Glucovance 500/5MG 1 ORAL daily; Durati on: - [facility] 02/05/2012 Active Problems Problem Type SNOMED Code ICD Code Onset Dates Problem Status W/U Status Risk Notes Problem 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
--- OUTSIDE RECORDS SUMMARY | 2024-12-15 17:55 | XMS_ITS | Data Portability ---
Author Organization [place] - [facility], Allergy Address 100 [facility] 100 [place] [address] Care Team Providers Care Bottle Selector Name Role Phone JUSTA SAHNIANNA Primary Care [...] audio gram No observ ation record ed. [email or web address] Not Available 09/19 15:12:40 12/16/19 24 audio gram No observ ation record ed. Not Available 11/19 15:12:52 Result Notes None recorded. Problems Name Problem SNOMED Code Status Onset Date Resolution Date Notes Provider Name and Address Organization Details Recorded Time Otalgia of right ear 4664644173 Active 2018 Otalgia, right ear; Note: Date Diagnosed : 03/12/2018 2:36 PM (H92.01) Not Available [facility] 4 03:11:57 Sensorine ural hearing loss of bilateral ears 738067742 Active 2018 Sensorine ural hearing loss, bilateral ; Note: Date Diagnosed : 08/12/2018 1:56 PM (H90.3) Not Available [facility] 4 03:11:58 Bilateral tinnitus 97773712913 02 Active 2018 Tinnitus, bilateral ; Note: Date Diagnosed : 08/12/2018 1:56 PM (H93.13) Not Available [facility] 4 03:11:57 Impacted cerumen in right ear 36567520400 58183 Active 2022 Impacted cerumen, right ear; Note: Date Diagnosed : 07/04/2022 1:17 PM (H61.21) Not Available [facility] 4 03:11:57 Bilateral disorder of Eustachia n tubes 55733104983 43796 Active 2023 DUKE NAVARRETE [address] [place] [address], [place], [address] , [facility] - [facility] 4 13:39:50 Acute serous otitis media of right ear 95623603294 63008 Active 2023 YADIRA JORDAN MD [address] [place] [address], [place], [address] , [facility] - [facility] 4 13:59:45 Problem Notes None recorded. Procedures Surgical History Date Name Laterality Status Provider Name and Address Organization Details Recorded Time 12/16/19 24 Tympanometry - 51120 completed MARTIN ARNETT, AUD [address] [facility],[place] [address], [place], [address], [facility] 12/16/2023 13:08:04 10/16/19 24 Air & Speech Audio with Tymps - 56184, 79479 & 41894 completed ROBIN RODRIGUEZ, AUD [address] [facility] [place], [place], [address], [facility] 10/16/2023 13:43:04 Imaging Results None recorded. Procedure Notes None recorded. Medical Equipment None Reported. Allergies Allergen ID Allergen Name Allergen Category Reaction Reaction Severity Criticality Documentation Date Start Date Code Code System Note Provider Name and Address Organization Details Recorded Time 29227 Substance with sulfonami de structure and antibacte rial mechanism of action (substanc e) medicatio n other Not available Not available 07/02/2023 81340 8003 SNOMED React ion: unkno wn, unspe cifie d;; Not Available [facility] 4 00:49:45 Medications Name Sig Start Date [...] TAKE 1 TABLET BY MOUTH EVERY DAY [id number] active Not Available Not Available Not Available [...] Not Available Not Available No t Available [facility] spacer USE WITH INHALER active Not Available [...] Updated DateTime 10/16/2023 160.02 cm 26 kg/m2 27599.08 g Ghada Lorraine [facility] 10/16/2023 13:54:00 Date Recorded Body height Body mass index (BMI) Body weight Provider Name and Address Organization Details Last Updated DateTime 12/16/2023 160.02 cm 26 kg/m2 52240.08 g Raina Gallego [facility] 12/16/2023 12:58:48 Social History None recorded. Functional Status None recorded. Mental Status None recorded. Family History Nothing Reported. Medical History No medical history recorded. Gynecological HistoryNo gynecological history recorded. Obstetrics History GPAL:G 0 P 0 0 0 0 Past Encounters Encounter ID Performer Location Encounter Start Date Encounter Closed Date Diagnosis/Indication Diagnosis SNOMED-CT Code Diagnosis ICD10 Code Diagnosis IMO Codes Diagnosis Note [id number] YADIRA JORDAN MD [facility] [address] [address] 10/16/2023 13:00:57 10/16/2023 14:01:35 Acute serous otitis media of right ear 0225774056 577670 H65.01 Likely due to a URI. Will reevaluate in 6 weeks and I will expect it will resolve. Hearing is stable. [id number] DUKE NAVARRETE [facility] [address] [address] 10/16/2023 13:39:08 10/16/2023 16:44:20 Sensorineural hearing loss of bilateral ears 483455625 H90.3 Right Ear:Mild to severe SNHL with excellent speech discrimina tion.Type B tympanogra m.Left Ear:Normal hearing through 1K Hz sloping to a severe SNHL with excellent speech discrimina tion.Type As tympanogra m. Bilateral disorder of Eustachian tubes 0340850447 892164 H69.93 [id number] RITO VALDIVIA PA-C [facility] [place] [address] [place] [address] 12/16/2023 12:50:25 12/16/2023 13:30:32 Bilateral disorder of Eustachian tubes 8997650744 227279 H69.93 Acute sero us otitis media of right ear 8396884934 293845 H65.01 [id number] MARTIN ARNETTDUKE [facility] 100 [facility] [address] 12/16/2023 13:07:22 12/16/2023 14:57:24 Sensorineural hearing loss of bilateral ears 063011429 H90.3 Tympanomet ry:Right: Type BLeft: C Health Concerns Section Related Observation LastModified by Organization Detai ls LastModified Time None Recorded Concern Status LastModified by Organization Details LastModified Time None Recorded Advance Directives Directive None Recorded Payers Insurance Date Sequence Insurance Name Policy Number Policy Vilchis Covered Member ID Vilchis Member ID Guarantor Name 12/16/2023 [place] [employer] Beverly Marie [id number] 2 Beverly Marie 12/16/2023 [place] [employer] Beverly Marie [id number] 2 Beverly Marie 12/16/2023 1 [place] Beverly Marie [id number] Beverly Marie 12/13/2023 2 [place] [id number] Beverly Marie [id number] Beverly Marie Notes Date Note Type Note Provider Name and Address Organization Details Recorded Time 10/16/2023 text/html ROS as noted in the HPI He of slightly asymmetric HL. Right ear has felt blocked for two days. She also has a cough. Hx of [place] and afib since last visit. YADIRA JORDAN MD [address] [place] [address], [place], [address], [facility] - [facility] 10/16/2023 14:00:41 12/16/2023 text/html ROS as noted in the HPI 83-year-old female presents for re-evaluation. Previously examined by Dr. [...] some seasonal allergies. SILVIO RODRIGUEZ MD 100 [facility],[address], [address], [facility] - [facility] 12/16/2023 16:30:44 12/16/2023 text/html ELEAZAR Bishop, requested tympanometry. DUKE LOVE [address] [facility],[place] [address], [place], [address], [facility] - [facility] 12/16/2023 13:09:48 OBGyn Episode No OBEpisode recorded.
--- OUTSIDE RECORDS SUMMARY | 2024-12-15 17:55 | XMS_ITS | Encounter Summary ---
Author Organization [facility] Address [address] [place] [address] Care Team Providers Care Poising Inspector Name Role Phone Orquidea Keller MD Primary Care Provider [phone] Encounter Details Date Type Department Care Team (Late st Contact Info) Description 01/08/2024 Lab Requisition [facility] - Main Lab [address] [facility] [place] [address] Salvatore Jenkins MD [address] [place] [address] Type 2 diabetes mellitus without complications (CMS/HCC [...] Hemoglobin A1c (01/08/2024 6:24 AM EST) Pathologist [facility] Hemoglobin A1C 6.4 <6.5 % LAB CHEMISTRY METHOD 01/08/2024 1:04 PM EST [facility] Mean Bld Glu Estim. 137 mg/dL LAB CHEMISTRY METHOD 01/08/2024 1:04 PM EST [facility] Blood Venous blood specimen / Unknown Venipuncture / Unknown 01/08/2024 6:24 AM EST 01/08/2024 9:05 AM EST Salvatore Jenkins MD LAB BLOOD ORDERABLES Final Result [facility] [address] [place] [address], * (ABNORMAL) Comprehensive metabolic panel (01/08/2024 6:24 AM EST) Pathologist [facility] Sodium 134 133 - 145 mmol/L LAB CHEMISTRY METHOD 01/08/2024 10:52 AM EST [facility] Potassium 4.9 3.5 - 5.5 mmol/L LAB CHEMISTRY METHOD 01/08/2024 10:52 AM EST [facility] Chloride 102 96 - 110 mmol/L LAB CHEMISTRY METHOD 01/08/2024 10:52 AM EST [facility] CO2 22 21 - 32 mmol/L LAB CHEMISTRY METHOD 01/08/2024 10:52 AM EST [facility] Anion Gap 10 3 [...] [facility] Comment:Calculation based on the [...] Final Result [facility] [address] [place] [address], * (ABNORMAL) Complete blood count (01/08/2024 6:24 [...] LAB HEMETOLOGY METHOD 01/08/2024 10:12 AM EST [facility] MPV 10.9 7.0 - 11.0 FL LAB HEMETOLOGY METHOD 01/08/2024 10:12 AM EST [facility] NRBC 0.0 <1.0 % LAB HEMETOLOGY METHOD 01/08/2024 10:12 AM EST [facility] NRBC Absolute 0.00 <0.10 K/mcL LAB HEMETOLOGY METHOD 01/08/2024 10:12 AM EST [facility] Blood Venous blood specimen / Unknown Venipuncture / Unknown 01/08/2024 6:24 AM EST 01/08/2024 9:05 AM EST us Salvatore Jenkins MD LAB BLOOD ORDERABLES Final Result [facility] [address] [place] [address], documented in this encounter Visit Diagnoses Diagnosis Type 2 diabetes mellitus without complications (CMS/HCC V24, CMS/HCC V28) Iron deficiency anemia, unspecified Paroxysmal atrial fibrillation (CMS/HCC V24, CMS/HCC V28) Atrial fibrillation Chronic systolic (congestive) heart failure (CMS/HCC V24, CMS/HCC V28) documented in this encounter Care Teams Poising Inspector Relationship Specialty Start Date End Date Orquidea Keller MD [address] [place] [address] PCP - General 01/07/23 documented as of this encounter
--- OUTSIDE RECORDS SUMMARY | 2024-12-15 17:55 | XMS_ITS | Encounter Summary ---
Author Organization [facility] Address [address] [place] [address] Care Team Providers Care Director Instrumentation Name Role Phone Orquidea Keller MD Primary Care Provider [phone] Encounter Details Date Type Department Care Team (Late st Contact Info) Description 01/25/2024 Lab Requisition [facility] - Main Lab 299 [facility] [place] [address] Salvatore Jenkins MD [address] [place], [place] [phone] Paroxysmal atrial fibrillation (CMS/HCC V24, CMS/HCC V28); [...] mmol/L LAB CHEMISTRY METHOD 01/27/2024 11:44 AM [facility] Potassium 5.4 3.5 - 5.5 mmol/L LAB CHEMISTRY METHOD 01/27/2024 11:44 AM [facility] Chloride 102 96 - 110 mmol/L LAB CHEMISTRY METHOD 01/27/2024 11:44 AM [facility] CO2 28 21 - 32 mmol/L LAB CHEMISTRY METHOD 01/27/2024 11:44 AM [facility] Anion Gap 6 3 - 11 LAB CHEMISTRY METHOD 01/27/2024 11:44 AM [facility] Glucose 132(H) 70 - 100 mg/dL LAB CHEMISTRY METHOD 01/27/2024 11:44 AM [facility] BUN 41(H) 5 - 25 mg/dL LAB CHEMISTRY METHOD 01/27/2024 11:44 AM [facility] Creatinine 1.66(H) 0.50 - 1.10 mg/dL LAB CHEMISTRY METHOD 01/27/2024 11:44 AM [facility] eGFR 30(L) >=60 mL/min/1. 73m2 LAB CHEMISTRY METHOD 01/27/2024 11:44 AM [facility] Comment:Calculation based on the Chronic Kidney Disease Epidemiology Collaboration (CKD-EPI) equation refit without adjustment for race. BUN/Creatinine Ratio 24.7 LAB CHEMISTRY METHOD 01/27/2024 11:44 AM [facility] Calcium 9.0 8.5 - 10.5 mg/dL LAB CHEMISTRY METHOD 01/27/2024 11:44 AM [facility] Blood Venous blood specimen / Unknown Venipuncture / Unknown 01/27/2024 7:57 AM EST 01/27/2024 10:26 AM EST us Salvatore Jenkins MD LAB BLOOD ORDERABLES Final Result [facility] [address] [place] [address], * (ABNORMAL) Complete blood count (01/27/2024 7:37 AM EST) WBC 8.8 4.8 - 10.8 K/mcL LAB HEMETOLOGY METHOD 01/27/2024 11:22 AM EST [facility] RBC 2.70(L) 3.80 - 4.80 M/mcL LAB HEMETOLOGY METHOD 01/27/2024 11:22 AM [facility] Hemoglobin 8.4(L) 11.5 - 16.0 g/dL LAB HEMETOLOGY METHOD 01/27/2024 11:22 AM [facility] Hematocrit 27.2(L) 35.0 - 47.0 % LAB HEMETOLOGY METHOD 01/27/2024 11:22 AM [facility] MCV 102.6(H) 79.0 - 98.0 FL LAB HEMETOLOGY METHOD 01/27/2024 11:22 AM [facility] MCH 31.7 27.0 - 32.0 pcg LAB HEMETOLOGY METHOD 01/27/2024 11:22 AM [facility] MCHC 30.9(L) 32.0 - 37.0 g/dL LAB HEMETOLOGY METHOD 01/27/2024 11:22 AM [facility] RDW 14.1 11.0 - 15.0 % LAB HEMETOLOGY METHOD 01/27/2024 11:22 AM [facility] Platelets 512(H) 130 - 400 K/mcL LAB HEMETOLOGY METHOD 01/27/2024 11:22 AM [facility] MPV 9.7 7.0 - 11.0 FL LAB HEMETOLOGY METHOD 01/27/2024 11:22 AM EST [facility] NRBC 0.0 <1.0 % LAB HEMETOLOGY METHOD 01/27/2024 11:22 AM EST [facility] NRBC Absolute 0.00 <0.10 K/mcL LAB HEMETOLOGY METHOD 01/27/2024 11:22 AM EST [facility] Blood Venous blood specimen / Unknown Venipuncture / Unknown 01/27/2024 7:37 AM EST 01/27/2024 10:28 AM EST us Salvatore Jenkins MD LAB BLOOD ORDERABLES Final Result [facility] [address] [place] [address], documented in this encounter Visit Diagnoses Diagnosis Paroxysmal atrial fibrillation (CMS/HCC V24, CMS/HCC V28) Atrial fibrillation Chronic systolic (congestive) heart failure (CMS/HCC V24, CMS/HCC V28) documented in this encounter Care Teams Director Instrumentation Relationship Specialty Start Date End Date Orquidea Keller MD [address] [place] [address] PCP - General 01/07/23 documented as of this encounter
--- OUTSIDE RECORDS SUMMARY | 2024-12-15 17:55 | XMS_ITS | Encounter Summary ---
Author Organization [facility] Address [address] [address] Phone Care Team Providers Care Library Clerk Name Role Phone Orquidea Keller MD Primary Care Provider [phone] Encounter Details Date Type Department Care Team (Late Contact Info) Description 09/10/2019 Telephone [facility] [address] [place] [address] Figueroa Jewell DPM [address] [address] Social History Tobacco Use Types Packs/Day Years [...] Description 12/22/2024 1:00 PM EST Office Visit [facility] [address] [address] Guru Holden DPM [address] [address] documented as of this encounter Visit Diagnoses Not on filedocumented in this encounter Care Teams Library Clerk Relationship Specialty Start Date End Date Orquidea Keller MD [address] [place] [address] PCP - General Internal Medicine 05/31/15 documented as of this encounter Additional Source Comments The information contained in this document represents components of the legal health record. It is not the complete legal health record.[facility]
--- OUTSIDE RECORDS SUMMARY | 2024-12-15 17:55 | XMS_ITS | Clinical Summary ---
Author Organization [facility] Address [address] [facility] [address] [place] [address] Phone Care Team Providers Care Dish Room Worker Name Role Phone Orquidea Keller MD Primary Care Provider [phone] Allergies Active Allergy Reactions Criticality Noted Date [...] Description 09/22/2024 1:00 PM EDT Office Visit [facility] [address] [address] Guru Holden, SUZY Onychomycosis (Primary Dx); Pain [...] Description 12/22/2024 1:00 PM EST Office Visit [facility] [address] [facility] [address] [place] [address] Guru Holden, DPM [address] [address] [email or web address] Health Maintenance Due Date Last Done Comments Adult Td,Tdap Booster 1938 CREATININE LEVEL 1938 POTASSIUM LEVEL 1938 TSH LEVEL 1938 DEPRESSION SCREENING 1950 OSTEOPOROSIS SCREENING INITIAL (ONE-TIME) 2003 RSV VACCINE (1 - 1-dose 75+ series) 2013 DIABETIC EYE EXAM 04/10/2014 PNEUMOCOCCAL VACCINES (50+ years) (2 of 2 - PCV) 03/08/2016 03/08/2015 HEMOGLOBIN A1C 07/07/2024 01/08/2024 INFLUENZA VACCINE (#1) 2024 9, 11/20/2017, 10/30/2016, Additional history exists COVID-19 VACCINE ( - season) 2024 04/17/2020, 03/24/2020 ZOSTER VACCINES Completed 12/21/2018, 0503/2018, 02/18/2005 HEPATITIS A VACCINES Aged Out No [...] topic Medical Devices Not on file Insurance [employer] MEDEX SUPPLEMENT Care Teams Dish Room Worker Relationship Specialty Start Date End Date Orquidea Keller MD [address] [place] [address] PCP - General Internal Medicine 05/31/15 Additional Source Comments The information contained in this document represents components of the legal health record. It is not the complete legal health record.[facility]
--- OUTSIDE RECORDS SUMMARY | 2024-12-15 17:55 | XMS_ITS | Encounter Summary ---
Author Organization [facility] Address [address] [place] [address] Care Team Providers Care Section Chief Name Role Phone Orquidea Keller MD Primary Care Provider [phone] Encounter Details Date Type Department Care Team (Late st Contact Info) Description 01/31/2024 Lab Requisition [facility] - Main Lab [address] [facility] [place] [address] Salvatore Jenkins MD [address] [place], [place] [phone] Paroxysmal atrial fibrillation (CMS/HCC V24, CMS/HCC V28); [...] mmol/L LAB CHEMISTRY METHOD 02/03/2024 4:56 PM [facility] Potassium 5.0 3.5 - 5.5 mmol/L LAB CHEMISTRY METHOD 02/03/2024 4:56 PM [facility] Chloride 104 96 - 110 mmol/L LAB CHEMISTRY METHOD 02/03/2024 4:56 PM [facility] CO2 27 21 - 32 mmol/L LAB CHEMISTRY METHOD 02/03/2024 4:56 PM [facility] Anion Gap 6 3 - 11 LAB CHEMISTRY METHOD 02/03/2024 4:56 PM [facility] Glucose 114(H) 70 - 100 mg/dL LAB CHEMISTRY METHOD 02/03/2024 4:56 PM [facility] BUN 38(H) 5 - 25 mg/dL LAB CHEMISTRY METHOD 02/03/2024 4:56 PM [facility] Creatinine 1.53(H) 0.50 - 1.10 mg/dL LAB CHEMISTRY METHOD 02/03/2024 4:56 PM [facility] eGFR 33(L) >=60 mL/min/1. 73m2 LAB CHEMISTRY METHOD 02/03/2024 4:56 PM [facility] Comment:Calculation based on the Chronic Kidney Disease Epidemiology Collaboration (CKD-EPI) equation refit without adjustment for race. BUN/Creatinine Ratio 24.8 LAB CHEMISTRY METHOD 02/03/2024 4:56 PM [facility] Calcium 9.1 8.5 - 10.5 mg/dL LAB CHEMISTRY METHOD 02/03/2024 4:56 PM [facility] Blood Venous blood specimen / Unknown Venipuncture / Unknown 02/03/2024 8:36 AM EST 02/03/2024 11:48 AM EST us Salvatore Jenkins MD LAB BLOOD ORDERABLES Final Result [facility] [address] [place] [address], * (ABNORMAL) Complete blood count (02/03/2024 8:36 AM EST) WBC 7.1 4.8 - 10.8 K/mcL LAB HEMETOLOGY METHOD 02/03/2024 12:30 PM EST [facility] RBC 2.80(L) 3.80 - 4.80 M/mcL LAB HEMETOLOGY METHOD 02/03/2024 12:30 PM [facility] Hemoglobin 8.8(L) 11.5 - 16.0 g/dL LAB HEMETOLOGY METHOD 02/03/2024 12:30 PM [facility] Hematocrit 28.1(L) 35.0 - 47.0 % LAB HEMETOLOGY METHOD 02/03/2024 12:30 PM EST [facility] MCV 101.4(H) 79.0 - 98.0 FL LAB HEMETOLOGY METHOD 02/03/2024 12:30 PM EST [facility] MCH 31.8 27.0 - 32.0 pcg LAB HEMETOLOGY METHOD 02/03/2024 12:30 PM [facility] MCHC 31.3(L) 32.0 - 37.0 g/dL LAB HEMETOLOGY METHOD 02/03/2024 12:30 PM EST [facility] RDW 14.3 11.0 - 15.0 % LAB HEMETOLOGY METHOD 02/03/2024 12:30 PM [facility] Platelets 368 130 - 400 K/mcL LAB HEMETOLOGY METHOD 02/03/2024 12:30 PM [facility] MPV 10.2 7.0 - 11.0 FL LAB HEMETOLOGY METHOD 02/03/2024 12:30 PM [facility] NRBC 0.0 <1.0 % LAB HEMETOLOGY METHOD 02/03/2024 12:30 PM EST [facility] NRBC Absolute 0.00 <0.10 K/mcL LAB HEMETOLOGY METHOD 02/03/2024 12:30 PM EST [facility] Blood Venous blood specimen / Unknown Venipuncture / Unknown 02/03/2024 8:36 AM EST 02/03/2024 11:48 AM EST us Salvatore Jenkins MD LAB BLOOD ORDERABLES Final Result [facility] [address] [place] [address], documented in this encounter Visit Diagnoses Diagnosis Paroxysmal atrial fibrillation (CMS/HCC V24, CMS/HCC V28) Atrial fibrillation Chronic systolic (congestive) heart failure (CMS/HCC V24, CMS/HCC V28) documented in this encounter Care Teams Section Chief Relationship Specialty Start Date End Date Orquidea Keller MD [address] [place] [address] PCP - General 01/07/23 documented as of this encounter
== END 2024-12-15 14:40 | disposition home or self-care (01) ==
LOC: HO.HMCC 13:46
PROVIDERS: PCP Internal Medicine; Visit Provider Internal Medicine
DX: I50.9 Heart failure, unspecified (principal); E11.9 Type 2 diabetes mellitus without complications; Z79.4 Long term (current) use of insulin; N18.9 Chronic kidney disease, unspecified; J06.9 Acute upper respiratory infection, unspecified

== ENCOUNTER → 2024-12-15 13:45 | Outpatient (BNVA) | payer MEDICARE, SELFPAY | PROVIDERS: PCP Internal Medicine; Visit Provider Internal Medicine | DX: I50.9 Heart failure, unspecified (principal); E11.9 Type 2 diabetes mellitus without complications; Z79.4 Long term (current) use of insulin; N18.9 Chronic kidney disease, unspecified; J06.9 Acute upper respiratory infection, unspecified | CPT/HCPCS: 99212 ==

== ENCOUNTER 2025-01-11 13:39 | Outpatient (AMB) | payer MEDICARE, SELFPAY ==
--- NOTE | 2025-01-11 14:00 | A.OFFPC_ITS ---
Vital Signs 01/11/25 14:03 Height 5 ft 7 in Weight 147 lb BMI 23.0 BP 128/64 Blood Pressure Location Rt brachial Position Sitting Pulse 53 Pulse Source Pulse Oximeter Pulse Oximetry (%) 99 Oxygen Delivery Method Room Air Intake Visit Reasons: 1 mo follow up Intake Note: Pt is here today for 1 month follow up visit. Pt states that her lower legs are swollen. Allergies dulaglutide (Trulicity) Allergy (Unknown, Verified 01/11/25 14:08) GERD losartan Allergy (Unknown, Verified 01/11/25 14:08) Hyperkalemia Sulfa (Sulfonamide Antibiotics) Allergy (Unknown, Verified 01/11/25 14:08) Rash dapagliflozin (From Farxiga) Adverse Reaction (Intermediate, Verified 01/11/25 14:08) candidasis [facility] Adverse Reaction (Intermediate, Verified 01/11/25 14:08) candidiasis amiodarone Adverse Reaction (Verified 01/11/25 14:08) Cough spironolactone Adverse Reaction (Verified 01/11/25 14:08) Hyperkalemia Medication List - Last Reconciled 01/11/25 by Orquidea Keller MD acetaminophen (Tylenol Extra Strength) 500 mg PO Q6H PRN albuterol sulfate 0.63 mg (3 mL) inhalation QID PRN allopurinol 100 mg PO DAILY apixaban (Eliquis) 2.5 mg PO BID ascorbate calcium (vitamin C) 500 mg PO DAILY atorvastatin 80 mg PO BEDTIME blood sugar diagnostic (FreeStyle Lite Strips) Use to test blood sugar three times daily blood-glucose sensor (DexGoMetro G7 Sensor device) As directed blood-glucose,bankruptcy manager,cont (Dexcom G7 Senior Insight Manager International) As directed buspirone 40 mg (4 x 10 mg) PO BEDTIME carvedilol 6.25 mg PO BID cholecalciferol (vitamin D3) 50 mcg PO DAILY codeine-guaifenesin 10-100 mg/5 mL 5 mL PO Q4-6H PRN ferrous fumarate 325 mg PO DAILY furosemide (Lasix) 60 mg (3 x 20 mg) PO DAILY insulin aspart U-100 (Novolog FlexPen U-100 Insulin aspart) 10 units (0.1 mL) subcut TID insulin degludec 20 units (0.2 mL) subcut BEDTIME insulin degludec (Tresiba FlexTouch U-200 insulin) 20 units (0.1 mL) subcut DAILY lactic acid-urea 1 appl topical DAILY PRN lancets (FreeStyle Lancets) use to test blood sugars three times per day latanoprost 0.005% 1 drp ophthalmic (eye) DAILY levothyroxine 75 mcg PO DAILY nebulizers As directed for updraft treatments-with all needed supplies omeprazole 20 mg PO DAILY PRN pen needle, diabetic USE 4 TIMES A DAY sacubitril-valsartan 97-103 mg (Entresto) 1 tab PO BID valacyclovir (Valtrex) 1,000 mg PO BID Tobacco use date assessed: 11/03/24 Last assessed Fall Risk: 01/11/25 Dental Screening Dental Screen Date: 11/03/24 HPI 1 mo follow up HPI Details Pt presents for f/u HFrEF, IDDM, CKD 3, chronic lower extremites edema. Pt has been under a lot of stress because her granddaughter's getting chemotherapy for oropharyngeal ca. The patient complains of feeling tired and decreased appetite. She reports episodes of at 04:00 in the morning but high glucose after eating over to 200's. She has not been compliant with ADA diet. [facility] Medical History CHF (congestive heart failure) Insulin dependent type 2 diabetes mellitus Diabetic retinopathy History of partial replacement of left hip joint using bipolar prosthesis Vitamin D deficiency Macrocytosis Cough Sciatica Hypothyroidism HTN (hypertension) Lower extremity edema Irritable bowel syndrome (IBS) Chronic GERD Anxiety Chronic kidney disease (CKD) Hyperlipidemia Hypertension associated with diabetes Surgical History No pertinent past surgical history Family History Mother Ovarian cancer Father Pancreatic cancer Thyroid disease Social History Household Members Other:: Housing: House Alcohol intake: never Patient Tobacco Use Status: Never used Tobacco e-Cigarette/Vaping Use: Never Used Second Hand Smoke Exposure: No service: No Current occupational status: retired Cognitive needs: No Hearing needs: No Vision needs: Yes Questionnaire Thrive Questionnaire Date Thrive assessed: 03/25/24 I am a: Patient JAMES-7 AMB Questionnaire JAMES-7 Date JAMES - 7 assessed: 11/03/24 Source: Developed by Drs. Bryce Garcia, Sophie Baldwin, Rock Coyle and colleagues, with an educational pranay from [employer]. Review of Systems Const All systems reviewed & are unremarkable except as noted in HPI and below Eyes Reports no additional complaints ENT Reports no additional complaints Card Reports no additional complaints Resp Reports no additional complaints GI Reports no additional complaints Reports no additional complaints Physical exam (Primary Care) Vital Signs: Last Vital Signs Pulse 53 01/11/25 14:03 BP 128/64 01/11/25 14:03 Pulse Ox 99 01/11/25 14:03 Oxygen Delivery Method Room Air 01/11/25 14:03 BMI result Body Mass Index 23.0 Tobacco/Smoking Status: Tobacco use Status Tobacco use date assessed 11/03/24 01/11/25 14:01 Patient Tobacco Use Status Never used Tobacco 01/11/25 14:01 e-Cigarette/Vaping Use Never Used 01/11/25 14:01 Thrive Assessment: Date of Thrive Assessment Date Thrive assessed 03/25/24 01/11/25 14:01 Const General: no acute distress HENMT Head: Yes normal to inspection Ears: TM's normal bilaterally Mouth: Normal oral and palatal mucosa present Eyes General: appearance normal, both eyes and all related structures Neck Neck: Yes no lymphadenopathy and Yes supple Resp Effort & Inspection: normal respiratory effort Auscultation: clear to auscultation bilaterally Cardio Rhythm: regular rhythm Heart sounds: S1 normal heart sound present and S2 normal heart sound present GI Inspection: Yes normal to inspection Palpation (GI): Soft to palpation Percussion: Yes normal to percussion Auscultation: normal bowel sounds Extrem Other: 3 + pitting edema b/l Coding Level of Care Code Complex visit Add On G2211 Diagnoses Chronic kidney disease (CKD) N18.9 CHF (congestive heart failure) I50.9 Insulin dependent type 2 diabetes mellitus E11.9; Z79.4 Assessment & Plan Assessment & Plan (1) Chronic kidney disease (CKD): Comment: stage 3/4 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 Glomerular nephritis/interstitial disease seem unlikely Code(s): N18.9 - Chronic kidney disease, unspecified Category: Medical Plan: Check basic metabolic panel today, avoid nephrotoxins (2) CHF (congestive heart failure): Comment: Echo LVEF 40-45%, mid to distal anterior, apical, mid-distal septal/anteroseptal and apical inf wall akinesis 01/10 [facility], Echo 10/2023 [facility], EF 55- 60 %, calcification of aortic and mitral valve, no pulmonary hypertension Code(s): I50.9 - Heart failure, unspecified Category: Medical Plan: Continue current medication including Entresto and carvedilol, change furosemide to bumetanide 1 mg b.i.d., monitor renal function and electrolytes in 1 week (3) Insulin dependent type 2 diabetes mellitus: Comment: Poorly controlled due to patient noncompliance with diet Code(s): E11.9 - Type 2 diabetes mellitus without complications; Z79.4 - ad terminal makeup operator (current) use of insulin Category: Medical Plan: Decrease Tresiba to 15 units and increase NovoLog coverage before meals for glucose less than 150 10 units, for glucose more than 150 15 units. Patient was advised to check blood glucose 2 hours after a meal Orders: Orders Basic Metabolic Panel Today N18.9 - Chronic kidney disease, unspecified NT Pro B Type Natriuretic Pept Today I50.9 - Heart failure, unspecified IRON PROFILE Today D64.9 - Anemia, unspecified Vitamin B12 and Folate Today D64.9 - Anemia, unspecified Complete Blood Count Auto Diff Today N18.9 - Chronic kidney disease, unspecified Medications: New bumetanide 1 mg PO BID 60 tabs 0RF Discontinued furosemide (Lasix) Discontinued Reason: Doctor's Order 60 mg (3 x 20 mg) PO DAILY 180 tabs 2RF
[2025-01-11 14:03] VITALS: BP 128/64; PULSE 53; O2SAT 99; BMI 23.0
--- OUTSIDE RECORDS SUMMARY | 2025-01-11 18:27 | XMS_ITS | Encounter Summary ---
Author Organization [facility] Address [address] [place] [address] Care Team Providers Care Photographer Helper Name Role Phone Orquidea Keller MD Primary Care Provider [phone] Encounter Details Date Type Department Care Team (Late st Contact Info) Description 01/10/2024 Lab Requisition [facility] - Main Lab [address] [facility] [place] [address] Salvatore Jenkins MD [address] [place], [place] [phone] Paroxysmal atrial fibrillation (CMS/HCC V24, CMS/HCC V28); [...] [facility] Comment:Calculation based on the Chronic [...] [facility] [address] [place] [address], * (ABNORMAL) Complete blood count (01/13/2024 8:11 [...] Result [facility] [address] [place] [address], documented in this encounter Visit Diagnoses Diagnosis Paroxysmal atrial fibrillation (CMS/HCC V24, CMS/HCC V28) Atrial fibrillation Chronic systolic (congestive) heart failure (CMS/HCC V24, CMS/HCC V28) documented in this encounter Care Teams Photographer Helper Relationship Specialty Start Date End Date Orquidea Keller MD [address] [facility] [place] [address] PCP - General 01/07/23 documented as of this encounter
--- OUTSIDE RECORDS SUMMARY | 2025-01-11 18:27 | XMS_ITS | Encounter Summary ---
Author Organization [facility] Address [address] [place] [address] Care Team Providers Care Group Product Manager Name Role Phone Orquidea Keller MD Primary Care Provider [phone] Encounter Details Date Type Department Care Team (Late st Contact Info) Description 01/08/2024 Lab Requisition [facility] - Main Lab [address] [facility] [place] [address] Salvatore Jenkins MD [address] [place], [place] [phone] Type 2 diabetes mellitus without complications (CMS/HCC [...] Hemoglobin A1c (01/08/2024 6:24 AM EST) Pathologist [facility] Hemoglobin A1C 6.4 <6.5 % LAB CHEMISTRY METHOD 01/08/2024 1:04 PM EST [facility] Mean Bld Glu Estim. 137 mg/dL LAB CHEMISTRY METHOD 01/08/2024 1:04 PM EST [facility] Blood Venous blood specimen / Unknown Venipuncture / Unknown 01/08/2024 6:24 AM EST 01/08/2024 9:05 AM EST Salvatore Jenkins MD LAB BLOOD ORDERABLES Final Result [facility] [address] [place] [address], * (ABNORMAL) Comprehensive metabolic panel (01/08/2024 6:24 AM EST) Pathologist [facility] Sodium 134 133 - 145 mmol/L LAB CHEMISTRY METHOD 01/08/2024 10:52 AM EST [facility] Potassium 4.9 3.5 - 5.5 mmol/L LAB CHEMISTRY METHOD 01/08/2024 10:52 AM EST [facility] Chloride 102 96 - 110 mmol/L LAB CHEMISTRY METHOD 01/08/2024 10:52 AM EST [facility] CO2 22 21 - 32 mmol/L LAB CHEMISTRY METHOD 01/08/2024 10:52 AM EST [facility] Anion Gap 10 3 - 11 LAB CHEMISTRY METHOD 01/08/2024 10:52 AM [facility] Glucose 134(H) 70 [...] Final Result [facility] [address] [place] [address], * (ABNORMAL) Complete blood count (01/08/2024 6:24 [...] LAB HEMETOLOGY METHOD 01/08/2024 10:12 AM EST [facility] MPV 10.9 7.0 - 11.0 FL LAB HEMETOLOGY METHOD 01/08/2024 10:12 AM EST [facility] NRBC 0.0 <1.0 % LAB HEMETOLOGY METHOD 01/08/2024 10:12 AM EST [facility] NRBC Absolute 0.00 <0.10 K/mcL LAB HEMETOLOGY METHOD 01/08/2024 10:12 AM EST [facility] Blood Venous blood specimen / Unknown Venipuncture / Unknown 01/08/2024 6:24 AM EST 01/08/2024 9:05 AM EST us Salvatore Jenkins MD LAB BLOOD ORDERABLES Final Result [facility] [address] [place] [address], documented in this encounter Visit Diagnoses Diagnosis Type 2 diabetes mellitus without complications (CMS/HCC V24, CMS/HCC V28) Iron deficiency anemia, unspecified Paroxysmal atrial fibrillation (CMS/HCC V24, CMS/HCC V28) Atrial fibrillation Chronic systolic (congestive) heart failure (CMS/HCC V24, CMS/HCC V28) documented in this encounter Care Teams Group Product Manager Relationship Specialty Start Date End Date Orquidea Keller MD [address] [place] [address] PCP - General 01/07/23 documented as of this encounter
--- OUTSIDE RECORDS SUMMARY | 2025-01-11 18:27 | XMS_ITS | Encounter Summary ---
Author Organization [facility] Address [address] [address] Phone Care Team Providers Care Rehabilitation Tech Name Role Phone Orquidea Keller MD Primary Care Provider [phone] Encounter Details Date Type Department Care Team (Late Contact Info) Description 09/10/2019 Telephone [facility] [address] [place] [address] Figueroa Jewell DPM [address] [address] Social History Tobacco Use Types Packs/Day Years [...] Care Team (Late st Contact Info) Description 03/30/2025 1:00 PM EST Office Visit [facility] [address] [place] [phone] Guru Holden DPM [address] [address] documented as of this encounter Visit Diagnoses Not on filedocumented in this encounter Care Teams Rehabilitation Tech Relationship Specialty Start Date End Date Orquidea Keller MD [address] [place] [address] PCP - General Internal Medicine 05/31/15 documented as of this encounter Additional Source Comments The information contained in this document represents components of the legal health record. It is not the complete legal health record.[facility]
--- OUTSIDE RECORDS SUMMARY | 2025-01-11 18:27 | XMS_ITS | Clinical Summary ---
Author Organization [facility] Address [address] [facility] [address] [place] [address] Phone Care Team Providers Care Lamination Machine Operator Name Role Phone Orquidea Keller MD Primary Care Provider [phone] Allergies Active Allergy Reactions Criticality Noted Date [...] Encounters Date Type Department Care Team Description 12/22/2024 1:00 PM EST Office Visit [facility] [address] [address] Guru Holden, SUZY Onychomycosis (Primary Dx); Pain [...] Upcoming Encounters Date Type Department Care Team ([facility] st Contact Info) Description 03/30/2025 1:00 PM EST Office Visit [facility] [address] [facility] [address] [place] [address] Guru Holden, DPM [address] [address] [email or web address] Due Date Last Done Comments [...] topic Medical Devices Not on file Insurance [employer] MEDEX SUPPLEMENT Care Teams Lamination Machine Operator Relationship Specialty Start Date End Date Orquidea Keller MD [address] [place] [address] PCP - General Internal Medicine 05/31/15 Additional Source Comments The information contained in this document represents components of the legal health record. It is not the complete legal health record.[facility]
--- OUTSIDE RECORDS SUMMARY | 2025-01-11 18:27 | XMS_ITS | Encounter Summary ---
Author Organization [facility] Address [address] [place] [address] Care Team Providers Care Office Administrator Name Role Phone Orquidea Keller MD Primary Care Provider [phone] Encounter Details Date Type Department Care Team (Late st Contact Info) Description 01/25/2024 Lab Requisition [facility] - Main Lab [address] [facility] [place] [address] Salvatore Jenkins MD [address] [place], [place] [phone] Paroxysmal atrial fibrillation (CMS/HCC V24, CMS/HCC V28); [...] mmol/L LAB CHEMISTRY METHOD 01/27/2024 11:44 AM [facility] Potassium 5.4 3.5 - 5.5 mmol/L LAB CHEMISTRY METHOD 01/27/2024 11:44 AM [facility] Chloride 102 96 - 110 mmol/L LAB CHEMISTRY METHOD 01/27/2024 11:44 AM [facility] CO2 28 21 - 32 mmol/L LAB CHEMISTRY METHOD 01/27/2024 11:44 AM [facility] Anion Gap 6 3 - 11 LAB CHEMISTRY METHOD 01/27/2024 11:44 AM [facility] Glucose 132(H) 70 - 100 mg/dL LAB CHEMISTRY METHOD 01/27/2024 11:44 AM [facility] BUN 41(H) 5 - 25 mg/dL LAB CHEMISTRY METHOD 01/27/2024 11:44 AM [facility] Creatinine 1.66(H) 0.50 - 1.10 mg/dL LAB CHEMISTRY METHOD 01/27/2024 11:44 AM [facility] eGFR 30(L) >=60 mL/min/1. 73m2 LAB CHEMISTRY METHOD 01/27/2024 11:44 AM [facility] Comment:Calculation based on the Chronic Kidney Disease Epidemiology Collaboration (CKD-EPI) equation refit without adjustment for race. BUN/Creatinine Ratio 24.7 LAB CHEMISTRY METHOD 01/27/2024 11:44 AM [facility] Calcium 9.0 8.5 - 10.5 mg/dL LAB CHEMISTRY METHOD 01/27/2024 11:44 AM [facility] Blood Venous blood specimen / Unknown Venipuncture / Unknown 01/27/2024 7:57 AM EST 01/27/2024 10:26 AM EST us Salvatore Jenkins MD LAB BLOOD ORDERABLES Final Result [facility] [address] [place] [address], * (ABNORMAL) Complete blood count (01/27/2024 7:37 AM EST) WBC 8.8 4.8 - 10.8 K/mcL LAB HEMETOLOGY METHOD 01/27/2024 11:22 AM EST [facility] RBC 2.70(L) 3.80 - 4.80 M/mcL LAB HEMETOLOGY METHOD 01/27/2024 11:22 AM [facility] Hemoglobin 8.4(L) 11.5 - 16.0 g/dL LAB HEMETOLOGY METHOD 01/27/2024 11:22 AM [facility] Hematocrit 27.2(L) 35.0 - 47.0 % LAB HEMETOLOGY METHOD 01/27/2024 11:22 AM [facility] MCV 102.6(H) 79.0 - 98.0 FL LAB HEMETOLOGY METHOD 01/27/2024 11:22 AM [facility] MCH 31.7 27.0 - 32.0 pcg LAB HEMETOLOGY METHOD 01/27/2024 11:22 AM [facility] MCHC 30.9(L) 32.0 - 37.0 g/dL LAB HEMETOLOGY METHOD 01/27/2024 11:22 AM [facility] RDW 14.1 11.0 - 15.0 % LAB HEMETOLOGY METHOD 01/27/2024 11:22 AM [facility] Platelets 512(H) 130 - 400 K/mcL LAB HEMETOLOGY METHOD 01/27/2024 11:22 AM [facility] MPV 9.7 7.0 - 11.0 [...] Result [facility] [address] [place] [address], documented in this encounter Visit Diagnoses Diagnosis Paroxysmal atrial fibrillation (CMS/HCC V24, CMS/HCC V28) Atrial fibrillation Chronic systolic (congestive) heart failure (CMS/HCC V24, CMS/HCC V28) documented in this encounter Care Teams Office Administrator Relationship Specialty Start Date End Date Orquidea Keller MD [address] [place] [address] PCP - General 01/07/23 documented as of this encounter
--- OUTSIDE RECORDS SUMMARY | 2025-01-11 18:28 | XMS_ITS | Encounter Summary ---
Author Organization [facility] Address [address] [place] [address] Care Team Providers Care Bull Gang Supervisor Name Role Phone Orquidea Keller MD Primary Care Provider [phone] Encounter Details Date Type Department Care Team (Late st Contact Info) Description 02/09/[address] [facility] - Main Lab [address] [facility] [place] [address] Salvatore Jenkins MD [address] [place], [place] [phone] Paroxysmal atrial fibrillation (CMS/HCC V24, CMS/HCC V28); [...] V28) documented in this encounter Care Teams Bull Gang Supervisor Relationship Specialty Start Date End Date Orquidea Keller MD [address] [place] [address] PCP - General 01/07/23 documented as of this encounter
--- OUTSIDE RECORDS SUMMARY | 2025-01-11 18:28 | XMS_ITS | Encounter Summary ---
Author Organization [facility] Address [address] [place] [address] Care Team Providers Care Bulk Pallet Builder Name Role Phone Orquidea Keller MD Primary Care Provider [phone] Encounter Details Date Type Department Care Team (Late st Contact Info) Description 01/18/2024 Lab Requisition [facility] - Main Lab [address] [facility] [place] [address] Salvatore Jenkins MD [address] [place], [place] [phone] Paroxysmal atrial fibrillation (CMS/HCC V24, CMS/HCC V28); [...] mmol/L LAB CHEMISTRY METHOD 01/20/2024 1:50 PM [facility] Potassium 4.9 3.5 - 5.5 mmol/L LAB CHEMISTRY METHOD 01/20/2024 1:50 PM [facility] Chloride 98 96 - 110 mmol/L LAB CHEMISTRY METHOD 01/20/2024 1:50 PM [facility] CO2 25 21 - 32 mmol/L LAB CHEMISTRY METHOD 01/20/2024 1:50 PM [facility] Anion Gap 9 3 - 11 LAB CHEMISTRY METHOD 01/20/2024 1:50 PM [facility] Glucose 113(H) 70 - 100 mg/dL LAB CHEMISTRY METHOD 01/20/2024 1:50 PM [facility] BUN 37(H) 5 - 25 mg/dL LAB CHEMISTRY METHOD 01/20/2024 1:50 PM [facility] Creatinine 1.64(H) 0.50 - 1.10 mg/dL LAB CHEMISTRY METHOD 01/20/2024 1:50 PM [facility] eGFR 30(L) >=60 mL/min/1. 73m2 LAB CHEMISTRY METHOD 01/20/2024 1:50 PM [facility] Comment:Calculation based on the Chronic Kidney Disease Epidemiology Collaboration (CKD-EPI) equation refit without adjustment for race. BUN/Creatinine Ratio 22.6 LAB CHEMISTRY METHOD 01/20/2024 1:50 PM [facility] Calcium 8.8 8.5 - 10.5 mg/dL LAB CHEMISTRY METHOD 01/20/2024 1:50 PM [facility] Blood Venous blood specimen / Unknown Venipuncture / Unknown 01/20/2024 8:18 AM EST 01/20/2024 10:46 AM EST us Salvatore Jenkins MD LAB BLOOD ORDERABLES Final Result [facility] [address] [place] [address], * (ABNORMAL) Complete blood count (01/20/2024 8:18 AM EST) WBC 10.9(H) 4.8 - 10.8 K/mcL LAB HEMETOLOGY METHOD 01/20/2024 12:21 PM [facility] RBC 2.50(L) 3.80 - 4.80 M/mcL LAB HEMETOLOGY METHOD 01/20/2024 12:21 PM [facility] Hemoglobin 7.9(L) 11.5 - 16.0 g/dL LAB HEMETOLOGY METHOD 01/20/2024 12:21 PM [facility] Hematocrit 25.1(L) 35.0 - 47.0 % LAB HEMETOLOGY METHOD 01/20/2024 12:21 PM [facility] MCV 101.2(H) 79.0 - 98.0 FL LAB HEMETOLOGY METHOD 01/20/2024 12:21 PM [facility] MCH 31.9 27.0 - 32.0 pcg LAB HEMETOLOGY METHOD 01/20/2024 12:21 PM [facility] MCHC 31.5(L) 32.0 - 37.0 g/dL LAB HEMETOLOGY METHOD 01/20/2024 12:21 PM EST [facility] RDW 13.5 11.0 - 15.0 % LAB HEMETOLOGY METHOD 01/20/2024 12:21 PM [facility] Platelets 833(H) 130 - 400 K/mcL LAB HEMETOLOGY METHOD 01/20/2024 12:21 PM [facility] MPV 9.5 7.0 - 11.0 FL LAB HEMETOLOGY METHOD 01/20/2024 12:21 PM EST [facility] NRBC 0.0 <1.0 % LAB HEMETOLOGY METHOD 01/20/2024 12:21 PM EST [facility] NRBC Absolute 0.00 <0.10 K/mcL LAB HEMETOLOGY METHOD 01/20/2024 12:21 PM EST [facility] Blood Venous blood specimen / Unknown Venipuncture / Unknown 01/20/2024 8:18 AM EST 01/20/2024 10:46 AM EST us Salvatore Jenkins MD LAB BLOOD ORDERABLES Final Result [facility] [address] [place] [address], documented in this encounter Visit Diagnoses Diagnosis Paroxysmal atrial fibrillation (CMS/HCC V24, CMS/HCC V28) Atrial fibrillation Chronic systolic (congestive) heart failure (CMS/HCC V24, CMS/HCC V28) documented in this encounter Care Teams Bulk Pallet Builder Relationship Specialty Start Date End Date Orquidea Keller MD [address] [place] [address] PCP - General 01/07/23 documented as of this encounter
--- OUTSIDE RECORDS SUMMARY | 2025-01-11 18:28 | XMS_ITS | Encounter Summary ---
Author Organization [facility] Address [address] [address] Phone Care Team Providers Care Supervisor Heat Treating Name Role Phone Orquidea Keller MD Primary Care Provider [phone] Reason for Visit * Reason Comments Medication Refill Encounter Details Date Type Department Care Team (Late Contact Info) Description 02/15/2021 Refill [facility] [address] [address] Mike Shahid, DPM [address] [address] [email or web address] Medication Refill Social History Tobacco Use Types [...] Description 03/30/2025 1:00 PM EST Office Visit [facility] [address] [address] Guru Holden DPM [address] [address] documented as of this encounter Visit Diagnoses Not on filedocumented in this encounter Care Teams Supervisor Heat Treating Relationship Specialty Start Date End Date Orquidea Keller MD [facility] [place] [address] PCP - General Internal Medicine 05/31/15 documented as of this encounter Additional Source Comments The information contained in this document represents components of the legal health record. It is not the complete legal health record.[facility]
--- OUTSIDE RECORDS SUMMARY | 2025-01-11 18:28 | XMS_ITS | Encounter Summary ---
Author Organization [facility] Address [address] [address] Phone Care Team Providers Care Directory Carrier Name Role Phone Orquidea Keller MD Primary Care Provider [phone] Reason for Visit * Reason Comments Medication Refill Encounter Details Date Type Department Care Team (Late Contact Info) Description 02/01/2021 Refill [facility] [address] [address] Mike Shahid, DPM [address] [address] [email or web address] Medication Refill Social History Tobacco Use Types [...] Description 03/30/2025 1:00 PM EST Office Visit [facility] [address] [address] Guru Holden DPM [address] [address] documented as of this encounter Visit Diagnoses Not on filedocumented in this encounter Care Teams Directory Carrier Relationship Specialty Start Date End Date Orquidea Keller MD [place] [address] PCP - General Internal Medicine 05/31/15 documented as of this encounter Additional Source Comments The information contained in this document represents components of the legal health record. It is not the complete legal health record.[facility]
--- OUTSIDE RECORDS SUMMARY | 2025-01-11 18:28 | XMS_ITS | Clinical Summary ---
Author Organization [address] [facility] Address [address] [place] [address] Phone Care Team Providers Care Community Relations Police Lieutenant Name Role Phone Orquidea Keller MD Primary Care Provider [phone] Medications atorvastatin (LIPITOR) 80 mg tablet TAKE [...] Test (HGBA1C) 07/07/2024 01/08/2024 COVID-19 Vaccine ( - season) 2024 Influenza Vaccine (#1) 2024 9, [...] mmol/L LAB CHEMISTRY METHOD 02/03/2024 4:56 PM [facility] Potassium 5.0 3.5 - 5.5 mmol/L LAB CHEMISTRY METHOD 02/03/2024 4:56 PM [facility] Chloride 104 96 - 110 mmol/L LAB CHEMISTRY METHOD 02/03/2024 4:56 PM [facility] CO2 27 21 - 32 mmol/L LAB CHEMISTRY METHOD 02/03/2024 4:56 PM [facility] Anion Gap 6 3 - 11 LAB CHEMISTRY METHOD 02/03/2024 4:56 PM [facility] Glucose 114(H) 70 - 100 mg/dL LAB CHEMISTRY METHOD 02/03/2024 4:56 PM [facility] BUN 38(H) 5 - 25 mg/dL LAB CHEMISTRY METHOD 02/03/2024 4:56 PM [facility] Creatinine 1.53(H) 0.50 - 1.10 mg/dL LAB CHEMISTRY METHOD 02/03/2024 4:56 PM [facility] eGFR 33(L) >=60 mL/min/1. 73m2 LAB CHEMISTRY METHOD 02/03/2024 4:56 PM [facility] Comment:Calculation based on the Chronic Kidney Disease Epidemiology Collaboration (CKD-EPI) equation refit without adjustment for race. BUN/Creatinine Ratio 24.8 LAB CHEMISTRY METHOD 02/03/2024 4:56 PM [facility] Calcium 9.1 8.5 - 10.5 mg/dL LAB CHEMISTRY METHOD 02/03/2024 4:56 PM [facility] Blood Venous blood specimen / Unknown Venipuncture / Unknown 02/03/2024 8:36 AM EST 02/03/2024 11:48 AM EST Salvatore Jenkins MD LAB BLOOD ORDERABLES Final Result [facility] [address] [place] [address], [place] [phone] * Hemoglobin A1c (01/08/2024 6:24 AM EST) Hemoglobin A1C 6.4 <6.5 % LAB CHEMISTRY METHOD 01/08/2024 1:04 PM EST [facility] Mean Bld Glu Estim. 137 mg/dL LAB CHEMISTRY METHOD 01/08/2024 1:04 PM EST [facility] Blood Venous blood specimen / Unknown Venipuncture / Unknown 01/08/2024 6:24 AM EST 01/08/2024 9:05 AM EST Salvatore Jenkins MD LAB BLOOD ORDERABLES Final Result [facility] [address] [place] [address], [place] [phone] from Last 3 Months or Most Recently Relevant to Health Maintenance Insurance MEDICARE [facility] Care Teams Community Relations Police Lieutenant Relationship Specialty Start Date End Date Orquidea Keller MD [address] [place] [address] PCP - General 01/07/23
--- OUTSIDE RECORDS SUMMARY | 2025-01-11 18:28 | XMS_ITS | Encounter Summary ---
Author Organization [facility] Address [address] [place] [address] Care Team Providers Care Donor Technician Name Role Phone Orquidea Keller MD Primary Care Provider [phone] Encounter Details Date Type Department Care Team (Late st Contact Info) Description 01/31/2024 Lab Requisition [facility] [address] [facility] [place] [address] Salvatore Jenkins MD [address] [place], [place] [id number] Paroxysmal atrial fibrillation (CMS/HCC V24, CMS/HCC V28); [...] mmol/L LAB CHEMISTRY METHOD 02/03/2024 4:56 PM [facility] Potassium 5.0 3.5 - 5.5 mmol/L LAB CHEMISTRY METHOD 02/03/2024 4:56 PM [facility] Chloride 104 96 - 110 mmol/L LAB CHEMISTRY METHOD 02/03/2024 4:56 PM [facility] CO2 27 21 - 32 mmol/L LAB CHEMISTRY METHOD 02/03/2024 4:56 PM [facility] Anion Gap 6 3 - 11 LAB CHEMISTRY METHOD 02/03/2024 4:56 PM [facility] Glucose 114(H) 70 - 100 mg/dL LAB CHEMISTRY METHOD 02/03/2024 4:56 PM [facility] BUN 38(H) 5 - 25 mg/dL LAB CHEMISTRY METHOD 02/03/2024 4:56 PM [facility] Creatinine 1.53(H) 0.50 - 1.10 mg/dL LAB CHEMISTRY METHOD 02/03/2024 4:56 PM [facility] eGFR 33(L) >=60 mL/min/1. 73m2 LAB CHEMISTRY METHOD 02/03/2024 4:56 PM [facility] Comment:Calculation based on the Chronic Kidney Disease Epidemiology Collaboration (CKD-EPI) equation refit without adjustment for race. BUN/Creatinine Ratio 24.8 LAB CHEMISTRY METHOD 02/03/2024 4:56 PM [facility] Calcium 9.1 8.5 - 10.5 mg/dL LAB CHEMISTRY METHOD 02/03/2024 4:56 PM [facility] Blood Venous blood specimen / Unknown Venipuncture / Unknown 02/03/2024 8:36 AM EST 02/03/2024 11:48 AM EST us Salvatore Jenkins MD LAB BLOOD ORDERABLES Final Result [facility] [address] [place] [address], * (ABNORMAL) Complete blood count (02/03/2024 8:36 AM EST) WBC 7.1 4.8 - 10.8 K/mcL LAB HEMETOLOGY METHOD 02/03/2024 12:30 PM EST [facility] RBC 2.80(L) 3.80 - 4.80 M/mcL LAB HEMETOLOGY METHOD 02/03/2024 12:30 PM [facility] Hemoglobin 8.8(L) 11.5 - 16.0 g/dL LAB HEMETOLOGY METHOD 02/03/2024 12:30 PM [facility] Hematocrit 28.1(L) 35.0 - 47.0 % LAB HEMETOLOGY METHOD 02/03/2024 12:30 PM EST [facility] MCV 101.4(H) 79.0 - 98.0 FL LAB HEMETOLOGY METHOD 02/03/2024 12:30 PM EST [facility] MCH 31.8 27.0 - 32.0 pcg LAB HEMETOLOGY METHOD 02/03/2024 12:30 PM [facility] MCHC 31.3(L) 32.0 - 37.0 g/dL LAB HEMETOLOGY METHOD 02/03/2024 12:30 PM EST [facility] RDW 14.3 11.0 - 15.0 % LAB HEMETOLOGY METHOD 02/03/2024 12:30 PM [facility] Platelets 368 130 - 400 K/mcL LAB HEMETOLOGY METHOD 02/03/2024 12:30 PM [facility] MPV 10.2 7.0 - 11.0 FL LAB HEMETOLOGY METHOD 02/03/2024 12:30 PM [facility] NRBC 0.0 <1.0 % LAB HEMETOLOGY METHOD 02/03/2024 12:30 PM EST [facility] NRBC Absolute 0.00 <0.10 K/mcL LAB HEMETOLOGY METHOD 02/03/2024 12:30 PM EST [facility] Blood Venous blood specimen / Unknown Venipuncture / Unknown 02/03/2024 8:36 AM EST 02/03/2024 11:48 AM EST us Salvatore Jenkins MD LAB BLOOD ORDERABLES Final Result [facility] [address] [place] [address], documented in this encounter Visit Diagnoses Diagnosis Paroxysmal atrial fibrillation (CMS/HCC V24, CMS/HCC V28) Atrial fibrillation Chronic systolic (congestive) heart failure (CMS/HCC V24, CMS/HCC V28) documented in this encounter Care Teams Donor Technician Relationship Specialty Start Date End Date Orquidea Keller MD [address] [place] [address] PCP - General 01/07/23 documented as of this encounter
== END 2025-01-11 16:46 | disposition home or self-care (01) ==
LOC: HO.HMCC 13:40
PROVIDERS: PCP Internal Medicine; Visit Provider Internal Medicine
DX: I50.9 Heart failure, unspecified (principal); E11.9 Type 2 diabetes mellitus without complications; Z79.4 Long term (current) use of insulin; N18.9 Chronic kidney disease, unspecified

== ENCOUNTER 2025-01-11 13:39 | Outpatient (REF) | payer MEDICARE, SELFPAY ==
[2025-01-11 16:06] LABS: MANUAL DIFF FLAG NO
[2025-01-11 16:10] LABS: Hematocrit 32.3 % (37.0-47.0); Hemoglobin 10.2 g/dl (12.0-16.0); Imm Gran Abs Auto 0.03 X10*3/uL (0.00-0.03); Imm Gran Pct Auto 0.4 % (0.0-0.4); Lymphocytes Absolute Auto 2.3 X10*3/uL (1.2-4.9); Mean Corpuscular HGB Conc 31.6 g/dl (31.0-35.0); Mean Corpuscular Hemoglobin 33.0 pg (27.0-33.0); Mean Corpuscular Volume 104.5 fL (80.0-98.0); NRBC Abs Auto 0.000 X10*3/uL (0.0-0.012); NRBC Pct Auto 0.0 /100WBC (0.0-0.2); Platelet Count 288 X10*3/uL (160-400); Red Blood Count 3.09 X10*6/uL (4.20-5.50); White Blood Count 8.3 X10*3/uL (4.8-10.8)
[2025-01-11 17:13] LABS: Folate 17.0 ng/mL (> or = 4.0); Vitamin B12 1613 pg/mL (200-900)
[2025-01-11 17:15] LABS: Anion Gap 13 (12-20); Blood Urea Nitrogen 63 mg/dL (9-16); Calcium 9.2 mg/dL (8.4-10.2); Carbon Dioxide 24 mmol/L (22-29); Chloride 107 mmol/L (96-108); Estimated Glomerular Filt Rate 23; Iron 105 mcg/dL (30-160); Percent Iron Saturation 39 % (15-50); Potassium 4.6 mmol/L (3.3-5.1); Sodium 139 mmol/L (135-145); Total Iron Binding Capacity 267 mcg/dL (228-428); Unsaturated Iron Binding 162 ug/dL
[2025-01-11 17:26] LABS: NT Pro B Type Natriuretic Pept 662.0 pg/mL (<300)
--- OUTSIDE RECORDS SUMMARY | 2025-01-11 19:42 | XMS_ITS | Data Portability ---
Author Organization [place] [facility] Address [address] [facility] [address] [place] [address] Care Team Providers Care Dry Cure Worker Name Role Phone JUSTA SAHNIANNA Primary Care Provider [phone] Assessment Encounter Date Assessment Date Assessment LastModified [...] Organization Details Last Modified Time Details Appointments Establish ed 15 2024 02:15P ELEAZAR TANNER Not available Not available Not available Lab None recorded. Referral None recorded. Procedures None recorded. Surgeries None recorded. Imaging None recorded. Medication Orders None recorded. Patient TargetsNo targets recorded. Patient InstructionsNo instructions [...] audio gram No observ ation record ed. [email or web address] Not Available 09/19 15:12:40 12/16/19 24 audio gram No observ ation record ed. [email or web address] Not Available 11/19 15:12:52 Result Notes None recorded. Problems Name Problem SNOMED Code Status Onset Date Resolution Date Notes Provider Name and Address Organization Details Recorded Time Otalgia of right ear 4895871999 Active 2018 Otalgia, right ear; Note: Date Diagnosed : 03/12/2018 2:36 PM (H92.01) Not Available [facility] 4 03:11:57 Sensorine ural hearing loss of bilateral ears 410620235 Active 2018 Sensorine ural hearing loss, bilateral ; Note: Date Diagnosed : 08/12/2018 1:56 PM (H90.3) Not Available [facility] 4 03:11:58 Bilateral tinnitus 91217705042 02 Active 2018 Tinnitus, bilateral ; Note: Date Diagnosed : 08/12/2018 1:56 PM (H93.13) Not Available [facility] 4 03:11:57 Impacted cerumen in right ear 86092919474 78100 Active 2022 Impacted cerumen, right ear; Note: Date Diagnosed : 07/04/2022 1:17 PM (H61.21) Not Available [facility] 4 03:11:57 Bilateral disorder of Eustachia n tubes 50370352463 Active 2023 DUKE NAVARRETE [address] [facility] [address], [place], [address] , [facility] - [facility] 4 13:39:50 Acute serous otitis media of right ear 34739043068 93963 Active 2023 YADIRA JORDAN MD [address] [facility] [address], [place], [address] , [facility] - [facility] 4 13:59:45 Problem Notes None recorded. Procedures Surgical History Date Name Laterality Status Provider Name and Address Organization Details Recorded Time 12/16/19 24 Tympanometry - 26461 completed MARTIN HOPE, [address], [address], [facility] 12/16/2023 13:08:04 10/16/19 24 Air & Speech Audio with Tymps - 67139, 66518 & 11505 completed ROBIN RODRIGUEZ, [facility] 100 [facility],[address], [address], [facility] 10/16/2023 13:43:04 Imaging Results None recorded. Procedure Notes None recorded. Medical Equipment None Reported. Allergies Allergen ID Allergen Name Allergen Category Reaction Reaction Severity Criticality Documentation Date Start Date Code Code System Note Provider Name and Address Organization Details Recorded Time 94143 Substance with sulfonami de structure and antibacte rial mechanism of action (substanc e) medicatio n other Not available Not available 07/02/2023 31584 8003 SNOMED React ion: unkno wn, unspe cifie d;; Not Available [facility] 4 00:49:45 Medications Name Sig Start [...] TAKE 1 TABLET BY MOUTH EVERY DAY [id number] active Not Available Not Available Not Available [...] Available Not Available No t Available [facility] spacer USE WITH INHALER active Not [...] Updated DateTime 10/16/2023 160.02 cm 26 kg/m2 19657.08 g Ratnahienkaran Lorraine [facility] 10/16/2023 13:54:00 Date Recorded Body height Body mass index (BMI) Body weight Provider Name and Address Organization Details Last Updated DateTime 12/16/2023 160.02 cm 26 kg/m2 57371.08 g Raina Gallego [facility] 12/16/2023 12:58:48 Social History None recorded. Functional Status None recorded. Mental Status None recorded. Family History Nothing Reported. Medical History No medical history recorded. Gynecological HistoryNo gynecological history recorded. Obstetrics History GPAL:G 0 P 0 0 0 0 Past Encounters Encounter ID Performer Location Encounter Start Date Encounter Closed Date Diagnosis/Indication Diagnosis SNOMED-CT Code Diagnosis ICD10 Code Diagnosis IMO Codes Diagnosis Note [id number] YADIRA JORDAN MD [facility] [address] [address] 10/16/2023 13:00:57 10/16/2023 14:01:35 Acute serous otitis media of right ear 2604874712 147441 H65.01 Likely due to a URI. Will reevaluate in 6 weeks and I will expect it will resolve. Hearing is stable. [id number] DUKE NAVARRETE [facility] [address] [address] 10/16/2023 13:39:08 10/16/2023 16:44:20 Sensorineural hearing loss of bilateral ears 684188438 H90.3 Right Ear:Mild to severe SNHL with excellent speech discrimina tion.Type B tympanogra m.Left Ear:Normal hearing through 1K Hz sloping to a severe SNHL with excellent speech discrimina tion.Type As tympanogra m. Bilateral disorder of Eustachian tubes 2796913886 588040 H69.93 [id number] RITO VALDIVIA PA-C [facility] [address] [address] 12/16/2023 12:50:25 12/16/2023 13:30:32 Bilateral disorder of Eustachian tubes 1044275902 757854 H69.93 Acute sero us otitis media of right ear 6229883164 326807 H65.01 [id number] DUKE LOVE [facility] [address] [address] 12/16/2023 13:07:22 12/16/2023 14:57:24 Sensorineural hearing loss of bilateral ears 489811114 H90.3 Tympanomet ry:Right: Type BLeft: C Health Concerns Section Related Observation LastModified by Organization Detai ls LastModified Time None Recorded Concern Status LastModified by Organization Details LastModified Time None Recorded Advance Directives Directive None Recorded Payers Insurance Date Sequence Insurance Name Policy Number Policy Vilchis Covered Member ID Vilchis Member ID Guarantor Name 12/16/2023 [place] [employer] Beverly Marie [id number] 2 Beverly Marie 12/16/2023 [place] [employer] Beverly Marie [id number] 2 Beverly Marie 12/16/2023 1 [place] Beverly Marie [id number] Beverly Marie 12/13/2023 2 [place] [id number] Beverly Marie [id number] Beverly Marie Notes Date Note Type Note Provider Name and Address Organization Details Recorded Time 10/16/2023 text/html ROS as noted in the HPI He of slightly asymmetric HL. Right ear has felt blocked for two days. She also has a cough. Hx of NM and afib since last visit. YADIRA JORDAN MD [address] [place] [address], [address], [facility] - [facility] 10/16/2023 14:00:41 12/16/2023 text/html ROS as noted [...] some seasonal allergies. SILVIO RODRIGUEZ MD [address] [facility],[address], [address], [facility] - [facility] 12/16/2023 16:30:44 12/16/2023 text/html ELEAZAR Bishop, requested tympanometry. DUKE LOVE [address] [facility],[place] [address], [place], [address], [facility] 12/16/2023 13:09:48 OBGyn Episode No OBEpisode recorded.
== END 2025-01-11 13:40 | disposition home or self-care (01) ==
LOC: HO.HMGCLDS 13:39
PROVIDERS: PCP Internal Medicine; Visit Provider Internal Medicine
DX: E11.22 Type 2 diabetes mellitus with diabetic chronic kidney disease (principal); I13.0 Hypertensive heart and chronic kidney disease with heart failure and stage 1 through stage 4 chronic kidney disease, or unspecified chronic kidney disease; I50.9 Heart failure, unspecified; D63.1 Anemia in chronic kidney disease; N18.30 Chronic kidney disease, stage 3 unspecified; R60.0 Localized edema; R53.83 Other fatigue; Z63.79 Other stressful life events affecting family and household; Z79.4 Long term (current) use of insulin
CPT/HCPCS: 36415; 80048; 82607; 82746; 83540; 83880; 85025; 99212

== ENCOUNTER 2025-01-27 13:10 | Outpatient (AMB) | payer MEDICARE, SELFPAY ==
[2025-01-27 13:18] VITALS: BP 118/58; PULSE 66; RESP 17; TEMP 36.1; O2SAT 96; BMI 23.0
--- NOTE | 2025-01-27 13:18 | A.OFFPC_ITS ---
Vital Signs 01/27/25 13:18 Height 5 ft 7 in Weight 147 lb BMI 23.0 BP 118/58 L Blood Pressure Location Lt brachial Position Sitting Respiration 17 Pulse 66 Pulse Source Pulse Oximeter Temp 97 F Temp Source Oral Pulse Oximetry (%) 96 Oxygen Delivery Method Room Air Intake Visit Reasons: 2 week follow up Intake Note: Pt is here today for 2 weeks follow up visit. 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 Accompanied by: Self / Same As Patient Allergies dulaglutide (Trulicity) Allergy (Unknown, Verified 01/27/25 13:19) GERD losartan Allergy (Unknown, Verified 01/27/25 13:19) Hyperkalemia Sulfa (Sulfonamide Antibiotics) Allergy (Unknown, Verified 01/27/25 13:19) Rash dapagliflozin (From [facility]) Adverse Reaction (Intermediate, Verified 01/27/25 13:19) candidasis empagliflozin (From [facility]) Adverse Reaction (Intermediate, Verified 01/27/25 13:19) candidiasis amiodarone Adverse Reaction (Verified 01/27/25 13:19) Cough spironolactone Adverse Reaction (Verified 01/27/25 13:19) Hyperkalemia Tobacco use date assessed: 11/03/24 Dental Screening Dental Screen Date: 11/03/24 HPI 2 week follow up HPI Details Patient presents for the follow-up of chronic lower extremities edema and poorly-controlled diabetes. She reports feeling better taking bumetanide 1 mg daily and reports lower extremity swelling improved significantly. Patient has not been compliant with ADA diet and has not been monitoring her blood glucose regularly. She has been under lot of stress related to her grandson in law diagnosed with head and neck cancer. [facility] Medical History CHF (congestive heart failure) Insulin dependent type 2 diabetes mellitus Diabetic retinopathy History of partial replacement of left hip joint using bipolar prosthesis Vitamin D deficiency Macrocytosis Cough Sciatica Hypothyroidism HTN (hypertension) Lower extremity edema Irritable bowel syndrome (IBS) Chronic GERD Anxiety Chronic kidney disease (CKD) Hyperlipidemia Hypertension associated with diabetes Surgical History No pertinent past surgical history Family History Mother Ovarian cancer Father Pancreatic cancer Thyroid disease Social History Household Members Other:: Housing: House Alcohol intake: never Patient Tobacco Use Status: Never used Tobacco e-Cigarette/Vaping Use: Never Used Second Hand Smoke Exposure: No service: No Current occupational status: retired Cognitive needs: No Hearing needs: No Vision needs: Yes Questionnaire Thrive Questionnaire Date Thrive assessed: 03/25/24 I am a: Patient AUDIT C Alcohol Use Questionnaire (AUDIT-C) 1. How often do you have a drink containing alcohol?: Never 3. How often do you have six or more drinks on one occasion?: Never Total Score: 0 JAMES-7 AMB Questionnaire JAMES-7 Date JAMES - 7 assessed: 11/03/24 Source: Developed by Drs. Bryce Garcia, Sophie Baldwin, Rock Coyle and colleagues, with an educational pranay from [employer]. Review of Systems Const All systems reviewed & are unremarkable except as noted in HPI and below Eyes Reports no additional complaints ENT Reports no additional complaints Resp Reports no additional complaints GI Reports no additional complaints Reports no additional complaints Physical exam (Primary Care) Vital Signs: Last Vital Signs Temp 97 F 01/27/25 13:18 Pulse 66 01/27/25 13:18 Resp 17 01/27/25 13:18 BP 118/58 L 01/27/25 13:18 Pulse Ox 96 01/27/25 13:18 Oxygen Delivery Method Room Air 01/27/25 13:18 BMI result Body Mass Index 23.0 Tobacco/Smoking Status: Tobacco use Status Tobacco use date assessed 11/03/24 01/27/25 13:20 Patient Tobacco Use Status Never used Tobacco 01/27/25 13:20 e-Cigarette/Vaping Use Never Used 01/27/25 13:20 Thrive Assessment: Date of Thrive Assessment Date Thrive assessed 03/25/24 01/27/25 13:20 Const General: no acute distress HENMT Head: Yes normal to inspection Face and sinus: Yes normal facial exam Eyes General: appearance normal, both eyes and all related structures Resp Effort & Inspection: normal respiratory effort Auscultation: clear to auscultation bilaterally Cardio Rhythm: regular rhythm Heart sounds: S1 normal heart sound present and S2 normal heart sound present GI Inspection: Yes normal to inspection Palpation (GI): Soft to palpation Percussion: Yes normal to percussion Auscultation: normal bowel sounds Extrem Other: 1+ pitting edema bilaterally in lower extremities Coding Level of Care Code Est Pt Level 4 (14102) Diagnoses CHF (congestive heart failure) I50.9 Hyperlipidemia E78.5 Insulin dependent type 2 diabetes mellitus E11.9; Z79.4 Chronic kidney disease (CKD) N18.9 Assessment & Plan Assessment & Plan (1) CHF (congestive heart failure): Comment: Echo LVEF 40-45%, mid to distal anterior, apical, mid-distal septal/anteroseptal and apical inf wall akinesis 01/10 [facility], Echo 10/2023 [facility], EF 55- 60 %, calcification of aortic and mitral valve, no pulmonary hypertension Code(s): I50.9 - Heart failure, unspecified Category: Medical Plan: Blood pressure and heart rate are low. Carvedilol will be decreased to 3125 mg twice a day patient will continue Entresto and follow-up with cardiology next month, continue bumetanide 1 mg daily. Patient was advised to monitor her weight daily and take an extra 1 mg of bumetanide if the weight increases by more than 2 lb. 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 Continue current medications follow-up in 2 months with a fasting labs before (4) Chronic kidney disease (CKD): Comment: stage 3/4 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 Glomerular nephritis/interstitial disease seem unlikely Code(s): N18.9 - Chronic kidney disease, unspecified Category: Medical Plan: Monitor renal function avoid nephrotoxins, follow-up with nephrology Orders: Orders Comprehensive [place]. 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 Hemoglobin A1c 2 Months E11.9 - Type 2 diabetes mellitus without complications, E78.5 - Hyperlipidemia, unspecified, I50.9 - Heart failure, unspecified, Z79.4 - long-term (current) use of insulin TSH reflex Free T4 2 Months E11.9 - Type 2 diabetes mellitus without complications, E78.5 - Hyperlipidemia, unspecified, I50.9 - Heart failure, unspecified, Z79.4 - long-term (current) use of insulin IRON PROFILE 2 Months E11.9 - Type 2 diabetes mellitus without complications, E78.5 - Hyperlipidemia, unspecified, I50.9 - Heart failure, unspecified, Z79.4 - long-term (current) use of insulin Medications: New carvedilol must administer with a meal/food 3.125 mg PO BID 180 tabs 0RF Changed From bumetanide 1 mg PO BID 60 tabs 0RF To bumetanide 1 mg PO .qd 90 tabs 0RF Discontinued carvedilol must administer with a meal/food Discontinued Reason: Doctor's Order 6.25 mg PO BID 180 tabs 3RF
== END 2025-01-27 15:04 | disposition home or self-care (01) ==
LOC: HO.HMCC 13:11
PROVIDERS: PCP Internal Medicine; Visit Provider Internal Medicine
DX: I50.9 Heart failure, unspecified (principal); E78.5 Hyperlipidemia, unspecified; E11.9 Type 2 diabetes mellitus without complications; Z79.4 Long term (current) use of insulin; N18.9 Chronic kidney disease, unspecified

== ENCOUNTER → 2025-01-27 13:10 | Outpatient (BNVA) | payer MEDICARE, SELFPAY | PROVIDERS: PCP Internal Medicine; Visit Provider Internal Medicine | DX: I50.9 Heart failure, unspecified (principal); E78.5 Hyperlipidemia, unspecified; E11.9 Type 2 diabetes mellitus without complications; N18.9 Chronic kidney disease, unspecified; Z79.4 Long term (current) use of insulin | CPT/HCPCS: 99212 ==